=== PATIENT | female | born 1965 | race Caucasian/White ===

== ENCOUNTER 2020-08-12 21:03 | Inpatient (IN) | payer MEDICAID ==
--- NOTE | 2020-08-12 21:28 | ED Physician Documentation ---
History of Present Illness - Stated complaint Stated Complaint: WEAKNESS - Chief complaint Chief Complaint: Critical Care - History obtained from History obtained from: Family (sister) - History of Present Illness Timing: Today Improved by: unknown Worsened by: unknown - Additonal information Additional information: patient presents with AMS and unable to contribute to HPI/ROS. Patient brought to ED by her sister. Patient's daughter says that patient came to stay with her (sister) recently. Sister says that since earlier today, patient has been confused, drowsy, exhibited generalized weakness. Sister says that patient had n/v on Sunday and had blood sugar of 40 at that time. It is not clear how this was addressed (this information was told to ED RN who then gives the information to me; patient's sister is no longer in ED waiting room). Review of Systems Unable to obtain: AMS PD PAST MEDICAL HISTORY - Past Medical History Past Medical History: Yes Endocrine/Autoimmune: Type 1 diabetes Other Past Medical History: fibromyalgia - Present Medications Home Medications: Ambulatory Orders Medication Instructions Recorded Confirmed No Known Home Medications 08/13/20 08/13/20 - Allergies Allergies/Adverse Reactions: Allergies Allergy/AdvReac Type Severity Reaction Status Date / Time No Known Drug Allergies Allergy Verified 08/12/20 21:26 - Living Situation Living Situation: reports: With family PD ED PE NORMAL - Vitals Vital signs reviewed: Yes - General General: Well developed/nourished, Other (awake but lethargic. oriented x 1 (gives name but does not answer any other questions; she appears confused and appears to be having trouble understanding questions)) - HEENT HEENT: PERRL, EOMI, Other (dry mucous membranes) - Neck Neck: Supple, no meningeal sign - Cardiac Cardiac: No murmur - Respiratory Respiratory: No respiratory distress, Clear bilaterally - Abdomen Abdomen: Soft, Non tender - Derm Derm: Normal color, Warm and dry - Extremities Extremities: No edema PD ED PE EXPANDED - Cardiac Cardiac: Tachy, Regular Rhythm Results - Vitals Vitals: Vital Signs - 24 hr 08/12/20 08/12/20 08/12/20 21:05 21:29 22:08 Temperature 36.1 C L Heart Rate 115 H 110 H 99 Respiratory 31 H 19 20 Rate Blood Pressure 125/86 H 125/86 H 169/86 H O2 Saturation 97 96 100 08/12/20 08/12/20 22:30 23:00 Temperature Heart Rate 118 H 104 H Respiratory 15 13 Rate Blood Pressure 127/76 139/63 H O2 Saturation 97 97 Oxygen O2 Source Room air - Labs Labs: Laboratory Tests 08/12/20 08/12/20 08/12/20 21:15 21:15 21:56 WBC 14.5 H RBC 4.30 Hgb 12.7 Hct 37.8 MCV 87.9 MCH 29.5 MCHC 33.6 RDW 12.1 Plt Count 271 MPV 11.8 H Neut # (Auto) 11.9 H Lymph # (Auto) 1.4 L Leake # (Auto) 1.1 H Eos # (Auto) 0.0 Baso # (Auto) 0.1 Absolute Nucleated RBC 0.00 Nucleated RBC % 0.0 VBG pH VBG pCO2 VBG pO2 VBG HCO3 VBG Total CO2 VBG O2 Saturation VBG Base Excess Sodium 136 Potassium 3.9 Chloride 96 L Carbon Dioxide 17 L Anion Gap 23.0 H BUN 61 H Creatinine 2.0 H Estimated GFR (MDRD) 26 L Glucose 726 H* Calcium 9.4 Total Bilirubin 1.2 H AST 20 ALT 24 Alkaline Phosphatase 56 Total Protein 7.4 Albumin 4.0 Globulin 3.4 Albumin/Globulin Ratio 1.2 Lipase 22 Nasal Adenovirus (PCR) NOT DETECTED Nasal B. parapertussis DNA (PCR) NOT DETECTED Nasal Coronavir 229E PCR NOT DETECTED Nasal Coronavir HKU1 PCR NOT DETECTED Nasal Coronavir NL63 PCR NOT DETECTED Nasal Coronavir OC43 PCR NOT DETECTED Nasal Enterovir/Rhinovir PCR DETECTED A Nasal Influenza B PCR NOT DETECTED Nasal Influenza A PCR NOT DETECTED Nasal Parainfluen 1 PCR NOT DETECTED Nasal Parainfluen 2 PCR NOT DETECTED Nasal Parainfluen 3 PCR NOT DETECTED Nasal Parainfluen 4 PCR NOT DETECTED Nasal RSV (PCR) NOT DETECTED Nasal B.pertussis DNA PCR NOT DETECTED Nasal C.pneumoniae (PCR) NOT DETECTED Janes Human Metapneumo PCR NOT DETECTED Nasal M.pneumoniae (PCR) NOT DETECTED Nasal SARS-CoV-2 (PCR) NOT DETECTED Ethyl Alcohol < 5.0 Serum Ketones SMALL H 08/12/20 21:59 WBC RBC Hgb Hct MCV MCH MCHC RDW Plt Count MPV Neut # (Auto) Lymph # (Auto) Leake # (Auto) Eos # (Auto) Baso # (Auto) Absolute Nucleated RBC Nucleated RBC % VBG pH 7.260 L VBG pCO2 33.2 L VBG pO2 72.4 H VBG HCO3 14.6 L VBG Total CO2 15.6 L VBG O2 Saturation 93.1 H VBG Base Excess -11.4 L Sodium Potassium Chloride Carbon Dioxide Anion Gap BUN Creatinine Estimated GFR (MDRD) Glucose Calcium Total Bilirubin AST ALT Alkaline Phosphatase Total Protein Albumin Globulin Albumin/Globulin Ratio Lipase Nasal Adenovirus (PCR) Nasal B. parapertussis DNA (PCR) Nasal Coronavir 229E PCR Nasal Coronavir HKU1 PCR Nasal Coronavir NL63 PCR Nasal Coronavir OC43 PCR Nasal Enterovir/Rhinovir PCR Nasal Influenza B PCR Nasal Influenza A PCR Nasal Parainfluen 1 PCR Nasal Parainfluen 2 PCR Nasal Parainfluen 3 PCR Nasal Parainfluen 4 PCR Nasal RSV (PCR) Nasal B.pertussis DNA PCR Nasal C.pneumoniae (PCR) Janes Human Metapneumo PCR Nasal M.pneumoniae (PCR) Nasal SARS-CoV-2 (PCR) Ethyl Alcohol Serum Ketones - Rads (name of study) chest xray Radiology: Prelim report reviewed, See rad report PD MEDICAL DECISION MAKING - ED course Complexity details: reviewed results, re-evaluated patient, considered differential, d/w family ED course: Patient remained too altered to provide useful contribution to HPI/ROS. I spoke with patient's daughter (Karly Cosby; her contact information is in [employer] under "next of kin"), and she was able to corroborate the information that had been relayed to me as noted under HPI. Regarding the recent episode of hypoglycemia, daughter was able to get patient to take oral glucose gel. Patient's daughter says the patient's glucometer patch malfunctioned and thus patient/daughter were unable to obtain readings today. I note that there is a fingerstick glucometer amongst patient's belongings with strips and needles; daughter was unaware of this but also does not know how to use a fingerstick glucometer. Daugher says patient did not say anything about having the fingerstick glucometer. Daughter says that patient was inpatient in May for DKA at [facility]. ED DYE JIG OPERATOR contacted this facility to request records but records were never received. Also of note is that amongst the patient's prescription bottles in a bag in the ED is a prescription bottle for gabapentin. The label indicates it was filled (in [place]) 06/13/20, #90 tablets TID. The bottle is empty of any medication. Departure - Departure Disposition: [facility] DC/Xfer Clinical Impression: Diabetic ketoacidosis Condition: Stable Discharge Date/Time: 08/12/20 23:59
[2020-08-12 21:46] LABS: BASOPHILS # (AUTO) 0.1 10^3/uL (0.0-0.1); BASOPHILS % (AUTO) 0.4 %; HGB - HEMOGLOBIN 12.7 g/dL (12.0-16.0); LYMPHOCYTES # (AUTO) 1.4 10^3/uL (1.5-3.5); LYMPHOCYTES % (AUTO) 9.4 %; MEAN CORPUSCULAR HEMOGLOBIN 29.5 pg (27.0-31.0); MEAN CORPUSCULAR HGB CONC 33.6 g/dL (32.0-36.0); MEAN CORPUSCULAR VOLUME 87.9 fL (81.0-99.0); MEAN PLATELET VOLUME 11.8 fL (7.9-10.8); MONOCYTES # (AUTO) 1.1 10^3/uL (0.0-1.0); MONOCYTES % (AUTO) 7.9 %; NEUTROPHILS # (AUTO) 11.9 10^3/uL (1.5-6.6); NEUTROPHILS % (AUTO) 81.6 %; PLT - PLATELET COUNT 271 10^3/uL (130-450); RED CELL DISTRIBUTION WIDTH 12.1 % (12.0-15.0); WHITE BLOOD COUNT 14.5 x10^3/uL (4.8-10.8)
[2020-08-12] MEDS ORDERED: INSULIN REGULAR HUMAN 100 UNIT/1 ML 10 ML MDV IVP STA (21:51)
[2020-08-12] MEDS ORDERED: SODIUM CHLORIDE 0.9% 1,000 ML IV STA (21:51)
[2020-08-12 21:52] LABS: KETONES, SERUM (ACETEST) SMALL (NEGATIVE)
[2020-08-12 22:05] LABS: VBG PCO2 33.2 mmHg (41-51); VBG PH 7.26 (7.31-7.41); VBG PO2 72.4 mmHg (25-47); VBG TOTAL CO2 15.6 mmol/L (24-29)
[2020-08-12 22:05] LABS: ALBUMIN/GLOBULIN RATIO 1.2 (1.0-2.2); ALKALINE PHOSPHATASE 56 IU/L (42-121); ALT ALANINE AMINOTRANSFERASE 24 IU/L (10-60); AST ASPARTATE AMINOTRANSFERASE 20 IU/L (10-42); BILIRUBIN,TOTAL 1.2 mg/dL (0.2-1.0); BUN - BLOOD UREA NITROGEN 61 mg/dL (6-20); CALCIUM 9.4 mg/dL (8.5-10.3); CARBON DIOXIDE - CO2 17 mmol/L (21-32); CHLORIDE 96 mmol/L (101-111); LIPASE 22 U/L (22-51); SODIUM 136 mmol/L (135-145); TOTAL PROTEIN 7.4 g/dL (6.7-8.2)
[2020-08-12 22:06] LABS: VBG BASE EXCESS -11.4 mmol/L (-2 - +2)
[2020-08-12 22:07] LABS: GLUCOSE 726 mg/dL (70-100)
[2020-08-12] MEDS ORDERED: ACETAMINOPHEN 325 MG TABLET PO PRN (23:11)
[2020-08-12] MEDS ORDERED: oxyCODONE 5 MG TABLET PO PRN (23:11)
[2020-08-12 23:33] LABS: C. PNEUMONIAE- RESP PCR PANEL NOT DETECTED
[2020-08-12 23:36] LABS: VBG PCO2 29.1 mmHg (41-51); VBG PH 7.342 (7.31-7.41); VBG PO2 63.9 mmHg (25-47)
[2020-08-12 23:37] LABS: VBG TOTAL CO2 16.3 mmol/L (24-29)
[2020-08-12] MEDS ORDERED: ONDANSETRON 4 MG/2 ML VIAL IVP STA (23:38)
[2020-08-12] MEDS ORDERED: INSULIN REGULAR HUMAN 100 UNIT in SODIUM CHLORIDE 0.9% 100ML 99 ML IV SCH (23:45)
[2020-08-12 23:51] LABS: CALCIUM 8.8 mg/dL (8.5-10.3); CREATININE 2.2 mg/dL (0.4-1.0)
[2020-08-12] MEDS ORDERED: INSULIN REGULAR HUMAN 300 UNIT/3 ML VIAL ONE (23:59)
[2020-08-13] MEDS: SODIUM CHLORIDE 0.9% 1,000 ML IV SCH ×2 (00:07→09:47)
[2020-08-13] MEDS ORDERED: INSULIN REGULAR HUMAN 100 UNIT/1 ML 10 ML MDV ONE (00:22)
[2020-08-13] MEDS: SODIUM CHLORIDE FLUSH 0.9% 10 ML SYRINGE IVP PRN ×3 (00:29→20:08)
[2020-08-13] MEDS: POTASSIUM CHLOR 10 MEQ/100 ML 10 MEQ/100 ML BAG IV SCH ×2 (00:29→01:29)
[2020-08-13 00:53] LABS: CALCIUM 8.6 mg/dL (8.5-10.3); CREATININE 2.1 mg/dL (0.4-1.0)
--- NOTE | 2020-08-13 00:56 | HISTORY & PHYSICAL EXAMINATION ---
Chief Complaint - Chief Complaint Chief Complaint: Altered mental status, nausea vomiting History of Present Illness - Admitted From Admitted From:: [facility] ED - History Obtained From History obtained from: Patient's daughter Exam Limitations: Altered mental status - History of Present Illness HPI Comment/Other: Patient is a 55-year-old female with medical history significant for diabetes mellitus, gastroparesis, fibromyalgia who was brought into the ED by her daughter because she was nauseous, vomiting and appeared confused. The patient has not been feeling well for the past 2 days. She has also been complaining of kidney pains. She had breakfast the previous day but declined dinner. The following day her daughter could not get her out of bed. She was less responsive so she brought her to the ED. She recently moved to [facility] from [place] 2 weeks ago to live with her daughter so that she can be closely monitored. While in [place] she had frequent bouts of DKA and was in the hospital at [facility] in [place] with DKA in May 2020. She is yet to exhibition with physician in the area. At bedside she awakes to verbal stimuli but cannot provide any reliable history she seems to answer yes to every thing asked. She has a glucose monitor which is attached to her abdomen however it is reported that it malfunction and there is not able to get accurate readings.. In the ED she was found to have a blood glucose level of 726, anion gap 23 and a pH of 7.26 on VBG. As a result she was presented for admission for further treatment. History - Past Medical History Neuro: reports: Peripheral neuropathy, Other (Gastroporesis) Endocrine/Autoimmune: reports: Type 1 diabetes : reports: Renal insuffiency Musculoskeletal: reports: Fibromyalgia - Past Surgical History Other past surgical history: No surgical history - Family & Social History Family History Comment/Other: Her father from an [place] at age 40s. Her mother has history of breast cancer, hyperlipidemia, hypertension, [place] and dementia. One of her sisters had brain cancer. Another sister had an unspecified gynecological cancer. Social History Notes: Recently moved from [place] to [facility] to live with her daughter due to health reasons. She needs family member to closely monitor medications and medical problems. She does not smoke tobacco products, use alcohol or recreational drugs - POLST Patient has POLST: No POLST Status: Full Code Meds/Allgy - Allergies Allergies/Adverse Reactions: Allergies Allergy/AdvReac Type Severity Reaction Status Date / Time No Known Drug Allergies Allergy Verified 08/12/20 21:26 Review of Systems - Other Findings Other Findings: Review of system is limited because the patient is currently altered and unable to provide a reliable history. Prior Level of Functionality: Cannot establish her level of activity of independence currently due to altered mental status Exam - Vital Signs Vital Signs: Vital Signs x48h Temp Pulse Pulse Resp BP BP Pulse Ox 08/13/20 00:45 37 C 108 H 22 158/101 H 100 08/12/20 23:38 110 H 19 136/92 H 98 08/12/20 23:00 104 H 13 139/63 H 97 08/12/20 22:30 118 H 15 127/76 97 08/12/20 22:08 99 20 169/86 H 100 08/12/20 21:29 110 H 19 125/86 H 96 08/12/20 21:05 36.1 C L 115 H 31 H 125/86 H 97 - Physical Exam General Appearance: positive: Mild distress, Moderate distress, Other (Awake not able to answer question) Eyes Bilateral: positive: PERRL, EOMI ENT: positive: Dry mucous membranes Neck: positive: No JVD, Trachea midline Respiratory: positive: Chest non-tender, No respiratory distress, Breath sounds nml. negative: Wheezes, Rales, Rhonchi Cardiovascular: positive: No murmur, Tachycardia Abdomen: positive: Non-tender, No organomegaly, Nml bowel sounds, No distention. negative: Guarding Back: positive: CVA tenderness (R), CVA tenderness (L) Skin: positive: Color nml, No rash, Warm, Dry. negative: Diaphoresis Extremities: positive: Non-tender, Nml appearance, No pedal edema Neurologic/Psychiatric: negative: Oriented x3 Conclusion/Plan - Problem List (1) Diabetic ketoacidosis Conclusion/Plan: Blood glucose was 726, anion gap 23 and pH 7.23 Patient admitted to the ICU. DKA protocol initiated. Patient receiving IV hydration. Insulin drip. Accu-Cheks and adjustments per protocol. Qualifiers: Diabetes mellitus type: type 1 Diabetes mellitus complication detail: without coma Qualified Code(s): E10.10 - Type 1 diabetes mellitus with ketoacidosis without coma (2) Acute renal failure Conclusion/Plan: Likely due to dehydration. Anticipating improvement with IV hydration. We will recheck creatinine with BMP. (3) Leukocytosis Conclusion/Plan: Etiology undetermined. Chest x-ray was unremarkable. Urinanalysis pending. (4) Gastroparesis Conclusion/Plan: Reglan ordered (5) Fibromyalgia Conclusion/Plan: Patient is on gabapentin. Will Hold for now until patient's mentation is improved. Need to clarify and ensure patient did not take too much of it Patient's prescription bottles which were recently filled for 3 months worth were noted to be empty. - Lab Results Fish Bones: 08/12/20 21:15 08/12/20 23:30 Core Measures - Anticipated LOS I expect patient to be DC'd or transferred within 96 hours.: Yes - DVT/VTE - Prophylaxis VTE/DVT Device ordered at admit?: Yes VTE/DVT Prophylaxis med ordered at admit?: Yes
[2020-08-13] MEDS ORDERED: METOCLOPRAMIDE 10 MG TABLET PO SCH (01:00)
[2020-08-13] MEDS: SODIUM CHLORIDE FLUSH 0.9% 10 ML SYRINGE IVP SCH ×4 (01:29→22:14)
[2020-08-13] MEDS: METOCLOPRAMIDE 10 MG/2 ML VIAL IVP PRN ×4 (01:29→22:25)
[2020-08-13 01:57] LABS: MUDS CUTOFF CONCENTRATIONS CUTOFF CONC BELOW:
[2020-08-13 01:58] LABS: GLUCOSE, URINE (UA) >=1000 mg/dL (NEGATIVE); KETONES,URINE (UA) 15 mg/dL (NEGATIVE); LEUKOCYTE ESTERASE, URINE TRACE (NEGATIVE); NITRITE,URINE NEGATIVE (NEGATIVE); OCCULT BLOOD,URINE MODERATE (NEGATIVE); PROTEIN,URINE >=300 mg/dL (NEGATIVE); UROBILINOGEN,URINE 0.2 (NORMAL) E.U./dL (NORMAL)
[2020-08-13 02:01] LABS: BILIRUBIN,URINE NEGATIVE (NEGATIVE); CLARITY,URINE SL. CLOUDY (CLEAR); ICTOTEST,URINE NEGATIVE
[2020-08-13 02:05] LABS: BACTERIA,URINE Moderate /HPF (None Seen); SQUAMOUS EPITHELIAL CELL,UR NONE SEEN (<= Few)
[2020-08-13 02:09] LABS: AMPHETAMINE SCREEN,URINE NEGATIVE (NEGATIVE); BENZODIAZEPINES SCREEN, URINE NEGATIVE (NEGATIVE); COCAINE SCREEN URINE NEGATIVE (NEGATIVE); METHADONE SCREEN, URINE NEGATIVE (NEGATIVE); METHAMPHETAMINES SCREEN, URINE NEGATIVE (NEGATIVE); OPIATE SCREEN, URINE NEGATIVE (NEGATIVE); OXYCODONE SCREEN, URINE NEGATIVE (NEGATIVE); PROPOXYPHENE SCREEN, URINE NEGATIVE (NEGATIVE); TRICYCLIC ANTIDEPRESSANT,URINE NEGATIVE (NEGATIVE)
[2020-08-13] MEDS: DEXTROSE 5%-0.45% NACL 1,000 ML IV SCH ×2 (02:11→06:23)
[2020-08-13 03:03] LABS: CALCIUM 8.6 mg/dL (8.5-10.3)
[2020-08-13 03:36] LABS: BASOPHILS # (AUTO) 0.1 10^3/uL (0.0-0.1); BASOPHILS % (AUTO) 0.4 %; HGB - HEMOGLOBIN 10.5 g/dL (12.0-16.0); LYMPHOCYTES # (AUTO) 1.4 10^3/uL (1.5-3.5); LYMPHOCYTES % (AUTO) 10.2 %; MEAN CORPUSCULAR HEMOGLOBIN 29.2 pg (27.0-31.0); MEAN CORPUSCULAR HGB CONC 33.9 g/dL (32.0-36.0); MEAN CORPUSCULAR VOLUME 86.4 fL (81.0-99.0); MEAN PLATELET VOLUME 11.5 fL (7.9-10.8); MONOCYTES # (AUTO) 1.2 10^3/uL (0.0-1.0); MONOCYTES % (AUTO) 8.3 %; NEUTROPHILS # (AUTO) 11.1 10^3/uL (1.5-6.6); NEUTROPHILS % (AUTO) 80.4 %; PLT - PLATELET COUNT 247 10^3/uL (130-450); RED BLOOD COUNT 3.59 10^6/uL (4.20-5.40); RED CELL DISTRIBUTION WIDTH 11.9 % (12.0-15.0); WHITE BLOOD COUNT 13.8 x10^3/uL (4.8-10.8)
[2020-08-13] MEDS ORDERED: POTASSIUM CHLOR 10 MEQ/100 ML 10 MEQ/100 ML BAG IV ONE ×7 (03:57→22:19)
[2020-08-13] MEDS: cefTRIAXone 1 GM in SODIUM CHLORIDE 0.9% MINIBAG 100 ML IV SCH (05:00)
[2020-08-13 05:14] LABS: VBG PH 7.362 (7.31-7.41)
[2020-08-13 05:18] LABS: CALCIUM 8.7 mg/dL (8.5-10.3)
[2020-08-13] MEDS: ONDANSETRON 4 MG/2 ML VIAL IVP PRN ×2 (06:01→20:08)
--- NOTE | 2020-08-13 07:27 | XRAY Report ---
PROCEDURE: Chest 1 View X-Ray INDICATIONS: AMS TECHNIQUE: One view of the chest was acquired. COMPARISON: None FINDINGS: Surgical changes and devices: None. Lungs and pleura: No pleural effusions or pneumothorax. Lungs are clear. Mediastinum: Mediastinal contours appear normal. Heart size is normal. Bones and chest wall: No suspicious bony lesions. Overlying soft tissues appear unremarkable. IMPRESSION: No acute cardiopulmonary disease process. Reviewed by: Geeta Padilla MD, PhD on 08/13/2020 7:24 AM [facility] Approved by: Geeta Padilla MD, PhD on 08/13/2020 7:24 AM [facility] Station ID: [id number]
[2020-08-13] MEDS ORDERED: cefTRIAXone 1 GM in SODIUM CHLORIDE 0.9% MINIBAG 100 ML IV SCH (09:00)
[2020-08-13] MEDS: DEXTROSE 5%-0.9% NACL 1,000 ML IV SCH ×3 (09:48→23:32)
[2020-08-13] MEDS: ENOXAPARIN 40 MG/0.4 ML SYRINGE SUBQ SCH (09:48)
--- NOTE | 2020-08-13 11:14 | PHARMACY PROGRESS NOTE ---
- Best Possible Medication History Admit Date and Time: 08/12/20 4765 Processed by: Pharmacy Medication History completed: Yes Patient Interview: Pt unable to participate Secondary Source(s): Pharmacy records, Insurance records Patient has empty bottle of pregabalin 150mg po TID, but this medication has not been filled regularly and was last filled on 06/13/2020. As the person ultimately responsible for medication therapy, providers are able to order a medication from an existing home medication list in [facility] via the "Reconcile Routine" prior to Confirmation of that medication by logistics support. Such practice is discouraged except when the physician, in their clinical judgment, deems that a medical need exists for a medication without regard to previous use.
[2020-08-13] MEDS: INSULIN REGULAR HUMAN 100 UNIT in SODIUM CHLORIDE 0.9% 100ML 99 ML IV SCH (15:13)
--- NOTE | 2020-08-13 16:23 | PROVIDER PROGRESS NOTE ---
Assessment/Plan - Problem List (1) Diabetic ketoacidosis Qualifiers: Diabetes mellitus type: type 1 Diabetes mellitus complication detail: without coma Qualified Code(s): E10.10 - Type 1 diabetes mellitus with ketoacidosis without coma Assessment/Plan: Blood glucose was 726, anion gap 23 and pH 7.23 Patient admitted to the ICU. DKA protocol initiated. Patient receiving IV hydration. Insulin drip. Accu-Cheks and adjustments per protocol. (2) Acute renal failure Conclusion/Plan: Likely due to dehydration. Creat was 2.2>> 2.0 improving with IV hydration. Follow BMP daily Avoid nephrotoxins (3) UTI Conclusion/Plan: Etiology of elevated WBC appears to be UTI, U/A was very abnormal. She is too lethargic to confirm any urinary symptoms. Chest x-ray was unremarkable. Empiric iv antibiotic started. Follow CBC daily Await urine cx (4) Gastroparesis Conclusion/Plan: Reglan ordered (5) Fibromyalgia Conclusion/Plan: Patient is on gabapentin at home Still holding for now until patient's mentation is improved. Need to clarify and ensure patient did not take too much of it. Patient's prescription bottles which were recently filled for 3 months worth were noted to be empty. (6) Altered mental status She is still very lethargic, unable to follow directions or swallow pills. Will not order a diet yet. Concern for having taken too many of her gabapentin tablets (see above in #5) (7) Anemia Hemodilutional due to aggressive fluid resuscitation. We will check B12, folate levels and iron stores and replace if low - Current Meds Current Meds: Current Medications Generic Name Dose Route Start Last Admin Trade Name Sai PRN Reason Stop Dose Admin Enoxaparin Sodium 40 mg 08/13/20 09:00 08/13/20 09:48 Enoxaparin 40 Mg/0.4 Ml Syringe SUBQ 40 mg DAILY MEL Administration Ceftriaxone Sodium 1 gm/ 100 mls @ 200 mls/hr 08/13/20 03:59 08/13/20 05:35 Sodium Chloride IV Infused Q24H MEL Infusion Insulin Human Regular 100 unit 100 mls @ 5 mls/hr 08/13/20 15:00 08/13/20 16:15 / Sodium Chloride IV 1.7 unit/hr .Q20H MEL 1.7 mls/hr Titration Protocol 5 UNIT/HR Dextrose/Sodium Chloride 1,000 mls @ 150 mls/hr 08/13/20 09:00 08/13/20 15:15 D5ns IV 150 mls/hr .Q6H40M MEL Infusion Metoclopramide HCl 5 mg 08/13/20 01:02 08/13/20 08:02 Metoclopramide 10 Mg/2 Ml Vial IVP 5 mg Q6HR PRN Administration Nausea / Vomiting Ondansetron HCl 4 mg 08/13/20 00:48 08/13/20 06:01 Ondansetron 4 Mg/2 Ml Vial IVP 4 mg Q6HR PRN Administration Nausea / Vomiting Sodium Chloride 10 ml 08/13/20 01:00 08/13/20 09:49 Sodium Chloride Flush 0.9% 10 Ml Syringe IVP Not Given 0100,0900,1700 MEL Sodium Chloride 10 ml 08/12/20 23:11 08/13/20 06:01 Sodium Chloride Flush 0.9% 10 Ml Syringe IVP 10 ml PRN PRN Administration NEEDED PER PROVIDER ORDERS - Lab Result Fish Bone Diagrams: 08/13/20 02:45 08/13/20 15:45 - Additional Planning My Orders: My Active Orders 08/13/20 09:00 Dextrose 5%-0.9% NaCl [D5ns] 1,000 ml IV 150 mls/hr 08/13/20 12:18 [place] Insertion [RC] QSHIFT Subjective - Subjective Patient Reports: Resting Comfortably, Other (Sleeping) Objective Vital Signs: Vital Signs - 24 hr 08/12/20 08/12/20 08/12/20 21:05 21:29 22:08 Temperature 36.1 C L Heart Rate 115 H 110 H 99 Heart Rate [ Monitoring electrodes] Respiratory 31 H 19 20 Rate Blood Pressure 125/86 H 125/86 H 169/86 H Blood Pressure [Right Brachial artery] O2 Saturation 97 96 100 08/12/20 08/12/20 08/12/20 22:30 23:00 23:38 Temperature Heart Rate 118 H 104 H 110 H Heart Rate [ Monitoring electrodes] Respiratory 15 13 19 Rate Blood Pressure 127/76 139/63 H 136/92 H Blood Pressure [Right Brachial artery] O2 Saturation 97 97 98 08/13/20 08/13/20 08/13/20 00:45 01:00 02:00 Temperature 37 C Heart Rate Heart Rate [ 108 H 111 H 110 H Monitoring electrodes] Respiratory 22 15 14 Rate Blood Pressure Blood Pressure 158/101 H 158/86 H 142/73 H [Right Brachial artery] O2 Saturation 100 99 99 08/13/20 08/13/20 08/13/20 03:00 04:00 05:00 Temperature 37.4 C Heart Rate Heart Rate [ 109 H 109 H Monitoring electrodes] Respiratory 13 12 Rate Blood Pressure Blood Pressure 119/60 130/70 [Right Brachial artery] O2 Saturation 98 97 08/13/20 08/13/20 08/13/20 06:00 07:00 08:00 Temperature 37.2 C Heart Rate Heart Rate [ 98 106 H 113 H Monitoring electrodes] Respiratory 14 18 14 Rate Blood Pressure Blood Pressure 165/72 H 140/85 H 168/73 H [Right Brachial artery] O2 Saturation 98 98 96 08/13/20 08/13/20 08/13/20 09:00 10:00 11:00 Temperature Heart Rate Heart Rate [ 103 H 107 H 92 Monitoring electrodes] Respiratory 13 11 L 14 Rate Blood Pressure Blood Pressure 139/86 H 154/82 H 156/82 H [Right Brachial artery] O2 Saturation 97 98 97 08/13/20 08/13/20 08/13/20 12:00 13:00 14:00 Temperature 36.6 C Heart Rate Heart Rate [ 94 91 93 Monitoring electrodes] Respiratory 12 14 12 Rate Blood Pressure Blood Pressure 169/92 H 157/86 H 161/86 H [Right Brachial artery] O2 Saturation 98 98 08/13/20 08/13/20 15:00 16:00 Temperature 36.9 C Heart Rate Heart Rate [ 104 H 95 Monitoring electrodes] Respiratory 14 14 Rate Blood Pressure Blood Pressure 198/86 H 170/97 H [Right Brachial artery] O2 Saturation 97 98 Oxygen O2 Source Room air I&O (Last 24 Hrs): Intake and Output Totals x24h 08/11/20 08/12/20 08/13/20 23:59 23:59 23:59 Intake Total 1000 2893.290 Output Total 1035 Balance 1000 1858.290 General: Other (Sleeping) HEENT: Mucous membr. moist/pink, Other (edentulous?) Neck: Supple Neuro: Non Focal, Other (lethargic) Cardiovascular: Regular rate, No murmurs Respiratory: No respiratory distress, Breath sounds nml Abdomen: Soft Extremities: No edema - Results Results: Laboratory Results WBC 13.8 x10^3/uL (4.8-10.8) H 08/13/20 02:45 RBC 3.59 10^6/uL (4.20-5.40) L 08/13/20 02:45 Hgb 10.5 g/dL (12.0-16.0) L 08/13/20 02:45 Hct 31.0 % (37.0-47.0) L 08/13/20 02:45 MCV 86.4 fL (81.0-99.0) 08/13/20 02:45 MCH 29.2 pg (27.0-31.0) 08/13/20 02:45 MCHC 33.9 g/dL (32.0-36.0) 08/13/20 02:45 RDW 11.9 % (12.0-15.0) L 08/13/20 02:45 Plt Count 247 10^3/uL (130-450) 08/13/20 02:45 MPV 11.5 fL (7.9-10.8) H 08/13/20 02:45 Neut # (Auto) 11.1 10^3/uL (1.5-6.6) H 08/13/20 02:45 Lymph # (Auto) 1.4 10^3/uL (1.5-3.5) L 08/13/20 02:45 [place] # (Auto) 1.2 10^3/uL (0.0-1.0) H 08/13/20 02:45 Eos # (Auto) 0.0 10^3/uL (0.0-0.7) 08/13/20 02:45 Baso # (Auto) 0.1 10^3/uL (0.0-0.1) 08/13/20 02:45 Absolute Nucleated RBC 0.00 x10^3/uL 08/13/20 02:45 Nucleated RBC % 0.0 /100WBC 08/13/20 02:45 VBG pH 7.362 (7.31-7.41) 08/13/20 04:28 VBG pCO2 29.1 mmHg (41-51) L 08/12/20 23:30 VBG pO2 63.9 mmHg (25-47) H 08/12/20 23:30 VBG HCO3 15.4 mmol/L (23-28) L 08/12/20 23:30 VBG Total CO2 16.3 mmol/L (24-29) L 08/12/20 23:30 VBG O2 Saturation 92.3 % (60-80) H 08/12/20 23:30 VBG Base Excess -9.0 mmol/L (-2 - +2) L 08/12/20 23:30 Ionized Calcium 1.15 mmol/L (1.15-1.33) 08/13/20 04:28 Sodium 139 mmol/L (135-145) 08/13/20 04:28 Potassium 3.5 mmol/L (3.5-5.0) 08/13/20 15:45 Chloride 108 mmol/L (101-111) 08/13/20 04:28 Carbon Dioxide 20 mmol/L (21-32) L 08/13/20 04:28 Anion Gap 11.0 (6-13) 08/13/20 04:28 BUN 75 mg/dL (6-20) H 08/13/20 04:28 Creatinine 2.0 mg/dL (0.4-1.0) H 08/13/20 04:28 Estimated GFR (MDRD) 26 (>89) L 08/13/20 04:28 Glucose 302 mg/dL (70-100) H 08/13/20 04:28 POC Whole Bld Glucose 140 mg/dL (70 - 100) H 08/13/20 16:12 Calcium 8.7 mg/dL (8.5-10.3) 08/13/20 04:28 Phosphorus 3.1 mg/dL (2.5-4.6) 08/13/20 02:45 Magnesium 2.0 mg/dL (1.7-2.8) 08/13/20 04:28 Total Bilirubin 1.2 mg/dL (0.2-1.0) H 08/12/20 21:15 AST 20 IU/L (10-42) 08/12/20 21:15 ALT 24 IU/L (10-60) 08/12/20 21:15 Alkaline Phosphatase 56 IU/L (42-121) 08/12/20 21:15 Ammonia 19.5 umol/L (7-35) 08/13/20 01:50 Total Protein 7.4 g/dL (6.7-8.2) 08/12/20 21:15 Albumin 4.0 g/dL (3.2-5.5) 08/12/20 21:15 Globulin 3.4 g/dL (2.1-4.2) 08/12/20 21:15 Albumin/Globulin Ratio 1.2 (1.0-2.2) 08/12/20 21:15 Lipase 22 U/L (22-51) 08/12/20 21:15 Urine Color YELLOW 08/13/20 01:30 Urine Clarity SL. CLOUDY (CLEAR) 08/13/20 01:30 Urine pH 6.0 PH (5.0-7.5) 08/13/20 01:30 Ur Specific [place] >=1.030 (1.002-1.030) H 08/13/20 01:30 Urine Protein >=300 mg/dL (NEGATIVE) H 08/13/20 01:30 Urine Glucose (UA) >=1000 mg/dL (NEGATIVE) H 08/13/20 01:30 Urine Ketones 15 mg/dL (NEGATIVE) H 08/13/20 01:30 Urine Occult Blood MODERATE (NEGATIVE) H 08/13/20 01:30 Urine Nitrite NEGATIVE (NEGATIVE) 08/13/20 01:30 Urine Bilirubin NEGATIVE (NEGATIVE) 08/13/20 01:30 Urine Urobilinogen 0.2 (NORMAL) E.U./dL (NORMAL) 08/13/20 01:30 Ur Leukocyte Esterase TRACE (NEGATIVE) H 08/13/20 01:30 Urine RBC 6-10 /HPF (0-5) H 08/13/20 01:30 Urine WBC >25 /HPF (0-5) H 08/13/20 01:30 Ur Squamous Epith Cells NONE SEEN (<= Few) 08/13/20 01:30 Urine Bacteria Moderate /HPF (None Seen) H 08/13/20 01:30 Ur Microscopic Review INDICATED 08/13/20 01:30 Urine Culture Comments INDICATED 08/13/20 01:30 Nasal Adenovirus (PCR) NOT DETECTED 08/12/20 21:56 Nasal B. parapertussis DNA (PCR) NOT DETECTED 08/12/20 21:56 Nasal Coronavir 229E PCR NOT DETECTED 08/12/20 21:56 Nasal Coronavir HKU1 PCR NOT DETECTED 08/12/20 21:56 Nasal Coronavir NL63 PCR NOT DETECTED 08/12/20 21:56 Nasal Coronavir OC43 PCR NOT DETECTED 08/12/20 21:56 Nasal Enterovir/Rhinovir PCR DETECTED A 08/12/20 21:56 Nasal Influenza B PCR NOT DETECTED 08/12/20 21:56 Nasal Influenza A PCR NOT DETECTED 08/12/20 21:56 Nasal Parainfluen 1 PCR NOT DETECTED 08/12/20 21:56 Nasal Parainfluen 2 PCR NOT DETECTED 08/12/20 21:56 Nasal Parainfluen 3 PCR NOT DETECTED 08/12/20 21:56 Nasal Parainfluen 4 PCR NOT DETECTED 08/12/20 21:56 Nasal RSV (PCR) NOT DETECTED 08/12/20 21:56 Nasal Screen MRSA (PCR) NEGATIVE (NEGATIVE) 08/13/20 00:00 Nasal B.pertussis DNA PCR NOT DETECTED 08/12/20 21:56 Nasal C.pneumoniae (PCR) NOT DETECTED 08/12/20 21:56 Janes Human Metapneumo PCR NOT DETECTED 08/12/20 21:56 Nasal M.pneumoniae (PCR) NOT DETECTED 08/12/20 21:56 Nasal SARS-CoV-2 (PCR) NOT DETECTED 08/12/20 21:56 Urine Opiates Screen NEGATIVE (NEGATIVE) 08/13/20 01:30 Ur Oxycodone Screen NEGATIVE (NEGATIVE) 08/13/20 01:30 Urine Methadone Screen NEGATIVE (NEGATIVE) 08/13/20 01:30 Ur Propoxyphene Screen NEGATIVE (NEGATIVE) 08/13/20 01:30 Ur Barbiturates Screen NEGATIVE (NEGATIVE) 08/13/20 01:30 Ur Tricyclics Screen NEGATIVE (NEGATIVE) 08/13/20 01:30 Ur Phencyclidine Scrn NEGATIVE (NEGATIVE) 08/13/20 01:30 Ur Amphetamine Screen NEGATIVE (NEGATIVE) 08/13/20 01:30 U Methamphetamines Scrn NEGATIVE (NEGATIVE) 08/13/20 01:30 U Benzodiazepines Scrn NEGATIVE (NEGATIVE) 08/13/20 01:30 Urine Cocaine Screen NEGATIVE (NEGATIVE) 08/13/20 01:30 U Cannabinoids Screen NEGATIVE (NEGATIVE) 08/13/20 01:30 Ethyl Alcohol < 5.0 mg/dL 08/12/20 21:15 Serum Ketones SMALL (NEGATIVE) H 08/12/20 21:15
[2020-08-13] MEDS: SODIUM CHLORIDE 0.9% 500 ML IV PRN (18:48)
[2020-08-13] MEDS: MORPHINE 2 MG/ML CARPUJECT IVP PRN (20:39)
[2020-08-13] MEDS: METOPROLOL 5 MG/5 ML VIAL IVP PRN (22:11)
[2020-08-13 22:16] LABS: MAGNESIUM 2.1 mg/dL (1.7-2.8); PHOSPHORUS 2.1 mg/dL (2.5-4.6)
[2020-08-13] MEDS ORDERED: POTASSIUM PHOSPHATE 15 MMOL in SODIUM CHLORIDE 0.9% 250 ML IV ONE (23:30)
[2020-08-14] MEDS: METOCLOPRAMIDE 10 MG/2 ML VIAL IVP SCH ×5 (00:27→17:49)
[2020-08-14] MEDS: hydrALAZINE INJ 20 MG/ML VIAL IVP PRN ×3 (00:31→17:30)
[2020-08-14] MEDS: SODIUM CHLORIDE FLUSH 0.9% 10 ML SYRINGE IVP PRN ×2 (00:33→20:47)
[2020-08-14] MEDS: MORPHINE 2 MG/ML CARPUJECT IVP PRN ×3 (04:26→17:30)
[2020-08-14 04:30] LABS: VBG PH 7.459 (7.31-7.41)
[2020-08-14 04:33] LABS: CALCIUM 8.8 mg/dL (8.5-10.3); CREATININE 1.2 mg/dL (0.4-1.0); PHOSPHORUS 2.8 mg/dL (2.5-4.6)
[2020-08-14] MEDS ORDERED: POTASSIUM CHLOR 10 MEQ/100 ML 10 MEQ/100 ML BAG IV ONE ×2 (04:34→09:30)
[2020-08-14] MEDS: METOPROLOL 5 MG/5 ML VIAL IVP PRN ×3 (04:35→20:47)
[2020-08-14 04:52] LABS: FOLATE 10.25 ng/mL (5.90 - >24.8)
[2020-08-14 05:10] LABS: BASOPHILS # (AUTO) 0.1 10^3/uL (0.0-0.1); BASOPHILS % (AUTO) 0.5 %; EOSINOPHILS % (AUTO) 0.1 %; HGB - HEMOGLOBIN 10.7 g/dL (12.0-16.0); LYMPHOCYTES # (AUTO) 1.3 10^3/uL (1.5-3.5); LYMPHOCYTES % (AUTO) 9.5 %; MEAN CORPUSCULAR HEMOGLOBIN 29.1 pg (27.0-31.0); MEAN CORPUSCULAR HGB CONC 33.2 g/dL (32.0-36.0); MEAN CORPUSCULAR VOLUME 87.5 fL (81.0-99.0); MEAN PLATELET VOLUME 10.9 fL (7.9-10.8); MONOCYTES # (AUTO) 1.2 10^3/uL (0.0-1.0); MONOCYTES % (AUTO) 8.9 %; NEUTROPHILS # (AUTO) 10.8 10^3/uL (1.5-6.6); PLT - PLATELET COUNT 211 10^3/uL (130-450); RED BLOOD COUNT 3.68 10^6/uL (4.20-5.40); RED CELL DISTRIBUTION WIDTH 12.4 % (12.0-15.0); WHITE BLOOD COUNT 13.5 x10^3/uL (4.8-10.8)
[2020-08-14] MEDS: DEXTROSE 5%-0.9% NACL 1,000 ML IV SCH (06:36)
[2020-08-14] MEDS ORDERED: DEXTROSE 5%-0.9% NACL 1,000 ML IV SCH (08:41)
--- NOTE | 2020-08-14 08:42 | PROVIDER PROGRESS NOTE ---
Assessment/Plan - Problem List (1) Diabetic ketoacidosis Qualifiers: Diabetes mellitus type: type 1 Diabetes mellitus complication detail: without coma Qualified Code(s): E10.10 - Type 1 diabetes mellitus with ketoacidosis without coma Assessment/Plan: Resolving. She is still on 5 units of insulin drip and D5 with NS and replacements. Slowly decreasing the IV fluids as she is awakening to take a diet and therefore decreasing her insulin drip. This is her first admission to this hospital ever. She just moved to [facility] several weeks ago. Will transition to her insulin and a diet, as tolerated (2) Pyelonephritis Assessment/Plan: The geriatric social work professor ordered a CT abdomen because of what appeared to be abdominal pain and her UTI. The CT shows evidence of pyelonephritis (bilateral perinephric stranding). Continue with IV antibiotics. The urine culture is growing Beta-hemolytic Strep. Sensitivities are not usually done for Beta-hemolytic Strep, it is sensitivity to penicillins and cephalosporins. Continue iv Rocephin. (3) Enteritis Assessment/Plan: She is laying on her left lateral decubitus position with a pillow over her abdomen and knees tucked up as if she has abdominal discomfort. She is not verbalizing to tell us of any pain. The CT of the abdomen also showed diffuse mesenteric edema and presacral inflammatory changes which could be enteritis/colitis. There was no bowel obstruction, ascites or free air. She is needing IV narcotics for pain and Zofran as needed nausea. We will heard advance her diet to clear liquids when she is ready. (4) Altered mental status Assessment/Plan: She is still very lethargic, unable to follow directions or swallow pills. Will not order a diet yet. Concern for having taken too many of her gabapentin tablets. This was communicated to Social Work today. Will request Social Work to find out details of her recent activity, as she apparently just moved in with her daughter 2 weeks ago, moved here from [place]. She will need a Social Work consult for intentional or unintended ingestion of medications, when she is alert and able to communicate. (5) Acute renal failure Assessment/Plan: Creatinine was 2.0 on admission, has improved to 1.2 today Improving with IV fluids. Follow BMP daily. Avoid nephrotoxins (6) Gastroparesis Assessment/Plan: Reglan ordered. Unknown if this is new gastroparesis or chronic. (7) Fibromyalgia Assessment/Plan: Patient is on gabapentin at home Still holding gabapentin for now until patient's mentation is improved. Need to clarify and ensure patient did not take too much of it. Patient's prescription bottles which were recently filled for 3 months worth were noted to be empty, as per admission H&P. (8) Anemia Assessment/Plan: Suspect hemodilutional anemia due to aggressive fluid resuscitation for 2 days. B12, folate levels and iron stores were checked and all are normal. This is either anemia of chronic disease but most likely hemodilutional. (9) Acute urinary retention Assessment/Plan: The patient voided in a bedpan yestereday, and also needed an in and out cath yesdterday. Bladder scan then showed about 400 mL residual urine in the bladder. She was not voiding again on the bedpan. [place] catheter was inserted yesterday to monitor I's and O's and because of acute urinary retention. - Current Meds Current Meds: Current Medications Generic Name Dose Route Start Last Admin Trade Name Freq PRN Reason Stop Dose Admin Enoxaparin Sodium 40 mg 08/13/20 09:00 08/13/20 09:48 Enoxaparin 40 Mg/0.4 Ml Syringe SUBQ 40 mg DAILY MEL Administration Hydralazine HCl 10 mg 08/13/20 23:41 08/14/20 00:31 Hydralazine Inj 20 Mg/Ml Vial IVP 10 mg Q6H PRN Administration Hypertensive Emergency Ceftriaxone Sodium 1 gm/ 100 mls @ 200 mls/hr 08/13/20 03:59 08/13/20 05:35 Sodium Chloride IV Infused Q24H MEL Infusion Insulin Human Regular 100 unit 100 mls @ 5 mls/hr 08/13/20 15:00 08/14/20 08:00 / Sodium Chloride IV 6.2 unit/hr .Q20H MEL 6.2 mls/hr Titration Protocol 5 UNIT/HR Sodium Chloride 500 mls @ 20 mls/hr 08/13/20 18:19 08/14/20 08:00 Normal Saline 0.9% IV 20 mls/hr Q24H PRN Infusion TKO RATE Metoclopramide HCl 5 mg 08/13/20 23:45 08/14/20 06:11 Metoclopramide 10 Mg/2 Ml Vial IVP 5 mg Q6HR MEL Administration Metoprolol Tartrate 5 mg 08/13/20 21:44 08/14/20 04:35 Metoprolol 5 Mg/5 Ml Vial IVP 5 mg Q6H PRN Administration Hypertensive Emergency Morphine Sulfate 2 mg 08/13/20 01:58 08/14/20 04:26 Morphine 2 Mg/Ml Carpuject IVP 2 mg Q2HR PRN Administration PAIN Ondansetron HCl 4 mg 08/13/20 00:48 08/13/20 20:08 Ondansetron 4 Mg/2 Ml Vial IVP 4 mg Q6HR PRN Administration Nausea / Vomiting Sodium Chloride 10 ml 08/13/20 01:00 08/13/20 22:14 Sodium Chloride Flush 0.9% 10 Ml Syringe IVP 10 ml 0100,0900,1700 MEL Administration Sodium Chloride 10 ml 08/12/20 23:11 08/14/20 00:33 Sodium Chloride Flush 0.9% 10 Ml Syringe IVP 10 ml PRN PRN Administration NEEDED PER PROVIDER ORDERS - Lab Result Fish Bone Diagrams: 08/14/20 04:59 08/14/20 08:39 - Additional Planning My Orders: My Active Orders 08/13/20 12:18 Lawton Insertion [RC] QSHIFT 08/14/20 08:31 POTASSIUM [CHEM] Stat 08/14/20 08:41 Dextrose 5%-0.9% NaCl [D5ns] 1,000 ml IV 100 mls/hr Subjective - Subjective Patient Reports: Resting Comfortably, No Complaints Nursing Reports: Other (Was fidgety this morning, trying to get out of bed, appeared to be in pain, blood pressure was 180 systolic.) Objective Vital Signs: Vital Signs - 24 hr 08/13/20 08/13/20 08/13/20 09:00 10:00 11:00 Temperature Heart Rate [ 103 H 107 H 92 Monitoring electrodes] Respiratory 13 11 L 14 Rate Blood Pressure Blood Pressure 139/86 H 154/82 H 156/82 H [Right Brachial artery] O2 Saturation 97 98 97 08/13/20 08/13/20 08/13/20 12:00 13:00 14:00 Temperature 36.6 C Heart Rate [ 94 91 93 Monitoring electrodes] Respiratory 12 14 12 Rate Blood Pressure Blood Pressure 169/92 H 157/86 H 161/86 H [Right Brachial artery] O2 Saturation 98 98 12/18/20 12/18/20 12/18/20 15:00 16:00 17:00 Temperature 36.9 C Heart Rate [ 104 H 95 104 H Monitoring electrodes] Respiratory 14 14 14 Rate Blood Pressure Blood Pressure 198/86 H 170/97 H 174/88 H [Right Brachial artery] O2 Saturation 97 98 99 08/13/20 08/13/20 08/13/20 18:00 19:00 20:00 Temperature 37.2 C Heart Rate [ 107 H 102 H 98 Monitoring electrodes] Respiratory 15 17 15 Rate Blood Pressure Blood Pressure 176/100 H 167/83 H 173/94 H [Right Brachial artery] O2 Saturation 98 97 98 08/13/20 08/13/20 08/13/20 21:00 22:00 22:10 Temperature Heart Rate [ 93 87 94 Monitoring electrodes] Respiratory 13 13 Rate Blood Pressure Blood Pressure 189/98 H 186/94 H 183/94 H [Right Brachial artery] O2 Saturation 98 99 08/13/20 08/13/20 08/13/20 22:11 22:15 22:20 Temperature Heart Rate [ 81 81 Monitoring electrodes] Respiratory Rate Blood Pressure 183/98 H Blood Pressure 167/84 H 157/97 H [Right Brachial artery] O2 Saturation 08/13/20 08/13/20 08/13/20 22:26 22:30 22:34 Temperature Heart Rate [ 85 81 Monitoring electrodes] Respiratory Rate Blood Pressure 162/98 H Blood Pressure 150/95 H 162/98 H [Right Brachial artery] O2 Saturation 08/13/20 08/14/20 08/14/20 22:53 00:00 00:11 Temperature 37.2 C Heart Rate [ 92 Monitoring electrodes] Respiratory Rate Blood Pressure Blood Pressure 158/98 H 186/94 H [Right Brachial artery] O2 Saturation 08/14/20 08/14/20 08/14/20 00:25 00:35 00:40 Temperature Heart Rate [ 93 94 96 Monitoring electrodes] Respiratory 13 Rate Blood Pressure Blood Pressure 189/106 H 175/107 H 192/102 H [Right Brachial artery] O2 Saturation 98 08/14/20 08/14/20 08/14/20 00:45 00:50 01:00 Temperature Heart Rate [ 95 96 96 Monitoring electrodes] Respiratory 13 Rate Blood Pressure Blood Pressure 174/92 H 173/89 H 174/96 H [Right Brachial artery] O2 Saturation 98 12/19/20 12/19/20 12/19/20 01:01 01:15 01:30 Temperature Heart Rate [ 100 102 H Monitoring electrodes] Respiratory Rate Blood Pressure 174/96 H Blood Pressure 152/89 H 155/92 H [Right Brachial artery] O2 Saturation 08/14/20 08/14/20 08/14/20 01:45 02:00 03:00 Temperature Heart Rate [ 95 97 92 Monitoring electrodes] Respiratory 17 18 Rate Blood Pressure Blood Pressure 139/89 H 150/93 H 152/90 H [Right Brachial artery] O2 Saturation 97 97 08/14/20 08/14/20 08/14/20 04:00 04:35 04:40 Temperature 36.9 C Heart Rate [ 98 78 75 Monitoring electrodes] Respiratory 16 Rate Blood Pressure 204/116 H Blood Pressure 200/106 H 190/116 H 180/114 H [Right Brachial artery] O2 Saturation 98 08/14/20 08/14/20 08/14/20 04:45 04:50 05:00 Temperature Heart Rate [ 77 77 80 Monitoring electrodes] Respiratory 16 Rate Blood Pressure Blood Pressure 184/111 H 181/106 H 168/109 H [Right Brachial artery] O2 Saturation 98 08/14/20 08/14/20 08/14/20 05:05 05:15 05:30 Temperature Heart Rate [ 78 85 Monitoring electrodes] Respiratory Rate Blood Pressure 168/109 H Blood Pressure 170/114 H 155/89 H [Right Brachial artery] O2 Saturation 08/14/20 08/14/20 08/14/20 05:45 06:00 07:00 Temperature Heart Rate [ 85 94 87 Monitoring electrodes] Respiratory 14 18 Rate Blood Pressure Blood Pressure 165/93 H 154/84 H 164/93 H [Right Brachial artery] O2 Saturation 98 97 08/14/20 08:00 Temperature 36.9 C Heart Rate [ 89 Monitoring electrodes] Respiratory 13 Rate Blood Pressure Blood Pressure 180/110 H [Right Brachial artery] O2 Saturation 98 Oxygen O2 Source Room air I&O (Last 24 Hrs): Intake and Output Totals x24h 08/12/20 08/13/20 08/14/20 23:59 23:59 23:59 Intake Total 1000 4561.701 1659.599 Output Total 1650 780 Balance 1000 2911.701 879.599 General: Alert, Other (Lethargic. Says hi and smiles then goes to sleep) HEENT: Mucous membr. moist/pink, Other (Edentulous) Neck: Supple, No JVD Neuro: Non Focal, Other (Lethargic) Cardiovascular: Regular rate, No murmurs Respiratory: No respiratory distress, Breath sounds nml Abdomen: Soft, No tenderness Extremities: No edema - Results Results: Laboratory Results WBC 13.5 x10^3/uL (4.8-10.8) H 08/14/20 04:59 RBC 3.68 10^6/uL (4.20-5.40) L 08/14/20 04:59 Hgb 10.7 g/dL (12.0-16.0) L 08/14/20 04:59 Hct 32.2 % (37.0-47.0) L 08/14/20 04:59 MCV 87.5 fL (81.0-99.0) 08/14/20 04:59 MCH 29.1 pg (27.0-31.0) 08/14/20 04:59 MCHC 33.2 g/dL (32.0-36.0) 08/14/20 04:59 RDW 12.4 % (12.0-15.0) 08/14/20 04:59 Plt Count 211 10^3/uL (130-450) 08/14/20 04:59 MPV 10.9 fL (7.9-10.8) H 08/14/20 04:59 Neut # (Auto) 10.8 10^3/uL (1.5-6.6) H 08/14/20 04:59 Lymph # (Auto) 1.3 10^3/uL (1.5-3.5) L 08/14/20 04:59 Allen # (Auto) 1.2 10^3/uL (0.0-1.0) H 08/14/20 04:59 Eos # (Auto) 0.0 10^3/uL (0.0-0.7) 08/14/20 04:59 Baso # (Auto) 0.1 10^3/uL (0.0-0.1) 08/14/20 04:59 Absolute Nucleated RBC 0.00 x10^3/uL 08/14/20 04:59 Nucleated RBC % 0.0 /100WBC 08/14/20 04:59 Manual Slide Review Cancelled 08/14/20 03:57 WBC Morphology Cancelled 08/14/20 03:57 Platelet Estimate Cancelled 08/14/20 03:57 Platelet Morphology Cancelled 08/14/20 03:57 RBC Morph Micro Appear Cancelled 08/14/20 03:57 VBG pH 7.459 (7.31-7.41) H 08/14/20 03:57 VBG pCO2 29.1 mmHg (41-51) L 08/12/20 23:30 VBG pO2 63.9 mmHg (25-47) H 08/12/20 23:30 VBG HCO3 15.4 mmol/L (23-28) L 08/12/20 23:30 VBG Total CO2 16.3 mmol/L (24-29) L 08/12/20 23:30 VBG O2 Saturation 92.3 % (60-80) H 08/12/20 23:30 VBG Base Excess -9.0 mmol/L (-2 - +2) L 08/12/20 23:30 Ionized Calcium 1.04 mmol/L (1.15-1.33) L 08/14/20 03:57 Sodium 143 mmol/L (135-145) 08/14/20 03:57 Potassium 3.5 mmol/L (3.5-5.0) 08/14/20 05:00 Chloride 117 mmol/L (101-111) H 08/14/20 03:57 Carbon Dioxide 19 mmol/L (21-32) L 08/14/20 03:57 Anion Gap 7.0 (6-13) 08/14/20 03:57 BUN 47 mg/dL (6-20) H 08/14/20 03:57 Creatinine 1.2 mg/dL (0.4-1.0) H 08/14/20 03:57 Estimated GFR (MDRD) 46 (>89) L 08/14/20 03:57 Glucose 169 mg/dL (70-100) H 08/14/20 03:57 POC Whole Bld Glucose 209 mg/dL (70 - 100) H 08/14/20 08:01 Lactic Acid 1.2 mmol/L (0.5-2.2) 08/13/20 23:48 Calcium 8.8 mg/dL (8.5-10.3) 08/14/20 03:57 Phosphorus 2.8 mg/dL (2.5-4.6) 08/14/20 03:57 Magnesium 2.1 mg/dL (1.7-2.8) 08/14/20 03:57 Iron 61 ug/dL (28-170) 08/14/20 03:57 TIBC 270 ug/dL (250-450) 08/14/20 03:57 % Saturation 23 % (20-50) 08/14/20 03:57 Transferrin 193 mg/dL (192-382) 08/14/20 03:57 Total Bilirubin 1.2 mg/dL (0.2-1.0) H 08/12/20 21:15 AST 20 IU/L (10-42) 08/12/20 21:15 ALT 24 IU/L (10-60) 08/12/20 21:15 Alkaline Phosphatase 56 IU/L (42-121) 08/12/20 21:15 Ammonia 19.5 umol/L (7-35) 08/13/20 01:50 Total Protein 7.4 g/dL (6.7-8.2) 08/12/20 21:15 Albumin 4.0 g/dL (3.2-5.5) 08/12/20 21:15 Globulin 3.4 g/dL (2.1-4.2) 08/12/20 21:15 Albumin/Globulin Ratio 1.2 (1.0-2.2) 08/12/20 21:15 Lipase 22 U/L (22-51) 08/12/20 21:15 Vitamin B12 1345 pg/mL (180-914) H 08/14/20 03:57 Folate 10.25 ng/mL (5.90 - >24.8) 08/14/20 03:57 Urine Color YELLOW 08/13/20 01:30 Urine Clarity SL. CLOUDY (CLEAR) 08/13/20 01:30 Urine pH 6.0 PH (5.0-7.5) 08/13/20 01:30 Ur Specific Homer >=1.030 (1.002-1.030) H 08/13/20 01:30 Urine Protein >=300 mg/dL (NEGATIVE) H 08/13/20 01:30 Urine Glucose (UA) >=1000 mg/dL (NEGATIVE) H 08/13/20 01:30 Urine Ketones 15 mg/dL (NEGATIVE) H 08/13/20 01:30 Urine Occult Blood MODERATE (NEGATIVE) H 08/13/20 01:30 Urine Nitrite NEGATIVE (NEGATIVE) 08/13/20 01:30 Urine Bilirubin NEGATIVE (NEGATIVE) 08/13/20 01:30 Urine Urobilinogen 0.2 (NORMAL) E.U./dL (NORMAL) 08/13/20 01:30 Ur Leukocyte Esterase TRACE (NEGATIVE) H 08/13/20 01:30 Urine RBC 6-10 /HPF (0-5) H 08/13/20 01:30 Urine WBC >25 /HPF (0-5) H 08/13/20 01:30 Ur Squamous Epith Cells NONE SEEN (<= Few) 08/13/20 01:30 Urine Bacteria Moderate /HPF (None Seen) H 08/13/20 01:30 Ur Microscopic Review INDICATED 08/13/20 01:30 Urine Culture Comments INDICATED 08/13/20 01:30 Nasal Adenovirus (PCR) NOT DETECTED 08/12/20 21:56 Nasal B. parapertussis DNA (PCR) NOT DETECTED 08/12/20 21:56 Nasal Coronavir 229E PCR NOT DETECTED 08/12/20 21:56 Nasal Coronavir HKU1 PCR NOT DETECTED 08/12/20 21:56 Nasal Coronavir NL63 PCR NOT DETECTED 08/12/20 21:56 Nasal Coronavir OC43 PCR NOT DETECTED 08/12/20 21:56 Nasal Enterovir/Rhinovir PCR DETECTED A 08/12/20 21:56 Nasal Influenza B PCR NOT DETECTED 08/12/20 21:56 Nasal Influenza A PCR NOT DETECTED 08/12/20 21:56 Nasal Parainfluen 1 PCR NOT DETECTED 08/12/20 21:56 Nasal Parainfluen 2 PCR NOT DETECTED 08/12/20 21:56 Nasal Parainfluen 3 PCR NOT DETECTED 08/12/20 21:56 Nasal Parainfluen 4 PCR NOT DETECTED 08/12/20 21:56 Nasal RSV (PCR) NOT DETECTED 08/12/20 21:56 Nasal Screen MRSA (PCR) NEGATIVE (NEGATIVE) 08/13/20 00:00 Nasal B.pertussis DNA PCR NOT DETECTED 08/12/20 21:56 Nasal C.pneumoniae (PCR) NOT DETECTED 08/12/20 21:56 Janes Human Metapneumo PCR NOT DETECTED 08/12/20 21:56 Nasal M.pneumoniae (PCR) NOT DETECTED 08/12/20 21:56 Nasal SARS-CoV-2 (PCR) NOT DETECTED 08/12/20 21:56 Urine Opiates Screen NEGATIVE (NEGATIVE) 08/13/20 01:30 Ur Oxycodone Screen NEGATIVE (NEGATIVE) 08/13/20 01:30 Urine Methadone Screen NEGATIVE (NEGATIVE) 08/13/20 01:30 Ur Propoxyphene Screen NEGATIVE (NEGATIVE) 08/13/20 01:30 Ur Barbiturates Screen NEGATIVE (NEGATIVE) 08/13/20 01:30 Ur Tricyclics Screen NEGATIVE (NEGATIVE) 08/13/20 01:30 Ur Phencyclidine Scrn NEGATIVE (NEGATIVE) 08/13/20 01:30 Ur Amphetamine Screen NEGATIVE (NEGATIVE) 08/13/20 01:30 U Methamphetamines Scrn NEGATIVE (NEGATIVE) 08/13/20 01:30 U Benzodiazepines Scrn NEGATIVE (NEGATIVE) 08/13/20 01:30 Urine Cocaine Screen NEGATIVE (NEGATIVE) 08/13/20 01:30 U Cannabinoids Screen NEGATIVE (NEGATIVE) 08/13/20 01:30 Ethyl Alcohol < 5.0 mg/dL 08/12/20 21:15 Serum Ketones SMALL (NEGATIVE) H 08/12/20 21:15 Slides for Path Review Cancelled 08/14/20 03:57
[2020-08-14] MEDS: cefTRIAXone 1 GM in SODIUM CHLORIDE 0.9% MINIBAG 100 ML IV SCH (09:10)
[2020-08-14] MEDS: SODIUM CHLORIDE FLUSH 0.9% 10 ML SYRINGE IVP SCH ×2 (09:23→17:59)
[2020-08-14] MEDS: ENOXAPARIN 40 MG/0.4 ML SYRINGE SUBQ SCH (09:25)
[2020-08-14] MEDS: ONDANSETRON 4 MG/2 ML VIAL IVP PRN (10:43)
--- NOTE | 2020-08-14 12:07 | CT Report ---
PROCEDURE: Abdomen/Pelvis WO INDICATIONS: abd pain, UTI, ASIM, ? renal obstruction TECHNIQUE: Noncontrast 5 mm thick sections acquired from the diaphragms to the symphysis. 5 mm coronal and sagi ttal reformats were then performed. For radiation dose reduction, the following was used: automated exposure control, adjustment of mA and/or kV according to patient size. COMPARISON: None. FINDINGS: Image quality: Excellent. ABDOMEN: Lung bases: Lung bases are clear. Heart size is normal. Solid organs: Liver and spleen are normal in size. Gallbladder findings concur Pancreas is normal in contours. No adrenal nodules. Kidneys are normal in size, without hydronephrosis or nephrolithia sis. Peritoneum and bowel: There is possible diffuse mesenteric edema and presacral fat stranding. Unenha nced bowel loops demonstrate normal wall thickness and caliber. No free fluid or air. Nodes and vessels: No retroperitoneal or mesenteric adenopathy by size criteria. Aorta and inferior vena cava are normal in caliber. Miscellaneous: No ventral hernias. PELVIS: Genitourinary: Bladder wall thickness is normal. Miscellaneous: No inguinal hernias or adenopathy. Bones: No suspicious bony lesions. No vertebral body compression fractures. IMPRESSION: 1. No acute obstructive nephroureteral lithiasis. Nonspecific bilateral perinephric stranding is nons pecific. 2. Diffuse mesenteric edema and presacral inflammatory changes described on the preliminary report ar e probably within normal limits but could represent enteritis or colitis. No small bowel obstruction, ascites, or free air. Findings concur with preliminary report. Reviewed by: Stanislaw Shields on 08/14/2020 12:05 PM [facility] Approved by: Stanislaw Shields on 08/14/2020 12:05 PM [facility] Station ID: [id number]
[2020-08-14] MEDS ORDERED: INSULIN REGULAR HUMAN 300 UNIT/3 ML VIAL SUBQ SCH (18:00)
[2020-08-14] MEDS: INSULIN REGULAR HUMAN 100 UNIT in SODIUM CHLORIDE 0.9% 100ML 99 ML IV SCH (19:25)
[2020-08-14] MEDS ORDERED: INSULIN GLARGINE 300 UNIT/3 ML PEN SUBQ SCH (21:00)
[2020-08-14] MEDS: INSULIN ASPART 300 UNIT/3 ML PEN SUBQ SCH (21:08)
[2020-08-14] MEDS: SODIUM CHLORIDE 0.9% 1,000 ML IV SCH (21:08)
[2020-08-15] MEDS: METOCLOPRAMIDE 10 MG/2 ML VIAL IVP SCH ×4 (00:18→17:52)
[2020-08-15] MEDS: SODIUM CHLORIDE FLUSH 0.9% 10 ML SYRINGE IVP SCH ×3 (00:19→16:48)
[2020-08-15] MEDS: MORPHINE 2 MG/ML CARPUJECT IVP PRN ×3 (01:10→13:35)
[2020-08-15] MEDS: ONDANSETRON 4 MG/2 ML VIAL IVP PRN (01:16)
[2020-08-15] MEDS: hydrALAZINE INJ 20 MG/ML VIAL IVP PRN ×2 (02:17→12:15)
[2020-08-15 05:14] LABS: BASOPHILS # (AUTO) 0.1 10^3/uL (0.0-0.1); BASOPHILS % (AUTO) 0.6 %; HGB - HEMOGLOBIN 11.2 g/dL (12.0-16.0); LYMPHOCYTES # (AUTO) 1.1 10^3/uL (1.5-3.5); LYMPHOCYTES % (AUTO) 9.2 %; MEAN CORPUSCULAR HEMOGLOBIN 29.3 pg (27.0-31.0); MEAN CORPUSCULAR HGB CONC 32.7 g/dL (32.0-36.0); MEAN CORPUSCULAR VOLUME 89.5 fL (81.0-99.0); MEAN PLATELET VOLUME 11.3 fL (7.9-10.8); MONOCYTES % (AUTO) 8.4 %; NEUTROPHILS # (AUTO) 9.5 10^3/uL (1.5-6.6); NEUTROPHILS % (AUTO) 80.8 %; PLT - PLATELET COUNT 228 10^3/uL (130-450); RED BLOOD COUNT 3.82 10^6/uL (4.20-5.40); RED CELL DISTRIBUTION WIDTH 12.7 % (12.0-15.0); WHITE BLOOD COUNT 11.7 x10^3/uL (4.8-10.8)
[2020-08-15 05:16] LABS: VBG PH 7.278 (7.31-7.41)
[2020-08-15] MEDS: METOPROLOL 5 MG/5 ML VIAL IVP PRN ×2 (05:16→18:59)
[2020-08-15] MEDS: SODIUM CHLORIDE 0.9% 1,000 ML IV SCH ×4 (05:16→23:36)
[2020-08-15 05:27] LABS: CALCIUM 8.6 mg/dL (8.5-10.3); CREATININE 1.5 mg/dL (0.4-1.0); PHOSPHORUS 3.2 mg/dL (2.5-4.6)
[2020-08-15] MEDS ORDERED: INSULIN ASPART 300 UNIT/3 ML PEN SUBQ ONE (07:10)
[2020-08-15] MEDS: cefTRIAXone 1 GM in SODIUM CHLORIDE 0.9% MINIBAG 100 ML IV SCH (08:10)
[2020-08-15] MEDS: INSULIN ASPART 300 UNIT/3 ML PEN SUBQ SCH ×3 (08:13→16:48)
[2020-08-15] MEDS ORDERED: FUROSEMIDE 40 MG/4 ML VIAL IVP STA (08:24)
--- NOTE | 2020-08-15 08:28 | PROVIDER PROGRESS NOTE ---
Assessment/Plan - Problem List (1) Insulin dependent diabetes mellitus Assessment/Plan: Will continue with Lantus insulin and an estimated dose of 8 units twice daily starting today, for glucoses running in the 400s. Also starting sliding scale insulin for Accu-Cheks. She is on a clear liquid diet only and just takes bites and sips. Will request dietitian consult to assess if she has malnutrition, and for diet recommendations. (2) Altered mental status Qualifiers: Altered mental status type: somnolence Qualified Code(s): R40.0 - Somnolence Assessment/Plan: Patient usually sleeps for a long time after DKA, according to my phone conversation with Kayley today. She also sleeps for a long time if she is "depressed". Patient also has encephalopathy and "is slow to answer normally when she is communicative". We will obtain CT scan of the head today. (3) Edema Assessment/Plan: She is 6.5 L positive in fluid balance since admission. Night was her first or al intake of clear liquids and she needed to be fed her Jell-O. We will give a dose of Lasix IV. Follow creatinine daily. Monitor accurately her I's and O's via the [place]. (4) Acute renal failure Assessment/Plan: Despite aggressive IV fluid resuscitation, her creatinine has only decreased to 1.5. She will be getting Lasix today because of her volume overload. Follow creatinine daily. Keep the [place] in due to acute urinary obstruction. (5) Pyelonephritis Assessment/Plan: As per CT imaging and UA. Awaiting urine culture results (6) Enteritis Assessment/Plan: As per CT imaging. We will plan a clear liquid diet if there is continued abdominal pain. (7) Gastroparesis Assessment/Plan: As per history. Reglan was on her medication list (8) Fibromyalgia Assessment/Plan: As per history. Gabapentin was on her medication list (9) Anemia Assessment/Plan: Her B12, folate levels and iron stores were all normal. Therefore this is hemodilution all or anemia of chronic disease. (10) Acute urinary retention Assessment/Plan: A [place] catheter remains in place, for I's and O's and due to retention 2 days ago. (11) Diabetic ketoacidosis Qualifiers: Diabetes mellitus type: type 1 Diabetes mellitus complication detail: without coma Qualified Code(s): E10.10 - Type 1 diabetes mellitus with ketoacidosis without coma Assessment/Plan: Cleared. The Insulin drip was stopped last evening and Lantus started. - Current Meds Current Meds: Current Medications Generic Name Dose Route Start Last Admin Trade Name Freq PRN Reason Stop Dose Admin Enoxaparin Sodium 40 mg 08/13/20 09:00 08/14/20 09:25 Enoxaparin 40 Mg/0.4 Ml Syringe SUBQ 40 mg DAILY MEL Administration Hydralazine HCl 10 mg 08/13/20 23:41 08/15/20 02:17 Hydralazine Inj 20 Mg/Ml Vial IVP 10 mg Q6H PRN Administration Hypertensive Emergency Ceftriaxone Sodium 1 gm/ 100 mls @ 200 mls/hr 08/13/20 03:59 08/15/20 08:10 Sodium Chloride IV 200 mls/hr Q24H MEL Administration Sodium Chloride 500 mls @ 20 mls/hr 08/13/20 18:19 08/14/20 17:00 Normal Saline 0.9% IV Infused Q24H PRN Infusion TKO RATE Insulin Aspart 1 - 9 unit 08/14/20 21:00 08/15/20 08:13 Insulin Aspart 300 Unit/3 Ml Pen SUBQ 9 unit 0800,1200,1700,2100 MEL Administration Protocol Metoclopramide HCl 5 mg 08/13/20 23:45 08/15/20 05:23 Metoclopramide 10 Mg/2 Ml Vial IVP 5 mg Q6HR MEL Administration Metoprolol Tartrate 5 mg 08/13/20 21:44 08/15/20 05:16 Metoprolol 5 Mg/5 Ml Vial IVP 5 mg Q6H PRN Administration Hypertensive Emergency Morphine Sulfate 2 mg 08/13/20 01:58 08/15/20 04:28 Morphine 2 Mg/Ml Carpuject IVP 2 mg Q2HR PRN Administration PAIN Ondansetron HCl 4 mg 08/13/20 00:48 08/15/20 01:16 Ondansetron 4 Mg/2 Ml Vial IVP 4 mg Q6HR PRN Administration Nausea / Vomiting Sodium Chloride 10 ml 08/13/20 01:00 08/15/20 00:19 Sodium Chloride Flush 0.9% 10 Ml Syringe IVP 10 ml 0100,0900,1700 MEL Administration Sodium Chloride 10 ml 08/12/20 23:11 08/14/20 20:47 Sodium Chloride Flush 0.9% 10 Ml Syringe IVP 10 ml PRN PRN Administration NEEDED PER PROVIDER ORDERS - Lab Result Fish Bone Diagrams: 08/15/20 05:00 08/15/20 05:00 - Additional Planning My Orders: My Active Orders 08/14/20 10:54 1:1 Observation [RC] ONCE 08/15/20 08:24 FUROSEMIDE INJ 40mg VIAL [LASIX INJ 40 mg VIAL] 40 mg IVP ONCE STA 08/15/20 08:25 Sodium Chloride 0.9% [Normal Saline 0.9%] 1,000 ml IV 83.33 mls/hr Objective Vital Signs: Vital Signs - 24 hr 08/14/20 08/14/20 08/14/20 09:00 09:20 09:50 Temperature Heart Rate [ 85 Monitoring electrodes] Respiratory 14 Rate Blood Pressure 174/100 H 145/86 H Blood Pressure 174/100 H [Right Brachial artery] O2 Saturation 98 08/14/20 08/14/20 08/14/20 10:00 11:00 12:00 Temperature Heart Rate [ 101 H 94 106 H Monitoring electrodes] Respiratory 17 11 L 12 Rate Blood Pressure Blood Pressure 145/86 H 118/61 109/56 L [Right Brachial artery] O2 Saturation 98 97 97 08/14/20 08/14/20 08/14/20 13:00 14:00 14:43 Temperature 37.2 C Heart Rate [ 115 H 101 H Monitoring electrodes] Respiratory 21 13 Rate Blood Pressure 190/103 H Blood Pressure 159/81 H 171/105 H [Right Brachial artery] O2 Saturation 96 96 08/14/20 08/14/20 08/14/20 15:00 15:13 15:47 Temperature 37.0 C Heart Rate [ 88 Monitoring electrodes] Respiratory 13 Rate Blood Pressure 174/101 H Blood Pressure 164/81 H [Right Brachial artery] O2 Saturation 97 08/14/20 08/14/20 08/14/20 16:00 17:00 18:00 Temperature 37 C Heart Rate [ 89 106 H Monitoring electrodes] Respiratory 12 18 Rate Blood Pressure 122/69 Blood Pressure 174/101 H 186/102 H [Right Brachial artery] O2 Saturation 97 98 08/14/20 08/14/20 08/14/20 19:00 20:00 20:47 Temperature 37.1 C Heart Rate [ 105 H 108 H Monitoring electrodes] Respiratory 13 22 Rate Blood Pressure 176/80 H Blood Pressure 119/55 L 174/90 H [Right Brachial artery] O2 Saturation 08/14/20 08/14/20 08/14/20 20:50 20:52 20:55 Temperature Heart Rate [ 94 81 90 Monitoring electrodes] Respiratory Rate Blood Pressure Blood Pressure 152/79 H 159/78 H 148/79 H [Right Brachial artery] O2 Saturation 08/14/20 08/14/20 08/14/20 21:00 21:05 21:15 Temperature Heart Rate [ 89 89 88 Monitoring electrodes] Respiratory Rate Blood Pressure 164/89 H Blood Pressure 152/79 H 161/83 H 164/89 H [Right Brachial artery] O2 Saturation 08/14/20 08/14/20 08/15/20 21:30 23:00 00:23 Temperature 37.4 C Heart Rate [ 97 93 103 H Monitoring electrodes] Respiratory 14 11 L Rate Blood Pressure Blood Pressure 168/96 H 139/80 H 164/79 H [Right Brachial artery] O2 Saturation 96 08/15/20 08/15/20 08/15/20 02:17 02:20 02:25 Temperature Heart Rate [ 111 H 117 H Monitoring electrodes] Respiratory Rate Blood Pressure 165/77 H Blood Pressure 152/82 H 136/71 H [Right Brachial artery] O2 Saturation 08/15/20 08/15/20 08/15/20 02:30 02:35 02:40 Temperature Heart Rate [ 117 H 117 H 117 H Monitoring electrodes] Respiratory Rate Blood Pressure Blood Pressure 116/69 112/68 111/72 [Right Brachial artery] O2 Saturation 08/15/20 08/15/20 08/15/20 02:45 03:00 03:12 Temperature 37.6 C Heart Rate [ 116 H 119 H Monitoring electrodes] Respiratory Rate Blood Pressure 113/68 Blood Pressure 113/68 120/64 [Right Brachial artery] O2 Saturation 08/15/08/15/08/15/20 03:15 05:16 05:20 Temperature Heart Rate [ 119 H 100 Monitoring electrodes] Respiratory Rate Blood Pressure 137/61 H Blood Pressure 122/67 126/69 [Right Brachial artery] O2 Saturation 08/15/20 08/15/20 08/15/20 05:25 05:42 05:46 Temperature Heart Rate [ 96 99 Monitoring electrodes] Respiratory Rate Blood Pressure 129/74 Blood Pressure 131/76 H 122/76 [Right Brachial artery] O2 Saturation 08/15/20 06:00 Temperature Heart Rate [ 102 H Monitoring electrodes] Respiratory Rate Blood Pressure Blood Pressure 131/75 H [Right Brachial artery] O2 Saturation Oxygen O2 Source Room air I&O (Last 24 Hrs): Intake and Output Totals x24h 08/13/20 08/14/20 08/15/20 23:59 23:59 23:59 Intake Total 4561.701 3459.632 1529.167 Output Total 1650 1388 217 Balance 2911.701 2071.632 1312.167 - Results Results: Laboratory Results WBC 11.7 x10^3/uL (4.8-10.8) H 08/15/20 05:00 RBC 3.82 10^6/uL (4.20-5.40) L 08/15/20 05:00 Hgb 11.2 g/dL (12.0-16.0) L 08/15/20 05:00 Hct 34.2 % (37.0-47.0) L 08/15/20 05:00 MCV 89.5 fL (81.0-99.0) 08/15/20 05:00 MCH 29.3 pg (27.0-31.0) 08/15/20 05:00 MCHC 32.7 g/dL (32.0-36.0) 08/15/20 05:00 RDW 12.7 % (12.0-15.0) 08/15/20 05:00 Plt Count 228 10^3/uL (130-450) 08/15/20 05:00 MPV 11.3 fL (7.9-10.8) H 08/15/20 05:00 Neut # (Auto) 9.5 10^3/uL (1.5-6.6) H 08/15/20 05:00 Lymph # (Auto) 1.1 10^3/uL (1.5-3.5) L 08/15/20 05:00 Fisher # (Auto) 1.0 10^3/uL (0.0-1.0) 08/15/20 05:00 Eos # (Auto) 0.0 10^3/uL (0.0-0.7) 08/15/20 05:00 Baso # (Auto) 0.1 10^3/uL (0.0-0.1) 08/15/20 05:00 Absolute Nucleated RBC 0.00 x10^3/uL 08/15/20 05:00 Nucleated RBC % 0.0 /100WBC 08/15/20 05:00 Manual Slide Review Cancelled 08/14/20 03:57 WBC Morphology Cancelled 08/14/20 03:57 Platelet Estimate Cancelled 08/14/20 03:57 Platelet Morphology Cancelled 08/14/20 03:57 RBC Morph Micro Appear Cancelled 08/14/20 03:57 VBG pH 7.278 (7.31-7.41) L 08/15/20 05:00 VBG pCO2 29.1 mmHg (41-51) L 08/12/20 23:30 VBG pO2 63.9 mmHg (25-47) H 08/12/20 23:30 VBG HCO3 15.4 mmol/L (23-28) L 08/12/20 23:30 VBG Total CO2 16.3 mmol/L (24-29) L 08/12/20 23:30 VBG O2 Saturation 92.3 % (60-80) H 08/12/20 23:30 VBG Base Excess -9.0 mmol/L (-2 - +2) L 08/12/20 23:30 Ionized Calcium 1.18 mmol/L (1.15-1.33) 08/15/20 05:00 Sodium 143 mmol/L (135-145) 08/15/20 05:00 Potassium 3.6 mmol/L (3.5-5.0) 08/15/20 05:00 Chloride 117 mmol/L (101-111) H 08/15/20 05:00 Carbon Dioxide 14 mmol/L (21-32) L 08/15/20 05:00 Anion Gap 12.0 (6-13) 08/15/20 05:00 BUN 44 mg/dL (6-20) H 08/15/20 05:00 Creatinine 1.5 mg/dL (0.4-1.0) H 08/15/20 05:00 Estimated GFR (MDRD) 36 (>89) L 08/15/20 05:00 Glucose 415 mg/dL (70-100) H 08/15/20 05:00 POC Whole Bld Glucose 241 mg/dL (70 - 100) H 08/15/20 00:07 Lactic Acid 1.2 mmol/L (0.5-2.2) 08/13/20 23:48 Calcium 8.6 mg/dL (8.5-10.3) 08/15/20 05:00 Phosphorus 3.2 mg/dL (2.5-4.6) 08/15/20 05:00 Magnesium 2.0 mg/dL (1.7-2.8) 08/15/20 05:00 Iron 61 ug/dL (28-170) 08/14/20 03:57 TIBC 270 ug/dL (250-450) 08/14/20 03:57 % Saturation 23 % (20-50) 08/14/20 03:57 Transferrin 193 mg/dL (192-382) 08/14/20 03:57 Total Bilirubin 1.2 mg/dL (0.2-1.0) H 08/12/20 21:15 AST 20 IU/L (10-42) 08/12/20 21:15 ALT 24 IU/L (10-60) 08/12/20 21:15 Alkaline Phosphatase 56 IU/L (42-121) 08/12/20 21:15 Ammonia 19.5 umol/L (7-35) 08/13/20 01:50 Total Protein 7.4 g/dL (6.7-8.2) 08/12/20 21:15 Albumin 4.0 g/dL (3.2-5.5) 08/12/20 21:15 Globulin 3.4 g/dL (2.1-4.2) 08/12/20 21:15 Albumin/Globulin Ratio 1.2 (1.0-2.2) 08/12/20 21:15 Lipase 22 U/L (22-51) 08/12/20 21:15 Vitamin B12 1345 pg/mL (180-914) H 08/14/20 03:57 Folate 10.25 ng/mL (5.90 - >24.8) 08/14/20 03:57 Urine Color YELLOW 08/13/20 01:30 Urine Clarity SL. CLOUDY (CLEAR) 08/13/20 01:30 Urine pH 6.0 PH (5.0-7.5) 08/13/20 01:30 Ur Specific [place] >=1.030 (1.002-1.030) H 08/13/20 01:30 Urine Protein >=300 mg/dL (NEGATIVE) H 08/13/20 01:30 Urine Glucose (UA) >=1000 mg/dL (NEGATIVE) H 08/13/20 01:30 Urine Ketones 15 mg/dL (NEGATIVE) H 08/13/20 01:30 Urine Occult Blood MODERATE (NEGATIVE) H 08/13/20 01:30 Urine Nitrite NEGATIVE (NEGATIVE) 08/13/20 01:30 Urine Bilirubin NEGATIVE (NEGATIVE) 08/13/20 01:30 Urine Urobilinogen 0.2 (NORMAL) E.U./dL (NORMAL) 08/13/20 01:30 Ur Leukocyte Esterase TRACE (NEGATIVE) H 08/13/20 01:30 Urine RBC 6-10 /HPF (0-5) H 08/13/20 01:30 Urine WBC >25 /HPF (0-5) H 08/13/20 01:30 Ur Squamous Epith Cells NONE SEEN (<= Few) 08/13/20 01:30 Urine Bacteria Moderate /HPF (None Seen) H 08/13/20 01:30 Ur Microscopic Review INDICATED 08/13/20 01:30 Urine Culture Comments INDICATED 08/13/20 01:30 Nasal Adenovirus (PCR) NOT DETECTED 08/12/20 21:56 Nasal B. parapertussis DNA (PCR) NOT DETECTED 08/12/20 21:56 Nasal Coronavir 229E PCR NOT DETECTED 08/12/20 21:56 Nasal Coronavir HKU1 PCR NOT DETECTED 08/12/20 21:56 Nasal Coronavir NL63 PCR NOT DETECTED 08/12/20 21:56 Nasal Coronavir OC43 PCR NOT DETECTED 08/12/20 21:56 Nasal Enterovir/Rhinovir PCR DETECTED A 08/12/20 21:56 Nasal Influenza B PCR NOT DETECTED 08/12/20 21:56 Nasal Influenza A PCR NOT DETECTED 08/12/20 21:56 Nasal Parainfluen 1 PCR NOT DETECTED 08/12/20 21:56 Nasal Parainfluen 2 PCR NOT DETECTED 08/12/20 21:56 Nasal Parainfluen 3 PCR NOT DETECTED 08/12/20 21:56 Nasal Parainfluen 4 PCR NOT DETECTED 08/12/20 21:56 Nasal RSV (PCR) NOT DETECTED 08/12/20 21:56 Nasal Screen MRSA (PCR) NEGATIVE (NEGATIVE) 08/13/20 00:00 Nasal B.pertussis DNA PCR NOT DETECTED 08/12/20 21:56 Nasal C.pneumoniae (PCR) NOT DETECTED 08/12/20 21:56 Janes Human Metapneumo PCR NOT DETECTED 08/12/20 21:56 Nasal M.pneumoniae (PCR) NOT DETECTED 08/12/20 21:56 Nasal SARS-CoV-2 (PCR) NOT DETECTED 08/12/20 21:56 Urine Opiates Screen NEGATIVE (NEGATIVE) 08/13/20 01:30 Ur Oxycodone Screen NEGATIVE (NEGATIVE) 08/13/20 01:30 Urine Methadone Screen NEGATIVE (NEGATIVE) 08/13/20 01:30 Ur Propoxyphene Screen NEGATIVE (NEGATIVE) 08/13/20 01:30 Ur Barbiturates Screen NEGATIVE (NEGATIVE) 08/13/20 01:30 Ur Tricyclics Screen NEGATIVE (NEGATIVE) 08/13/20 01:30 Ur Phencyclidine Scrn NEGATIVE (NEGATIVE) 08/13/20 01:30 Ur Amphetamine Screen NEGATIVE (NEGATIVE) 08/13/20 01:30 U Methamphetamines Scrn NEGATIVE (NEGATIVE) 08/13/20 01:30 U Benzodiazepines Scrn NEGATIVE (NEGATIVE) 08/13/20 01:30 Urine Cocaine Screen NEGATIVE (NEGATIVE) 08/13/20 01:30 U Cannabinoids Screen NEGATIVE (NEGATIVE) 08/13/20 01:30 Ethyl Alcohol < 5.0 mg/dL 08/12/20 21:15 Serum Ketones SMALL (NEGATIVE) H 08/12/20 21:[address] Sl[address] Review Cancelled 08/14/20 03:57
[2020-08-15 08:31] LABS: HEMOGLOBIN A1c% 9.2 % (4.27-6.07)
[2020-08-15] MEDS: INSULIN GLARGINE 300 UNIT/3 ML PEN SUBQ SCH ×2 (08:51→21:27)
[2020-08-15] MEDS: ENOXAPARIN 40 MG/0.4 ML SYRINGE SUBQ SCH (08:53)
[2020-08-15] MEDS ORDERED: POTASSIUM CHLOR 10 MEQ/100 ML 10 MEQ/100 ML BAG IV SCH (09:15)
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
--- NOTE | 2020-08-15 16:21 | CT Report ---
PROCEDURE: HEAD WO INDICATIONS: Altered mental status despite DKA resolved TECHNIQUE: Noncontrast 4.5 mm thick angled axial sections acquired from the foramen magnum to the vertex. For r adiation dose reduction, the following was used: automated exposure control, adjustment of mA and/or kV according to patient size. COMPARISON: None. FINDINGS: Image quality: Limited due to significant patient motion.. CSF spaces: Basal cisterns are patent. No extra-axial fluid collections. Ventricles are normal in size and shape. Brain: No midline shift. No gross intracranial masses or hemorrhage. Perez-white matter interface i s normal. Skull and face: Calvarium and visualized facial bones are intact, without suspicious lesions. Sinuses: Visualized sinuses and mastoids are clear. IMPRESSION: 1. Limited study due to significant patient motion. 2. No gross acute intracranial bleed, midline shift or mass effect. Reviewed by: Barrett Monroy MD on 08/15/2020 4:20 PM PST Approved by: Barrett Monroy MD on 08/15/2020 4:20 PM PST Station ID: [id number]
[2020-08-15] MEDS ORDERED: BISACODYL 10 MG SUPP PR ONE (21:19)
[2020-08-16] MEDS: INSULIN REGULAR HUMAN 300 UNIT/3 ML VIAL SUBQ SCH ×3 (00:30→12:01)
[2020-08-16] MEDS: METOCLOPRAMIDE 10 MG/2 ML VIAL IVP SCH ×3 (00:30→11:58)
[2020-08-16] MEDS: MORPHINE 2 MG/ML CARPUJECT IVP PRN ×2 (00:41→20:32)
[2020-08-16] MEDS ORDERED: diphenhydrAMINE INJ 50 MG/ML VIAL IVP PRN (00:46)
[2020-08-16] MEDS: SODIUM CHLORIDE FLUSH 0.9% 10 ML SYRINGE IVP PRN ×2 (00:49→18:06)
[2020-08-16] MEDS: SODIUM CHLORIDE FLUSH 0.9% 10 ML SYRINGE IVP SCH ×4 (01:18→23:18)
[2020-08-16 04:55] LABS: BASOPHILS % (AUTO) 0.4 %; EOSINOPHILS % (AUTO) 0.3 %; HGB - HEMOGLOBIN 10.9 g/dL (12.0-16.0); LYMPHOCYTES # (AUTO) 1.7 10^3/uL (1.5-3.5); LYMPHOCYTES % (AUTO) 16.4 %; MEAN CORPUSCULAR HEMOGLOBIN 29.2 pg (27.0-31.0); MEAN CORPUSCULAR VOLUME 88.5 fL (81.0-99.0); MONOCYTES # (AUTO) 1.6 10^3/uL (0.0-1.0); MONOCYTES % (AUTO) 14.8 %; NEUTROPHILS # (AUTO) 7.1 10^3/uL (1.5-6.6); NEUTROPHILS % (AUTO) 67.1 %; PLT - PLATELET COUNT 207 10^3/uL (130-450); RED BLOOD COUNT 3.73 10^6/uL (4.20-5.40); RED CELL DISTRIBUTION WIDTH 12.6 % (12.0-15.0); WHITE BLOOD COUNT 10.5 x10^3/uL (4.8-10.8)
[2020-08-16 05:06] LABS: CALCIUM 8.7 mg/dL (8.5-10.3); CREATININE 1.5 mg/dL (0.4-1.0)
[2020-08-16] MEDS: POTASSIUM CHLOR 10 MEQ/100 ML 10 MEQ/100 ML BAG IV SCH ×7 (06:23→23:13)
[2020-08-16] MEDS: cefTRIAXone 1 GM in SODIUM CHLORIDE 0.9% MINIBAG 100 ML IV SCH (08:13)
[2020-08-16] MEDS: ENOXAPARIN 40 MG/0.4 ML SYRINGE SUBQ SCH (08:13)
[2020-08-16] MEDS: INSULIN GLARGINE 300 UNIT/3 ML PEN SUBQ SCH ×2 (08:18→21:08)
[2020-08-16] MEDS ORDERED: ACETAMINOPHEN 1,000 MG/100 ML 100 ML IV ONE (11:53)
--- NOTE | 2020-08-16 12:12 | PROVIDER PROGRESS NOTE ---
Assessment/Plan - Problem List (1) Altered mental status Qualifiers: Altered mental status type: somnolence Qualified Code(s): R40.0 - Somnolence Assessment/Plan: Records were obtained from [facility]; her last hospitalization was in mid May of this year. She had several admissions for N/V and DKA with gastroparesis as the cause and was treated with Reglan and Compazine. She already mentioned that she was getting "muscle twitches from this to her PCP (in thise records) There had been a brain MRI recently done which was unremarkable, according to the records. Yesterday the daughter remembered that one of her diagnoses was "encephalopathy". She has asked prior doctors what this is from and never got a good answer she said. She had a head CT done here yesterday that was unremarkable. We do not have MRI available here till 08/19/2020. She has a tremor and we suspected alcohol withdrawal, however the daughter denies that she has ever been an alcoholic and records from [facility] say she used to have 1-2 drinks of wine per month. She also is edentulous and is poorly kempt and appears decades older than her current age and we suspected drug use. The daughter denied any history of IV drug use or any illicit drug use. Her admission MUDS screen was negative and serum alcohol was not present. I suspect she has dystonic reaction and lassitude and agitation from the total combined dose of metoclopramide. We will stop metoclopramide. Continue to monitor 1:1 , as she gets agitated, tries getting OOB. Can move out of ICU status to MedSurg status, however. We are allowing the daughter Kayley to visit, starting today, as an exception to the Covid restrictions, because of this patient's mental status. (2) Gastroparesis Assessment/Plan: Review of records obtained from [facility] today showed that she has had multiple admissions with nausea vomiting and gastroparesis was felt to be the underlying cause, which led up to dehydration and DKA. They used Reglan and Compazine as needed for nausea vomiting. She was discharged home to take scheduled Reglan. This was already causing her "muscle twitches", she had reported to her PCP at [facility]. She is on scheduled Reglan here. I suspect she is having neurologic side effect symptoms from Reglan of muscle twitching and dystonic reaction, lassitude and restlessness which are all cummulative-dose related. We will stop Reglan. We do not have Domperidone on formulary, which is 2nd med of choice for gastroparesis, per [employer]. The next alternative is Erythromycin 250 mg p.o. 3 times daily, 1 hour before meals. Will start this. She will need an EKG done tomorrow to check for QTc prolongation, on the co mbination of scheduled Eryhtromycin and Zofran prn. Will give nonnarcotic, nonconstipating pain meds for her pain. IV Ofirmev x1 has been ordered, if it is helpful we will continue this. Will request nutrition consult regarding 6 small meals a day because of the gastroparesis. Advance diet from clear liquids to full and pured as tolerated. (3) Insulin dependent diabetes mellitus Assessment/Plan: Continue with Lantus and sliding scale insulin to cover Accu-Cheks. Advance her diet to a diabetic diet as tolerated. Will request nutrition consult regarding 6 small meals a day because of the gastroparesis. (4) Edema Assessment/Plan: She has had 3 days of IV fluids and has peripheral edema. Will decrease her IV rate. Will obtain Echo to evaluate for CHF. (5) Acute renal failure Assessment/Plan: Do not know this patient's baseline kidney function because she has never been seen in the ER or admitted here before, having moved to [facility] 1 week ago. Records from [facility] show she had a normal creatinine of 0.9 in May 2020. Patient was admitted with elevated creatinine of 2.0>> 2.2 and it improved down to 1.2, but last 2 days it has been 1.5 as her iv fluid rate was decreased. Avoid nephrotoxins. Continue with gentle IV fluids until she has adequate oral intake (6) Pyelonephritis Assessment/Plan: As per imaging. Continue with IV antibiotics (7) Enteritis Assessment/Plan: As per imaging. Continue with IV antibiotics. Today's the first day her diet is being advanced from clear liquids to full liquids and I will omit milk products. Possibly advance to pured diet following that. (8) Fibromyalgia Assessment/Plan: As per history. (9) Anemia Assessment/Plan: Her B12, folate levels and iron stores were all normal. Therefore this is hemodilution all or anemia of chronic disease. (10) Acute urinary retention Assessment/Plan: [place] is in place. Continue with [place] until she is more awake to use a bedpan or bedside commode and also to follow accurate I's and O's. (11) Diabetic ketoacidosis Qualifiers: Diabetes mellitus type: type 1 Diabetes mellitus complication detail: without coma Qualified Code(s): E10.10 - Type 1 diabetes mellitus with ketoacidosis without coma Assessment/Plan: Resolved - Current Meds Current Meds: Current Medications Generic Name Dose Route Start Last Admin Trade Name Freq PRN Reason Stop Dose Admin Diphenhydramine HCl 25 mg 08/16/20 00:46 08/16/20 00:48 Diphenhydramine Inj 50 Mg/Ml Vial IVP 25 mg Q6H PRN Administration Allergy Symptoms Enoxaparin Sodium 40 mg 08/13/20 09:00 08/16/20 08:13 Enoxaparin 40 Mg/0.4 Ml Syringe SUBQ 40 mg DAILY MEL Administration Hydralazine HCl 10 mg 08/13/20 23:41 08/15/20 12:15 Hydralazine Inj 20 Mg/Ml Vial IVP 10 mg Q6H PRN Administration Hypertensive Emergency Ceftriaxone Sodium 1 gm/ 100 mls @ 200 mls/hr 08/13/20 03:59 08/16/20 08:45 Sodium Chloride IV 08/19/20 09:29 Infused Q24H MEL Infusion Sodium Chloride 500 mls @ 20 mls/hr 08/13/20 18:19 08/14/20 17:00 Normal Saline 0.9% IV Infused Q24H PRN Infusion TKO RATE Sodium Chloride 1,000 mls @ 83.33 mls/hr 08/15/20 08:25 08/16/20 06:23 Normal Saline 0.9% IV 50 mls/hr .Q12H1M MEL Infusion Potassium Chloride 10 meq in 100 mls @ 100 mls/hr 08/16/20 06:00 08/16/20 10:55 Potassium Chloride IV 08/16/20 13:59 50 mls/hr Q1H MEL Administration Protocol Insulin Glargine 8 unit 08/15/20 09:00 08/16/20 08:18 Insulin Glargine 300 Unit/3 Ml Pen SUBQ 8 unit BID MEL Administration Insulin Human Regular 2 - 10 unit 08/16/20 00:00 08/16/20 12:01 Insulin Regular Human 300 Unit/3 Ml Vial SUBQ 4 unit Q6HR MEL Administration Protocol Metoprolol Tartrate 5 mg 08/13/20 21:44 08/15/20 18:59 Metoprolol 5 Mg/5 Ml Vial IVP 5 mg Q6H PRN Administration Hypertensive Emergency Morphine Sulfate 2 mg 08/13/20 01:58 08/16/20 00:41 Morphine 2 Mg/Ml Carpuject IVP 2 mg Q2HR PRN Administration PAIN Ondansetron HCl 4 mg 08/13/20 00:48 08/15/20 01:16 Ondansetron 4 Mg/2 Ml Vial IVP 4 mg Q6HR PRN Administration Nausea / Vomiting Sodium Chloride 10 ml 08/13/20 01:00 08/16/20 08:12 Sodium Chloride Flush 0.9% 10 Ml Syringe IVP 10 ml 0100,0900,1700 MEL Administration Sodium Chloride 10 ml 08/12/20 23:11 08/16/20 00:49 Sodium Chloride Flush 0.9% 10 Ml Syringe IVP 10 ml PRN PRN Administration NEEDED PER PROVIDER ORDERS - Lab Result Fish Bone Diagrams: 08/16/20 04:45 08/16/20 04:45 - Additional Planning My Orders: My Active Orders 08/16/20 05:30 AMMONIA [CHEM] Routine 08/16/20 Lunch Full Liquid Diet [DIET] 08/16/20 11:53 ACETAMINOPHEN 1,000 MG IV (ONE TIME ORDER) Acetaminophen 1,000 mg/100 ml [Ofirmev] 100 ml IV ONCE 08/16/20 12:00 Transfer [Admit \\ Transfer \\ Status] [RC] .ONCE 08/16/20 12:01 Telemetry- [RC] Q4HR 08/16/20 Dinner Dysphagia Puree Diet [DIET] Subjective - Subjective Patient Reports: Other (More awake, nods yes to questions that she answers with yes, otherwise stares blank or was able to respond with a whisper regarding where she is "[place]". She is rocking in bed and is holding her stomach, when asked where is the pain, she cannot answer or point to it.) Objective Vital Signs: Vital Signs - 24 hr 08/15/20 08/15/2020 12:15 12:45 13:00 Temperature 37.0 C Heart Rate [ 110 H Monitoring electrodes] Respiratory 23 Rate Blood Pressure 155/71 H 117/68 Blood Pressure 117/68 [Right Brachial artery] O2 Saturation 97 08/15/20 08/15/20 08/15/20 14:00 16:00 16:38 Temperature 37.2 C Heart Rate [ 104 H 108 H Monitoring electrodes] Respiratory 14 Rate Blood Pressure Blood Pressure 131/74 H 132/69 H [Right Brachial artery] O2 Saturation 08/15/20 08/15/20 08/15/20 17:00 18:00 18:59 Temperature 37.2 C Heart Rate [ 111 H 109 H Monitoring electrodes] Respiratory 12 Rate Blood Pressure 149/70 H Blood Pressure 156/79 H 149/70 H [Right Brachial artery] O2 Saturation 98 08/15/20 08/15/20 08/15/20 19:00 19:05 19:10 Temperature Heart Rate [ 86 86 92 Monitoring electrodes] Respiratory Rate Blood Pressure Blood Pressure 140/83 H 142/81 H 125/70 [Right Brachial artery] O2 Saturation 08/15/20 08/15/20 08/15/20 19:15 19:20 19:25 Temperature Heart Rate [ 88 86 85 Monitoring electrodes] Respiratory Rate Blood Pressure Blood Pressure 129/79 149/89 H 145/83 H [Right Brachial artery] O2 Saturation 08/15/20 08/15/20 08/15/20 19:29 19:30 19:35 Temperature Heart Rate [ 85 85 Monitoring electrodes] Respiratory Rate Blood Pressure 147/82 H Blood Pressure 147/82 H 150/88 H [Right Brachial artery] O2 Saturation 08/15/20 08/15/20 08/15/20 19:40 19:45 20:00 Temperature Heart Rate [ 86 90 91 Monitoring electrodes] Respiratory 17 Rate Blood Pressure Blood Pressure 138/85 H 146/81 H 153/86 H [Right Brachial artery] O2 Saturation 08/15/20 08/15/20 08/16/20 21:00 22:00 00:42 Temperature 37.5 C 37.7 C Heart Rate [ 101 H 100 105 H Monitoring electrodes] Respiratory 26 H 14 Rate Blood Pressure Blood Pressure 152/93 H 167/91 H 152/83 H [Right Brachial artery] O2 Saturation 96 97 08/16/20 08/16/20 04:50 09:00 Temperature 37.6 C 37.5 C Heart Rate [ 99 114 H Monitoring electrodes] Respiratory 20 19 Rate Blood Pressure Blood Pressure 160/90 H 147/88 H [Right Brachial artery] O2 Saturation 97 95 Oxygen O2 Source Room air I&O (Last 24 Hrs): Intake and Output Totals x24h 08/14/20 08/15/20 08/16/20 23:59 23:59 23:59 Intake Total 3459.632 2849.667 1958.940 Output Total 1388 1282 460 Balance 2071.632 5709.569 3414.940 General: Alert HEENT: Mucous membr. moist/pink, Other (Eyelids have edema. Mouth is edentulous.) Neck: Supple, No JVD Neuro: Alert, Non Focal, Other (She has diffuse muscle tremors continuously, at rest and intentional. She is rocking back and forth and holding her stomach as if she is in pain. She has whispered a 2 word answer and otherwise only nods her head for a positive response but will not shake her head no for a negative response and is) Cardiovascular: Regular rate Respiratory: No respiratory distress Abdomen: Soft Extremities: Other (1+ hand and pedal edema) - Results Results: Laboratory Results WBC 10.5 x10^3/uL (4.8-10.8) 08/16/20 04:45 RBC 3.73 10^6/uL (4.20-5.40) L 08/16/20 04:45 Hgb 10.9 g/dL (12.0-16.0) L 08/16/20 04:45 Hct 33.0 % (37.0-47.0) L 08/16/20 04:45 MCV 88.5 fL (81.0-99.0) 08/16/20 04:45 MCH 29.2 pg (27.0-31.0) 08/16/20 04:45 MCHC 33.0 g/dL (32.0-36.0) 08/16/20 04:45 RDW 12.6 % (12.0-15.0) 08/16/20 04:45 Plt Count 207 10^3/uL (130-450) 08/16/20 04:45 MPV 11.0 fL (7.9-10.8) H 08/16/20 04:45 Neut # (Auto) 7.1 10^3/uL (1.5-6.6) H 08/16/20 04:45 Lymph # (Auto) 1.7 10^3/uL (1.5-3.5) 08/16/20 04:45 Boyle # (Auto) 1.6 10^3/uL (0.0-1.0) H 08/16/20 04:45 Eos # (Auto) 0.0 10^3/uL (0.0-0.7) 08/16/20 04:45 Baso # (Auto) 0.0 10^3/uL (0.0-0.1) 08/16/20 04:45 Absolute Nucleated RBC 0.00 x10^3/uL 08/16/20 04:45 Nucleated RBC % 0.0 /100WBC 08/16/20 04:45 Manual Slide Review Cancelled 08/14/20 03:57 WBC Morphology Cancelled 08/14/20 03:57 Platelet Estimate Cancelled 08/14/20 03:57 Platelet Morphology Cancelled 08/14/20 03:57 RBC Morph Micro Appear Cancelled 08/14/20 03:57 VBG pH 7.278 (7.31-7.41) L 08/15/20 05:00 VBG pCO2 29.1 mmHg (41-51) L 08/12/20 23:30 VBG pO2 63.9 mmHg (25-47) H 08/12/20 23:30 VBG HCO3 15.4 mmol/L (23-28) L 08/12/20 23:30 VBG Total CO2 16.3 mmol/L (24-29) L 08/12/20 23:30 VBG O2 Saturation 92.3 % (60-80) H 08/12/20 23:30 VBG Base Excess -9.0 mmol/L (-2 - +2) L 08/12/20 23:30 Ionized Calcium 1.18 mmol/L (1.15-1.33) 08/15/20 05:00 Sodium 146 mmol/L (135-145) H 08/16/20 04:45 Potassium 2.9 mmol/L (3.5-5.0) L 08/16/20 04:45 Chloride 119 mmol/L (101-111) H 08/16/20 04:45 Carbon Dioxide 19 mmol/L (21-32) L 08/16/20 04:45 Anion Gap 8.0 (6-13) 08/16/20 04:45 BUN 48 mg/dL (6-20) H 08/16/20 04:45 Creatinine 1.5 mg/dL (0.4-1.0) H 08/16/20 04:45 Estimated GFR (MDRD) 36 (>89) L 08/16/20 04:45 Glucose 203 mg/dL (70-100) H 08/16/20 04:45 POC Whole Bld Glucose 188 mg/dL (70 - 100) H 08/16/20 06:05 Estimat Average Glucose 217 mg/dL (70-100) H 08/15/20 05:00 Hemoglobin A1c % 9.2 % (4.27-6.07) H 08/15/20 05:00 Lactic Acid 1.2 mmol/L (0.5-2.2) 08/13/20 23:48 Calcium 8.7 mg/dL (8.5-10.3) 08/16/20 04:45 Phosphorus 3.2 mg/dL (2.5-4.6) 08/15/20 05:00 Magnesium 2.0 mg/dL (1.7-2.8) 08/16/20 04:45 Iron 61 ug/dL (28-170) 08/14/20 03:57 TIBC 270 ug/dL (250-450) 08/14/20 03:57 % Saturation 23 % (20-50) 08/14/20 03:57 Transferrin 193 mg/dL (192-382) 08/14/20 03:57 Total Bilirubin 1.2 mg/dL (0.2-1.0) H 08/12/20 21:15 AST 20 IU/L (10-42) 08/12/20 21:15 ALT 24 IU/L (10-60) 08/12/20 21:15 Alkaline Phosphatase 56 IU/L (42-121) 08/12/20 21:15 Ammonia 19.5 umol/L (7-35) 08/13/20 01:50 Total Protein 7.4 g/dL (6.7-8.2) 08/12/20 21:15 Albumin 4.0 g/dL (3.2-5.5) 08/12/20 21:15 Globulin 3.4 g/dL (2.1-4.2) 08/12/20 21:15 Albumin/Globulin Ratio 1.2 (1.0-2.2) 08/12/20 21:15 Lipase 22 U/L (22-51) 08/12/20 21:15 Vitamin B12 1345 pg/mL (180-914) H 08/14/20 03:57 Folate 10.25 ng/mL (5.90 - >24.8) 08/14/20 03:57 Urine Color YELLOW 08/13/20 01:30 Urine Clarity SL. CLOUDY (CLEAR) 08/13/20 01:30 Urine pH 6.0 PH (5.0-7.5) 08/13/20 01:30 Ur Specific [place] >=1.030 (1.002-1.030) H 08/13/20 01:30 Urine Protein >=300 mg/dL (NEGATIVE) H 08/13/20 01:30 Urine Glucose (UA) >=1000 mg/dL (NEGATIVE) H 08/13/20 01:30 Urine Ketones 15 mg/dL (NEGATIVE) H 08/13/20 01:30 Urine Occult Blood MODERATE (NEGATIVE) H 08/13/20 01:30 Urine Nitrite NEGATIVE (NEGATIVE) 08/13/20 01:30 Urine Bilirubin NEGATIVE (NEGATIVE) 08/13/20 01:30 Urine Urobilinogen 0.2 (NORMAL) E.U./dL (NORMAL) 08/13/20 01:30 Ur Leukocyte Esterase TRACE (NEGATIVE) H 08/13/20 01:30 Urine RBC 6-10 /HPF (0-5) H 08/13/20 01:30 Urine WBC >25 /HPF (0-5) H 08/13/20 01:30 Ur Squamous Epith Cells NONE SEEN (<= Few) 08/13/20 01:30 Urine Bacteria Moderate /HPF (None Seen) H 08/13/20 01:30 Ur Microscopic Review INDICATED 08/13/20 01:30 Urine Culture Comments INDICATED 08/13/20 01:30 Nasal Adenovirus (PCR) NOT DETECTED 08/12/20 21:56 Nasal B. parapertussis DNA (PCR) NOT DETECTED 08/12/20 21:56 Nasal Coronavir 229E PCR NOT DETECTED 08/12/20 21:56 Nasal Coronavir HKU1 PCR NOT DETECTED 08/12/20 21:56 Nasal Coronavir NL63 PCR NOT DETECTED 08/12/20 21:56 Nasal Coronavir OC43 PCR NOT DETECTED 08/12/20 21:56 Nasal Enterovir/Rhinovir PCR DETECTED A 08/12/20 21:56 Nasal Influenza B PCR NOT DETECTED 08/12/20 21:56 Nasal Influenza A PCR NOT DETECTED 08/12/20 21:56 Nasal Parainfluen 1 PCR NOT DETECTED 08/12/20 21:56 Nasal Parainfluen 2 PCR NOT DETECTED 08/12/20 21:56 Nasal Parainfluen 3 PCR NOT DETECTED 08/12/20 21:56 Nasal Parainfluen 4 PCR NOT DETECTED 08/12/20 21:56 Nasal RSV (PCR) NOT DETECTED 08/12/20 21:56 Nasal Screen MRSA (PCR) NEGATIVE (NEGATIVE) 08/13/20 00:00 Nasal B.pertussis DNA PCR NOT DETECTED 08/12/20 21:56 Nasal C.pneumoniae (PCR) NOT DETECTED 08/12/20 21:56 Janes Human Metapneumo PCR NOT DETECTED 08/12/20 21:56 Nasal M.pneumoniae (PCR) NOT DETECTED 08/12/20 21:56 Nasal SARS-CoV-2 (PCR) NOT DETECTED 08/12/20 21:56 Urine Opiates Screen NEGATIVE (NEGATIVE) 08/13/20 01:30 Ur Oxycodone Screen NEGATIVE (NEGATIVE) 08/13/20 01:30 Urine Methadone Screen NEGATIVE (NEGATIVE) 08/13/20 01:30 Ur Propoxyphene Screen NEGATIVE (NEGATIVE) 08/13/20 01:30 Ur Barbiturates Screen NEGATIVE (NEGATIVE) 08/13/20 01:30 Ur Tricyclics Screen NEGATIVE (NEGATIVE) 08/13/20 01:30 Ur Phencyclidine Scrn NEGATIVE (NEGATIVE) 08/13/20 01:30 Ur Amphetamine Screen NEGATIVE (NEGATIVE) 08/13/20 01:30 U Methamphetamines Scrn NEGATIVE (NEGATIVE) 08/13/20 01:30 U Benzodiazepines Scrn NEGATIVE (NEGATIVE) 08/13/20 01:30 Urine Cocaine Screen NEGATIVE (NEGATIVE) 08/13/20 01:30 U Cannabinoids Screen NEGATIVE (NEGATIVE) 08/13/20 01:30 Ethyl Alcohol < 5.0 mg/dL 08/12/20 21:15 Serum Ketones SMALL (NEGATIVE) H 08/12/20 21:15 Slides for Path Review Cancelled 08/14/20 03:57
[2020-08-16] MEDS: ERYTHROMYCIN BASE DR 250 MG TABLET PO SCH (16:31)
[2020-08-16] MEDS: SODIUM CHLORIDE 0.9% 1,000 ML IV SCH (16:33)
[2020-08-16] MEDS: INSULIN ASPART 300 UNIT/3 ML PEN SUBQ SCH ×2 (17:10→21:08)
[2020-08-16] MEDS ORDERED: ACETAMINOPHEN 1,000 MG/100 ML 100 ML IV PRN (17:26)
[2020-08-16] MEDS: ONDANSETRON 4 MG/2 ML VIAL IVP PRN (18:05)
[2020-08-16] MEDS ORDERED: POTASSIUM CHLOR 20 MEQ/100 ML 20 MEQ/100 ML BAG IV ONE (22:28)
[2020-08-16] MEDS: PROCHLORPERAZINE 10 MG/2 ML VIAL IVP PRN (23:18)
[2020-08-17] MEDS: PROCHLORPERAZINE 10 MG/2 ML VIAL IVP PRN ×2 (04:02→16:17)
[2020-08-17] MEDS: SODIUM CHLORIDE FLUSH 0.9% 10 ML SYRINGE IVP PRN ×3 (04:02→21:55)
[2020-08-17] MEDS: MORPHINE 2 MG/ML CARPUJECT IVP PRN ×3 (04:02→21:55)
[2020-08-17 04:16] LABS: BASOPHILS % (AUTO) 0.5 %; EOSINOPHILS # (AUTO) 0.2 10^3/uL (0.0-0.7); EOSINOPHILS % (AUTO) 2.3 %; HGB - HEMOGLOBIN 10.1 g/dL (12.0-16.0); LYMPHOCYTES # (AUTO) 2.1 10^3/uL (1.5-3.5); LYMPHOCYTES % (AUTO) 24.7 %; MEAN CORPUSCULAR HEMOGLOBIN 28.9 pg (27.0-31.0); MEAN CORPUSCULAR HGB CONC 33.8 g/dL (32.0-36.0); MEAN CORPUSCULAR VOLUME 85.7 fL (81.0-99.0); MONOCYTES % (AUTO) 12.1 %; NEUTROPHILS % (AUTO) 59.8 %; PLT - PLATELET COUNT 183 10^3/uL (130-450); RED BLOOD COUNT 3.49 10^6/uL (4.20-5.40); RED CELL DISTRIBUTION WIDTH 12.1 % (12.0-15.0); WHITE BLOOD COUNT 8.3 x10^3/uL (4.8-10.8)
[2020-08-17 04:33] LABS: ALBUMIN 2.7 g/dL (3.2-5.5); ALBUMIN/GLOBULIN RATIO 1.1 (1.0-2.2); BILIRUBIN,TOTAL 0.6 mg/dL (0.2-1.0); CALCIUM 8.3 mg/dL (8.5-10.3); CREATININE 1.2 mg/dL (0.4-1.0); TOTAL PROTEIN 5.1 g/dL (6.7-8.2)
[2020-08-17] MEDS: ERYTHROMYCIN BASE DR 250 MG TABLET PO SCH ×3 (06:56→16:33)
[2020-08-17] MEDS ORDERED: POTASSIUM CHLORIDE 20 MEQ TABLET PO ONE (07:43)
[2020-08-17] MEDS: ONDANSETRON 4 MG/2 ML VIAL IVP PRN ×2 (08:31→13:50)
[2020-08-17] MEDS: INSULIN GLARGINE 300 UNIT/3 ML PEN SUBQ SCH ×2 (08:57→21:05)
[2020-08-17] MEDS: INSULIN ASPART 300 UNIT/3 ML PEN SUBQ SCH ×4 (08:57→21:06)
[2020-08-17] MEDS: SODIUM CHLORIDE 0.9% 500 ML IV PRN (10:23)
[2020-08-17] MEDS: ENOXAPARIN 40 MG/0.4 ML SYRINGE SUBQ SCH (10:25)
[2020-08-17] MEDS: SODIUM CHLORIDE FLUSH 0.9% 10 ML SYRINGE IVP SCH ×3 (10:26→21:08)
--- NOTE | 2020-08-17 11:11 | PROVIDER PROGRESS NOTE ---
Subjective - Prog Note Date Prog Note Date: 08/17/20 - Subjective Subjective: She is more awake this morning. Still has some nausea and episode of dry heaves but no vomiting. She not have breakfast due to the nausea. Still has some epigastric abdominal pain. Current Medications - Current Medications Current Medications: Active Medications Acetaminophen (Acetaminophen 325 Mg Tablet) 650 mg PO Q4HR PRN PRN Reason: Pain 1 to 4 Diphenhydramine HCl (Diphenhydramine Inj 50 Mg/Ml Vial) 25 mg IVP Q6H PRN PRN Reason: Allergy Symptoms Last Admin: 08/16/20 00:48 Dose: 25 mg Documented by: Enoxaparin Sodium (Enoxaparin 40 Mg/0.4 Ml Syringe) 40 mg SUBQ DAILY [facility] Last Admin: 08/17/20 10:25 Dose: 40 mg Documented by: Erythromycin (Erythromycin Base Dr 250 Mg Tablet) 250 mg PO AC [facility] Last Admin: 08/17/20 13:39 Dose: 250 mg Documented by: Hydralazine HCl (Hydralazine Inj 20 Mg/Ml Vial) 10 mg IVP Q6H PRN PRN Reason: Hypertensive Emergency Last Admin: 08/17/20 12:12 Dose: 10 mg Documented by: Ceftriaxone Sodium 1 gm/ (Sodium Chloride) 100 mls @ 200 mls/hr IV Q24H [facility] Stop: 08/19/20 09:29 Last Infusion: 08/17/20 12:55 Dose: Infused Documented by: Sodium Chloride (Normal Saline 0.9%) 500 mls @ 20 mls/hr IV Q24H PRN PRN Reason: TKO RATE Last Admin: 08/17/20 10:23 Dose: 20 mls/hr Documented by: Insulin Aspart (Insulin Aspart 300 Unit/3 Ml Pen) 1 - 9 unit SUBQ 0800,1200,1700,2100 [facility]; Protocol Last Admin: 08/17/20 13:17 Dose: 1 unit Documented by: Insulin Glargine (Insulin Glargine 300 Unit/3 Ml Pen) 8 unit SUBQ BID [facility] Last Admin: 08/17/20 08:57 Dose: 8 unit Documented by: Metoprolol Tartrate (Metoprolol 5 Mg/5 Ml Vial) 5 mg IVP Q6H PRN PRN Reason: Hypertensive Emergency Last Admin: 08/15/20 18:59 Dose: 5 mg Documented by: Morphine Sulfate (Morphine 2 Mg/Ml Carpuject) 2 mg IVP Q2HR PRN PRN Reason: PAIN Last Admin: 08/17/20 13:47 Dose: 2 mg Documented by: Ondansetron HCl (Ondansetron 4 Mg/2 Ml Vial) 4 mg IVP Q6HR PRN PRN Reason: Nausea / Vomiting Last Admin: 08/17/20 13:50 Dose: 4 mg Documented by: Oxycodone HCl (Oxycodone 5 Mg Tablet) 5 mg PO Q4HR PRN PRN Reason: Pain 5 to 7 Prochlorperazine Edisylate (Prochlorperazine 10 Mg/2 Ml Vial) 10 mg IVP Q6HR PRN PRN Reason: Nausea / Vomiting Last Admin: 08/17/20 04:02 Dose: 10 mg Documented by: Sodium Chloride (Sodium Chloride Flush 0.9% 10 Ml Syringe) 10 ml IVP 0100,0900,1700 [facility] Last Admin: 08/17/20 10:26 Dose: Not Given Documented by: Sodium Chloride (Sodium Chloride Flush 0.9% 10 Ml Syringe) 10 ml IVP PRN PRN PRN Reason: NEEDED PER PROVIDER ORDERS Last Admin: 08/17/20 04:02 Dose: 10 ml Documented by: Ondansetron Odt [Zofran Odt] 4 mg TL Q6H PRN 08/13/20 Objective - Vital Signs/Intake & Output Reviewed Vital Signs: Yes Vital Signs: Vital Signs x48h Temp Pulse Resp BP Pulse Ox 08/17/20 08:21 36.7 C 80 12 194/101 H 98 08/17/20 05:00 81 17 147/86 H 97 Intake & Output: Intake & Output 08/14/20 08/15/20 08/16/20 08/17/20 23:59 23:59 23:59 23:59 Intake Total 3459.632 2849.667 4735.000 757.500 Output Total 1388 1282 1135 1325 Balance 2071.632 2363.580 8931.000 -567.500 - Objective General Appearance: positive: Alert, Mild distress, Lethargic Eyes Bilateral: positive: Normal inspection, Conjunctivae nml ENT: positive: ENT inspection nml Neck: positive: Nml inspection Respiratory: positive: No respiratory distress. negative: Wheezes, Rales Cardiovascular: positive: Tachycardia. negative: Irregularly irregular, Bradycardia, Systolic murmur Abdomen: positive: No distention, Tenderness (Epigastric tenderness), Abnml bowel sounds (Hyperactive). negative: Non-tender, Guarding, Rebound Skin: positive: Warm, Dry Extremities: positive: Full ROM, No pedal edema Neurologic/Psychiatric: positive: Motor nml. negative: Disoriented to person, Disoriented to place, Disoriented to time, Slurred/abnml speech - Lab Results Fish Bones: 08/17/20 03:54 08/17/20 03:54 Other Labs: Lab Results x24hrs 08/17/20 08/17/20 08/17/20 Range/Units 07:59 03:54 03:54 WBC 8.3 (4.8-10.8) x10^3/uL RBC 3.49 L (4.20-5.40) 10^6/uL Hgb 10.1 L (12.0-16.0) g/dL Hct 29.9 L (37.0-47.0) % MCV 85.7 (81.0-99.0) fL MCH 28.9 (27.0-31.0) pg MCHC 33.8 (32.0-36.0) g/dL RDW 12.1 (12.0-15.0) % Plt Count 183 (130-450) 10^3/uL MPV 11.0 H (7.9-10.8) fL Neut # (Auto) 5.0 (1.5-6.6) 10^3/uL Lymph # (Auto) 2.1 (1.5-3.5) 10^3/uL [place] # (Auto) 1.0 (0.0-1.0) 10^3/uL Eos # (Auto) 0.2 (0.0-0.7) 10^3/uL Baso # (Auto) 0.0 (0.0-0.1) 10^3/uL Absolute Nucleated RBC 0.00 x10^3/uL Nucleated RBC % 0.0 /100WBC Sodium 139 (135-145) mmol/L Potassium 3.2 L (3.5-5.0) mmol/L Chloride 113 H (101-111) mmol/L Carbon Dioxide 18 L (21-32) mmol/L Anion Gap 8.0 (6-13) BUN 33 H (6-20) mg/dL Creatinine 1.2 H (0.4-1.0) mg/dL Estimated GFR (MDRD) 46 L (>89) Glucose 193 H (70-100) mg/dL POC Whole Bld Glucose 167 H (70 - 100) mg/dL Calcium 8.3 L (8.5-10.3) mg/dL Total Bilirubin 0.6 (0.2-1.0) mg/dL AST 14 (10-42) IU/L ALT 13 (10-60) IU/L Alkaline Phosphatase 42 (42-121) IU/L Ammonia (7-35) umol/L Total Protein 5.1 L (6.7-8.2) g/dL Albumin 2.7 L (3.2-5.5) g/dL Globulin 2.4 (2.1-4.2) g/dL Albumin/Globulin Ratio 1.1 (1.0-2.2) 08/16/20 08/16/20 08/16/20 Range/Units 20:50 16:31 12:50 WBC (4.8-10.8) x10^3/uL RBC (4.20-5.40) 10^6/uL Hgb (12.0-16.0) g/dL Hct (37.0-47.0) % MCV (81.0-99.0) fL MCH (27.0-31.0) pg MCHC (32.0-36.0) g/dL RDW (12.0-15.0) % Plt Count (130-450) 10^3/uL MPV (7.9-10.8) fL Neut # (Auto) (1.5-6.6) 10^3/uL Lymph # (Auto) (1.5-3.5) 10^3/uL [place] # (Auto) (0.0-1.0) 10^3/uL Eos # (Auto) (0.0-0.7) 10^3/uL Baso # (Auto) (0.0-0.1) 10^3/uL Absolute Nucleated RBC x10^3/uL Nucleated RBC % /100WBC Sodium (135-145) mmol/L Potassium (3.5-5.0) mmol/L Chloride (101-111) mmol/L Carbon Dioxide (21-32) mmol/L Anion Gap (6-13) BUN (6-20) mg/dL Creatinine (0.4-1.0) mg/dL Estimated GFR (MDRD) (>89) Glucose (70-100) mg/dL POC Whole Bld Glucose 320 H 231 H (70 - 100) mg/dL Calcium (8.5-10.3) mg/dL Total Bilirubin (0.2-1.0) mg/dL AST (10-42) IU/L ALT (10-60) IU/L Alkaline Phosphatase (42-121) IU/L Ammonia 17.4 (7-35) umol/L Total Protein (6.7-8.2) g/dL Albumin (3.2-5.5) g/dL Globulin (2.1-4.2) g/dL Albumin/Globulin Ratio (1.0-2.2) 08/16/20 08/12/20 Range/Units 12:00 23:02 WBC (4.8-10.8) x10^3/uL RBC (4.20-5.40) 10^6/uL Hgb (12.0-16.0) g/dL Hct (37.0-47.0) % MCV (81.0-99.0) fL MCH (27.0-31.0) pg MCHC (32.0-36.0) g/dL RDW (12.0-15.0) % Plt Count (130-450) 10^3/uL MPV (7.9-10.8) fL Neut # (Auto) (1.5-6.6) 10^3/uL Lymph # (Auto) (1.5-3.5) 10^3/uL [place] # (Auto) (0.0-1.0) 10^3/uL Eos # (Auto) (0.0-0.7) 10^3/uL Baso # (Auto) (0.0-0.1) 10^3/uL Absolute Nucleated RBC x10^3/uL Nucleated RBC % /100WBC Sodium (135-145) mmol/L Potassium (3.5-5.0) mmol/L Chloride (101-111) mmol/L Carbon Dioxide (21-32) mmol/L Anion Gap (6-13) BUN (6-20) mg/dL Creatinine (0.4-1.0) mg/dL Estimated GFR (MDRD) (>89) Glucose (70-100) mg/dL POC Whole Bld Glucose 181 H 520 H* (70 - 100) mg/dL Calcium (8.5-10.3) mg/dL Total Bilirubin (0.2-1.0) mg/dL AST (10-42) IU/L ALT (10-60) IU/L Alkaline Phosphatase (42-121) IU/L Ammonia (7-35) umol/L Total Protein (6.7-8.2) g/dL Albumin (3.2-5.5) g/dL Globulin (2.1-4.2) g/dL Albumin/Globulin Ratio (1.0-2.2) ABX Reporting Has patient been on IV antibiotics over the past 48 hours?: Yes Assessment/Plan - Problem List (1) Altered mental status Impression: This appears to have significantly improved. She reportedly was minimally verbal yesterday but today she is communicating and able to provide a history and answer questions appropriately. CT was obtained previously which was unremarkable. Her ammonia level is within normal limits. The etiology of her altered status is not clear although this could be due to her DKA as well as acute kidney injury as well as dehydration. This may have also been related to the Lyrica she is on at home as this is renally cleared and she had acute kidney injury. At this time, we will avoid sedatives. Continue to monitor her neurologic status. We will get her out of bed and ambulating. Qualifiers: Altered mental status type: somnolence Qualified Code(s): R40.0 - Somnolence (2) Gastroparesis Impression: She has known gastroparesis and continues to have nausea and vomiting. Reglan was discontinued due to concerns of potential side effects including muscle twitching and dyskinesia. She has since been started on erythromycin. She still has nausea but no vomiting. Still complains of epigastric abdominal pain. CT on admission did not reveal any acute abnormalities except for the pyelonephritis. EKG today shows her QTC is acceptable. We will continue her on erythromycin for another day and antiemetics with Zofran as needed. Continue with clear liquid diet. She is improving albeit slowly. We will hope to advance her diet tomorrow. (3) Pyelonephritis Impression: She had symptoms of a urinary tract infection initially including dysuria, urgency and flank pain. Her urinalysis was suggestive of infection and his imaging did suggest pyelonephritis. Urine culture did grow beta-hemolytic strep group B. She is on ceftriaxone which she will continue until she can consistently take p.o. We will look to switch her to an oral cephalosporin or fluoroquinolone once she is taking p.o. consistently. (4) Acute kidney injury Impression: This continues to improve and has nearly resolved. Her creatinine is down to 1 .2 now. Her baseline is approximately 1.0. We will continue to monitor her renal function and urine output. We will discontinue IV fluids and start her on a clear liquid diet given she does have a minimal amount of pitting edema in her feet. (5) Insulin dependent diabetes mellitus Impression: Her blood glucose is better controlled but she is not taking much by mouth due to nausea and vomiting. We will continue current insulin regimen and adjust as needed. Continues clear liquid diet as tolerated. (6) Fibromyalgia Impression: Stable. We will resume her home Cymbalta tomorrow morning now that her mentation has improved. We will look to resume her home dose of Lyrica tomorrow but at a lower dose given she was altered up until today and is still lethargic. (7) Diabetic ketoacidosis Impression: This has since resolved. Qualifiers: Diabetes mellitus type: type 1 Diabetes mellitus complication detail: without coma Qualified Code(s): E10.10 - Type 1 diabetes mellitus with ketoacidosis without coma
[2020-08-17] MEDS: hydrALAZINE INJ 20 MG/ML VIAL IVP PRN (12:12)
[2020-08-17] MEDS: cefTRIAXone 1 GM in SODIUM CHLORIDE 0.9% MINIBAG 100 ML IV SCH (12:22)
--- NOTE | 2020-08-17 12:25 | ANESTHESIA PROCEDURE NOTE ---
Diagnosis: need for IV access, hypokalemia Procedure: midline catheter Consent for Procedure(s) Verified and Reviewed: No Height and Weight: Height 5 ft 3 in Weight (kg) 57 kg Body Mass Index 21.4 Vital Signs: Temp Pulse Resp BP Pulse Ox 36.8 C 90 13 185/101 H 99 08/17/20 12:01 08/17/20 12:01 08/17/20 12:01 08/17/20 12:01 08/17/20 12:01 Allergies No Known Drug Allergies Allergy (Verified 08/12/20 21:26) ASA classification: 3-Severe systemic disease Is this case an emergency?: Yes (patient had no IV access) Anes. Monitoring and Equipment: All ports aspirate blood, Sterile prep and drape Anes. Procedure Start Time: 11:40 Anes. Procedure Stop Time: 12:00 Procedure Notes: Patient had multiple IV start attempts, did not need central line, only peripheral access. TO with RN. #4 PICC line kit used and cut down to 20 CM. Easy placement with ultrasound guidance seldinger technique, treaded easily 20 cm. Dressed with statlock and tegaderm. Lakesha MONTILLA present and assisted me with procedure.
[2020-08-17] MEDS: POTASSIUM CHLOR 10 MEQ/100 ML 10 MEQ/100 ML BAG IV SCH ×4 (12:32→16:07)
[2020-08-17] MEDS: METOPROLOL 5 MG/5 ML VIAL IVP PRN (16:11)
[2020-08-17] MEDS: PANTOPRAZOLE 40 MG VIAL IVP SCH (17:16)
[2020-08-18 04:44] LABS: BASOPHILS # (AUTO) 0.1 10^3/uL (0.0-0.1); BASOPHILS % (AUTO) 0.5 %; EOSINOPHILS # (AUTO) 0.1 10^3/uL (0.0-0.7); EOSINOPHILS % (AUTO) 1.3 %; HGB - HEMOGLOBIN 9.9 g/dL (12.0-16.0); LYMPHOCYTES # (AUTO) 1.4 10^3/uL (1.5-3.5); LYMPHOCYTES % (AUTO) 15.6 %; MEAN CORPUSCULAR HEMOGLOBIN 29.2 pg (27.0-31.0); MEAN CORPUSCULAR HGB CONC 33.2 g/dL (32.0-36.0); MEAN CORPUSCULAR VOLUME 87.9 fL (81.0-99.0); MEAN PLATELET VOLUME 11.2 fL (7.9-10.8); MONOCYTES # (AUTO) 1.1 10^3/uL (0.0-1.0); MONOCYTES % (AUTO) 12.2 %; NEUTROPHILS # (AUTO) 6.4 10^3/uL (1.5-6.6); PLT - PLATELET COUNT 190 10^3/uL (130-450); RED BLOOD COUNT 3.39 10^6/uL (4.20-5.40); RED CELL DISTRIBUTION WIDTH 11.9 % (12.0-15.0); WHITE BLOOD COUNT 9.2 x10^3/uL (4.8-10.8)
[2020-08-18 04:59] LABS: ALBUMIN 2.7 g/dL (3.2-5.5); ALBUMIN/GLOBULIN RATIO 1.1 (1.0-2.2); BILIRUBIN,TOTAL 0.5 mg/dL (0.2-1.0); CALCIUM 8.5 mg/dL (8.5-10.3); MAGNESIUM 1.9 mg/dL (1.7-2.8); TOTAL PROTEIN 5.2 g/dL (6.7-8.2)
[2020-08-18] MEDS: MORPHINE 2 MG/ML CARPUJECT IVP PRN ×2 (05:36→08:09)
[2020-08-18] MEDS: SODIUM CHLORIDE FLUSH 0.9% 10 ML SYRINGE IVP PRN ×2 (05:36→06:45)
[2020-08-18] MEDS: PANTOPRAZOLE 40 MG VIAL IVP SCH (06:44)
[2020-08-18] MEDS: ERYTHROMYCIN BASE DR 250 MG TABLET PO SCH ×2 (06:44→11:02)
[2020-08-18] MEDS: SODIUM CHLORIDE FLUSH 0.9% 10 ML SYRINGE IVP SCH ×4 (06:45→21:56)
[2020-08-18] MEDS: ONDANSETRON 4 MG/2 ML VIAL IVP PRN (08:09)
[2020-08-18] MEDS: lisinopriL 5 MG TABLET PO SCH (08:18)
[2020-08-18] MEDS: ASPIRIN EC 81 MG TABLET PO SCH (08:18)
[2020-08-18] MEDS: DULoxetine 30 MG CAPSULE PO SCH (08:18)
[2020-08-18] MEDS: cefTRIAXone 1 GM in SODIUM CHLORIDE 0.9% MINIBAG 100 ML IV SCH (08:19)
[2020-08-18] MEDS: ENOXAPARIN 40 MG/0.4 ML SYRINGE SUBQ SCH (08:19)
[2020-08-18] MEDS: INSULIN GLARGINE 300 UNIT/3 ML PEN SUBQ SCH ×2 (08:45→20:54)
[2020-08-18] MEDS: INSULIN ASPART 300 UNIT/3 ML PEN SUBQ SCH ×4 (08:46→20:55)
[2020-08-18] MEDS: POTASSIUM CHLOR 10 MEQ/100 ML 10 MEQ/100 ML BAG IV SCH ×4 (08:54→11:59)
[2020-08-18] MEDS: PROCHLORPERAZINE 10 MG/2 ML VIAL IVP PRN (09:40)
[2020-08-18] MEDS: PREGABALIN 100 MG CAPSULE PO SCH ×2 (13:50→21:57)
--- NOTE | 2020-08-18 14:04 | PROVIDER PROGRESS NOTE ---
Subjective - Prog Note Date Prog Note Date: 08/18/20 - Subjective Subjective: She feels much better today. Still has slight abdominal pain and a little nausea but was able to tolerate a liquid diet for breakfast. She does report having diarrhea. Current Medications - Current Medications Current Medications: Active Medications Acetaminophen (Acetaminophen 325 Mg Tablet) 650 mg PO Q4HR PRN PRN Reason: Pain 1 to 4 Aspirin (Aspirin Ec 81 Mg Tablet) 81 mg PO DAILY [facility] Last Admin: 08/18/20 08:18 Dose: 81 mg Documented by: Atorvastatin Calcium (Atorvastatin 40 Mg Tablet) 20 mg PO QPM [facility] Duloxetine HCl (Duloxetine 30 Mg Capsule) 60 mg PO DAILY [facility] Last Admin: 08/18/20 08:18 Dose: 60 mg Documented by: Enoxaparin Sodium (Enoxaparin 40 Mg/0.4 Ml Syringe) 40 mg SUBQ DAILY [facility] Last Admin: 08/18/20 08:19 Dose: 40 mg Documented by: Erythromycin (Erythromycin Base Dr 250 Mg Tablet) 250 mg PO AC [facility] Last Admin: 08/18/20 11:02 Dose: 250 mg Documented by: Ceftriaxone Sodium 1 gm/ (Sodium Chloride) 100 mls @ 200 mls/hr IV Q24H [facility] Stop: 08/19/20 09:29 Last Infusion: 08/18/20 08:51 Dose: Infused Documented by: Sodium Chloride (Normal Saline 0.9%) 500 mls @ 20 mls/hr IV Q24H PRN PRN Reason: TKO RATE Last Infusion: 08/18/20 13:22 Dose: 0 mls/hr Documented by: Insulin Aspart (Insulin Aspart 300 Unit/3 Ml Pen) 1 - 9 unit SUBQ 0800,1200,1700,2100 [facility]; Protocol Last Admin: 08/18/20 11:58 Dose: 5 unit Documented by: Insulin Aspart (Insulin Aspart 300 Unit/3 Ml Pen) 5 unit SUBQ TIDWM [facility] Insulin Glargine (Insulin Glargine 300 Unit/3 Ml Pen) 12 unit SUBQ BID [facility] Lisinopril (Lisinopril 5 Mg Tablet) 10 mg PO DAILY [facility] Last Admin: 08/18/20 08:18 Dose: 10 mg Documented by: Morphine Sulfate (Morphine 2 Mg/Ml Carpuject) 2 mg IVP Q2HR PRN PRN Reason: PAIN Last Admin: 08/18/20 08:09 Dose: 2 mg Documented by: Ondansetron HCl (Ondansetron 4 Mg/2 Ml Vial) 4 mg IVP Q6HR PRN PRN Reason: Nausea / Vomiting Last Admin: 08/18/20 08:09 Dose: 4 mg Documented by: Oxycodone HCl (Oxycodone 5 Mg Tablet) 5 mg PO Q4HR PRN PRN Reason: Pain 5 to 7 Pantoprazole Sodium (Pantoprazole 40 Mg Vial) 40 mg IVP QDAC [facility] Last Admin: 08/18/20 06:44 Dose: 40 mg Documented by: Pregabalin (Pregabalin 100 Mg Capsule) 100 mg PO TID [facility] Last Admin: 08/18/20 13:50 Dose: 100 mg Documented by: Prochlorperazine Edisylate (Prochlorperazine 10 Mg/2 Ml Vial) 10 mg IVP Q6HR PRN PRN Reason: Nausea / Vomiting Last Admin: 08/18/20 09:40 Dose: 10 mg Documented by: Sodium Chloride (Sodium Chloride Flush 0.9% 10 Ml Syringe) 10 ml IVP 0100,0900,1700 [facility] Last Admin: 08/18/20 08:10 Dose: 10 ml Documented by: Sodium Chloride (Sodium Chloride Flush 0.9% 10 Ml Syringe) 10 ml IVP PRN PRN PRN Reason: NEEDED PER PROVIDER ORDERS Last Admin: 08/18/20 06:45 Dose: 10 ml Documented by: Ondansetron Odt [Zofran Odt] 4 mg TL Q6H PRN 08/13/20 Objective - Vital Signs/Intake & Output Reviewed Vital Signs: Yes Vital Signs: Vital Signs x48h Temp Pulse Resp BP Pulse Ox 08/18/20 12:02 36.4 C L 85 14 144/102 H 97 08/18/20 08:00 36.9 C 89 14 149/92 H 96 Intake & Output: Intake & Output 08/15/20 08/16/20 08/17/20 08/18/20 23:59 23:59 23:59 23:59 Intake Total 2849.667 4735.000 8196.774 5647.666 Output Total 1282 1135 2000 1200 Balance 2070.225 4147.000 -179.500 175.666 - Objective General Appearance: positive: No acute distress, Alert Eyes Bilateral: positive: Normal inspection, Conjunctivae nml ENT: positive: ENT inspection nml Neck: positive: Nml inspection Respiratory: positive: No respiratory distress. negative: Wheezes, Rales Cardiovascular: positive: Regular rate & rhythm, No murmur. negative: Tachycardia Abdomen: positive: No distention, Tenderness (Minimal tenderness in the e pigastric region.), Abnml bowel sounds (Hyperactive bowel sounds.). negative: Non-tender, Guarding, Rebound Skin: positive: Warm, Dry Extremities: positive: No pedal edema Neurologic/Psychiatric: positive: Oriented x3, Motor nml. negative: Disoriented to person, Disoriented to place, Disoriented to time - Lab Results Fish Bones: 08/18/20 04:03 08/18/20 04:03 Other Labs: Lab Results x24hrs 08/18/20 08/18/20 08/18/20 Range/Units 11:48 07:46 04:03 WBC 9.2 (4.8-10.8) x10^3/uL RBC 3.39 L (4.20-5.40) 10^6/uL Hgb 9.9 L (12.0-16.0) g/dL Hct 29.8 L (37.0-47.0) % MCV 87.9 (81.0-99.0) fL MCH 29.2 (27.0-31.0) pg MCHC 33.2 (32.0-36.0) g/dL RDW 11.9 L (12.0-15.0) % Plt Count 190 (130-450) 10^3/uL MPV 11.2 H (7.9-10.8) fL Neut # (Auto) 6.4 (1.5-6.6) 10^3/uL Lymph # (Auto) 1.4 L (1.5-3.5) 10^3/uL [place] # (Auto) 1.1 H (0.0-1.0) 10^3/uL Eos # (Auto) 0.1 (0.0-0.7) 10^3/uL Baso # (Auto) 0.1 (0.0-0.1) 10^3/uL Absolute Nucleated RBC 0.00 x10^3/uL Nucleated RBC % 0.0 /100WBC Sodium (135-145) mmol/L Potassium (3.5-5.0) mmol/L Chloride (101-111) mmol/L Carbon Dioxide (21-32) mmol/L Anion Gap (6-13) BUN (6-20) mg/dL Creatinine (0.4-1.0) mg/dL Estimated GFR (MDRD) (>89) Glucose (70-100) mg/dL POC Whole Bld Glucose 232 H 147 H (70 - 100) mg/dL Calcium (8.5-10.3) mg/dL Magnesium (1.7-2.8) mg/dL Total Bilirubin (0.2-1.0) mg/dL AST (10-42) IU/L ALT (10-60) IU/L Alkaline Phosphatase (42-121) IU/L Total Protein (6.7-8.2) g/dL Albumin (3.2-5.5) g/dL Globulin (2.1-4.2) g/dL Albumin/Globulin Ratio (1.0-2.2) 08/18/20 08/17/20 08/17/20 Range/Units 04:03 20:40 17:09 WBC (4.8-10.8) x10^3/uL RBC (4.20-5.40) 10^6/uL Hgb (12.0-16.0) g/dL Hct (37.0-47.0) % MCV (81.0-99.0) fL MCH (27.0-31.0) pg MCHC (32.0-36.0) g/dL RDW (12.0-15.0) % Plt Count (130-450) 10^3/uL MPV (7.9-10.8) fL Neut # (Auto) (1.5-6.6) 10^3/uL Lymph # (Auto) (1.5-3.5) 10^3/uL [place] # (Auto) (0.0-1.0) 10^3/uL Eos # (Auto) (0.0-0.7) 10^3/uL Baso # (Auto) (0.0-0.1) 10^3/uL Absolute Nucleated RBC x10^3/uL Nucleated RBC % /100WBC Sodium 136 (135-145) mmol/L Potassium 3.4 L (3.5-5.0) mmol/L Chloride 109 (101-111) mmol/L Carbon Dioxide 21 (21-32) mmol/L Anion Gap 6.0 (6-13) BUN 23 H (6-20) mg/dL Creatinine 1.0 (0.4-1.0) mg/dL Estimated GFR (MDRD) 57 L (>89) Glucose 178 H (70-100) mg/dL POC Whole Bld Glucose 204 H 114 H (70 - 100) mg/dL Calcium 8.5 (8.5-10.3) mg/dL Magnesium 1.9 (1.7-2.8) mg/dL Total Bilirubin 0.5 (0.2-1.0) mg/dL AST 14 (10-42) IU/L ALT 12 (10-60) IU/L Alkaline Phosphatase 41 L (42-121) IU/L Total Protein 5.2 L (6.7-8.2) g/dL Albumin 2.7 L (3.2-5.5) g/dL Globulin 2.5 (2.1-4.2) g/dL Albumin/Globulin Ratio 1.1 (1.0-2.2) ABX Reporting Has patient been on IV antibiotics over the past 48 hours?: Yes Assessment/Plan - Problem List (1) Gastroparesis Impression: She was finally able to tolerate a clear liquid diet this morning. She still has a mild abdominal pain but this is improving. CT on admission was consistent with enteritis/colitis. Given she is having diarrhea, will check for C. difficile. At this time, we will advance her diet and we will look to discharge her tomorrow as long as she is able to tolerate p.o. and her blood glucose is stable. We will continue with Zofran as needed. We will discontinue erythromycin as he will not be discharging her on this. We will also not discharge her on Reglan given concern for dyskinesia during this hospitalization. She will be seeing her primary care provider early next month to establish care and I have recommended gastroenterology referral. I did con sult nutrition today and they discussed nutrition with the patient. I also asked the patient to attempt small meals throughout the day rather than 3 large meals given her gastroparesis. (2) Altered mental status Impression: This has since resolved and she is back to her baseline. CT the head was unremarkable. I suspect this is likely due to her DKA as well as the use of Lyrica in somebody who had acute kidney injury and dehydration. We have resumed her home Lyrica today at a lower dose and we will resume her home dose tomorrow as long as her mentation remains the same. Qualifiers: Altered mental status type: somnolence Qualified Code(s): R40.0 - Somnolence (3) Pyelonephritis Impression: She continues to improve from a infection standpoint. Cultures grew strep group B. Tomorrow will be day 7 of IV antibiotics. We will likely complete 7 to 10 days of therapy. (4) Insulin dependent diabetes mellitus Impression: Her blood glucose has been controlled although it did increase to greater than 200 today now that she is taking p.o. We will resume her home dose of Lantus and place her on 5 units of NovoLog with meals. We will advance her diet as tolerated. (5) Fibromyalgia Impression: Stable. We have resumed her home Cymbalta and Lyrica. (6) Diabetic ketoacidosis Impression: This has since resolved. Qualifiers: Diabetes mellitus type: type 1 Diabetes mellitus complication detail: without coma Qualified Code(s): E10.10 - Type 1 diabetes mellitus with ketoacidosis without coma (7) Acute kidney injury Impression: This has resolved and her renal function is back to baseline.
[2020-08-18] MEDS ORDERED: INSULIN ASPART 300 UNIT/3 ML PEN SUBQ SCH (17:00)
[2020-08-18] MEDS ORDERED: ATORVASTATIN 40 MG TABLET PO SCH (21:00)
[2020-08-19] MEDS: SODIUM CHLORIDE FLUSH 0.9% 10 ML SYRINGE IVP PRN ×2 (00:38→06:18)
[2020-08-19] MEDS: PROCHLORPERAZINE 10 MG/2 ML VIAL IVP PRN (00:38)
[2020-08-19 05:11] LABS: BASOPHILS % (AUTO) 0.5 %; EOSINOPHILS # (AUTO) 0.3 10^3/uL (0.0-0.7); HGB - HEMOGLOBIN 9.6 g/dL (12.0-16.0); LYMPHOCYTES # (AUTO) 1.8 10^3/uL (1.5-3.5); LYMPHOCYTES % (AUTO) 27.2 %; MEAN CORPUSCULAR HEMOGLOBIN 29.4 pg (27.0-31.0); MEAN CORPUSCULAR HGB CONC 34.7 g/dL (32.0-36.0); MEAN CORPUSCULAR VOLUME 84.7 fL (81.0-99.0); MEAN PLATELET VOLUME 11.1 fL (7.9-10.8); MONOCYTES # (AUTO) 0.8 10^3/uL (0.0-1.0); MONOCYTES % (AUTO) 12.6 %; NEUTROPHILS # (AUTO) 3.6 10^3/uL (1.5-6.6); NEUTROPHILS % (AUTO) 55.1 %; PLT - PLATELET COUNT 188 10^3/uL (130-450); RED BLOOD COUNT 3.27 10^6/uL (4.20-5.40); RED CELL DISTRIBUTION WIDTH 11.9 % (12.0-15.0); WHITE BLOOD COUNT 6.6 x10^3/uL (4.8-10.8)
[2020-08-19 05:13] LABS: CALCIUM 8.6 mg/dL (8.5-10.3); CREATININE 1.1 mg/dL (0.4-1.0); MAGNESIUM 1.9 mg/dL (1.7-2.8)
[2020-08-19] MEDS: PANTOPRAZOLE 40 MG VIAL IVP SCH (06:18)
[2020-08-19] MEDS: PREGABALIN 100 MG CAPSULE PO SCH (06:18)
[2020-08-19] MEDS: SODIUM CHLORIDE FLUSH 0.9% 10 ML SYRINGE IVP SCH ×2 (06:19→09:08)
--- NOTE | 2020-08-19 07:43 | Discharge Plan ---
Discharge Plan Problem Reviewed?: Yes Disposition: Home, Self Care Condition: Stable Prescriptions: DULoxetine [Cymbalta] 60 mg PO DAILY #60 capsule Aspirin EC [Ecotrin] 81 mg PO DAILY #30 tablet Blood Sugar Diagnostic [Glucose Test Strip] 1 each ACHS #120 strip Lancets 1 each ACHS #120 each Insulin Glargine [Lantus Solostar] 12 unit SUBQ BID #1 pen Atorvastatin [Lipitor] 20 mg PO HS #30 tablet Pregabalin [Lyrica] 100 mg PO TID #90 capsule Insulin Aspart [NovoLOG] 8 unit SUBQ TIDWM #3 pen Pantoprazole [Protonix] 40 mg PO DAILY #30 tablet Cefpodoxime Proxetil [Vantin] 200 mg PO BID 3 Days #12 tablet lisinopriL [Zestril] 5 mg PO DAILY #30 tablet Ondansetron Odt [Zofran Odt] 4 mg TL Q6H PRN #12 tab PRN Reason: Nausea / Vomiting Diet: Diabetic Activity Restrictions: Activity as Tolerated Shower Restrictions: No Instruction Topics: Gastroparesis, Blood Sugar Check, Diabetes Sick Day Plan Health Concerns: You were admitted to the hospital because of diabetic ketoacidosis. This improved after he received IV fluids and insulin. You were still confused and lethargic for a couple days after resolution of diabetic ketoacidosis. A CT of the head did not show any acute abnormalities. It was felt that you are likely dehydrated and some of the medications you are taking at home may have contributed to you being more lethargic. He also had nausea and vomiting likely due to gastroparesis. A CT of the abdomen did show a possible gastroenteritis. We have stopped Reglan given concerns for possible reaction to it. You can continue with Zofran as needed for nausea. You are now tolerating a diet and you are stable for discharge. You also had a kidney infection. You are treated with antibiotics with improvement. You will need 3 more days of oral antibiotics starting 20 of August. Plan of Treatment: Please take Lantus 12 units twice daily as you were previously taking. Please take 8 units of short acting insulin, NovoLog with meals 3 times a day. If your blood glucose is persistently elevated at greater than 300 or your blood glucose is less than 70 then please contact your [employer]. Please take the antibiotic twice a day for 3 more days starting August 20. I did provide you with prescriptions for your medications. These are sent to [email or web address]. Future refills can be obtained from your new primary care provider. Care Goals: Please return to the emergency department if you develop persistent elevated blood glucose greater than 400 or a blood glucose less than 70 persists. Please also return if you develop worsening nausea or vomiting or confusion. Assessment: The patient and family expressed understanding of the treatment plan. Additional Instructions or Follow Up instructions: Please follow-up with your primary care provider in early August as scheduled. You may benefit from a referral to gastroenterology given the gastroparesis. No Smoking: If you smoke, Please STOP! Call for help.
[2020-08-19] MEDS ORDERED: INSULIN ASPART 300 UNIT/3 ML PEN SUBQ SCH (08:00)
[2020-08-19] MEDS: INSULIN GLARGINE 300 UNIT/3 ML PEN SUBQ SCH (08:17)
[2020-08-19] MEDS: INSULIN ASPART 300 UNIT/3 ML PEN SUBQ SCH (08:18)
[2020-08-19] MEDS: ASPIRIN EC 81 MG TABLET PO SCH (08:59)
[2020-08-19] MEDS: DULoxetine 30 MG CAPSULE PO SCH (08:59)
[2020-08-19] MEDS: lisinopriL 5 MG TABLET PO SCH (09:00)
[2020-08-19] MEDS: cefTRIAXone 1 GM in SODIUM CHLORIDE 0.9% MINIBAG 100 ML IV SCH (09:02)
[2020-08-19] MEDS: ENOXAPARIN 40 MG/0.4 ML SYRINGE SUBQ SCH (09:11)
--- NOTE | 2020-08-19 09:20 | DISCHARGE SUMMARY ---
"Discharge Summary Admit Date: 08/13/20 Discharge Date: 08/19/20 Discharging Provider: Abdiel Ureña Primary Care Provider: Gt Cantu Code Status: Do Not Attempt Resuscitation Condition at Discharge: Stable Discharge Disposition: 01 Home, Self Care - DIAGNOSES Admission Diagnoses: Diabetic ketoacidosis Acute renal failure Leukocytosis Gastroparesis Fibromyalgia Discharge Diagnoses with Status of Each Condition: Gastroparesis - stable Altered mental status - resolved. Pyelonephritis - improved. Insulin-dependent diabetes mellitus type 1 - stable. Fibromyalgia - stable Diabetic ketoacidosis - resolved. Acute kidney injury - resolved - HPI History of Present Illness: H&P per Dr. Fletcher: Patient is a 55-year-old female with medical history significant for diabetes mellitus, gastroparesis, fibromyalgia who was brought into the ED by her daughter because she was nauseous, vomiting and appeared confused. The patient has not been feeling well for the past 2 days. She has also been complaining of kidney pains. She had breakfast the previous day but declined dinner. The following day her daughter could not get her out of bed. She was less responsive so she brought her to the ED. She recently moved to [facility] from [place] 2 weeks ago to live with her daughter so that she can be closely monitored. While in [place] she had frequent bouts of DKA and was in the hospital at [facility] in [place] with DKA in May 2020. She is yet to exhibition with physician in the area. At bedside she awakes to verbal stimuli but cannot provide any reliable history she seems to answer yes to every thing asked. She has a glucose monitor which is attached to her abdomen however it is reported that it malfunction and there is not able to get accurate readings.. In the ED she was found to have a blood glucose level of 726, anion gap 23 and a pH of 7.26 on VBG. As a result she was presented for admission for further treatment. - CONSULTS | PROCEDURES Consultations: distributed energy systems consultant, Intelligence Applications, Social Work - HOSPITAL COURSE Hospital Course: He was admitted to the intensive care unit for diabetic ketoacidosis. She treated with IV fluids and IV insulin. Her anion gap closed and her acidosis resolved. She was also found to have a pyelonephritis. The patient had complained of flank pain and dysuria prior to hospitalization. Her CT was consistent with pyelonephritis and her urinalysis was suggestive of infection. Urine culture grew beta-hemolytic strep group B. She was treated with 7 days of IV ceftriaxone during this hospitalization and discharged on 3 more days of oral Vantin to complete [address] of the abdomen pelvis also did suggest enteritis which was likely contributing to patient's initial presentation of nausea and vomiting. She did have acute kidney injury on her hospitalization which resolved with IV fluids. She was found to be altered during his hospitalization a CT of the head was obtained which was unremarkable. Her mentation improved as a diabetic acidosis resolved as well as her acute kidney injury. It was felt that this was likely due to her being on gabapentin/Lyrica at home and having acute kidney injury. She was on Reglan during this hospitalization for nausea and vomiting which was also felt to be related to her gastroparesis. This was discontinued given there was concern for possible dyskinesia and her altered mental status. She was given erythromycin for 2 days and she had resolution of her nausea and vomiting. She was not discharged on erythromycin given it is not an effective long-term therapy for gastroparesis. She was provided with Zofran on discharge. Nutrition consult was obtained during this hospitalization and a gastroparesis diet was discussed with her. On day of discharge, she is tolerating a diet without difficulty and she was back to her baseline mental status. Her blood glucose remained stable. She was discharged on Lantus 12 units twice daily and 8 units of NovoLog with meals. She will be establishing care with a primary care provider on August 30, Dr. Gt Cantu.. The provider prescription with Lyrica 100 mg 3 times daily. She is provided with 90 tablets. 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 She expressed understanding of this. - ALLERGIES Allergies/Adverse Reactions: Allergies Allergy/AdvReac Type Severity Reaction Status Date / Time No Known Drug Allergies Allergy Verified 08/12/20 21:26 - MEDICATIONS Home Medications: Ambulatory Orders Medication Instructions Recorded Confirmed Aspirin EC [Ecotrin] 81 mg PO DAILY #30 tablet 08/19/20 Atorvastatin [Lipitor] 20 mg PO HS #30 tablet 08/19/20 Blood Sugar Diagnostic [Glucose 1 each [facility] #120 strip 08/19/20 Test Strip] Cefpodoxime Proxetil [Vantin] 200 mg PO BID 3 Days #12 tablet 08/19/20 DULoxetine [Cymbalta] 60 mg PO DAILY #60 capsule 08/19/20 Insulin Aspart [NovoLOG] 8 unit SUBQ TIDWM #3 pen 08/19/20 Insulin Glargine [Lantus Solostar] 12 unit SUBQ BID #1 pen 08/19/20 Lancets 1 each ACHS #120 each 08/19/20 Ondansetron Odt [Zofran Odt] 4 mg TL Q6H PRN #12 tab 08/19/20 Pantoprazole [Protonix] 40 mg PO DAILY #30 tablet 08/19/20 Pregabalin [Lyrica] 100 mg PO TID #90 capsule 08/19/20 lisinopriL [Zestril] 5 mg PO DAILY #30 tablet 08/19/20 - PHYSICAL EXAM AT DISCHARGE General Appearance: positive: No acute distress, Alert Eyes Bilateral: positive: Normal inspection, Conjunctivae nml ENT: positive: ENT inspection nml Neck: positive: Nml inspection Respiratory: positive: No respiratory distress. negative: Wheezes, Rales Cardiovascular: positive: Regular rate & rhythm, No murmur. negative: Tachycardia, Systolic murmur Abdomen: positive: Non-tender, No distention. negative: Tenderness, Guarding, Rebound Skin: positive: Warm, Dry Extremities: positive: No pedal edema Neurologic/Psychiatric: positive: Oriented x3, Motor nml. negative: Disoriented to person, Disoriented to place, Disoriented to time Physical Exam Other/Comments: Vital Signs - 24 hr 08/18/20 08/18/20 08/19/20 16:04 20:52 00:46 Temperature 36.6 C 36.9 C 36.7 C Heart Rate [ 94 104 H 84 Monitoring electrodes] Respiratory 17 18 16 Rate Blood Pressure 127/74 143/85 H 157/92 H [Left Brachial artery] O2 Saturation 98 96 96 08/19/20 08/19/20 08/19/20 06:22 08:41 10:39 Temperature 36.7 C 36.6 C 36.5 C Heart Rate [ 83 89 87 Monitoring electrodes] Respiratory 12 14 20 Rate Blood Pressure 115/66 128/79 136/76 H [Left Brachial artery] O2 Saturation 96 97 98 Oxygen O2 Source Room air - LABS Result Diagrams: 08/19/20 04:05 08/19/20 04:05 Other Lab Results: Laboratory Results - last 24 hr 08/18/20 08/18/20 08/18/20 12:55 16:19 20:40 WBC RBC Hgb Hct MCV MCH MCHC RDW Plt Count MPV Neut # (Auto) Lymph # (Auto) [place] # (Auto) Eos # (Auto) Baso # (Auto) Absolute Nucleated RBC Nucleated RBC % Sodium Potassium Chloride Carbon Dioxide Anion Gap BUN Creatinine Estimated GFR (MDRD) Glucose POC Whole Bld Glucose 298 H 361 H Calcium Magnesium Stl C. diff Tox B Gene NEGATIVE 08/19/20 08/19/20 08/19/20 04:05 04:05 07:54 WBC 6.6 RBC 3.27 L Hgb 9.6 L Hct 27.7 L MCV 84.7 MCH 29.4 MCHC 34.7 RDW 11.9 L Plt Count 188 MPV 11.1 H Neut # (Auto) 3.6 Lymph # (Auto) 1.8 [place] # (Auto) 0.8 Eos # (Auto) 0.3 Baso # (Auto) 0.0 Absolute Nucleated RBC 0.00 Nucleated RBC % 0.0 Sodium 136 Potassium 3.7 Chloride 108 Carbon Dioxide 22 Anion Gap 6.0 BUN 23 H Creatinine 1.1 H Estimated GFR (MDRD) 51 L Glucose 276 H POC Whole Bld Glucose 222 H Calcium 8.6 Magnesium 1.9 Stl C. diff Tox B Gene 08/19/20 10:35 WBC RBC Hgb Hct MCV MCH MCHC RDW Plt Count MPV Neut # (Auto) Lymph # (Auto) [place] # (Auto) Eos # (Auto) Baso # (Auto) Absolute Nucleated RBC Nucleated RBC % Sodium Potassium Chloride Carbon Dioxide Anion Gap BUN Creatinine Estimated GFR (MDRD) Glucose POC Whole Bld Glucose 106 H Calcium Magnesium Stl C. diff Tox B Gene - DIAGNOSTIC IMAGING Diagnostic Imaging Results: Final report reviewed - FOLLOW UP Follow Up: She will be establishing care with a new primary care provider, Dr. Gt Cantu on August 30. - TIME SPENT Time Spent in Discharge (Minutes): 33"
[2020-08-19 10:42] VITALS: BP 136/76
[2020-08-19] MEDS ORDERED: ATORVASTATIN 10 MG TABLET PO SCH (21:00)
== END 2020-08-19 11:45 | disposition home or self-care (01) | DRG 638 ==
LOC: ED 21:03 → ICU 23:11
PROVIDERS: ADMIT Internal Medicine; ATTEND Internal Medicine
DX: E10.10 Type 1 diabetes mellitus with ketoacidosis without coma (principal); N12 Tubulo-interstitial nephritis, not specified as acute or chronic; N17.9 Acute kidney failure, unspecified; E10.43 Type 1 diabetes mellitus with diabetic autonomic (poly)neuropathy; K31.84 Gastroparesis; B95.1 Streptococcus, group B, as the cause of diseases classified elsewhere; M79.7 Fibromyalgia; K52.9 Noninfective gastroenteritis and colitis, unspecified; E86.0 Dehydration; R33.9 Retention of urine, unspecified; E10.40 Type 1 diabetes mellitus with diabetic neuropathy, unspecified; M72.0 Palmar fascial fibromatosis [Dupuytren]; D64.9 Anemia, unspecified; R40.0 Somnolence; G24.01 Drug induced subacute dyskinesia; T45.0X5A Adverse effect of antiallergic and antiemetic drugs, initial encounter; T42.6X5A Adverse effect of other antiepileptic and sedative-hypnotic drugs, initial encounter; Z66 Do not resuscitate; Z79.4 Long term (current) use of insulin; Z79.82 Long term (current) use of aspirin; Z79.899 Other long term (current) drug therapy
CPT/HCPCS: 0202U; 36415; 70450; 71045; 74176; 80048; 80053; 80306; 80320; 81001; 82009; 82140; 82330; 82607; 82746; 82803; 82947; 83036; 83540; 83605; 83690; 83735; 84100; 84132; 84466; 85025; 87040; 87077; 87086; 87150; 87493; 93005; 93306; 96360; 99285; A9270; J0131; J1200; J1650; J1815; J2765; 81003

== ENCOUNTER 2020-08-30 14:59 | Outpatient (CLI) | payer MEDICAID ==
[2020-08-30 18:52] LABS: BASOPHILS # (AUTO) 0.1 10^3/uL (0.0-0.1); BASOPHILS % (AUTO) 0.8 %; EOSINOPHILS # (AUTO) 0.2 10^3/uL (0.0-0.7); EOSINOPHILS % (AUTO) 3.1 %; HGB - HEMOGLOBIN 9.8 g/dL (12.0-16.0); LYMPHOCYTES % (AUTO) 32.8 %; MEAN CORPUSCULAR HEMOGLOBIN 28.7 pg (27.0-31.0); MEAN CORPUSCULAR HGB CONC 32.1 g/dL (32.0-36.0); MEAN CORPUSCULAR VOLUME 89.2 fL (81.0-99.0); MONOCYTES # (AUTO) 0.6 10^3/uL (0.0-1.0); MONOCYTES % (AUTO) 9.6 %; NEUTROPHILS # (AUTO) 3.3 10^3/uL (1.5-6.6); NEUTROPHILS % (AUTO) 53.5 %; PLT - PLATELET COUNT 223 10^3/uL (130-450); RED BLOOD COUNT 3.42 10^6/uL (4.20-5.40); RED CELL DISTRIBUTION WIDTH 12.5 % (12.0-15.0); WHITE BLOOD COUNT 6.2 x10^3/uL (4.8-10.8)
[2020-08-30 19:03] LABS: ALBUMIN 3.6 g/dL (3.2-5.5); ALBUMIN/GLOBULIN RATIO 1.2 (1.0-2.2); BILIRUBIN,TOTAL 0.4 mg/dL (0.2-1.0); CALCIUM 9.5 mg/dL (8.5-10.3); TOTAL PROTEIN 6.6 g/dL (6.7-8.2)
== END 2020-08-30 15:00 | disposition home or self-care (01) ==
LOC: LAB.N 14:59
PROVIDERS: ATTEND Internal Medicine
DX: E87.6 Hypokalemia (principal); D64.9 Anemia, unspecified
CPT/HCPCS: 36415; 80053; 82985; 83735; 85025

== ENCOUNTER 2020-10-14 18:06 | Inpatient (IN) | payer MEDICAID ==
[2020-10-14 18:25] LABS: BASOPHILS # (AUTO) 0.1 10^3/uL (0.0-0.1); BASOPHILS % (AUTO) 0.5 %; EOSINOPHILS # (AUTO) 0.1 10^3/uL (0.0-0.7); EOSINOPHILS % (AUTO) 0.6 %; HCT - HEMATOCRIT 34.7 % (37.0-47.0); HGB - HEMOGLOBIN 12.4 g/dL (12.0-16.0); LYMPHOCYTES % (AUTO) 10.6 %; MEAN CORPUSCULAR HEMOGLOBIN 29.2 pg (27.0-31.0); MEAN CORPUSCULAR HGB CONC 35.7 g/dL (32.0-36.0); MEAN CORPUSCULAR VOLUME 81.8 fL (81.0-99.0); MEAN PLATELET VOLUME 10.6 fL (7.9-10.8); MONOCYTES # (AUTO) 1.3 10^3/uL (0.0-1.0); MONOCYTES % (AUTO) 13.4 %; NEUTROPHILS # (AUTO) 6.9 10^3/uL (1.5-6.6); NEUTROPHILS % (AUTO) 74.4 %; PLT - PLATELET COUNT 226 10^3/uL (130-450); RED BLOOD COUNT 4.24 10^6/uL (4.20-5.40); RED CELL DISTRIBUTION WIDTH 12.2 % (12.0-15.0); WHITE BLOOD COUNT 9.3 x10^3/uL (4.8-10.8)
[2020-10-14 18:35] LABS: VBG BASE EXCESS -3.8 mmol/L (-2 - +2); VBG HCO3 21.1 mmol/L (23-28); VBG OXYGEN SATURATION 76.3 % (60-80); VBG PCO2 37.8 mmHg (41-51); VBG PH 7.364 (7.31-7.41); VBG PO2 42.2 mmHg (25-47); VBG TOTAL CO2 22.2 mmol/L (24-29)
[2020-10-14 18:38] LABS: KETONES, SERUM (ACETEST) SMALL (NEGATIVE)
[2020-10-14] MEDS ORDERED: ONDANSETRON 4 MG/2 ML VIAL IVP STA (18:43)
[2020-10-14] MEDS ORDERED: SODIUM CHLORIDE 0.9% 1,000 ML IV STA ×3 (18:45→19:57)
[2020-10-14 18:48] LABS: ALBUMIN 3.8 g/dL (3.2-5.5); ALBUMIN/GLOBULIN RATIO 1.2 (1.0-2.2); ALKALINE PHOSPHATASE 49 IU/L (42-121); ALT ALANINE AMINOTRANSFERASE 27 IU/L (10-60); AST ASPARTATE AMINOTRANSFERASE 22 IU/L (10-42); BILIRUBIN,TOTAL 0.9 mg/dL (0.2-1.0); BUN - BLOOD UREA NITROGEN 61 mg/dL (6-20); CALCIUM 8.6 mg/dL (8.5-10.3); CARBON DIOXIDE - CO2 21 mmol/L (21-32); CHLORIDE 92 mmol/L (101-111); CREATININE 1.7 mg/dL (0.4-1.0); GFR - MDRD 31 (>89); LIPASE 49 U/L (22-51); POTASSIUM 3.6 mmol/L (3.5-5.0); SODIUM 129 mmol/L (135-145); TOTAL PROTEIN 6.9 g/dL (6.7-8.2)
[2020-10-14 18:51] LABS: GLUCOSE 592 mg/dL (70-100)
--- NOTE | 2020-10-14 19:14 | ED Physician Documentation ---
History of Present Illness - Stated complaint Stated Complaint: VOMITING,NOT EATING,HIGH BLOOD SUGAR - Chief complaint Chief Complaint: Abd Pain - History obtained from History obtained from: Patient - History of Present Illness Timing: Today Pain level max: 7 Pain level now: 6 - Additonal information Additional information: 55-year-old female states she has had vomiting for the past 3 days. History of recurrent DKA. Feels similar. She states she is unable to keep anything down. Her blood sugar is reading "high. Diffuse crampy abdominal pain as well. Nothing makes it better or worse. Has been admitted for similar in the past when she had urinary tract infections causing DKA. No dysuria. No back pain. No headache. Chills but no fever that she is aware of. Review of Systems Ten Systems: 10 systems reviewed and negative Constitutional: reports: Chills. denies: Fever Nose: denies: Rhinorrhea / runny nose, Congestion Throat: denies: Sore throat Cardiac: denies: Chest pain / pressure Respiratory: denies: Cough GI: denies: Nausea, Vomiting, Diarrhea Skin: denies: Rash Musculoskeletal: denies: Neck pain, Back pain Neurologic: denies: Headache PD PAST MEDICAL HISTORY - Past Medical History Past Medical History: Yes Cardiovascular: None Respiratory: None Neuro: Peripheral neuropathy, Other Endocrine/Autoimmune: Type 1 diabetes GI: Other : Renal insuffiency Psych: None Musculoskeletal: Fibromyalgia Derm: None - Present Medications Home Medications: Ambulatory Orders Medication Instructions Recorded Confirmed Aspirin EC [Ecotrin] 81 mg PO DAILY #30 tablet 08/19/20 Atorvastatin [Lipitor] 20 mg PO HS #30 tablet 08/19/20 Blood Sugar Diagnostic [Glucose 1 each ACHS #120 strip 08/19/20 Test Strip] Cefpodoxime Proxetil [Vantin] 200 mg PO BID 3 Days #12 tablet 08/19/20 DULoxetine [Cymbalta] 60 mg PO DAILY #60 capsule 08/19/20 Insulin Aspart [NovoLOG] 8 unit SUBQ TIDWM #3 pen 08/19/20 Insulin Glargine [Lantus Solostar] 12 unit SUBQ BID #1 pen 08/19/20 Lancets 1 each ACHS #120 each 08/19/20 Ondansetron Odt [Zofran Odt] 4 mg TL Q6H PRN #12 tab 08/19/20 Pantoprazole [Protonix] 40 mg PO DAILY #30 tablet 08/19/20 Pregabalin [Lyrica] 100 mg PO TID #90 capsule 08/19/20 lisinopriL [Zestril] 5 mg PO DAILY #30 tablet 08/19/20 - Allergies Allergies/Adverse Reactions: Allergies Allergy/AdvReac Type Severity Reaction Status Date / Time No Known Drug Allergies Allergy Verified 10/14/20 18:26 - Social History Does the pt smoke?: No Smoking Status: Never smoker Does the pt have substance abuse?: No - Immunizations Immunizations are current?: Yes - POLST Patient has POLST: No POLST Status: Full Code PD ED PE NORMAL - Vitals Vital signs reviewed: Yes - General General: Other (Drowsy, but arousable oriented x3) - HEENT HEENT: Other (dry lips and tongue) - Neck Neck: Supple, no meningeal sign - Cardiac Cardiac: RRR, Strong equal pulses - Respiratory Respiratory: No respiratory distress, Clear bilaterally - Abdomen Abdomen: Soft, Non tender, Non distended - Derm Derm: Warm and dry - Extremities Extremities: No edema - 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, No motor deficit, No sensory deficit, Normal speech Eye Opening: Spontaneous Motor: Obeys Commands Verbal: Oriented GCS Score: 15 - Psych Psych: Normal mood, Normal affect Results - Vitals Vitals: Vital Signs - 24 hr 10/14/20 10/14/20 10/14/20 18:19 19:43 20:55 Temperature 36.6 C 36.6 C Heart Rate 88 95 96 Respiratory 18 20 20 Rate Blood Pressure 161/90 H 208/109 H 178/91 H O2 Saturation 95 100 99 Oxygen O2 Source Room air - Labs Labs: Laboratory Tests 10/14/20 10/14/20 10/14/20 18:20 18:20 18:20 WBC 9.3 RBC 4.24 Hgb 12.4 Hct 34.7 L MCV 81.8 MCH 29.2 MCHC 35.7 RDW 12.2 Plt Count 226 MPV 10.6 Neut # (Auto) 6.9 H Lymph # (Auto) 1.0 L [place] # (Auto) 1.3 H Eos # (Auto) 0.1 Baso # (Auto) 0.1 Absolute Nucleated RBC 0.00 Nucleated RBC % 0.0 VBG pH 7.364 VBG pCO2 37.8 L VBG pO2 42.2 VBG HCO3 21.1 L VBG Total CO2 22.2 L VBG O2 Saturation 76.3 VBG Base Excess -3.8 L Sodium 129 L Potassium 3.6 Chloride 92 L Carbon Dioxide 21 Anion Gap 16.0 H BUN 61 H Creatinine 1.7 H Estimated GFR (MDRD) 31 L Glucose 592 H* Calcium 8.6 Total Bilirubin 0.9 AST 22 ALT 27 Alkaline Phosphatase 49 Total Protein 6.9 Albumin 3.8 Globulin 3.1 Albumin/Globulin Ratio 1.2 Lipase 49 Urine Color Urine Clarity Urine pH Ur Specific [place] Urine Protein Urine Glucose (UA) Urine Ketones Urine Occult Blood Urine Nitrite Urine Bilirubin Urine Urobilinogen Ur Leukocyte Esterase Urine RBC Urine WBC Ur Squamous Epith Cells Urine Bacteria Ur Microscopic Review Urine Culture Comments Nasal Adenovirus (PCR) Nasal B. parapertussis DNA (PCR) Nasal Coronavir 229E PCR Nasal Coronavir HKU1 PCR Nasal Coronavir NL63 PCR Nasal Coronavir OC43 PCR Nasal Enterovir/Rhinovir PCR Nasal Influenza B PCR Nasal Influenza A PCR Nasal Parainfluen 1 PCR Nasal Parainfluen 2 PCR Nasal Parainfluen 3 PCR Nasal Parainfluen 4 PCR Nasal RSV (PCR) Nasal B.pertussis DNA PCR Nasal C.pneumoniae (PCR) Janes Human Metapneumo PCR Nasal M.pneumoniae (PCR) Nasal SARS-CoV-2 (PCR) Urine Opiates Screen Ur Oxycodone Screen Urine Methadone Screen Ur Propoxyphene Screen Ur Barbiturates Screen Ur Tricyclics Screen Ur Phencyclidine Scrn Ur Amphetamine Screen U Methamphetamines Scrn U Benzodiazepines Scrn Urine Cocaine Screen U Cannabinoids Screen Serum Ketones SMALL H 10/14/20 10/14/20 10/14/20 20:11 20:11 20:44 WBC RBC Hgb Hct MCV MCH MCHC RDW Plt Count MPV Neut # (Auto) Lymph # (Auto) [place] # (Auto) Eos # (Auto) Baso # (Auto) Absolute Nucleated RBC Nucleated RBC % VBG pH VBG pCO2 VBG pO2 VBG HCO3 VBG Total CO2 VBG O2 Saturation VBG Base Excess Sodium Potassium Chloride Carbon Dioxide Anion Gap BUN Creatinine Estimated GFR (MDRD) Glucose Calcium Total Bilirubin AST ALT Alkaline Phosphatase Total Protein Albumin Globulin Albumin/Globulin Ratio Lipase Urine Color YELLOW Urine Clarity CLEAR Urine pH 6.0 Ur Specific [place] 1.020 Urine Protein 100 H Urine Glucose (UA) >=1000 H Urine Ketones 15 H Urine Occult Blood SMALL H Urine Nitrite NEGATIVE Urine Bilirubin NEGATIVE Urine Urobilinogen 0.2 (NORMAL) Ur Leukocyte Esterase NEGATIVE Urine RBC 0-5 Urine WBC 4-5 Ur Squamous Epith Cells FEW Squamous Urine Bacteria Few Ur Microscopic Review INDICATED Urine Culture Comments NOT INDICATED Nasal Adenovirus (PCR) NOT DETECTED Nasal B. parapertussis DNA (PCR) NOT DETECTED Nasal Coronavir 229E PCR NOT DETECTED Nasal Coronavir HKU1 PCR NOT DETECTED Nasal Coronavir NL63 PCR NOT DETECTED Nasal Coronavir OC43 PCR NOT DETECTED Nasal Enterovir/Rhinovir PCR DETECTED A Nasal Influenza B PCR NOT DETECTED Nasal Influenza A PCR NOT DETECTED Nasal Parainfluen 1 PCR NOT DETECTED Nasal Parainfluen 2 PCR NOT DETECTED Nasal Parainfluen 3 PCR NOT DETECTED Nasal Parainfluen 4 PCR NOT DETECTED Nasal RSV (PCR) NOT DETECTED Nasal B.pertussis DNA PCR NOT DETECTED Nasal C.pneumoniae (PCR) NOT DETECTED Janes Human Metapneumo PCR NOT DETECTED Nasal M.pneumoniae (PCR) NOT DETECTED Nasal SARS-CoV-2 (PCR) NOT DETECTED Urine Opiates Screen NEGATIVE Ur Oxycodone Screen NEGATIVE Urine Methadone Screen NEGATIVE Ur Propoxyphene Screen NEGATIVE Ur Barbiturates Screen NEGATIVE Ur Tricyclics Screen NEGATIVE Ur Phencyclidine Scrn NEGATIVE Ur Amphetamine Screen NEGATIVE U Methamphetamines Scrn NEGATIVE U Benzodiazepines Scrn NEGATIVE Urine Cocaine Screen NEGATIVE U Cannabinoids Screen NEGATIVE Serum Ketones PD MEDICAL DECISION MAKING - ED course Complexity details: reviewed old records, reviewed results, re-evaluated patient, considered differential, d/w patient, d/w contamination consultant ED course: Patient with DKA. Given IV fluids, insulin started on drip. Unclear precipitating event. Does have gastroparesis, this may have caused her vomiting which caused the DKA. Given Zofran, Phenergan. Still having vomiting. We will admit for further care. Discussed the case with Dr. Bauman who accepts. This document was made in part using voice recognition software. While efforts are made to proofread this document, sound alike and grammatical errors may occur. Departure - Departure Disposition: ED Place in Observation Clinical Impression: Gastroparesis, Insulin dependent diabetes mellitus Diabetic ketoacidosis Qualifiers: Diabetes mellitus type: type 1 Diabetes mellitus complication detail: without coma Qualified Code(s): E10.10 - Type 1 diabetes mellitus with ketoacidosis without coma Leukocytosis Qualifiers: Leukocytosis type: unspecified Qualified Code(s): D72.829 - Elevated white blood cell count, unspecified Condition: Stable Discharge Date/Time: 10/14/20 21:55
[2020-10-14] MEDS ORDERED: INSULIN REGULAR HUMAN 100 UNIT/1 ML 10 ML MDV SUBQ STA (20:18)
[2020-10-14 20:21] LABS: BILIRUBIN,URINE NEGATIVE (NEGATIVE); GLUCOSE, URINE (UA) >=1000 mg/dL (NEGATIVE); KETONES,URINE (UA) 15 mg/dL (NEGATIVE); LEUKOCYTE ESTERASE, URINE NEGATIVE (NEGATIVE); NITRITE,URINE NEGATIVE (NEGATIVE); OCCULT BLOOD,URINE SMALL (NEGATIVE); PROTEIN,URINE 100 mg/dL (NEGATIVE); UROBILINOGEN,URINE 0.2 (NORMAL) E.U./dL (NORMAL)
[2020-10-14 20:25] LABS: CLARITY,URINE CLEAR (CLEAR)
[2020-10-14 20:31] LABS: BACTERIA,URINE Few /HPF (None Seen); RBC,URINE 0-5 /HPF (0-5); SQUAMOUS EPITHELIAL CELL,UR FEW Squamous (<= Few)
[2020-10-14] MEDS ORDERED: INSULIN REGULAR HUMAN 100 UNIT in SODIUM CHLORIDE 0.9% 100ML 99 ML IV STA (20:56)
[2020-10-14] MEDS ORDERED: PROMETHAZINE INJ 25 MG in SODIUM CHLORIDE 0.9% 50 ML IV STA (20:57)
[2020-10-14 21:02] LABS: MUDS CUTOFF CONCENTRATIONS CUTOFF CONC BELOW:
[2020-10-14 21:17] LABS: AMPHETAMINE SCREEN,URINE NEGATIVE (NEGATIVE); BARBITURATE SCREEN,UR NEGATIVE (NEGATIVE); BENZODIAZEPINES SCREEN, URINE NEGATIVE (NEGATIVE); COCAINE SCREEN URINE NEGATIVE (NEGATIVE); METHADONE SCREEN, URINE NEGATIVE (NEGATIVE); METHAMPHETAMINES SCREEN, URINE NEGATIVE (NEGATIVE); OPIATE SCREEN, URINE NEGATIVE (NEGATIVE); OXYCODONE SCREEN, URINE NEGATIVE (NEGATIVE); PROPOXYPHENE SCREEN, URINE NEGATIVE (NEGATIVE); THC CANNABINOID SCREEN, URINE NEGATIVE (NEGATIVE); TRICYCLIC ANTIDEPRESSANT,URINE NEGATIVE (NEGATIVE)
[2020-10-14] MEDS ORDERED: PROMETHAZINE 25 MG/1 ML VIAL ONE (21:20)
[2020-10-14] MEDS ORDERED: INSULIN REGULAR HUMAN 100 UNIT/1 ML 10 ML MDV ONE (21:21)
--- NOTE | 2020-10-14 21:24 | HISTORY & PHYSICAL EXAMINATION ---
Chief Complaint - Chief Complaint Chief Complaint: abd pain w N/V History of Present Illness - Admitted From Admitted From:: Home via private vehicle - History [facility] History obtained from: patient, patients's daughter (mostly) and Dr. Sharma Exam Limitations: she has moderate to severe psychomotor slowing - History of Present Illness HPI Comment/Other: This patient recently moved to [facility] from [place] in July 2020. 2 weeks after moving here she was seen in our emergency room and admitted for DKA. In [place] she has frequent bouts of DKA and was at the hospital at [facility] in [place] in May 2020 for DKA. Although she had a glucose pump and monitor with her July 2020 admission, the monitor was malfunctioning. She was discharged August 19 with her diagnosis of resolved DKA, stable gastroparesis, metabolic encephalopathy that had resolved, pyelonephritis that improved, stable fibromyalgia and resolved acute kidney injury. Erythromycin was used for her nausea and vomiting after a trial of Reglan to avoid extraparametal complications. She was not discharged on erythromycin. She was able to see her primary care provider to establish herself in his practice on August 30. She was already starting to complain of nausea because she was out of her Protonix and her Reglan. She was hypoglycemic to the 40s at times. Her medications were renewed. She was referred to gastroenterology, rheumatology, and ophthalmology. She was then seen in follow-up September 13 and was doing well. Back on her Reglan. Was having a little bit of frequent urination and was worried about a UTI. She is not on the pump. She is on Lantus 12 units sub cu twice daily, and NovoLog FlexPen 8 units 3 times a day with meals as well as sliding scale adjustments. She was given Bactrim for symptoms of cystitis. She now returns to the emergency room with 3 days of abdominal pain with nausea and vomiting. The abdominal pain is generalized, mild. She says is her usual discomfort that she gets with DKA. She thinks it is her gastroparesis bothering her. Temperature was 36.6. Heart rate 88. Blood pressure 161/90, respirations 18 and 95% on room air. She was rating her pain score a 10 out of a 10. Her sodium was 129. Potassium 3.6. BUN 61 and creatinine 1.7. BUN is usually in the teens and creatinine is usually 1.0 or less. Random glucose is 592. Liver enzymes normal. CBC is normal. Venous blood gas has a pH of 7.3 and urinalysis has ketonuria, no leukocyte esterase/negative nitrites/squamous cells, few bacteria, culture will be done. Urine tox screen is negative other than small ketones. History - Past Medical History Cardiovascular: reports: Hypertension Respiratory: reports: Asthma, Sleep apnea Neuro: reports: Peripheral neuropathy Endocrine/Autoimmune: reports: Type 1 diabetes GI: reports: GERD, Pancreatitis (while in [place]) OFFICE TECHNOLOGIST: reports: Other () : reports: Incontinence, Renal insuffiency Psych: reports: Anxiety Musculoskeletal: reports: Osteoarthritis, Fibromyalgia (due to RSD in wrist when ladder fell on it), Chronic back pain, Other (Dupuyten's contractures.) Derm: reports: None MRSA Hx?: No - Past Surgical History /OFFICE TECHNOLOGIST: reports: Tubal ligation (1893) - Family & Social History Family History Comment/Other: Her father from an KS at age 40s. Her mother has history of breast cancer, hyperlipidemia, hypertension, KS, asthma, osteoarthritis and dementia. One of her sisters had brain cancer. One of her brothers has asthma. Another sister had an unspecified gynecological cancer. Living arrangement: At home Living Situation: With family Social History Notes: Recently moved from [place] to [facility] to live with her daughter due to health reasons. She needs family member to closely monitor medications and medical problems. She is . Last 10 yrs w a SO who watched her deteriorate and did nothiing. Let her sleep for 3 days before calling an ambulance. She does not smoke tobacco products, use alcohol or recreational drugs. 2 children in [place] can't help much. 1 son in [place] and can't help. - Substance History Use: Uses substance without health or social issues: NONE Abuse: Recurrent use of substance despite neg consequences: NONE Dependence: Experiences withdrawal or developed tolerances: NONE - POLST Patient has POLST: No POLST Status: Full Code Meds/Allgy - Home Medications Home Medications: Ambulatory Orders Medication Instructions Recorded Confirmed Aspirin EC [Ecotrin] 81 mg PO DAILY #30 tablet 08/19/20 Atorvastatin [Lipitor] 20 mg PO HS #30 tablet 12/24/20 Blood Sugar Diagnostic [Glucose 1 each [facility] ACHS #120 strip 08/19/20 Test Strip] Cefpodoxime Proxetil [Vantin] 200 mg PO BID 3 Days #12 tablet 08/19/20 DULoxetine [Cymbalta] 60 mg PO DAILY #60 capsule 08/19/20 Insulin Aspart [NovoLOG] 8 unit SUBQ TIDWM #3 pen 08/19/20 Insulin Glargine [Lantus Solostar] 12 unit SUBQ BID #1 pen 08/19/20 Lancets 1 each [facility] #120 each 08/19/20 Ondansetron Odt [Zofran Odt] 4 mg TL Q6H PRN #12 tab 08/19/20 Pantoprazole [Protonix] 40 mg PO DAILY #30 tablet 08/19/20 Pregabalin [Lyrica] 100 mg PO TID #90 capsule 08/19/20 lisinopriL [Zestril] 5 mg PO DAILY #30 tablet 08/19/20 - Allergies Allergies/Adverse Reactions: Allergies Allergy/AdvReac Type Severity Reaction Status Date / Time No Known Drug Allergies Allergy Verified 10/14/20 18:26 Review of Systems - Constitutional Constitutional: reports: Fatigue (always, has to be woken up a forced out of bed, would sleep all day and night), Weakness, Other (shaking a lot bc not eating, always cold). denies: Fever, Chills - Eyes Eyes: reports: Other (glaucoma and cataracts, daughter feels likes eyes are bulging at times). denies: Pain, Irritation - Ears, Nose & Throat Ears, Nose & Throat: reports: Hearing loss (getting worse), Nasal discharge (blows her nose all the time and carries a hankey daily). denies: Ear pain, Tinnitus, Vertigo, Postnasal drainage, Sore throat, Hoarseness - Cardiovascular Cariovascular: reports: Chest pain (always present and constant,). denies: Irregular heart rate, Palpitations, Edema, Syncope, Exertional dyspnea - Respiratory Respiratory: reports: Cough (started in ER but not at home). denies: Wheezing, Snoring, SOB at rest, SOB with exertion - Gastrointestinal Gastrointestinal: reports: Abdominal pain, Diarrhea (once this morning per her but her daughter said no), Nausea, Vomiting, Reflux/heartburn, Poor appetite (f or the last week not eating). denies: Black stools, Bloody stools, Coffee grounds emesis, Bloating - Genitourinary Genitourinary: reports: Incontinence (is getting slowly worse and now needs depends). denies: Dysuria, Frequency, Urgency - Musculoskeletal Musculoskeletal: reports: Muscle pain, Muscle aches, Joint pain, Other (takes tylenol, ibuprofen and gabapentin/lyrica) - Integumentary Integumentary: denies: Rash, Pruritis, Lesions - Neurological Neurological: reports: Dizziness, Memory problems, Incoordination (falls at time), Other (psychomotor slowing at baseline) - Psychiatric Psychiatric: reports: Depression (on one pill and doing good and dose upped to help w fibromyalgia but got more depressed or emotional). denies: Anxiety, Suicidal - Endocrine Endocrine: denies: Polyuria, Polydypsia, Polyphagia - Hematologic/Lymphatic Hematologic/Lymphatic: denies: Anemia, Bruising, Petechiae - Other Findings Other Findings: ROS done by daughter over the phone because patient responds so slowly Prior Level of Functionality: needs occasional help w dressing and needs all bottles to be opened. Psychomotor slowing is baseline and gets worse when sick so will take a long time to answer. Not using DME for now. Exam - Vital Signs Reviewed Vital Signs: Yes Vital Signs: Vital Signs x48h Temp Pulse Resp BP Pulse Ox 10/14/20 20:55 36.6 C 96 20 178/91 H 99 10/14/20 19:43 95 20 208/109 H 100 10/14/20 18:19 36.6 C 88 18 161/90 H 95 - Physical Exam General Appearance: positive: Mild distress (due to hiccups that won't stop), Lethargic, Other (she is a small female at 5'3", 55 Kg, who is very very slow to answer and will take 30-45 seconds to answer one question and will contradict herself) Eyes Bilateral: positive: PERRL, EOMI ENT: positive: Pharynx nml, Dry mucous membranes Neck: positive: No JVD. negative: Stiff neck, Carotid bruit Respiratory: positive: No respiratory distress. negative: Wheezes, Rales, Rhonchi Cardiovascular: positive: Regular rate & rhythm (with a hard knocking PMI). negative: Systolic murmur, Gallop/S4, Friction rub Peripheral Pulses: positive: 1+ Abdomen: positive: Non-tender, No organomegaly, No distention, Abnml bowel sounds (hypoactive). negative: Guarding, Rebound Skin: positive: Warm, Dry, Pallor Extremities: positive: Full ROM, No pedal edema Neurologic/Psychiatric: positive: CN's nml (2-12), Motor nml, Disoriented to time, Slurred/abnml speech (slow slow slow) Conclusion/Plan - Problem List (1) Diabetic ketoacidosis Conclusion/Plan: Presenting in her usual manner of nausea and vomiting and generalized abdominal pain. At first I thought she was telling me that it was her abdominal pain that was a 10 out of a 10. But she is scoring her back and muscle and joint pain as a 10 out of a 10. In speaking to her daughter, that is her chronic baseline. She has daily constant pain in her joints and muscles. At this time there does not seem to be an inciting event that caused her to be in DKA other than lack of p.o. intake. No evidence of KS, infection, arrhythmia, noncompliance with medications. Daughter makes very sure that mom takes her medicines. Plan: Observation status DKA protocol with insulin drip, aggressive IV fluid hydration, aggressive electrolyte replacement We will see if we can discharge her tomorrow if she responds. check troponin Qualifiers: Diabetes mellitus type: type 1 Diabetes mellitus complication detail: without coma Qualified Code(s): E10.10 - Type 1 diabetes mellitus with ketoacidosis without coma (2) Metabolic encephalopathy Conclusion/Plan: She has chronic baseline psychomotor slowing. To the daughter's knowledge mom has never been diagnosed with dementia but daughter suspects that is an issue. Over the last 2 to 3 years mom has become less and less independent and needing more more help. When she gets sick her baseline psychomotor slowing gets much worse. Daughter says that all of this is new for mom. In the past mom was a very vivacious, lively conversation was. She was the life of any room. So it is very hard to see mom slow down this way. Accompanying the psychomotor slowing is balance issues, occasional falls. Urinary incontinence is getting worse. Plan: I would recommend an outpatient neurological evaluation for normal pressure hydrocephalus versus vascular dementia or Lewy body dementia Hopefully she can return to her baseline status after hydration and control of glucose Recent increase in Cymbalta or Lyrica. I wonder if some of this may be contributing to her sedation. (3) Acute kidney injury Conclusion/Plan: Baseline creatinine is usually 1.0 with a GFR of 57. Currently she is in the 30s. She would be acute kidney insufficiency superimposed on chronic kidney disease stage II. Monitor with frequent labs. Anticipate this will return to normal once sugar returns to normal and she is adequately hydrated. (4) Cognitive deficits Conclusion/Plan: Head CT was done with her July 2020 admission. There was no gross acute intracranial bleed, midline shift or mass-effect. Nursing the resting care of her tonight remembers her well. She had baseline cognitive deficits with the last admission and was with behavioral problems where she would rip out lines, was fearful, confused. Tonight she is much more cooperative, calmer. But daughter also reports a psychomotor slowing that is getting worse over the last 2 years. Plan: Outpatient MRI Outpatient neurological evaluation for normal pressure hydrocephalus Social work is being asked to get involved to provide the daughter with resources that may be available to help her. Right now she has taken on the burden of taking care of her mom 19/03. She has not reached out to community services such as [facility], or what possibilities (5) Hiccups Conclusion/Plan: ijeoma - Lab Results Lab results reviewed: Yes Fish Bones: 10/14/20 18:20 10/14/20 21:21
[2020-10-14 21:36] LABS: CALCIUM 8.6 mg/dL (8.5-10.3); CREATININE 1.4 mg/dL (0.4-1.0); POTASSIUM 2.9 mmol/L (3.5-5.0)
[2020-10-14] MEDS ORDERED: POTASSIUM CHLOR 10 MEQ/100 ML 10 MEQ/100 ML BAG IV ONE (21:56)
[2020-10-14 21:57] LABS: B. PARAPERTUSSIS- RESP PCR PAN NOT DETECTED; B. PERTUSSIS- RESP PCR PANEL NOT DETECTED; C. PNEUMONIAE- RESP PCR PANEL NOT DETECTED; CORONAVIRUS 229E-RESP PCR NOT DETECTED; CORONAVIRUS HKU1-RESP PCR NOT DETECTED; CORONAVIRUS NL63-RESP PCR NOT DETECTED; CORONAVIRUS OC43-RESP PCR NOT DETECTED; HUMAN METAPNEUMOVIRUS NOT DETECTED; INFLUENZA A- RESP PCR PANEL NOT DETECTED; INFLUENZA B - RESP PCR PANEL NOT DETECTED; M. PNEUMONIAE- RESP PCR PANEL NOT DETECTED; PARAINFLUENZA VIRUS 1 NOT DETECTED; PARAINFLUENZA VIRUS 2 NOT DETECTED; PARAINFLUENZA VIRUS 3 NOT DETECTED; PARAINFLUENZA VIRUS 4 NOT DETECTED; RHINOVIRUS/ENTEROVIRUS DETECTED; RSV- RESP PCR PANEL NOT DETECTED; SARS-CoV-2 -RESP PCR PANEL NOT DETECTED
[2020-10-14] MEDS ORDERED: DEXTROSE 5%-0.9% NACL 1,000 ML IV SCH (22:00)
[2020-10-14] MEDS ORDERED: SODIUM CHLORIDE 0.9% 1,000 ML IV SCH (22:00)
[2020-10-14] MEDS: INSULIN REGULAR HUMAN 100 UNIT in SODIUM CHLORIDE 0.9% 100ML 99 ML IV SCH (22:29)
[2020-10-14] MEDS ORDERED: chlorproMAZINE 25 MG in SODIUM CHLORIDE 0.9% 500 ML IV ONE (23:06)
[2020-10-14] MEDS: HYDROmorphone 1 MG/ML CARPUJECT IVP PRN (23:36)
[2020-10-14] MEDS ORDERED: SODIUM CHLORIDE 0.9% 500 ML IV ONE (23:43)
[2020-10-14] MEDS ORDERED: NS W/20 MEQ KCL 1,000 ML IV SCH (23:45)
[2020-10-14] MEDS ORDERED: chlorproMAZINE 25 MG/ML AMP ONE (23:54)
[2020-10-15] MEDS ORDERED: POTASSIUM CHLOR 10 MEQ/100 ML 10 MEQ/100 ML BAG IV ONE (00:51)
[2020-10-15 00:53] LABS: CREATININE 1.4 mg/dL (0.4-1.0); POTASSIUM 2.9 mmol/L (3.5-5.0)
[2020-10-15 00:54] LABS: CALCIUM 8.8 mg/dL (8.5-10.3)
[2020-10-15] MEDS: INSULIN GLARGINE 300 UNIT/3 ML PEN SUBQ SCH ×3 (01:04→21:01)
[2020-10-15] MEDS: SODIUM CHLORIDE FLUSH 0.9% 10 ML SYRINGE IVP SCH ×3 (01:07→17:11)
[2020-10-15 02:10] LABS: CALCIUM 8.3 mg/dL (8.5-10.3); CREATININE 1.4 mg/dL (0.4-1.0); POTASSIUM 3.2 mmol/L (3.5-5.0)
[2020-10-15] MEDS: POTASSIUM CHLOR 10 MEQ/100 ML 10 MEQ/100 ML BAG IV SCH ×4 (03:15→06:54)
[2020-10-15] MEDS: HYDROmorphone 1 MG/ML CARPUJECT IVP PRN ×2 (03:18→13:05)
[2020-10-15 06:12] LABS: BASOPHILS % (AUTO) 0.4 %; EOSINOPHILS % (AUTO) 0.5 %; HCT - HEMATOCRIT 27.1 % (37.0-47.0); HGB - HEMOGLOBIN 9.5 g/dL (12.0-16.0); LYMPHOCYTES # (AUTO) 1.6 10^3/uL (1.5-3.5); LYMPHOCYTES % (AUTO) 20.8 %; MEAN CORPUSCULAR HGB CONC 35.1 g/dL (32.0-36.0); MEAN CORPUSCULAR VOLUME 82.6 fL (81.0-99.0); MEAN PLATELET VOLUME 10.3 fL (7.9-10.8); MONOCYTES # (AUTO) 1.2 10^3/uL (0.0-1.0); MONOCYTES % (AUTO) 15.4 %; NEUTROPHILS # (AUTO) 4.7 10^3/uL (1.5-6.6); NEUTROPHILS % (AUTO) 62.5 %; PLT - PLATELET COUNT 178 10^3/uL (130-450); RED BLOOD COUNT 3.28 10^6/uL (4.20-5.40); RED CELL DISTRIBUTION WIDTH 12.1 % (12.0-15.0); WHITE BLOOD COUNT 7.6 x10^3/uL (4.8-10.8)
[2020-10-15 06:19] LABS: VBG BASE EXCESS -4.6 mmol/L (-2 - +2); VBG HCO3 20.1 mmol/L (23-28); VBG OXYGEN SATURATION 93.6 % (60-80); VBG PCO2 35.9 mmHg (41-51); VBG PH 7.367 (7.31-7.41); VBG PO2 74.9 mmHg (25-47); VBG TOTAL CO2 21.3 mmol/L (24-29)
[2020-10-15 06:25] LABS: ALBUMIN/GLOBULIN RATIO 1.3 (1.0-2.2); ALKALINE PHOSPHATASE 34 IU/L (42-121); ALT ALANINE AMINOTRANSFERASE 21 IU/L (10-60); AST ASPARTATE AMINOTRANSFERASE 18 IU/L (10-42); BILIRUBIN,TOTAL 0.6 mg/dL (0.2-1.0); BUN - BLOOD UREA NITROGEN 53 mg/dL (6-20); CALCIUM 8.3 mg/dL (8.5-10.3); CARBON DIOXIDE - CO2 20 mmol/L (21-32); CHLORIDE 108 mmol/L (101-111); CREATININE 1.4 mg/dL (0.4-1.0); GFR - MDRD 39 (>89); GLUCOSE 129 mg/dL (70-100); MAGNESIUM 2.1 mg/dL (1.7-2.8); PHOSPHORUS 2.6 mg/dL (2.5-4.6); SODIUM 137 mmol/L (135-145); TOTAL PROTEIN 5.3 g/dL (6.7-8.2)
[2020-10-15 06:28] LABS: KETONES, SERUM (ACETEST) NEGATIVE (NEGATIVE)
[2020-10-15] MEDS: PANTOPRAZOLE 40 MG VIAL IVP SCH (06:56)
[2020-10-15] MEDS: SODIUM CHLORIDE FLUSH 0.9% 10 ML SYRINGE IVP PRN (06:56)
[2020-10-15] MEDS: LACTATED RINGERS 1,000 ML IV SCH ×2 (08:00→18:31)
[2020-10-15] MEDS: INSULIN ASPART 300 UNIT/3 ML PEN SUBQ SCH ×7 (08:00→21:02)
--- NOTE | 2020-10-15 09:19 | PROVIDER PROGRESS NOTE ---
Subjective - Prog Note Date Prog Note Date: 10/15/20 - Subjective Subjective: Still feels quite weak and fatigued but improved compared to yesterday. Still has mild diffuse abdominal pain. She has not had anything to eat yet but denies any nausea. Current Medications - Current Medications Current Medications: Active Medications Acetaminophen (Acetaminophen 325 Mg Tablet) 650 mg PO Q4HR PRN PRN Reason: Pain 1 to 4 Hydromorphone HCl (Hydromorphone 1 Mg/Ml Carpuject) 1 mg IVP Q2HR PRN PRN Reason: PAIN Last Admin: 10/15/20 03:18 Dose: 1 mg Documented by: Lactated Ringer's (Lr) 1,000 mls @ 100 mls/hr IV .Q10H [facility] Last Admin: 10/15/20 08:00 Dose: 100 mls/hr Documented by: Insulin Aspart (Insulin Aspart 300 Unit/3 Ml Pen) 5 unit SUBQ TIDWM [facility]; Protocol Insulin Aspart (Insulin Aspart 300 Unit/3 Ml Pen) 3 - 11 unit SUBQ 0800,1200,1700,2100 [facility]; Protocol Last Admin: 10/15/20 08:00 Dose: Not Given Documented by: Insulin Glargine (Insulin Glargine 300 Unit/3 Ml Pen) 12 unit SUBQ BID [facility] Last Admin: 10/15/20 09:00 Dose: 12 unit Documented by: Ondansetron HCl (Ondansetron 4 Mg/2 Ml Vial) 4 mg IVP Q6HR PRN PRN Reason: Nausea / Vomiting Oxycodone HCl (Oxycodone 5 Mg Tablet) 5 mg PO Q4HR PRN PRN Reason: Pain 5 to 7 Pantoprazole Sodium (Pantoprazole 40 Mg Vial) 40 mg IVP QDAC [facility] Last Admin: 10/15/20 06:56 Dose: 40 mg Documented by: Prochlorperazine Edisylate (Prochlorperazine 10 Mg/2 Ml Vial) 10 mg IVP Q6HR PRN PRN Reason: Nausea / Vomiting Sodium Chloride (Sodium Chloride Flush 0.9% 10 Ml Syringe) 10 ml IVP 0100,0900,1700 [facility] Last Admin: 10/15/20 08:14 Dose: 10 ml Documented by: Sodium Chloride (Sodium Chloride Flush 0.9% 10 Ml Syringe) 10 ml IVP PRN PRN PRN Reason: NEEDED PER PROVIDER ORDERS Last Admin: 10/15/20 06:56 Dose: 10 ml Documented by: Objective - Vital Signs/Intake & Output Reviewed Vital Signs: Yes Vital Signs: Vital Signs Temp Pulse Resp BP Pulse Ox 10/15/20 08:00 37.1 C 86 14 152/87 H 97 10/15/20 07:00 88 20 133/87 H 94 10/15/20 06:00 80 12 129/86 H 96 Intake & Output: Intake & Output 10/12/20 10/13/20 10/14/20 10/15/20 23:59 23:59 23:59 23:59 Intake Total 2714.333 1941.458 Output Total 350 Balance 2714.333 1591.458 - Objective General Appearance: positive: No acute distress, Lethargic Eyes Bilateral: positive: Normal inspection, Conjunctivae nml ENT: positive: ENT inspection nml Neck: positive: Nml inspection Respiratory: positive: No respiratory distress. negative: Wheezes, Rales Cardiovascular: positive: Regular rate & rhythm. negative: Tachycardia Abdomen: positive: Nml bowel sounds, No distention, Tenderness (Mild diffuse tenderness.). negative: Guarding, Rebound Skin: positive: Warm, Dry Extremities: positive: No pedal edema Neurologic/Psychiatric: negative: Disoriented to person, Disoriented to place - Lab Results Fish Bones: 10/15/20 06:06 10/15/20 06:06 Other Labs: Lab Results x24hrs 10/15/20 10/15/20 10/15/20 Range/Units 07:49 06:06 06:06 WBC (4.8-10.8) x10^3/uL RBC (4.20-5.40) 10^6/uL Hgb (12.0-16.0) g/dL Hct (37.0-47.0) % MCV (81.0-99.0) fL MCH (27.0-31.0) pg MCHC (32.0-36.0) g/dL RDW (12.0-15.0) % Plt Count (130-450) 10^3/uL MPV (7.9-10.8) fL Neut # (Auto) (1.5-6.6) 10^3/uL Lymph # (Auto) (1.5-3.5) 10^3/uL [place] # (Auto) (0.0-1.0) 10^3/uL Eos # (Auto) (0.0-0.7) 10^3/uL Baso # (Auto) (0.0-0.1) 10^3/uL Absolute Nucleated RBC x10^3/uL Nucleated RBC % /100WBC VBG pH 7.367 (7.31-7.41) VBG pCO2 35.9 L (41-51) mmHg VBG pO2 74.9 H (25-47) mmHg VBG HCO3 20.1 L (23-28) mmol/L VBG Total CO2 21.3 L (24-29) mmol/L VBG O2 Saturation 93.6 H (60-80) % VBG Base Excess -4.6 L (-2 - +2) mmol/L Sodium 137 Potassium 4.0 Chloride 108 Carbon Dioxide 20 L Anion Gap 9.0 BUN 53 H Creatinine 1.4 H Estimated GFR (MDRD) 39 L Glucose 129 H POC Whole Bld Glucose 119 H (70 - 100) mg/dL Calcium 8.3 L Phosphorus 2.6 (2.5-4.6) mg/dL Magnesium 2.1 (1.7-2.8) mg/dL Total Bilirubin 0.6 (0.2-1.0) mg/dL AST 18 (10-42) IU/L ALT 21 (10-60) IU/L Alkaline Phosphatase 34 L (42-121) IU/L Troponin I High Sens (2.3-14.8) ng/L Total Protein 5.3 L (6.7-8.2) g/dL Albumin 3.0 L (3.2-5.5) g/dL Globulin 2.3 (2.1-4.2) g/dL Albumin/Globulin Ratio 1.3 (1.0-2.2) Lipase (22-51) U/L Urine Color Urine Clarity (CLEAR) Urine pH (5.0-7.5) PH Ur Specific [place] (1.002-1.030) Urine Protein (NEGATIVE) mg/dL Urine Glucose (UA) (NEGATIVE) mg/dL Urine Ketones (NEGATIVE) mg/dL Urine Occult Blood (NEGATIVE) Urine Nitrite (NEGATIVE) Urine Bilirubin (NEGATIVE) Urine Urobilinogen (NORMAL) E.U./dL Ur Leukocyte Esterase (NEGATIVE) Urine RBC (0-5) /HPF Urine WBC (0-5) /HPF Ur Squamous Epith Cells (<= Few) Urine Bacteria (None Seen) /HPF Ur Microscopic Review Urine Culture Comments Nasal Adenovirus (PCR) Nasal B. parapertussis DNA (PCR) Nasal Coronavir 229E PCR Nasal Coronavir HKU1 PCR Nasal Coronavir NL63 PCR Nasal Coronavir OC43 PCR Nasal Enterovir/Rhinovir PCR Nasal Influenza B PCR Nasal Influenza A PCR Nasal Parainfluen 1 PCR Nasal Parainfluen 2 PCR Nasal Parainfluen 3 PCR Nasal Parainfluen 4 PCR Nasal RSV (PCR) Nasal Screen MRSA (PCR) (NEGATIVE) Nasal B.pertussis DNA PCR Nasal C.pneumoniae (PCR) Janes Human Metapneumo PCR Nasal M.pneumoniae (PCR) Nasal SARS-CoV-2 (PCR) Urine Opiates Screen (NEGATIVE) Ur Oxycodone Screen (NEGATIVE) Urine Methadone Screen (NEGATIVE) Ur Propoxyphene Screen (NEGATIVE) Ur Barbiturates Screen (NEGATIVE) Ur Tricyclics Screen (NEGATIVE) Ur Phencyclidine Scrn (NEGATIVE) Ur Amphetamine Screen (NEGATIVE) U Methamphetamines Scrn (NEGATIVE) U Benzodiazepines Scrn (NEGATIVE) Urine Cocaine Screen (NEGATIVE) U Cannabinoids Screen (NEGATIVE) Serum Ketones NEGATIVE (NEGATIVE) 10/15/20 10/15/20 10/15/20 Range/Units 06:06 04:16 03:07 WBC 7.6 (4.8-10.8) x10^3/uL RBC 3.28 L (4.20-5.40) 10^6/uL Hgb 9.5 L (12.0-16.0) g/dL Hct 27.1 L (37.0-47.0) % MCV 82.6 (81.0-99.0) fL MCH 29.0 (27.0-31.0) pg MCHC 35.1 (32.0-36.0) g/dL RDW 12.1 (12.0-15.0) % Plt Count 178 (130-450) 10^3/uL MPV 10.3 (7.9-10.8) fL Neut # (Auto) 4.7 (1.5-6.6) 10^3/uL Lymph # (Auto) 1.6 (1.5-3.5) 10^3/uL [place] # (Auto) 1.2 H (0.0-1.0) 10^3/uL Eos # (Auto) 0.0 (0.0-0.7) 10^3/uL Baso # (Auto) 0.0 (0.0-0.1) 10^3/uL Absolute Nucleated RBC 0.00 x10^3/uL Nucleated RBC % 0.0 /100WBC VBG pH (7.31-7.41) VBG pCO2 (41-51) mmHg VBG pO2 (25-47) mmHg VBG HCO3 (23-28) mmol/L VBG Total CO2 (24-29) mmol/L VBG O2 Saturation (60-80) % VBG Base Excess (-2 - +2) mmol/L Sodium Potassium Chloride Carbon Dioxide Anion Gap BUN Creatinine Estimated GFR (MDRD) Glucose POC Whole Bld Glucose 129 H 129 H (70 - 100) mg/dL Calcium Phosphorus (2.5-4.6) mg/dL Magnesium (1.7-2.8) mg/dL Total Bilirubin (0.2-1.0) mg/dL AST (10-42) IU/L ALT (10-60) IU/L Alkaline Phosphatase (42-121) IU/L Troponin I High Sens (2.3-14.8) ng/L Total Protein (6.7-8.2) g/dL Albumin (3.2-5.5) g/dL Globulin (2.1-4.2) g/dL Albumin/Globulin Ratio (1.0-2.2) Lipase (22-51) U/L Urine Color Urine Clarity (CLEAR) Urine pH (5.0-7.5) PH Ur Specific [place] (1.002-1.030) Urine Protein (NEGATIVE) mg/dL Urine Glucose (UA) (NEGATIVE) mg/dL Urine Ketones (NEGATIVE) mg/dL Urine Occult Blood (NEGATIVE) Urine Nitrite (NEGATIVE) Urine Bilirubin (NEGATIVE) Urine Urobilinogen (NORMAL) E.U./dL Ur Leukocyte Esterase (NEGATIVE) Urine RBC (0-5) /HPF Urine WBC (0-5) /HPF Ur Squamous Epith Cells (<= Few) Urine Bacteria (None Seen) /HPF Ur Microscopic Review Urine Culture Comments Nasal Adenovirus (PCR) Nasal B. parapertussis DNA (PCR) Nasal Coronavir 229E PCR Nasal Coronavir HKU1 PCR Nasal Coronavir NL63 PCR Nasal Coronavir OC43 PCR Nasal Enterovir/Rhinovir PCR Nasal Influenza B PCR Nasal Influenza A PCR Nasal Parainfluen 1 PCR Nasal Parainfluen 2 PCR Nasal Parainfluen 3 PCR Nasal Parainfluen 4 PCR Nasal RSV (PCR) Nasal Screen MRSA (PCR) (NEGATIVE) Nasal B.pertussis DNA PCR Nasal C.pneumoniae (PCR) Janes Human Metapneumo PCR Nasal M.pneumoniae (PCR) Nasal SARS-CoV-2 (PCR) Urine Opiates Screen (NEGATIVE) Ur Oxycodone Screen (NEGATIVE) Urine Methadone Screen (NEGATIVE) Ur Propoxyphene Screen (NEGATIVE) Ur Barbiturates Screen (NEGATIVE) Ur Tricyclics Screen (NEGATIVE) Ur Phencyclidine Scrn (NEGATIVE) Ur Amphetamine Screen (NEGATIVE) U Methamphetamines Scrn (NEGATIVE) U Benzodiazepines Scrn (NEGATIVE) Urine Cocaine Screen (NEGATIVE) U Cannabinoids Screen (NEGATIVE) Serum Ketones (NEGATIVE) 10/15/20 10/15/20 10/15/20 Range/Units 01:58 01:55 01:00 WBC (4.8-10.8) x10^3/uL RBC (4.20-5.40) 10^6/uL Hgb (12.0-16.0) g/dL Hct (37.0-47.0) % MCV (81.0-99.0) fL MCH (27.0-31.0) pg MCHC (32.0-36.0) g/dL RDW (12.0-15.0) % Plt Count (130-450) 10^3/uL MPV (7.9-10.8) fL Neut # (Auto) (1.5-6.6) 10^3/uL Lymph # (Auto) (1.5-3.5) 10^3/uL [place] # (Auto) (0.0-1.0) 10^3/uL Eos # (Auto) (0.0-0.7) 10^3/uL Baso # (Auto) (0.0-0.1) 10^3/uL Absolute Nucleated RBC x10^3/uL Nucleated RBC % /100WBC VBG pH (7.31-7.41) VBG pCO2 (41-51) mmHg VBG pO2 (25-47) mmHg VBG HCO3 (23-28) mmol/L VBG Total CO2 (24-29) mmol/L VBG O2 Saturation (60-80) % VBG Base Excess (-2 - +2) mmol/L Sodium 135 Potassium 3.2 L Chloride 105 Carbon Dioxide 21 Anion Gap 9.0 BUN 58 H Creatinine 1.4 H Estimated GFR (MDRD) 39 L Glucose 136 H POC Whole Bld Glucose 133 H 160 H (70 - 100) mg/dL Calcium 8.3 L Phosphorus (2.5-4.6) mg/dL Magnesium (1.7-2.8) mg/dL Total Bilirubin (0.2-1.0) mg/dL AST (10-42) IU/L ALT (10-60) IU/L Alkaline Phosphatase (42-121) IU/L Troponin I High Sens (2.3-14.8) ng/L Total Protein (6.7-8.2) g/dL Albumin (3.2-5.5) g/dL Globulin (2.1-4.2) g/dL Albumin/Globulin Ratio (1.0-2.2) Lipase (22-51) U/L Urine Color Urine Clarity (CLEAR) Urine pH (5.0-7.5) PH Ur Specific [place] (1.002-1.030) Urine Protein (NEGATIVE) mg/dL Urine Glucose (UA) (NEGATIVE) mg/dL Urine Ketones (NEGATIVE) mg/dL Urine Occult Blood (NEGATIVE) Urine Nitrite (NEGATIVE) Urine Bilirubin (NEGATIVE) Urine Urobilinogen (NORMAL) E.U./dL Ur Leukocyte Esterase (NEGATIVE) Urine RBC (0-5) /HPF Urine WBC (0-5) /HPF Ur Squamous Epith Cells (<= Few) Urine Bacteria (None Seen) /HPF Ur Microscopic Review Urine Culture Comments Nasal Adenovirus (PCR) Nasal B. parapertussis DNA (PCR) Nasal Coronavir 229E PCR Nasal Coronavir HKU1 PCR Nasal Coronavir NL63 PCR Nasal Coronavir OC43 PCR Nasal Enterovir/Rhinovir PCR Nasal Influenza B PCR Nasal Influenza A PCR Nasal Parainfluen 1 PCR Nasal Parainfluen 2 PCR Nasal Parainfluen 3 PCR Nasal Parainfluen 4 PCR Nasal RSV (PCR) Nasal Screen MRSA (PCR) (NEGATIVE) Nasal B.pertussis DNA PCR Nasal C.pneumoniae (PCR) Janes Human Metapneumo PCR Nasal M.pneumoniae (PCR) Nasal SARS-CoV-2 (PCR) Urine Opiates Screen (NEGATIVE) Ur Oxycodone Screen (NEGATIVE) Urine Methadone Screen (NEGATIVE) Ur Propoxyphene Screen (NEGATIVE) Ur Barbiturates Screen (NEGATIVE) Ur Tricyclics Screen (NEGATIVE) Ur Phencyclidine Scrn (NEGATIVE) Ur Amphetamine Screen (NEGATIVE) U Methamphetamines Scrn (NEGATIVE) U Benzodiazepines Scrn (NEGATIVE) Urine Cocaine Screen (NEGATIVE) U Cannabinoids Screen (NEGATIVE) Serum Ketones (NEGATIVE) 10/15/20 10/15/20 10/14/20 Range/Units 00:07 00:07 23:51 WBC (4.8-10.8) x10^3/uL RBC (4.20-5.40) 10^6/uL Hgb (12.0-16.0) g/dL Hct (37.0-47.0) % MCV (81.0-99.0) fL MCH (27.0-31.0) pg MCHC (32.0-36.0) g/dL RDW (12.0-15.0) % Plt Count (130-450) 10^3/uL MPV (7.9-10.8) fL Neut # (Auto) (1.5-6.6) 10^3/uL Lymph # (Auto) (1.5-3.5) 10^3/uL [place] # (Auto) (0.0-1.0) 10^3/uL Eos # (Auto) (0.0-0.7) 10^3/uL Baso # (Auto) (0.0-0.1) 10^3/uL Absolute Nucleated RBC x10^3/uL Nucleated RBC % /100WBC VBG pH (7.31-7.41) VBG pCO2 (41-51) mmHg VBG pO2 (25-47) mmHg VBG HCO3 (23-28) mmol/L VBG Total CO2 (24-29) mmol/L VBG O2 Saturation (60-80) % VBG Base Excess (-2 - +2) mmol/L Sodium 134 L Potassium 2.9 L Chloride 102 Carbon Dioxide 21 Anion Gap 11.0 BUN 56 H Creatinine 1.4 H Estimated GFR (MDRD) 39 L Glucose 242 H POC Whole Bld Glucose 230 H (70 - 100) mg/dL Calcium 8.8 Phosphorus (2.5-4.6) mg/dL Magnesium (1.7-2.8) mg/dL Total Bilirubin (0.2-1.0) mg/dL AST (10-42) IU/L ALT (10-60) IU/L Alkaline Phosphatase (42-121) IU/L Troponin I High Sens 16.6 H* (2.3-14.8) ng/L Total Protein (6.7-8.2) g/dL Albumin (3.2-5.5) g/dL Globulin (2.1-4.2) g/dL Albumin/Globulin Ratio (1.0-2.2) Lipase (22-51) U/L Urine Color Urine Clarity (CLEAR) Urine pH (5.0-7.5) PH Ur Specific [place] (1.002-1.030) Urine Protein (NEGATIVE) mg/dL Urine Glucose (UA) (NEGATIVE) mg/dL Urine Ketones (NEGATIVE) mg/dL Urine Occult Blood (NEGATIVE) Urine Nitrite (NEGATIVE) Urine Bilirubin (NEGATIVE) Urine Urobilinogen (NORMAL) E.U./dL Ur Leukocyte Esterase (NEGATIVE) Urine RBC (0-5) /HPF Urine WBC (0-5) /HPF Ur Squamous Epith Cells (<= Few) Urine Bacteria (None Seen) /HPF Ur Microscopic Review Urine Culture Comments Nasal Adenovirus (PCR) Nasal B. parapertussis DNA (PCR) Nasal Coronavir 229E PCR Nasal Coronavir HKU1 PCR Nasal Coronavir NL63 PCR Nasal Coronavir OC43 PCR Nasal Enterovir/Rhinovir PCR Nasal Influenza B PCR Nasal Influenza A PCR Nasal Parainfluen 1 PCR Nasal Parainfluen 2 PCR Nasal Parainfluen 3 PCR Nasal Parainfluen 4 PCR Nasal RSV (PCR) Nasal Screen MRSA (PCR) (NEGATIVE) Nasal B.pertussis DNA PCR Nasal C.pneumoniae (PCR) Janes Human Metapneumo PCR Nasal M.pneumoniae (PCR) Nasal SARS-CoV-2 (PCR) Urine Opiates Screen (NEGATIVE) Ur Oxycodone Screen (NEGATIVE) Urine Methadone Screen (NEGATIVE) Ur Propoxyphene Screen (NEGATIVE) Ur Barbiturates Screen (NEGATIVE) Ur Tricyclics Screen (NEGATIVE) Ur Phencyclidine Scrn (NEGATIVE) Ur Amphetamine Screen (NEGATIVE) U Methamphetamines Scrn (NEGATIVE) U Benzodiazepines Scrn (NEGATIVE) Urine Cocaine Screen (NEGATIVE) U Cannabinoids Screen (NEGATIVE) Serum Ketones (NEGATIVE) 10/14/20 10/14/20 10/14/20 Range/Units 23:01 22:18 22:10 WBC (4.8-10.8) x10^3/uL RBC (4.20-5.40) 10^6/uL Hgb (12.0-16.0) g/dL Hct (37.0-47.0) % MCV (81.0-99.0) fL MCH (27.0-31.0) pg MCHC (32.0-36.0) g/dL RDW (12.0-15.0) % Plt Count (130-450) 10^3/uL MPV (7.9-10.8) fL Neut # (Auto) (1.5-6.6) 10^3/uL Lymph # (Auto) (1.5-3.5) 10^3/uL [place] # (Auto) (0.0-1.0) 10^3/uL Eos # (Auto) (0.0-0.7) 10^3/uL Baso # (Auto) (0.0-0.1) 10^3/uL Absolute Nucleated RBC x10^3/uL Nucleated RBC % /100WBC VBG pH (7.31-7.41) VBG pCO2 (41-51) mmHg VBG pO2 (25-47) mmHg VBG HCO3 (23-28) mmol/L VBG Total CO2 (24-29) mmol/L VBG O2 Saturation (60-80) % VBG Base Excess (-2 - +2) mmol/L Sodium Potassium Chloride Carbon Dioxide Anion Gap BUN Creatinine Estimated GFR (MDRD) Glucose POC Whole Bld Glucose 261 H 344 H (70 - 100) mg/dL Calcium Phosphorus (2.5-4.6) mg/dL Magnesium (1.7-2.8) mg/dL Total Bilirubin (0.2-1.0) mg/dL AST (10-42) IU/L ALT (10-60) IU/L Alkaline Phosphatase (42-121) IU/L Troponin I High Sens (2.3-14.8) ng/L Total Protein (6.7-8.2) g/dL Albumin (3.2-5.5) g/dL Globulin (2.1-4.2) g/dL Albumin/Globulin Ratio (1.0-2.2) Lipase (22-51) U/L Urine Color Urine Clarity (CLEAR) Urine pH (5.0-7.5) PH Ur Specific [place] (1.002-1.030) Urine Protein (NEGATIVE) mg/dL Urine Glucose (UA) (NEGATIVE) mg/dL Urine Ketones (NEGATIVE) mg/dL Urine Occult Blood (NEGATIVE) Urine Nitrite (NEGATIVE) Urine Bilirubin (NEGATIVE) Urine Urobilinogen (NORMAL) E.U./dL Ur Leukocyte Esterase (NEGATIVE) Urine RBC (0-5) /HPF Urine WBC (0-5) /HPF Ur Squamous Epith Cells (<= Few) Urine Bacteria (None Seen) /HPF Ur Microscopic Review Urine Culture Comments Nasal Adenovirus (PCR) Nasal B. parapertussis DNA (PCR) Nasal Coronavir 229E PCR Nasal Coronavir HKU1 PCR Nasal Coronavir NL63 PCR Nasal Coronavir OC43 PCR Nasal Enterovir/Rhinovir PCR Nasal Influenza B PCR Nasal Influenza A PCR Nasal Parainfluen 1 PCR Nasal Parainfluen 2 PCR Nasal Parainfluen 3 PCR Nasal Parainfluen 4 PCR Nasal RSV (PCR) Nasal Screen MRSA (PCR) NEGATIVE (NEGATIVE) Nasal B.pertussis DNA PCR Nasal C.pneumoniae (PCR) Janes Human Metapneumo PCR Nasal M.pneumoniae (PCR) Nasal SARS-CoV-2 (PCR) Urine Opiates Screen (NEGATIVE) Ur Oxycodone Screen (NEGATIVE) Urine Methadone Screen (NEGATIVE) Ur Propoxyphene Screen (NEGATIVE) Ur Barbiturates Screen (NEGATIVE) Ur Tricyclics Screen (NEGATIVE) Ur Phencyclidine Scrn (NEGATIVE) Ur Amphetamine Screen (NEGATIVE) U Methamphetamines Scrn (NEGATIVE) U Benzodiazepines Scrn (NEGATIVE) Urine Cocaine Screen (NEGATIVE) U Cannabinoids Screen (NEGATIVE) Serum Ketones (NEGATIVE) 10/14/20 10/14/20 10/14/20 Range/Units 21:21 21:14 20:44 WBC (4.8-10.8) x10^3/uL RBC (4.20-5.40) 10^6/uL Hgb (12.0-16.0) g/dL Hct (37.0-47.0) % MCV (81.0-99.0) fL MCH (27.0-31.0) pg MCHC (32.0-36.0) g/dL RDW (12.0-15.0) % Plt Count (130-450) 10^3/uL MPV (7.9-10.8) fL Neut # (Auto) (1.5-6.6) 10^3/uL Lymph # (Auto) (1.5-3.5) 10^3/uL [place] # (Auto) (0.0-1.0) 10^3/uL Eos # (Auto) (0.0-0.7) 10^3/uL Baso # (Auto) (0.0-0.1) 10^3/uL Absolute Nucleated RBC x10^3/uL Nucleated RBC % /100WBC VBG pH (7.31-7.41) VBG pCO2 (41-51) mmHg VBG pO2 (25-47) mmHg VBG HCO3 (23-28) mmol/L VBG Total CO2 (24-29) mmol/L VBG O2 Saturation (60-80) % VBG Base Excess (-2 - +2) mmol/L Sodium 133 L Potassium 2.9 L Chloride 98 L Carbon Dioxide 21 Anion Gap 14.0 H BUN 58 H Creatinine 1.4 H Estimated GFR (MDRD) 39 L Glucose 458 H POC Whole Bld Glucose 447 H (70 - 100) mg/dL Calcium 8.6 Phosphorus (2.5-4.6) mg/dL Magnesium (1.7-2.8) mg/dL Total Bilirubin (0.2-1.0) mg/dL AST (10-42) IU/L ALT (10-60) IU/L Alkaline Phosphatase (42-121) IU/L Troponin I High Sens (2.3-14.8) ng/L Total Protein (6.7-8.2) g/dL Albumin (3.2-5.5) g/dL Globulin (2.1-4.2) g/dL Albumin/Globulin Ratio (1.0-2.2) Lipase (22-51) U/L Urine Color Urine Clarity (CLEAR) Urine pH (5.0-7.5) PH Ur Specific [place] (1.002-1.030) Urine Protein (NEGATIVE) mg/dL Urine Glucose (UA) (NEGATIVE) mg/dL Urine Ketones (NEGATIVE) mg/dL Urine Occult Blood (NEGATIVE) Urine Nitrite (NEGATIVE) Urine Bilirubin (NEGATIVE) Urine Urobilinogen (NORMAL) E.U./dL Ur Leukocyte Esterase (NEGATIVE) Urine RBC (0-5) /HPF Urine WBC (0-5) /HPF Ur Squamous Epith Cells (<= Few) Urine Bacteria (None Seen) /HPF Ur Microscopic Review Urine Culture Comments Nasal Adenovirus (PCR) NOT DETECTED Nasal B. parapertussis DNA (PCR) NOT DETECTED Nasal Coronavir 229E PCR NOT DETECTED Nasal Coronavir HKU1 PCR NOT DETECTED Nasal Coronavir NL63 PCR NOT DETECTED Nasal Coronavir OC43 PCR NOT DETECTED Nasal Enterovir/Rhinovir PCR DETECTED A Nasal Influenza B PCR NOT DETECTED Nasal Influenza A PCR NOT DETECTED Nasal Parainfluen 1 PCR NOT DETECTED Nasal Parainfluen 2 PCR NOT DETECTED Nasal Parainfluen 3 PCR NOT DETECTED Nasal Parainfluen 4 PCR NOT DETECTED Nasal RSV (PCR) NOT DETECTED Nasal Screen MRSA (PCR) (NEGATIVE) Nasal B.pertussis DNA PCR NOT DETECTED Nasal C.pneumoniae (PCR) NOT DETECTED Janes Human Metapneumo PCR NOT DETECTED Nasal M.pneumoniae (PCR) NOT DETECTED Nasal SARS-CoV-2 (PCR) NOT DETECTED Urine Opiates Screen (NEGATIVE) Ur Oxycodone Screen (NEGATIVE) Urine Methadone Screen (NEGATIVE) Ur Propoxyphene Screen (NEGATIVE) Ur Barbiturates Screen (NEGATIVE) Ur Tricyclics Screen (NEGATIVE) Ur Phencyclidine Scrn (NEGATIVE) Ur Amphetamine Screen (NEGATIVE) U Methamphetamines Scrn (NEGATIVE) U Benzodiazepines Scrn (NEGATIVE) Urine Cocaine Screen (NEGATIVE) U Cannabinoids Screen (NEGATIVE) Serum Ketones (NEGATIVE) 10/14/20 10/14/20 10/14/20 Range/Units 20:11 20:11 18:20 WBC (4.8-10.8) x10^3/uL RBC (4.20-5.40) 10^6/uL Hgb (12.0-16.0) g/dL Hct (37.0-47.0) % MCV (81.0-99.0) fL MCH (27.0-31.0) pg MCHC (32.0-36.0) g/dL RDW (12.0-15.0) % Plt Count (130-450) 10^3/uL MPV (7.9-10.8) fL Neut # (Auto) (1.5-6.6) 10^3/uL Lymph # (Auto) (1.5-3.5) 10^3/uL [place] # (Auto) (0.0-1.0) 10^3/uL Eos # (Auto) (0.0-0.7) 10^3/uL Baso # (Auto) (0.0-0.1) 10^3/uL Absolute Nucleated RBC x10^3/uL Nucleated RBC % /100WBC VBG pH (7.31-7.41) VBG pCO2 (41-51) mmHg VBG pO2 (25-47) mmHg VBG HCO3 (23-28) mmol/L VBG Total CO2 (24-29) mmol/L VBG O2 Saturation (60-80) % VBG Base Excess (-2 - +2) mmol/L Sodium Potassium Chloride Carbon Dioxide Anion Gap BUN Creatinine Estimated GFR (MDRD) Glucose POC Whole Bld Glucose (70 - 100) mg/dL Calcium Phosphorus (2.5-4.6) mg/dL Magnesium (1.7-2.8) mg/dL Total Bilirubin (0.2-1.0) mg/dL AST (10-42) IU/L ALT (10-60) IU/L Alkaline Phosphatase (42-121) IU/L Troponin I High Sens 16.1 H* (2.3-14.8) ng/L Total Protein (6.7-8.2) g/dL Albumin (3.2-5.5) g/dL Globulin (2.1-4.2) g/dL Albumin/Globulin Ratio (1.0-2.2) Lipase (22-51) U/L Urine Color YELLOW Urine Clarity CLEAR (CLEAR) Urine pH 6.0 (5.0-7.5) PH Ur Specific [place] 1.020 (1.002-1.030) Urine Protein 100 H (NEGATIVE) mg/dL Urine Glucose (UA) >=1000 H (NEGATIVE) mg/dL Urine Ketones 15 H (NEGATIVE) mg/dL Urine Occult Blood SMALL H (NEGATIVE) Urine Nitrite NEGATIVE (NEGATIVE) Urine Bilirubin NEGATIVE (NEGATIVE) Urine Urobilinogen 0.2 (NORMAL) (NORMAL) E.U./dL Ur Leukocyte Esterase NEGATIVE (NEGATIVE) Urine RBC 0-5 (0-5) /HPF Urine WBC 4-5 (0-5) /HPF Ur Squamous Epith Cells FEW Squamous (<= Few) Urine Bacteria Few (None Seen) /HPF Ur Microscopic Review INDICATED Urine Culture Comments NOT INDICATED Nasal Adenovirus (PCR) Nasal B. parapertussis DNA (PCR) Nasal Coronavir 229E PCR Nasal Coronavir HKU1 PCR Nasal Coronavir NL63 PCR Nasal Coronavir OC43 PCR Nasal Enterovir/Rhinovir PCR Nasal Influenza B PCR Nasal Influenza A PCR Nasal Parainfluen 1 PCR Nasal Parainfluen 2 PCR Nasal Parainfluen 3 PCR Nasal Parainfluen 4 PCR Nasal RSV (PCR) Nasal Screen MRSA (PCR) (NEGATIVE) Nasal B.pertussis DNA PCR Nasal C.pneumoniae (PCR) Janes Human Metapneumo PCR Nasal M.pneumoniae (PCR) Nasal SARS-CoV-2 (PCR) Urine Opiates Screen NEGATIVE (NEGATIVE) Ur Oxycodone Screen NEGATIVE (NEGATIVE) Urine Methadone Screen NEGATIVE (NEGATIVE) Ur Propoxyphene Screen NEGATIVE (NEGATIVE) Ur Barbiturates Screen NEGATIVE (NEGATIVE) Ur Tricyclics Screen NEGATIVE (NEGATIVE) Ur Phencyclidine Scrn NEGATIVE (NEGATIVE) Ur Amphetamine Screen NEGATIVE (NEGATIVE) U Methamphetamines Scrn NEGATIVE (NEGATIVE) U Benzodiazepines Scrn NEGATIVE (NEGATIVE) Urine Cocaine Screen NEGATIVE (NEGATIVE) U Cannabinoids Screen NEGATIVE (NEGATIVE) Serum Ketones (NEGATIVE) 10/14/20 10/14/20 10/14/20 Range/Units 18:20 18:20 18:20 WBC 9.3 (4.8-10.8) x10^3/uL RBC 4.24 (4.20-5.40) 10^6/uL Hgb 12.4 (12.0-16.0) g/dL Hct 34.7 L (37.0-47.0) % MCV 81.8 (81.0-99.0) fL MCH 29.2 (27.0-31.0) pg MCHC 35.7 (32.0-36.0) g/dL RDW 12.2 (12.0-15.0) % Plt Count 226 (130-450) 10^3/uL MPV 10.6 (7.9-10.8) fL Neut # (Auto) 6.9 H (1.5-6.6) 10^3/uL Lymph # (Auto) 1.0 L (1.5-3.5) 10^3/uL [place] # (Auto) 1.3 H (0.0-1.0) 10^3/uL Eos # (Auto) 0.1 (0.0-0.7) 10^3/uL Baso # (Auto) 0.1 (0.0-0.1) 10^3/uL Absolute Nucleated RBC 0.00 x10^3/uL Nucleated RBC % 0.0 /100WBC VBG pH 7.364 (7.31-7.41) VBG pCO2 37.8 L (41-51) mmHg VBG pO2 42.2 (25-47) mmHg VBG HCO3 21.1 L (23-28) mmol/L VBG Total CO2 22.2 L (24-29) mmol/L VBG O2 Saturation 76.3 (60-80) % VBG Base Excess -3.8 L (-2 - +2) mmol/L Sodium 129 L Potassium 3.6 Chloride 92 L Carbon Dioxide 21 Anion Gap 16.0 H BUN 61 H Creatinine 1.7 H Estimated GFR (MDRD) 31 L Glucose 592 H* POC Whole Bld Glucose (70 - 100) mg/dL Calcium 8.6 Phosphorus (2.5-4.6) mg/dL Magnesium (1.7-2.8) mg/dL Total Bilirubin 0.9 (0.2-1.0) mg/dL AST 22 (10-42) IU/L ALT 27 (10-60) IU/L Alkaline Phosphatase 49 (42-121) IU/L Troponin I High Sens (2.3-14.8) ng/L Total Protein 6.9 (6.7-8.2) g/dL Albumin 3.8 (3.2-5.5) g/dL Globulin 3.1 (2.1-4.2) g/dL Albumin/Globulin Ratio 1.2 (1.0-2.2) Lipase 49 (22-51) U/L Urine Color Urine Clarity (CLEAR) Urine pH (5.0-7.5) PH Ur Specific [place] (1.002-1.030) Urine Protein (NEGATIVE) mg/dL Urine Glucose (UA) (NEGATIVE) mg/dL Urine Ketones (NEGATIVE) mg/dL Urine Occult Blood (NEGATIVE) Urine Nitrite (NEGATIVE) Urine Bilirubin (NEGATIVE) Urine Urobilinogen (NORMAL) E.U./dL Ur Leukocyte Esterase (NEGATIVE) Urine RBC (0-5) /HPF Urine WBC (0-5) /HPF Ur Squamous Epith Cells (<= Few) Urine Bacteria (None Seen) /HPF Ur Microscopic Review Urine Culture Comments Nasal Adenovirus (PCR) Nasal B. parapertussis DNA (PCR) Nasal Coronavir 229E PCR Nasal Coronavir HKU1 PCR Nasal Coronavir NL63 PCR Nasal Coronavir OC43 PCR Nasal Enterovir/Rhinovir PCR Nasal Influenza B PCR Nasal Influenza A PCR Nasal Parainfluen 1 PCR Nasal Parainfluen 2 PCR Nasal Parainfluen 3 PCR Nasal Parainfluen 4 PCR Nasal RSV (PCR) Nasal Screen MRSA (PCR) (NEGATIVE) Nasal B.pertussis DNA PCR Nasal C.pneumoniae (PCR) Janes Human Metapneumo PCR Nasal M.pneumoniae (PCR) Nasal SARS-CoV-2 (PCR) Urine Opiates Screen (NEGATIVE) Ur Oxycodone Screen (NEGATIVE) Urine Methadone Screen (NEGATIVE) Ur Propoxyphene Screen (NEGATIVE) Ur Barbiturates Screen (NEGATIVE) Ur Tricyclics Screen (NEGATIVE) Ur Phencyclidine Scrn (NEGATIVE) Ur Amphetamine Screen (NEGATIVE) U Methamphetamines Scrn (NEGATIVE) U Benzodiazepines Scrn (NEGATIVE) Urine Cocaine Screen (NEGATIVE) U Cannabinoids Screen (NEGATIVE) Serum Ketones SMALL H (NEGATIVE) 10/14/20 Range/Units 00:07 WBC (4.8-10.8) x10^3/uL RBC (4.20-5.40) 10^6/uL Hgb (12.0-16.0) g/dL Hct (37.0-47.0) % MCV (81.0-99.0) fL MCH (27.0-31.0) pg MCHC (32.0-36.0) g/dL RDW (12.0-15.0) % Plt Count (130-450) 10^3/uL MPV (7.9-10.8) fL Neut # (Auto) (1.5-6.6) 10^3/uL Lymph # (Auto) (1.5-3.5) 10^3/uL [place] # (Auto) (0.0-1.0) 10^3/uL Eos # (Auto) (0.0-0.7) 10^3/uL Baso # (Auto) (0.0-0.1) 10^3/uL Absolute Nucleated RBC x10^3/uL Nucleated RBC % /100WBC VBG pH (7.31-7.41) VBG pCO2 (41-51) mmHg VBG pO2 (25-47) mmHg VBG HCO3 (23-28) mmol/L VBG Total CO2 (24-29) mmol/L VBG O2 Saturation (60-80) % VBG Base Excess (-2 - +2) mmol/L Sodium Cancelled Potassium Cancelled Chloride Cancelled Carbon Dioxide Cancelled Anion Gap Cancelled BUN Cancelled Creatinine Cancelled Estimated GFR (MDRD) Cancelled Glucose Cancelled POC Whole Bld Glucose (70 - 100) mg/dL Calcium Cancelled Phosphorus (2.5-4.6) mg/dL Magnesium (1.7-2.8) mg/dL Total Bilirubin (0.2-1.0) mg/dL AST (10-42) IU/L ALT (10-60) IU/L Alkaline Phosphatase (42-121) IU/L Troponin I High Sens (2.3-14.8) ng/L Total Protein (6.7-8.2) g/dL Albumin (3.2-5.5) g/dL Globulin (2.1-4.2) g/dL Albumin/Globulin Ratio (1.0-2.2) Lipase (22-51) U/L Urine Color Urine Clarity (CLEAR) Urine pH (5.0-7.5) PH Ur Specific [place] (1.002-1.030) Urine Protein (NEGATIVE) mg/dL Urine Glucose (UA) (NEGATIVE) mg/dL Urine Ketones (NEGATIVE) mg/dL Urine Occult Blood (NEGATIVE) Urine Nitrite (NEGATIVE) Urine Bilirubin (NEGATIVE) Urine Urobilinogen (NORMAL) E.U./dL Ur Leukocyte Esterase (NEGATIVE) Urine RBC (0-5) /HPF Urine WBC (0-5) /HPF Ur Squamous Epith Cells (<= Few) Urine Bacteria (None Seen) /HPF Ur Microscopic Review Urine Culture Comments Nasal Adenovirus (PCR) Nasal B. parapertussis DNA (PCR) Nasal Coronavir 229E PCR Nasal Coronavir HKU1 PCR Nasal Coronavir NL63 PCR Nasal Coronavir OC43 PCR Nasal Enterovir/Rhinovir PCR Nasal Influenza B PCR Nasal Influenza A PCR Nasal Parainfluen 1 PCR Nasal Parainfluen 2 PCR Nasal Parainfluen 3 PCR Nasal Parainfluen 4 PCR Nasal RSV (PCR) Nasal Screen MRSA (PCR) (NEGATIVE) Nasal B.pertussis DNA PCR Nasal C.pneumoniae (PCR) Janes Human Metapneumo PCR Nasal M.pneumoniae (PCR) Nasal SARS-CoV-2 (PCR) Urine Opiates Screen (NEGATIVE) Ur Oxycodone Screen (NEGATIVE) Urine Methadone Screen (NEGATIVE) Ur Propoxyphene Screen (NEGATIVE) Ur Barbiturates Screen (NEGATIVE) Ur Tricyclics Screen (NEGATIVE) Ur Phencyclidine Scrn (NEGATIVE) Ur Amphetamine Screen (NEGATIVE) U Methamphetamines Scrn (NEGATIVE) U Benzodiazepines Scrn (NEGATIVE) Urine Cocaine Screen (NEGATIVE) U Cannabinoids Screen (NEGATIVE) Serum Ketones (NEGATIVE) Assessment/Plan - Problem List (1) Diabetic ketoacidosis Impression: This has now resolved. She has been transitioned to subcutaneous insulin and started on a diet. We will resume her home insulin regimen and observe her overnight to ensure she is able to take p.o. consistently and her blood glucose remained stable. We will look to discharge her tomorrow morning. Qualifiers: Diabetes mellitus type: type 1 Diabetes mellitus complication detail: without coma Qualified Code(s): E10.10 - Type 1 diabetes mellitus with ke toacidosis without coma (2) Acute kidney injury Impression: This is likely prerenal injury. Her creatinine was 1.7 on admission and her baseline is approximately 1.0. This morning it is improved to 1.4. She may have a component of CKD secondary to her diabetes. We will continue to hold her lisinopril for the time being and continue her on IV fluids with lactated Ringer's. Recheck BMP in the morning. (3) Insulin dependent diabetes mellitus Impression: She has now been changed to subcutaneous insulin with her home dosing resumed. A1c is pending. We will keep her on a carb controlled diet. We will ask the phys assistant and nutrition to see the patient (4) Cognitive deficits Impression: She does have mild baseline cognitive deficits as well as what appears to be psychomotor slowing at times. CT of the head obtained during last admission was unremarkable. We have recommended outpatient follow-up with neurology and she would likely benefit from an outpatient MRI. (5) Fibromyalgia Impression: We will look to resume her home Lyrica and duloxetine later on this evening.
--- NOTE | 2020-10-15 10:35 | PHARMACY PROGRESS NOTE ---
- Best Possible Medication History Admit Date and Time: 10/14/202101 Processed by: Pharmacy Medication History completed: Yes Patient Interview: Completed Secondary Source(s): Physician records, Pharmacy records, Insurance records (PATIENT INTERVIEWED BY [facility]. PATIENT ABLE TO CONFIRM HOME MEDICATIONS ) As the person ultimately responsible for medication therapy, providers are able to order a medication from an existing home medication list in [facility] via the "Reconcile Routine" prior to Confirmation of that medication by family support specialist. Such practice is discouraged except when the physician, in their clinical judgment, deems that a medical need exists for a medication without regard to previous use.
[2020-10-15 12:55] LABS: ESTIMATED AVERAGE GLUCOSE 212 mg/dL (70-100)
[2020-10-15] MEDS ORDERED: NON FORMULARY MED (Albuterol Sulfate [Proair Hfa Inhaler] 8.5 GM Hfa.Aer.Ad) INH PRN (17:32)
[2020-10-15] MEDS: ATORVASTATIN 10 MG TABLET PO SCH (21:02)
[2020-10-16] MEDS: LACTATED RINGERS 1,000 ML IV SCH (04:20)
[2020-10-16 05:19] LABS: BASOPHILS % (AUTO) 0.3 %; EOSINOPHILS # (AUTO) 0.1 10^3/uL (0.0-0.7); EOSINOPHILS % (AUTO) 1.2 %; HCT - HEMATOCRIT 29.2 % (37.0-47.0); HGB - HEMOGLOBIN 9.9 g/dL (12.0-16.0); LYMPHOCYTES % (AUTO) 26.4 %; MEAN CORPUSCULAR HEMOGLOBIN 28.5 pg (27.0-31.0); MEAN CORPUSCULAR HGB CONC 33.9 g/dL (32.0-36.0); MEAN CORPUSCULAR VOLUME 84.1 fL (81.0-99.0); MEAN PLATELET VOLUME 10.8 fL (7.9-10.8); MONOCYTES # (AUTO) 1.1 10^3/uL (0.0-1.0); MONOCYTES % (AUTO) 14.1 %; NEUTROPHILS # (AUTO) 4.4 10^3/uL (1.5-6.6); NEUTROPHILS % (AUTO) 57.7 %; PLT - PLATELET COUNT 168 10^3/uL (130-450); RED BLOOD COUNT 3.47 10^6/uL (4.20-5.40); RED CELL DISTRIBUTION WIDTH 12.4 % (12.0-15.0); WHITE BLOOD COUNT 7.5 x10^3/uL (4.8-10.8)
[2020-10-16 05:32] LABS: CALCIUM 8.6 mg/dL (8.5-10.3); CREATININE 1.1 mg/dL (0.4-1.0); PHOSPHORUS 1.9 mg/dL (2.5-4.6); POTASSIUM 3.2 mmol/L (3.5-5.0)
[2020-10-16] MEDS: PANTOPRAZOLE 40 MG VIAL IVP SCH (06:08)
[2020-10-16] MEDS: oxyCODONE 5 MG TABLET PO PRN ×2 (06:08→20:57)
[2020-10-16] MEDS ORDERED: POTASSIUM CHLORIDE 20 MEQ TABLET PO ONE (07:24)
[2020-10-16] MEDS ORDERED: NEUTRA-PHOS 250 MG TABLET PO SCH (08:00)
[2020-10-16] MEDS: INSULIN ASPART 300 UNIT/3 ML PEN SUBQ SCH ×7 (08:16→21:09)
[2020-10-16] MEDS: DULoxetine 30 MG CAPSULE PO SCH (08:22)
[2020-10-16] MEDS: ASPIRIN EC 81 MG TABLET PO SCH (08:22)
[2020-10-16] MEDS: INSULIN GLARGINE 300 UNIT/3 ML PEN SUBQ SCH ×2 (09:12→21:10)
--- NOTE | 2020-10-16 11:06 | XRAY Report ---
PROCEDURE: Chest 1 View X-Ray INDICATIONS: Cough. Chest pain. TECHNIQUE: One view of the chest was acquired. COMPARISON: 08/12/2020 FINDINGS: Surgical changes and devices: None. Lungs and pleura: No pleural effusions or pneumothorax. Lungs are clear. Mediastinum: Mediastinal contours appear normal. Heart size is normal. Bones and chest wall: No suspicious bony lesions. Overlying soft tissues appear unremarkable. IMPRESSION: Normal portable chest. Reviewed by: Shilo Nair MD on 10/16/2020 10:04 AM [facility] Approved by: Shilo Nair MD on 10/16/2020 10:04 AM [facility] Station ID: [id number]
[2020-10-16] MEDS: ONDANSETRON 4 MG/2 ML VIAL IVP PRN (11:43)
[2020-10-16] MEDS: lisinopriL 5 MG TABLET PO SCH (11:43)
[2020-10-16] MEDS: SODIUM CHLORIDE FLUSH 0.9% 10 ML SYRINGE IVP SCH ×4 (11:43→23:36)
--- NOTE | 2020-10-16 14:21 | PROVIDER PROGRESS NOTE ---
Subjective - Prog Note Date Prog Note Date: 10/16/20 - Subjective Subjective: She still feels quite fatigued and has not been eating very much due to nausea. Still has a little bit of abdominal pain. She also complains of chest pain with cough. Current Medications - Current Medications Current Medications: Active Medications Acetaminophen (Acetaminophen 325 Mg Tablet) 650 mg PO Q4HR PRN PRN Reason: Pain 1 to 4 Aspirin (Aspirin Ec 81 Mg Tablet) 81 mg PO DAILY [facility] Last Admin: 10/16/20 08:22 Dose: 81 mg Documented by: Atorvastatin Calcium (Atorvastatin 10 Mg Tablet) 20 mg PO HS [facility] Last Admin: 10/15/20 21:02 Dose: 20 mg Documented by: Duloxetine HCl (Duloxetine 30 Mg Capsule) 60 mg PO DAILY [facility] Last Admin: 10/16/20 08:22 Dose: 60 mg Documented by: Insulin Aspart (Insulin Aspart 300 Unit/3 Ml Pen) 5 unit SUBQ TIDWM [facility]; Protocol Last Admin: 10/16/20 11:53 Dose: 5 unit Documented by: Insulin Aspart (Insulin Aspart 300 Unit/3 Ml Pen) 3 - 11 unit SUBQ 080 0,1200,1700,2100 [facility]; Protocol Last Admin: 10/16/20 11:53 Dose: 5 unit Documented by: Insulin Glargine (Insulin Glargine 300 Unit/3 Ml Pen) 12 unit SUBQ BID [facility] Last Admin: 10/16/20 09:12 Dose: 12 unit Documented by: Lisinopril (Lisinopril 5 Mg Tablet) 5 mg PO DAILY [facility] Last Admin: 10/16/20 11:43 Dose: 5 mg Documented by: Ondansetron HCl (Ondansetron 4 Mg/2 Ml Vial) 4 mg IVP Q6HR PRN PRN Reason: Nausea / Vomiting Last Admin: 10/16/20 11:43 Dose: 4 mg Documented by: Oxycodone HCl (Oxycodone 5 Mg Tablet) 5 mg PO Q4HR PRN PRN Reason: Pain 5 to 7 Last Admin: 10/16/20 06:08 Dose: 5 mg Documented by: Pantoprazole Sodium (Pantoprazole 40 Mg Vial) 40 mg IVP QDAC [facility] Last Admin: 10/16/20 06:08 Dose: 40 mg Documented by: Prochlorperazine Edisylate (Prochlorperazine 10 Mg/2 Ml Vial) 10 mg IVP Q6HR PRN PRN Reason: Nausea / Vomiting Sodium Chloride (Sodium Chloride Flush 0.9% 10 Ml Syringe) 10 ml IVP 0100,0900,1700 [facility] Last Admin: 10/16/20 11:50 Dose: Not Given Documented by: Sodium Chloride (Sodium Chloride Flush 0.9% 10 Ml Syringe) 10 ml IVP PRN PRN PRN Reason: NEEDED PER PROVIDER ORDERS Last Admin: 10/15/20 06:56 Dose: 10 ml Documented by: Albuterol Sulfate [Proair Hfa Inhaler] 2 - 4 puffs INH PRN PRN 10/15/20 Fluticasone [Flonase] 2 sprays CHAN DAILY PRN 10/15/20 Objective - Vital Signs/Intake & Output Reviewed Vital Signs: Yes Vital Signs: Vital Signs x48h Temp Pulse Resp BP Pulse Ox 10/16/20 08:53 36.8 C 96 14 169/94 H 96 Intake & Output: Intake & Output 10/13/20 10/14/20 10/15/20 10/16/20 23:59 23:59 23:59 23:59 Intake Total 2714.333 3521.791 1143.333 Output Total 1350 925 Balance 2714.333 2171.791 218.333 - Objective General Appearance: positive: Alert, Mild distress, Lethargic Eyes Bilateral: positive: Normal inspection, Conjunctivae nml ENT: positive: ENT inspection nml Neck: positive: Nml inspection Respiratory: positive: No respiratory distress. negative: Wheezes, Rales Cardiovascular: positive: Regular rate & rhythm, No murmur. negative: Tachycardia, Systolic murmur Abdomen: positive: No distention, Tenderness (Mild diffuse tenderness.). negative: Guarding, Rebound Skin: positive: Warm, Dry Extremities: positive: No pedal edema Neurologic/Psychiatric: negative: Disoriented to person, Disoriented to place - Lab Results Fish Bones: 10/16/20 04:50 10/16/20 04:50 Other Labs: Lab Results x24hrs 10/16/20 10/16/20 10/16/20 Range/Units 11:47 10:42 04:50 WBC (4.8-10.8) x10^3/uL RBC (4.20-5.40) 10^6/uL Hgb (12.0-16.0) g/dL Hct (37.0-47.0) % MCV (81.0-99.0) fL MCH (27.0-31.0) pg MCHC (32.0-36.0) g/dL RDW (12.0-15.0) % Plt Count (130-450) 10^3/uL MPV (7.9-10.8) fL Neut # (Auto) (1.5-6.6) 10^3/uL Lymph # (Auto) (1.5-3.5) 10^3/uL [place] # (Auto) (0.0-1.0) 10^3/uL Eos # (Auto) (0.0-0.7) 10^3/uL Baso # (Auto) (0.0-0.1) 10^3/uL Absolute Nucleated RBC x10^3/uL Nucleated RBC % /100WBC Sodium 133 L (135-145) mmol/L Potassium 3.2 L (3.5-5.0) mmol/L Chloride 106 (101-111) mmol/L Carbon Dioxide 21 (21-32) mmol/L Anion Gap 6.0 (6-13) BUN 34 H (6-20) mg/dL Creatinine 1.1 H (0.4-1.0) mg/dL Estimated GFR (MDRD) 51 L (>89) Glucose 116 H (70-100) mg/dL POC Whole Bld Glucose 216 H (70 - 100) mg/dL Calcium 8.6 (8.5-10.3) mg/dL Phosphorus 1.9 L (2.5-4.6) mg/dL Magnesium 2.0 (1.7-2.8) mg/dL Troponin I High Sens 7.3 (2.3-14.8) ng/L 10/16/20 10/15/20 10/15/20 Range/Units 04:50 20:57 16:59 WBC 7.5 (4.8-10.8) x10^3/uL RBC 3.47 L (4.20-5.40) 10^6/uL Hgb 9.9 L (12.0-16.0) g/dL Hct 29.2 L (37.0-47.0) % MCV 84.1 (81.0-99.0) fL MCH 28.5 (27.0-31.0) pg MCHC 33.9 (32.0-36.0) g/dL RDW 12.4 (12.0-15.0) % Plt Count 168 (130-450) 10^3/uL MPV 10.8 (7.9-10.8) fL Neut # (Auto) 4.4 (1.5-6.6) 10^3/uL Lymph # (Auto) 2.0 (1.5-3.5) 10^3/uL [place] # (Auto) 1.1 H (0.0-1.0) 10^3/uL Eos # (Auto) 0.1 (0.0-0.7) 10^3/uL Baso # (Auto) 0.0 (0.0-0.1) 10^3/uL Absolute Nucleated RBC 0.00 x10^3/uL Nucleated RBC % 0.0 /100WBC Sodium (135-145) mmol/L Potassium (3.5-5.0) mmol/L Chloride (101-111) mmol/L Carbon Dioxide (21-32) mmol/L Anion Gap (6-13) BUN (6-20) mg/dL Creatinine (0.4-1.0) mg/dL Estimated GFR (MDRD) (>89) Glucose (70-100) mg/dL POC Whole Bld Glucose 201 H 138 H (70 - 100) mg/dL Calcium (8.5-10.3) mg/dL Phosphorus (2.5-4.6) mg/dL Magnesium (1.7-2.8) mg/dL Troponin I High Sens (2.3-14.8) ng/L ABX Reporting Has patient been on IV antibiotics over the past 48 hours?: No Assessment/Plan - Problem List (1) Insulin dependent diabetes mellitus Impression: Blood glucose is relatively controlled at this time on her current insulin regimen but she has had minimal oral intake due to nausea. She still appears quite fatigued and ill. Given she was admitted for diabetic ketoacidosis as well as nausea/vomiting, I do not believe she is ready for discharge home today. We will continue the current insulin regimen and encourage frequent small meals for the day given her history of gastroparesis. She has an appointment with educator senior clinical on October 26 at 10 AM. (2) Chest pain Impression: This appears to be pleuritic in nature given it is associated with a cough. We did check an EKG today which showed a sinus rhythm without any ischemic changes. Troponin was also normal. Her chest x-ray was also unremarkable. Will continue to monitor. (3) Nausea & vomiting Impression: Although she is not vomiting today, she still has nausea and limited oral intake. I suspect this is related to the DKA that has now resolved. She does have increased oral intake today compared to yesterday but still not enough that I would feel comfortable sending her home at this time. She only has minimal abdominal discomfort so we will hold off on obtaining imaging. We will continue with Zofran and Compazine as needed. We will encourage small meals to the day given her history of gastroparesis. If her nausea persists we will consider erythromycin. (4) Hypertension Impression: We have resumed her lisinopril today given her acute kidney injury has resolved. We will increase her dose as necessary. (5) Cognitive deficits Impression: She does have mild baseline cognitive deficits as well as psychomotor slowing. We have recommended outpatient follow-up with neurology for consideration of MRI. (6) Fibromyalgia Impression: We have resumed her home Cymbalta. She tells me she has not been on Lyrica for period of time now and so we will not resume this. (7) Diabetic ketoacidosis Impression: This has resolved. Given her poor oral intake and ongoing nausea, I do not feel she is safe to discharge home. Qualifiers: Diabetes mellitus type: type 1 Diabetes mellitus complication detail: without coma Qualified Code(s): E10.10 - Type 1 diabetes mellitus with ketoacidosis without coma (8) Acute kidney injury Impression: This has resolved after receiving IV fluids.
[2020-10-16] MEDS: ATORVASTATIN 10 MG TABLET PO SCH (20:57)
[2020-10-17] MEDS: ONDANSETRON 4 MG/2 ML VIAL IVP PRN ×3 (04:37→17:20)
[2020-10-17] MEDS: ACETAMINOPHEN 325 MG TABLET PO PRN (04:47)
[2020-10-17] MEDS: oxyCODONE 5 MG TABLET PO PRN (04:47)
[2020-10-17] MEDS: lisinopriL 5 MG TABLET PO SCH ×2 (05:18→08:11)
[2020-10-17] MEDS: PANTOPRAZOLE 40 MG VIAL IVP SCH (06:30)
[2020-10-17] MEDS: SODIUM CHLORIDE FLUSH 0.9% 10 ML SYRINGE IVP PRN ×2 (06:30→10:23)
[2020-10-17 07:47] LABS: BASOPHILS % (AUTO) 0.4 %; EOSINOPHILS # (AUTO) 0.1 10^3/uL (0.0-0.7); EOSINOPHILS % (AUTO) 1.6 %; HCT - HEMATOCRIT 31.7 % (37.0-47.0); HGB - HEMOGLOBIN 11.5 g/dL (12.0-16.0); LYMPHOCYTES # (AUTO) 1.1 10^3/uL (1.5-3.5); LYMPHOCYTES % (AUTO) 15.3 %; MEAN CORPUSCULAR HEMOGLOBIN 29.3 pg (27.0-31.0); MEAN CORPUSCULAR HGB CONC 36.3 g/dL (32.0-36.0); MEAN CORPUSCULAR VOLUME 80.9 fL (81.0-99.0); MEAN PLATELET VOLUME 10.7 fL (7.9-10.8); MONOCYTES # (AUTO) 0.8 10^3/uL (0.0-1.0); MONOCYTES % (AUTO) 11.2 %; NEUTROPHILS # (AUTO) 4.9 10^3/uL (1.5-6.6); NEUTROPHILS % (AUTO) 71.2 %; PLT - PLATELET COUNT 175 10^3/uL (130-450); RED BLOOD COUNT 3.92 10^6/uL (4.20-5.40); RED CELL DISTRIBUTION WIDTH 11.9 % (12.0-15.0); WHITE BLOOD COUNT 6.9 x10^3/uL (4.8-10.8)
[2020-10-17 08:03] LABS: CALCIUM 8.7 mg/dL (8.5-10.3); CREATININE 1.1 mg/dL (0.4-1.0); MAGNESIUM 1.9 mg/dL (1.7-2.8); PHOSPHORUS 3.3 mg/dL (2.5-4.6); POTASSIUM 3.3 mmol/L (3.5-5.0)
[2020-10-17] MEDS: INSULIN ASPART 300 UNIT/3 ML PEN SUBQ SCH ×7 (08:09→20:59)
[2020-10-17] MEDS: INSULIN GLARGINE 300 UNIT/3 ML PEN SUBQ SCH ×2 (08:10→21:49)
[2020-10-17] MEDS: DULoxetine 30 MG CAPSULE PO SCH (08:11)
[2020-10-17] MEDS: ASPIRIN EC 81 MG TABLET PO SCH (08:11)
[2020-10-17] MEDS: amLODIPine 5 MG TABLET PO SCH (08:12)
[2020-10-17] MEDS: SODIUM CHLORIDE FLUSH 0.9% 10 ML SYRINGE IVP SCH ×2 (08:17→17:11)
[2020-10-17] MEDS ORDERED: IOVERSOL 320 100 ML VIAL IVP ONE ×2 (09:21→09:37)
[2020-10-17] MEDS ORDERED: IOPAMIDOL-300 50 ML VIAL ONE (09:21)
[2020-10-17] MEDS: LACTATED RINGERS 1,000 ML IV SCH ×2 (09:46→19:13)
--- NOTE | 2020-10-17 09:51 | CT Report ---
PROCEDURE: Abdomen/Pelvis W INDICATIONS: LLQ abdominal pain. Nausea/vomiting. Diabetes. CONTRAST: IV CONTRAST: Optiray 320 ml: 100 PO CONTRAST: *NO PO CONTRAST TECHNIQUE: After the administration of nonionic IV contrast, 5 mm thick sections acquired from the diaphragms to the symphysis. 5 mm thick coronal and sagittal reformats were acquired. For radiation dose reducti on, the following was used: automated exposure control, adjustment of mA and/or kV according to subha ent size. COMPARISON: 08/13/2020 FINDINGS: Image quality: Excellent. ABDOMEN: Lung bases: Lung bases are clear. Heart size is normal. A small hiatal hernia is incidentally noted . Solid organs: Liver and spleen are normal in size and enhancement. Gallbladder wall does not appear thickened. Biliary system is non dilated. Pancreas enhances normally. No adrenal nodules. Kidn eys demonstrate normal size and enhancement, without hydronephrosis. Peritoneum and bowel: Diffuse wall thickening can be seen involving the colon, which is most promine nt within the proximal colon. Moderate surrounding inflammatory changes are seen.Minimal diverticulos is is seen, without findings of active diverticulitis. There is a small amount of free pelvic fluid s een. Bowel loops otherwise demonstrate normal wall thickness and caliber. No free air. A normal appendix is incidentally noted. Nodes and vessels: No retroperitoneal or mesenteric adenopathy by size criteria. Aorta and inferior vena cava are normal in size. Miscellaneous: No ventral hernias. Incidental note is made of body ornamentation artifact. PELVIS: Genitourinary: Bladder wall thickness is normal. The uterus demonstrates an unremarkable appearance for age. No adnexal masses are seen. A small amount of free fluid can be seen within the pelvis. Miscellaneous: No inguinal hernias or adenopathy. Bones: No suspicious bony lesions. No vertebral body compression fractures. Mild dextroconvex scol iotic curvature is seen. IMPRESSION: There is wall thickening seen throughout the colon, which is most prominent within the p roximal colon. Surrounding inflammatory changes are seen. Please correlate with potential infectious and inflammatory causes of colitis. Ischemia is much less likely, given the distribution. There is a small amount of free fluid seen within the pelvis. Incidental note is made of: Small hiatal hernia Diverticulosis can be seen, without chrissy findings of active diverticulitis. Normal appendix Dextroconvex scoliotic curvature Reviewed by: Shilo Nair MD on 10/17/2020 8:50 AM ED Approved by: Shilo Nair MD on 10/17/2020 8:50 AM ED Station ID: [id number]
[2020-10-17] MEDS: MORPHINE 2 MG/ML CARPUJECT IVP PRN ×4 (10:23→21:49)
[2020-10-17] MEDS: POTASSIUM CHLOR 10 MEQ/100 ML 10 MEQ/100 ML BAG IV SCH ×4 (11:07→14:58)
--- NOTE | 2020-10-17 13:05 | PROVIDER PROGRESS NOTE ---
Subjective - Prog Note Date Prog Note Date: 10/17/20 - Subjective Subjective: She complains of severe abdominal pain this morning. States it is 10 out of 10. Predominately located in the left lower quadrant. She reports feeling nauseous but no vomiting. She has not had much to eat due to the pain. Current Medications - Current Medications Current Medications: Active Medications Acetaminophen (Acetaminophen 325 Mg Tablet) 650 mg PO Q4HR PRN PRN Reason: Pain 1 to 4 Last Admin: 10/17/20 04:47 Dose: 650 mg Documented by: Amlodipine Besylate (Amlodipine 5 Mg Tablet) 5 mg PO DAILY [facility] Last Admin: 10/17/20 08:12 Dose: 5 mg Documented by: Aspirin (Aspirin Ec 81 Mg Tablet) 81 mg PO DAILY [facility] Last Admin: 10/17/20 08:11 Dose: 81 mg Documented by: Atorvastatin Calcium (Atorvastatin 10 Mg Tablet) 20 mg PO HS [facility] Last Admin: 10/16/20 20:57 Dose: 20 mg Documented by: Duloxetine HCl (Duloxetine 30 Mg Capsule) 60 mg PO DAILY [facility] Last Admin: 10/17/20 08:11 Dose: 60 mg Documented by: Lactated Ringer's (Lr) 1,000 mls @ 100 mls/hr IV .Q10H [facility] Last Admin: 10/17/20 09:46 Dose: 100 mls/hr Documented by: Potassium Chloride (Potassium Chloride) 10 meq in 100 mls @ 100 mls/hr IV Q1H [facility] Stop: 10/17/20 14:59 Last Admin: 10/17/20 12:16 Dose: 100 mls/hr Documented by: Insulin Aspart (Insulin Aspart 300 Unit/3 Ml Pen) 3 - 11 unit SUBQ 0800,1200,1700,2100 [facility]; Protocol Last Admin: 10/17/20 11:08 Dose: 3 unit Documented by: Insulin Aspart (Insulin Aspart 300 Unit/3 Ml Pen) 8 unit SUBQ TIDWM [facility]; Protocol Last Admin: 10/17/20 11:08 Dose: 8 unit Documented by: Insulin Glargine (Insulin Glargine 300 Unit/3 Ml Pen) 12 unit SUBQ BID [facility] Last Admin: 10/17/20 08:10 Dose: 12 unit Documented by: Lisinopril (Lisinopril 5 Mg Tablet) 10 mg PO DAILY [facility] Last Admin: 10/17/20 08:11 Dose: 10 mg Documented by: Morphine Sulfate (Morphine 2 Mg/Ml Carpuject) 2 mg IVP Q2HR PRN PRN Reason: PAIN Last Admin: 10/17/20 10:23 Dose: 2 mg Documented by: Ondansetron HCl (Ondansetron 4 Mg/2 Ml Vial) 4 mg IVP Q6HR PRN PRN Reason: Nausea / Vomiting Last Admin: 10/17/20 08:17 Dose: 4 mg Documented by: Oxycodone HCl (Oxycodone 5 Mg Tablet) 5 mg PO Q4HR PRN PRN Reason: Pain 5 to 7 Last Admin: 10/17/20 04:47 Dose: 5 mg Documented by: Pantoprazole Sodium (Pantoprazole 40 Mg Vial) 40 mg IVP QDAC [facility] Last Admin: 10/17/20 06:30 Dose: 40 mg Documented by: Prochlorperazine Edisylate (Prochlorperazine 10 Mg/2 Ml Vial) 10 mg IVP Q6HR P RN PRN Reason: Nausea / Vomiting Sodium Chloride (Sodium Chloride Flush 0.9% 10 Ml Syringe) 10 ml IVP 0100,0900,1700 [facility] Last Admin: 10/17/20 08:17 Dose: 10 ml Documented by: Sodium Chloride (Sodium Chloride Flush 0.9% 10 Ml Syringe) 10 ml IVP PRN PRN PRN Reason: NEEDED PER PROVIDER ORDERS Last Admin: 10/17/20 10:23 Dose: 10 ml Documented by: Albuterol Sulfate [Proair Hfa Inhaler] 2 - 4 puffs INH PRN PRN 10/15/20 Fluticasone [Flonase] 2 sprays CHAN DAILY PRN 10/15/20 Objective - Vital Signs/Intake & Output Reviewed Vital Signs: Yes Vital Signs: Vital Signs x48h Temp Pulse Resp BP BP Pulse Ox 10/17/20 11:10 36.5 C 81 16 122/73 97 10/17/20 07:55 85 199/99 H 10/17/20 07:51 36.4 C L 81 16 206/108 H 96 10/17/20 05:17 180/90 H Intake & Output: Intake & Output 10/14/20 10/15/20 10/16/20 10/17/20 23:59 23:59 23:59 23:59 Intake Total 2714.333 3521.791 2653.333 100 Output Total 1350 1475 Balance 2714.333 2171.791 1178.333 100 - Objective General Appearance: positive: Alert, Moderate distress Eyes Bilateral: positive: Normal inspection ENT: positive: ENT inspection nml Neck: positive: Nml inspection Respiratory: positive: No respiratory distress. negative: Wheezes, Rales Cardiovascular: positive: Regular rate & rhythm, Tachycardia. negative: Irregularly irregular, Systolic murmur Abdomen: positive: Nml bowel sounds, No distention, Tenderness (Left lower quadrant tenderness.). negative: Guarding, Rebound Skin: positive: Warm, Dry Extremities: positive: No pedal edema Neurologic/Psychiatric: negative: Disoriented to person, Disoriented to place - Lab Results Fish Bones: 10/17/20 07:30 10/17/20 07:30 Other Labs: Lab Results x24hrs 10/17/20 10/17/20 10/17/20 Range/Units 11:06 07:51 07:32 WBC (4.8-10.8) x10^3/uL RBC (4.20-5.40) 10^6/uL Hgb (12.0-16.0) g/dL Hct (37.0-47.0) % MCV (81.0-99.0) fL MCH (27.0-31.0) pg MCHC (32.0-36.0) g/dL RDW (12.0-15.0) % Plt Count (130-450) 10^3/uL MPV (7.9-10.8) fL Neut # (Auto) (1.5-6.6) 10^3/uL Lymph # (Auto) (1.5-3.5) 10^3/uL [place] # (Auto) (0.0-1.0) 10^3/uL Eos # (Auto) (0.0-0.7) 10^3/uL Baso # (Auto) (0.0-0.1) 10^3/uL Absolute Nucleated RBC x10^3/uL Nucleated RBC % /100WBC Sodium (135-145) mmol/L Potassium (3.5-5.0) mmol/L Chloride (101-111) mmol/L Carbon Dioxide (21-32) mmol/L Anion Gap (6-13) BUN (6-20) mg/dL Creatinine (0.4-1.0) mg/dL Estimated GFR (MDRD) (>89) Glucose (70-100) mg/dL POC Whole Bld Glucose 151 H 231 H (70 - 100) mg/dL Calcium (8.5-10.3) mg/dL Phosphorus (2.5-4.6) mg/dL Magnesium (1.7-2.8) mg/dL C-Reactive Protein < 1.0 (0-1.0) mg/dL 10/17/20 10/17/20 10/16/20 Range/Units 07:30 07:30 21:00 WBC 6.9 (4.8-10.8) x10^3/uL RBC 3.92 L (4.20-5.40) 10^6/uL Hgb 11.5 L (12.0-16.0) g/dL Hct 31.7 L (37.0-47.0) % MCV 80.9 L (81.0-99.0) fL MCH 29.3 (27.0-31.0) pg MCHC 36.3 H (32.0-36.0) g/dL RDW 11.9 L (12.0-15.0) % Plt Count 175 (130-450) 10^3/uL MPV 10.7 (7.9-10.8) fL Neut # (Auto) 4.9 (1.5-6.6) 10^3/uL Lymph # (Auto) 1.1 L (1.5-3.5) 10^3/uL [place] # (Auto) 0.8 (0.0-1.0) 10^3/uL Eos # (Auto) 0.1 (0.0-0.7) 10^3/uL Baso # (Auto) 0.0 (0.0-0.1) 10^3/uL Absolute Nucleated RBC 0.00 x10^3/uL Nucleated RBC % 0.0 /100WBC Sodium 135 (135-145) mmol/L Potassium 3.3 L (3.5-5.0) mmol/L Chloride 101 (101-111) mmol/L Carbon Dioxide 23 (21-32) mmol/L Anion Gap 11.0 (6-13) BUN 26 H (6-20) mg/dL Creatinine 1.1 H (0.4-1.0) mg/dL Estimated GFR (MDRD) 51 L (>89) Glucose 255 H (70-100) mg/dL POC Whole Bld Glucose 269 H (70 - 100) mg/dL Calcium 8.7 (8.5-10.3) mg/dL Phosphorus 3.3 (2.5-4.6) mg/dL Magnesium 1.9 (1.7-2.8) mg/dL C-Reactive Protein (0-1.0) mg/dL 10/16/20 Range/Units 16:29 WBC (4.8-10.8) x10^3/uL RBC (4.20-5.40) 10^6/uL Hgb (12.0-16.0) g/dL Hct (37.0-47.0) % MCV (81.0-99.0) fL MCH (27.0-31.0) pg MCHC (32.0-36.0) g/dL RDW (12.0-15.0) % Plt Count (130-450) 10^3/uL MPV (7.9-10.8) fL Neut # (Auto) (1.5-6.6) 10^3/uL Lymph # (Auto) (1.5-3.5) 10^3/uL [place] # (Auto) (0.0-1.0) 10^3/uL Eos # (Auto) (0.0-0.7) 10^3/uL Baso # (Auto) (0.0-0.1) 10^3/uL Absolute Nucleated RBC x10^3/uL Nucleated RBC % /100WBC Sodium (135-145) mmol/L Potassium (3.5-5.0) mmol/L Chloride (101-111) mmol/L Carbon Dioxide (21-32) mmol/L Anion Gap (6-13) BUN (6-20) mg/dL Creatinine (0.4-1.0) mg/dL Estimated GFR (MDRD) (>89) Glucose (70-100) mg/dL POC Whole Bld Glucose 295 H (70 - 100) mg/dL Calcium (8.5-10.3) mg/dL Phosphorus (2.5-4.6) mg/dL Magnesium (1.7-2.8) mg/dL C-Reactive Protein (0-1.0) mg/dL Assessment/Plan - Problem List (1) Abdominal pain Impression: She complains of severe left lower quadrant abdominal pain this morning. We ordered a stat CT of the abdomen pelvis with IV contrast which showed wall thickening throughout the colon which is most prominent within the proximal colon consistent with colitis. There is no evidence of diverticulitis. CRP was checked and this was less than 1. She is not having any diarrhea but continues to have nausea without vomiting. At this time, we will de-escalate her diet to clear liquid diet. We will start her on morphine IV as needed. Gentle hydration with lactated Ringer's. We will hold off on antibiotics for the time being and observe her. She develops diarrhea we will check for C. difficile and stool cultures and initiate antibiotics. Will consider general surgery consult if no improvement. Qualifiers: Abdominal location: left lower quadrant Qualified Code(s): R10.32 - Left lower quadrant pain (2) Insulin dependent diabetes mellitus Impression: Her blood sugars have been labile being as high as 300. This is secondary to her poor oral intake due to the nausea and vomiting which previously had now due to abdominal pain. We will continue with her current Lantus dosing but will limit the use of short acting insulin given her poor intake. We will de- escalate her diet to a clear liquid diet given the abdominal pain. (3) Nausea & vomiting Impression: This is likely secondary to her gastroparesis. She still has nausea but no vomiting. CT the abdomen pelvis showed no obvious obstruction just colitis. We will continue with Zofran and if she begins to vomit we will trial erythromycin. Clear liquid diet for time being. (4) Hypertension Impression: Her blood pressure was significantly elevated this morning at nearly 200. This was likely exacerbated by her pain. I have increased her dose of lisinopril to 10 mg and initiated amlodipine 5 mg as well. (5) Cognitive deficits Impression: She does have mild cognitive deficits at baseline with psychomotor slowing that has been progressing. We have recommended outpatient neurology follow-up. (6) Fibromyalgia Impression: We will continue duloxetine. Holding Lyrica she has not been taking it prior to admission. (7) Diabetic ketoacidosis Impression: This has resolved. Qualifiers: Diabetes mellitus type: type 1 Diabetes mellitus complication detail: without coma Qualified Code(s): E10.10 - Type 1 diabetes mellitus with ketoacidosis without coma (8) Acute kidney injury Impression: This has resolved. (9) Chest pain Impression: This has resolved. EKG was unremarkable and her troponin was negative.
[2020-10-17] MEDS: ERYTHROMYCIN BASE DR 250 MG TABLET PO SCH (19:13)
[2020-10-17] MEDS: ATORVASTATIN 10 MG TABLET PO SCH (21:49)
[2020-10-18] MEDS: MORPHINE 2 MG/ML CARPUJECT IVP PRN (01:09)
[2020-10-18] MEDS: ONDANSETRON 4 MG/2 ML VIAL IVP PRN ×2 (01:09→15:00)
[2020-10-18] MEDS: ERYTHROMYCIN BASE DR 250 MG TABLET PO SCH ×3 (01:15→12:30)
[2020-10-18] MEDS: SODIUM CHLORIDE FLUSH 0.9% 10 ML SYRINGE IVP SCH ×3 (01:27→17:44)
[2020-10-18] MEDS: PROCHLORPERAZINE 10 MG/2 ML VIAL IVP PRN (05:36)
[2020-10-18] MEDS: LACTATED RINGERS 1,000 ML IV SCH ×2 (05:46→14:59)
[2020-10-18] MEDS: SODIUM CHLORIDE FLUSH 0.9% 10 ML SYRINGE IVP PRN (05:49)
[2020-10-18] MEDS: PANTOPRAZOLE 40 MG VIAL IVP SCH (06:31)
[2020-10-18 08:22] LABS: BASOPHILS % (AUTO) 0.5 %; EOSINOPHILS # (AUTO) 0.2 10^3/uL (0.0-0.7); EOSINOPHILS % (AUTO) 2.4 %; HCT - HEMATOCRIT 28.2 % (37.0-47.0); HGB - HEMOGLOBIN 9.9 g/dL (12.0-16.0); LYMPHOCYTES % (AUTO) 23.8 %; MEAN CORPUSCULAR HEMOGLOBIN 28.7 pg (27.0-31.0); MEAN CORPUSCULAR HGB CONC 35.1 g/dL (32.0-36.0); MEAN CORPUSCULAR VOLUME 81.7 fL (81.0-99.0); MEAN PLATELET VOLUME 10.6 fL (7.9-10.8); MONOCYTES # (AUTO) 0.8 10^3/uL (0.0-1.0); MONOCYTES % (AUTO) 9.9 %; NEUTROPHILS # (AUTO) 5.4 10^3/uL (1.5-6.6); PLT - PLATELET COUNT 172 10^3/uL (130-450); RED BLOOD COUNT 3.45 10^6/uL (4.20-5.40); RED CELL DISTRIBUTION WIDTH 12.3 % (12.0-15.0); WHITE BLOOD COUNT 8.5 x10^3/uL (4.8-10.8)
[2020-10-18 08:32] LABS: CALCIUM 8.5 mg/dL (8.5-10.3); MAGNESIUM 1.8 mg/dL (1.7-2.8); POTASSIUM 3.4 mmol/L (3.5-5.0)
[2020-10-18] MEDS: INSULIN ASPART 300 UNIT/3 ML PEN SUBQ SCH ×7 (08:49→21:14)
[2020-10-18] MEDS: lisinopriL 5 MG TABLET PO SCH (09:26)
[2020-10-18] MEDS: ASPIRIN EC 81 MG TABLET PO SCH (09:26)
[2020-10-18] MEDS: amLODIPine 5 MG TABLET PO SCH (09:26)
[2020-10-18] MEDS: DULoxetine 30 MG CAPSULE PO SCH (09:26)
[2020-10-18] MEDS: polyethylene glycoL 3350 17 GM PACKET PO SCH (09:26)
[2020-10-18] MEDS: INSULIN GLARGINE 300 UNIT/3 ML PEN SUBQ SCH ×2 (09:27→21:15)
--- NOTE | 2020-10-18 14:24 | PROVIDER PROGRESS NOTE ---
Subjective - Prog Note Date Prog Note Date: 10/18/20 - Subjective Subjective: Still complains of significant left lower quadrant abdominal pain. She reports the pain is 10 out of 10. This pain has caused her to have poor appetite and she has not had much to eat. She denies any diarrhea. Still feels nauseous but no vomiting. Current Medications - Current Medications Current Medications: Active Medications Acetaminophen (Acetaminophen 325 Mg Tablet) 650 mg PO Q4HR PRN PRN Reason: Pain 1 to 4 Last Admin: 10/17/20 04:47 Dose: 650 mg Documented by: Amlodipine Besylate (Amlodipine 5 Mg Tablet) 5 mg PO DAILY [facility] Last Admin: 10/18/20 09:26 Dose: 5 mg Documented by: Aspirin (Aspirin Ec 81 Mg Tablet) 81 mg PO DAILY [facility] Last Admin: 10/18/20 09:26 Dose: 81 mg Documented by: Atorvastatin Calcium (Atorvastatin 10 Mg Tablet) 20 mg PO HS [facility] Last Admin: 10/17/20 21:49 Dose: 20 mg Documented by: Duloxetine HCl (Duloxetine 30 Mg Capsule) 60 mg PO DAILY [facility] Last Admin: 10/18/20 09:26 Dose: 60 mg Documented by: Lactated Ringer's (Lr) 1,000 mls @ 100 mls/hr IV .Q10H [facility] Last Admin: 10/18/20 05:46 Dose: 100 mls/hr Documented by: Insulin Aspart (Insulin Aspart 300 Unit/3 Ml Pen) 3 - 11 unit SUBQ 0800,1200,1700,2100 [facility]; Protocol Last Admin: 10/18/20 11:42 Dose: Not Given Documented by: Insulin Aspart (Insulin Aspart 300 Unit/3 Ml Pen) 8 unit SUBQ TIDWM [facility]; Protocol Last Admin: 10/18/20 12:30 Dose: 8 unit Documented by: Insulin Glargine (Insulin Glargine 300 Unit/3 Ml Pen) 12 unit SUBQ BID [facility] Last Admin: 10/18/20 09:27 Dose: 12 unit Documented by: Lisinopril (Lisinopril 5 Mg Tablet) 10 mg PO DAILY [facility] Last Admin: 10/18/20 09:26 Dose: 10 mg Documented by: Morphine Sulfate (Morphine 2 Mg/Ml Carpuject) 2 mg IVP Q2HR PRN PRN Reason: PAIN Last Admin: 10/18/20 01:09 Dose: 2 mg Documented by: Ondansetron HCl (Ondansetron 4 Mg/2 Ml Vial) 4 mg IVP Q6HR PRN PRN Reason: Nausea / Vomiting Last Admin: 10/18/20 01:09 Dose: 4 mg Documented by: Oxycodone HCl (Oxycodone 5 Mg Tablet) 5 mg PO Q4HR PRN PRN Reason: Pain 5 to 7 Last Admin: 10/17/20 04:47 Dose: 5 mg Documented by: Pantoprazole Sodium (Pantoprazole 40 Mg Vial) 40 mg IVP QDAC [facility] Last Admin: 10/18/20 06:31 Dose: 40 mg Documented by: Polyethylene Glycol (Polyethylene Glycol 3350 17 Gm Packet) 17 gm PO DAILY [facility] Last Admin: 10/18/20 09:26 Dose: 17 gm Documented by: Prochlorperazine Edisylate (Prochlorperazine 10 Mg/2 Ml Vial) 10 mg IVP Q6HR P RN PRN Reason: Nausea / Vomiting Last Admin: 10/18/20 05:36 Dose: 10 mg Documented by: Sodium Chloride (Sodium Chloride Flush 0.9% 10 Ml Syringe) 10 ml IVP 0100,0900,1700 [facility] Last Admin: 10/18/20 09:28 Dose: Not Given Documented by: Sodium Chloride (Sodium Chloride Flush 0.9% 10 Ml Syringe) 10 ml IVP PRN PRN PRN Reason: NEEDED PER PROVIDER ORDERS Last Admin: 10/18/20 05:49 Dose: 10 ml Documented by: Albuterol Sulfate [Proair Hfa Inhaler] 2 - 4 puffs INH PRN PRN 10/15/20 Fluticasone [Flonase] 2 sprays CHAN DAILY PRN 10/15/20 Objective - Vital Signs/Intake & Output Reviewed Vital Signs: Yes Vital Signs: Vital Signs x48h Temp Pulse Resp BP BP Pulse Ox 10/18/20 11:45 36.6 C 80 18 125/76 97 10/18/20 09:00 36.5 C 80 16 135/84 H 97 Intake & Output: Intake & Output 10/15/20 10/16/20 10/17/20 10/18/20 23:59 23:59 23:59 23:59 Intake Total 3521.791 2653.333 1795 1480 Output Total 1350 1475 Balance 2171.791 0916.562 3839 1480 - Objective General Appearance: positive: Alert, Moderate distress Eyes Bilateral: positive: Normal inspection, Conjunctivae nml ENT: positive: ENT inspection nml Neck: positive: Nml inspection Respiratory: positive: No respiratory distress. negative: Wheezes, Rales Cardiovascular: positive: No murmur, Tachycardia. negative: Systolic murmur Abdomen: positive: Nml bowel sounds, No distention, Tenderness (Left lower quadrant tenderness.). negative: Guarding, Rebound Skin: positive: Warm, Dry Extremities: positive: No pedal edema Neurologic/Psychiatric: negative: Disoriented to person, Disoriented to place, Disoriented to time - Lab Results Fish Bones: 10/18/20 08:07 10/18/20 08:07 Other Labs: Lab Results x24hrs 10/18/20 10/18/20 10/18/20 Range/Units 11:20 08:07 08:07 WBC (4.8-10.8) x10^3/uL RBC (4.20-5.40) 10^6/uL Hgb (12.0-16.0) g/dL Hct (37.0-47.0) % MCV (81.0-99.0) fL MCH (27.0-31.0) pg MCHC (32.0-36.0) g/dL RDW (12.0-15.0) % Plt Count (130-450) 10^3/uL MPV (7.9-10.8) fL Neut # (Auto) (1.5-6.6) 10^3/uL Lymph # (Auto) (1.5-3.5) 10^3/uL [place] # (Auto) (0.0-1.0) 10^3/uL Eos # (Auto) (0.0-0.7) 10^3/uL Baso # (Auto) (0.0-0.1) 10^3/uL Absolute Nucleated RBC x10^3/uL Nucleated RBC % /100WBC Sodium 133 L (135-145) mmol/L Potassium 3.4 L (3.5-5.0) mmol/L Chloride 103 (101-111) mmol/L Carbon Dioxide 25 (21-32) mmol/L Anion Gap 5.0 L (6-13) BUN 19 (6-20) mg/dL Creatinine 1.0 (0.4-1.0) mg/dL Estimated GFR (MDRD) 57 L (>89) Glucose 175 H (70-100) mg/dL POC Whole Bld Glucose 140 H 164 H (70 - 100) mg/dL Calcium 8.5 (8.5-10.3) mg/dL Magnesium 1.8 (1.7-2.8) mg/dL 10/18/20 10/17/20 10/17/20 Range/Units 08:07 20:27 17:25 WBC 8.5 (4.8-10.8) x10^3/uL RBC 3.45 L (4.20-5.40) 10^6/uL Hgb 9.9 L (12.0-16.0) g/dL Hct 28.2 L (37.0-47.0) % MCV 81.7 (81.0-99.0) fL MCH 28.7 (27.0-31.0) pg MCHC 35.1 (32.0-36.0) g/dL RDW 12.3 (12.0-15.0) % Plt Count 172 (130-450) 10^3/uL MPV 10.6 (7.9-10.8) fL Neut # (Auto) 5.4 (1.5-6.6) 10^3/uL Lymph # (Auto) 2.0 (1.5-3.5) 10^3/uL [place] # (Auto) 0.8 (0.0-1.0) 10^3/uL Eos # (Auto) 0.2 (0.0-0.7) 10^3/uL Baso # (Auto) 0.0 (0.0-0.1) 10^3/uL Absolute Nucleated RBC 0.00 x10^3/uL Nucleated RBC % 0.0 /100WBC Sodium (135-145) mmol/L Potassium (3.5-5.0) mmol/L Chloride (101-111) mmol/L Carbon Dioxide (21-32) mmol/L Anion Gap (6-13) BUN (6-20) mg/dL Creatinine (0.4-1.0) mg/dL Estimated GFR (MDRD) (>89) Glucose (70-100) mg/dL POC Whole Bld Glucose 156 H 105 H (70 - 100) mg/dL Calcium (8.5-10.3) mg/dL Magnesium (1.7-2.8) mg/dL 10/17/20 10/17/20 10/17/20 Range/Units 17:03 16:43 16:30 WBC (4.8-10.8) x10^3/uL RBC (4.20-5.40) 10^6/uL Hgb (12.0-16.0) g/dL Hct (37.0-47.0) % MCV (81.0-99.0) fL MCH (27.0-31.0) pg MCHC (32.0-36.0) g/dL RDW (12.0-15.0) % Plt Count (130-450) 10^3/uL MPV (7.9-10.8) fL Neut # (Auto) (1.5-6.6) 10^3/uL Lymph # (Auto) (1.5-3.5) 10^3/uL [place] # (Auto) (0.0-1.0) 10^3/uL Eos # (Auto) (0.0-0.7) 10^3/uL Baso # (Auto) (0.0-0.1) 10^3/uL Absolute Nucleated RBC x10^3/uL Nucleated RBC % /100WBC Sodium (135-145) mmol/L Potassium (3.5-5.0) mmol/L Chloride (101-111) mmol/L Carbon Dioxide (21-32) mmol/L Anion Gap (6-13) BUN (6-20) mg/dL Creatinine (0.4-1.0) mg/dL Estimated GFR (MDRD) (>89) Glucose (70-100) mg/dL POC Whole Bld Glucose 60 L* 54 L* 51 L* (70 - 100) mg/dL Calcium (8.5-10.3) mg/dL Magnesium (1.7-2.8) mg/dL ABX Reporting Has patient been on IV antibiotics over the past 48 hours?: No Assessment/Plan - Problem List (1) Colitis Impression: Given her abdominal pain yesterday, a CT was obtained which was consistent with colitis most prominent in the proximal colon. Most of her pain is in the left lower quadrant. She does not have diarrhea and has been able to take a little bit of p.o. Her CRP was less than 1. Given her ongoing pain, we will start her on antibiotics empirically for possible infectious colitis. We will continue with morphine IV as needed for pain control. Clear liquid diet as tolerated. I have asked general surgery to see her today for consideration of a colonoscopy given the severity of her pain. We will check for C. difficile and stool cultures if she does develop diarrhea. (2) Insulin dependent diabetes mellitus Impression: She did have hypoglycemia yesterday evening due to poor oral intake. Her blood glucose has since been better controlled. We will continue her current dose of Lantus but decrease her dose of NovoLog as she has been hyperglycemic at times due to her poor oral intake. He will resume her home NovoLog dose once she is taking p.o. consistently. (3) Nausea & vomiting Impression: This was felt to be secondary to her gastroparesis. CT as mentioned above was consistent with colitis without evidence of obstruction. We did start her on erythromycin yesterday given her nausea. Her nausea appears to be improved today but she still has significant abdominal pain which has limited her p.o. intake. We will discontinue the erythromycin and discontinue Zofran as needed. Clear liquid diet as tolerated. (4) Hypertension Impression: Her blood pressure is much improved today on amlodipine and lisinopril. We will continue her current antihypertensives. (5) Cognitive deficits Impression: This is a chronic problem for her. She does have mild cognitive impairment and psychomotor slowing which has been an ongoing problem for her. We have recommended outpatient follow-up with neurology for further work-up including MRI. (6) Fibromyalgia Impression: We are continuing her home Cymbalta. We have not resumed her Lyrica given she had not been taking it prior to admission. (7) Diabetic ketoacidosis Impression: This has resolved. This was present on admission. Qualifiers: Diabetes mellitus type: type 1 Diabetes mellitus complication detail: without coma Qualified Code(s): E10.10 - Type 1 diabetes mellitus with ketoacidosis without coma (8) Acute kidney injury Impression: Resolved. This was present on admission. (9) Chest pain Impression: Resolved. Work-up including EKG, chest x-ray, troponin was unremarkable.
[2020-10-18] MEDS: metroNIDAZOLE 500 MG/100 ML 500 MG/100 ML BAG IV SCH ×2 (15:00→22:56)
[2020-10-18] MEDS: oxyCODONE 5 MG TABLET PO PRN ×2 (15:00→22:55)
[2020-10-18] MEDS: POTASSIUM CHLOR 10 MEQ/100 ML 10 MEQ/100 ML BAG IV SCH ×4 (16:46→19:48)
[2020-10-18] MEDS: ATORVASTATIN 10 MG TABLET PO SCH (21:13)
[2020-10-19] MEDS: PROCHLORPERAZINE 10 MG/2 ML VIAL IVP PRN ×2 (00:04→12:59)
[2020-10-19] MEDS: SODIUM CHLORIDE FLUSH 0.9% 10 ML SYRINGE IVP SCH ×4 (00:14→23:45)
[2020-10-19 05:53] LABS: BASOPHILS % (AUTO) 0.6 %; EOSINOPHILS # (AUTO) 0.3 10^3/uL (0.0-0.7); EOSINOPHILS % (AUTO) 4.6 %; HCT - HEMATOCRIT 26.5 % (37.0-47.0); HGB - HEMOGLOBIN 9.3 g/dL (12.0-16.0); LYMPHOCYTES # (AUTO) 1.7 10^3/uL (1.5-3.5); LYMPHOCYTES % (AUTO) 27.3 %; MEAN CORPUSCULAR HEMOGLOBIN 29.2 pg (27.0-31.0); MEAN CORPUSCULAR HGB CONC 35.1 g/dL (32.0-36.0); MEAN CORPUSCULAR VOLUME 83.1 fL (81.0-99.0); MEAN PLATELET VOLUME 10.2 fL (7.9-10.8); MONOCYTES # (AUTO) 0.7 10^3/uL (0.0-1.0); MONOCYTES % (AUTO) 11.4 %; NEUTROPHILS # (AUTO) 3.5 10^3/uL (1.5-6.6); NEUTROPHILS % (AUTO) 55.5 %; PLT - PLATELET COUNT 198 10^3/uL (130-450); RED BLOOD COUNT 3.19 10^6/uL (4.20-5.40); RED CELL DISTRIBUTION WIDTH 12.4 % (12.0-15.0); WHITE BLOOD COUNT 6.3 x10^3/uL (4.8-10.8)
[2020-10-19 06:13] LABS: BUN - BLOOD UREA NITROGEN 22 mg/dL (6-20); CALCIUM 8.3 mg/dL (8.5-10.3); CARBON DIOXIDE - CO2 26 mmol/L (21-32); CHLORIDE 102 mmol/L (101-111); CREATININE 1.2 mg/dL (0.4-1.0); GFR - MDRD 46 (>89); GLUCOSE 202 mg/dL (70-100); MAGNESIUM 1.8 mg/dL (1.7-2.8); POTASSIUM 3.8 mmol/L (3.5-5.0); SODIUM 135 mmol/L (135-145)
[2020-10-19 06:30] LABS: CRP - C-REACTIVE PROTEIN < 1.0 mg/dL (0-1.0)
[2020-10-19] MEDS: PANTOPRAZOLE 40 MG VIAL IVP SCH (06:43)
[2020-10-19] MEDS: SODIUM CHLORIDE FLUSH 0.9% 10 ML SYRINGE IVP PRN ×3 (06:43→23:01)
[2020-10-19] MEDS: metroNIDAZOLE 500 MG/100 ML 500 MG/100 ML BAG IV SCH ×3 (06:43→22:53)
[2020-10-19] MEDS: INSULIN ASPART 300 UNIT/3 ML PEN SUBQ SCH ×6 (08:07→20:53)
[2020-10-19] MEDS: ASPIRIN EC 81 MG TABLET PO SCH (08:12)
[2020-10-19] MEDS: amLODIPine 5 MG TABLET PO SCH (08:13)
[2020-10-19] MEDS: DULoxetine 30 MG CAPSULE PO SCH (08:13)
[2020-10-19] MEDS: cefTRIAXone 2 GM in SODIUM CHLORIDE 0.9% MINIBAG 100 ML IV SCH (08:13)
[2020-10-19] MEDS: INSULIN GLARGINE 300 UNIT/3 ML PEN SUBQ SCH ×2 (08:13→20:54)
[2020-10-19] MEDS: lisinopriL 5 MG TABLET PO SCH (08:13)
[2020-10-19] MEDS: polyethylene glycoL 3350 17 GM PACKET PO SCH (08:14)
[2020-10-19] MEDS ORDERED: SODIUM CHLORIDE 0.9% 1,000 ML IV SCH (09:00)
[2020-10-19] MEDS: oxyCODONE 5 MG TABLET PO PRN ×3 (09:01→20:16)
[2020-10-19] MEDS: ONDANSETRON 4 MG/2 ML VIAL IVP PRN ×2 (09:02→23:01)
--- NOTE | 2020-10-19 14:03 | PROVIDER PROGRESS NOTE ---
Assessment/Plan - Problem List (1) Colitis Assessment/Plan: Patient still complain she had 9 out of 10 pain at lower left quadrant. CT was obtained which was consistent with colitis most prominent in the proximal colon. plan to have colonoscopy given the severity of her pain. surgeon was consulted. Continue antibiotics, continue pain control. (2) Insulin dependent diabetes mellitus Impression: Patient has A1c 9, patient's hypoglycemia is resolved. We will continue sliding scale (3) Nausea & vomiting Impression: improved. Antiemesis as needed. Add intravenous IV fluids (4) Hypertension stable, continue her current antihypertensives. (5) Cognitive deficits Impression: This is a chronic problem for her. She does have mild cognitive impairment and psychomotor slowing which has been an ongoing problem for her. We have recommended outpatient follow-up with neurology for further work-up including MRI. (6) Fibromyalgia Impression: We are continuing her home Cymbalta. (7) Diabetic ketoacidosis Impression: This has resolved. This was present on admission. 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 Work-up including EKG, chest x-ray, troponin was unremarkable. - Current Meds Current Meds: Current Medications Generic Name Dose Route Start Last Admin Trade Name Freq PRN Reason Stop Dose Admin Acetaminophen 650 mg 10/14/20 21:02 10/17/20 04:47 Acetaminophen 325 Mg Tablet PO 650 mg Q4HR PRN Administration Pain 1 to 4 Amlodipine Besylate 5 mg 10/17/20 09:00 10/19/20 08:13 Amlodipine 5 Mg Tablet PO 5 mg DAILY MEL Administration Aspirin 81 mg 10/16/20 09:00 10/19/20 08:12 Aspirin Ec 81 Mg Tablet PO 81 mg DAILY MEL Administration Atorvastatin Calcium 20 mg 10/15/20 21:00 10/18/20 21:13 Atorvastatin 10 Mg Tablet PO 20 mg HS MEL Administration Duloxetine HCl 60 mg 10/16/20 09:00 10/19/20 08:13 Duloxetine 30 Mg Capsule PO 60 mg DAILY MEL Administration Ceftriaxone Sodium 2 gm/ 100 mls @ 200 mls/hr 10/19/20 09:00 10/19/20 09:32 Sodium Chloride IV Infused DAILY MEL Infusion Metronidazole 500 mg in 100 mls @ 100 mls/hr 10/18/20 15:00 10/19/20 09:11 Flagyl 500 Mg/100 Ml IV Infused Q8H MEL Infusion Sodium Chloride 1,000 mls @ 100 mls/hr 10/19/20 09:00 10/19/20 09:00 Normal Saline 0.9% IV 10/20/20 04:59 100 mls/hr .Q10H MEL Administration Insulin Aspart 3 - 11 unit 10/15/20 08:00 10/19/20 12:10 Insulin Aspart 300 Unit/3 Ml Pen SUBQ 3 unit 0800,1200,1700,2100 MEL Administration Protocol Insulin Aspart 4 unit 10/18/20 17:00 10/19/20 12:10 Insulin Aspart 300 Unit/3 Ml Pen SUBQ 4 unit TIDWM MEL Administration Protocol Insulin Glargine 12 unit 10/15/20 02:00 10/19/20 08:13 Insulin Glargine 300 Unit/3 Ml Pen SUBQ 12 unit BID MEL Administration Lisinopril 10 mg 10/17/20 09:00 10/19/20 08:13 Lisinopril 5 Mg Tablet PO 10 mg DAILY MEL Administration Morphine Sulfate 2 mg 10/17/20 09:19 10/18/20 01:09 Morphine 2 Mg/Ml Carpuject IVP 2 mg Q2HR PRN Administration PAIN Ondansetron HCl 4 mg 10/14/20 21:02 10/19/20 09:02 Ondansetron 4 Mg/2 Ml Vial IVP 4 mg Q6HR PRN Administration Nausea / Vomiting Oxycodone HCl 5 mg 10/14/20 21:02 10/19/20 09:01 Oxycodone 5 Mg Tablet PO 5 mg Q4HR PRN Administration Pain 5 to 7 Pantoprazole Sodium 40 mg 10/15/20 07:00 10/19/20 06:43 Pantoprazole 40 Mg Vial IVP 40 mg QDAC MEL Administration Polyethylene Glycol 17 gm 10/18/20 09:00 10/19/20 08:14 Polyethylene Glycol 3350 17 Gm Packet PO 17 gm DAILY MEL Administration Prochlorperazine Edisylate 10 mg 10/14/20 21:02 10/19/20 12:59 Prochlorperazine 10 Mg/2 Ml Vial IVP 10 mg Q6HR PRN Administration Nausea / Vomiting Sodium Chloride 10 ml 10/15/20 01:00 10/19/20 08:25 Sodium Chloride Flush 0.9% 10 Ml Syringe IVP 10 ml 0100,0900,1700 MEL Administration Sodium Chloride 10 ml 10/14/20 21:02 10/19/20 06:50 Sodium Chloride Flush 0.9% 10 Ml Syringe IVP 10 ml PRN PRN Administration NEEDED PER PROVIDER ORDERS - Lab Result Fish Bone Diagrams: 10/19/20 05:30 10/19/20 05:30 - Additional Planning My Orders: My Active Orders 10/19/20 09:00 Sodium Chloride 0.9% [Normal Saline 0.9%] 1,000 ml IV 100 mls/hr 10/20/20 05:00 BMP - BASIC METABOLIC PANEL [CHEM] DAILYLAB CBC - COMP BLD CT W/AUTO DIFF [HEME] DAILYLAB 10/21/20 05:00 BMP - BASIC METABOLIC PANEL [CHEM] DAILYLAB CBC - COMP BLD CT W/AUTO DIFF [HEME] DAILYLAB 10/22/20 05:00 BMP - BASIC METABOLIC PANEL [CHEM] DAILYLAB CBC - COMP BLD CT W/AUTO DIFF [HEME] DAILYLAB 10/23/20 05:00 BMP - BASIC METABOLIC PANEL [CHEM] DAILYLAB CBC - COMP BLD CT W/AUTO DIFF [HEME] DAILYLAB 10/24/20 05:00 BMP - BASIC METABOLIC PANEL [CHEM] DAILYLAB CBC - COMP BLD CT W/AUTO DIFF [HEME] DAILYLAB 10/25/20 05:00 BMP - BASIC METABOLIC PANEL [CHEM] DAILYLAB CBC - COMP BLD CT W/AUTO DIFF [HEME] DAILYLAB 10/26/20 05:00 BMP - BASIC METABOLIC PANEL [CHEM] DAILYLAB CBC - COMP BLD CT W/AUTO DIFF [HEME] DAILYLAB Subjective - Subjective Patient Reports: Feeling Better Objective Vital Signs: Vital Signs - 24 hr 10/18/20 10/18/20 10/18/20 15:34 20:07 23:26 Temperature 36.4 C L 36.4 C L 36.5 C Heart Rate [ 86 87 88 Brachial] Respiratory 16 16 19 Rate Blood Pressure 117/69 148/80 H 145/78 H [Left Brachial artery] O2 Saturation 96 97 95 10/19/20 10/19/20 10/19/20 05:15 07:44 11:13 Temperature 36.5 C 36.7 C 36.9 C Heart Rate [ 87 87 94 Brachial] Respiratory 18 16 16 Rate Blood Pressure 125/74 133/80 H 110/96 H [Left Brachial artery] O2 Saturation 95 95 96 Oxygen O2 Source Room air I&O (Last 24 Hrs): Intake and Output Totals x24h 10/17/20 10/18/20 10/19/20 23:59 23:59 23:59 Intake Total 1795 4381.334 1400 Balance 1795 4381.334 1400 General: Alert, Cooperative, Mild distress HEENT: Atraumatic, PERRLA Neck: Supple Lymphatic: no adenopathy Neuro: Alert, Non Focal Cardiovascular: Regular rate, Normal S1, Normal S2 Respiratory: Chest non-tender, No respiratory distress, Breath sounds nml Extremities: Normal pulses - Results Results: Laboratory Results WBC 6.3 x10^3/uL (4.8-10.8) 10/19/20 05:30 RBC 3.19 10^6/uL (4.20-5.40) L 10/19/20 05:30 Hgb 9.3 g/dL (12.0-16.0) L 10/19/20 05:30 Hct 26.5 % (37.0-47.0) L 10/19/20 05:30 MCV 83.1 fL (81.0-99.0) 10/19/20 05:30 MCH 29.2 pg (27.0-31.0) 10/19/20 05:30 MCHC 35.1 g/dL (32.0-36.0) 10/19/20 05:30 RDW 12.4 % (12.0-15.0) 10/19/20 05:30 Plt Count 198 10^3/uL (130-450) 10/19/20 05:30 MPV 10.2 fL (7.9-10.8) 10/19/20 05:30 Neut # (Auto) 3.5 10^3/uL (1.5-6.6) 10/19/20 05:30 Lymph # (Auto) 1.7 10^3/uL (1.5-3.5) 10/19/20 05:30 [place] # (Auto) 0.7 10^3/uL (0.0-1.0) 10/19/20 05:30 Eos # (Auto) 0.3 10^3/uL (0.0-0.7) 10/19/20 05:30 Baso # (Auto) 0.0 10^3/uL (0.0-0.1) 10/19/20 05:30 Absolute Nucleated RBC 0.00 x10^3/uL 10/19/20 05:30 Nucleated RBC % 0.0 /100WBC 10/19/20 05:30 VBG pH 7.367 (7.31-7.41) 10/15/20 06:06 VBG pCO2 35.9 mmHg (41-51) L 10/15/20 06:06 VBG pO2 74.9 mmHg (25-47) H 10/15/20 06:06 VBG HCO3 20.1 mmol/L (23-28) L 10/15/20 06:06 VBG Total CO2 21.3 mmol/L (24-29) L 10/15/20 06:06 VBG O2 Saturation 93.6 % (60-80) H 10/15/20 06:06 VBG Base Excess -4.6 mmol/L (-2 - +2) L 10/15/20 06:06 Sodium 135 mmol/L (135-145) 10/19/20 05:30 Potassium 3.8 mmol/L (3.5-5.0) 10/19/20 05:30 Chloride 102 mmol/L (101-111) 10/19/20 05:30 Carbon Dioxide 26 mmol/L (21-32) 10/19/20 05:30 Anion Gap 7.0 (6-13) 10/19/20 05:30 BUN 22 mg/dL (6-20) H 10/19/20 05:30 Creatinine 1.2 mg/dL (0.4-1.0) H 10/19/20 05:30 Estimated GFR (MDRD) 46 (>89) L 10/19/20 05:30 Glucose 202 mg/dL (70-100) H 10/19/20 05:30 POC Whole Bld Glucose 160 mg/dL (70 - 100) H 10/19/20 11:02 Estimat Average Glucose 212 mg/dL (70-100) H 10/15/20 06:06 Hemoglobin A1c % 9.0 % (4.27-6.07) H 10/15/20 06:06 Calcium 8.3 mg/dL (8.5-10.3) L 10/19/20 05:30 Phosphorus 3.3 mg/dL (2.5-4.6) 10/17/20 07:30 Magnesium 1.8 mg/dL (1.7-2.8) 10/19/20 05:30 Total Bilirubin 0.6 mg/dL (0.2-1.0) 10/15/20 06:06 AST 18 IU/L (10-42) 10/15/20 06:06 ALT 21 IU/L (10-60) 10/15/20 06:06 Alkaline Phosphatase 34 IU/L (42-121) L 10/15/20 06:06 Troponin I High Sens 7.3 ng/L (2.3-14.8) 10/16/20 10:42 C-Reactive Protein < 1.0 mg/dL (0-1.0) 10/19/20 05:30 Total Protein 5.3 g/dL (6.7-8.2) L 10/15/20 06:06 Albumin 3.0 g/dL (3.2-5.5) L 10/15/20 06:06 Globulin 2.3 g/dL (2.1-4.2) 10/15/20 06:06 Albumin/Globulin Ratio 1.3 (1.0-2.2) 10/15/20 06:06 Lipase 49 U/L (22-51) 10/14/20 18:20 Urine Color YELLOW 10/14/20 20:11 Urine Clarity CLEAR (CLEAR) 10/14/20 20:11 Urine pH 6.0 PH (5.0-7.5) 10/14/20 20:11 Ur Specific [place] 1.020 (1.002-1.030) 10/14/20 20:11 Urine Protein 100 mg/dL (NEGATIVE) H 10/14/20 20:11 Urine Glucose (UA) >=1000 mg/dL (NEGATIVE) H 10/14/20 20:11 Urine Ketones 15 mg/dL (NEGATIVE) H 10/14/20 20:11 Urine Occult Blood SMALL (NEGATIVE) H 10/14/20 20:11 Urine Nitrite NEGATIVE (NEGATIVE) 10/14/20 20:11 Urine Bilirubin NEGATIVE (NEGATIVE) 10/14/20 20:11 Urine Urobilinogen 0.2 (NORMAL) E.U./dL (NORMAL) 10/14/20 20:11 Ur Leukocyte Esterase NEGATIVE (NEGATIVE) 10/14/20 20:11 Urine RBC 0-5 /HPF (0-5) 10/14/20 20:11 Urine WBC 4-5 /HPF (0-5) 10/14/20 20:11 Ur Squamous Epith Cells FEW Squamous (<= Few) 10/14/20 20:11 Urine Bacteria Few /HPF (None Seen) 10/14/20 20:11 Ur Microscopic Review INDICATED 10/14/20 20:11 Urine Culture Comments NOT INDICATED 10/14/20 20:11 Nasal Adenovirus (PCR) NOT DETECTED 10/14/20 20:44 Nasal B. parapertussis DNA (PCR) NOT DETECTED 10/14/20 20:44 Nasal Coronavir 229E PCR NOT DETECTED 10/14/20 20:44 Nasal Coronavir HKU1 PCR NOT DETECTED 10/14/20 20:44 Nasal Coronavir NL63 PCR NOT DETECTED 10/14/20 20:44 Nasal Coronavir OC43 PCR NOT DETECTED 10/14/20 20:44 Nasal Enterovir/Rhinovir PCR DETECTED A 10/14/20 20:44 Nasal Influenza B PCR NOT DETECTED 10/14/20 20:44 Nasal Influenza A PCR NOT DETECTED 10/14/20 20:44 Nasal Parainfluen 1 PCR NOT DETECTED 10/14/20 20:44 Nasal Parainfluen 2 PCR NOT DETECTED 10/14/20 20:44 Nasal Parainfluen 3 PCR NOT DETECTED 10/14/20 20:44 Nasal Parainfluen 4 PCR NOT DETECTED 10/14/20 20:44 Nasal RSV (PCR) NOT DETECTED 02 20:44 Nasal Screen MRSA (PCR) NEGATIVE (NEGATIVE) 10/14/20 22:10 Nasal B.pertussis DNA PCR NOT DETECTED 10/14/20 20:44 Nasal C.pneumoniae (PCR) NOT DETECTED 10/14/20 20:44 Chan Human Metapneumo PCR NOT DETECTED 10/14/20 20:44 Nasal M.pneumoniae (PCR) NOT DETECTED 02 20:44 Nasal SARS-CoV-2 (PCR) NOT DETECTED 02 20:44 Urine Opiates Screen NEGATIVE (NEGATIVE) 10/14/20 20:11 Ur Oxycodone Screen NEGATIVE (NEGATIVE) 10/14/20 20:11 Urine Methadone Screen NEGATIVE (NEGATIVE) 10/14/20 20:11 Ur Propoxyphene Screen NEGATIVE (NEGATIVE) 10/14/20 20:11 Ur Barbiturates Screen NEGATIVE (NEGATIVE) 10/14/20 20:11 Ur Tricyclics Screen NEGATIVE (NEGATIVE) 10/14/20 20:11 Ur Phencyclidine Scrn NEGATIVE (NEGATIVE) 10/14/20 20:11 Ur Amphetamine Screen NEGATIVE (NEGATIVE) 10/14/20 20:11 U Methamphetamines Scrn NEGATIVE (NEGATIVE) 10/14/20 20:11 U Benzodiazepines Scrn NEGATIVE (NEGATIVE) 10/14/20 20:11 Urine Cocaine Screen NEGATIVE (NEGATIVE) 10/14/20 20:11 U Cannabinoids Screen NEGATIVE (NEGATIVE) 10/14/20 20:11 Serum Ketones NEGATIVE (NEGATIVE) 10/15/20 06:06 ABX Reporting Has patient been on IV antibiotics over the past 48 hours?: Yes Current Medications - Current Medications Current Medications: Active Medications Acetaminophen (Acetaminophen 325 Mg Tablet) 650 mg PO Q4HR PRN PRN Reason: Pain 1 to 4 Last Admin: 10/17/20 04:47 Dose: 650 mg Documented by: Amlodipine Besylate (Amlodipine 5 Mg Tablet) 5 mg PO DAILY [facility] Last Admin: 10/19/20 08:13 Dose: 5 mg Documented by: Aspirin (Aspirin Ec 81 Mg Tablet) 81 mg PO DAILY [facility] Last Admin: 10/19/20 08:12 Dose: 81 mg Documented by: Atorvastatin Calcium (Atorvastatin 10 Mg Tablet) [address] [facility] Last Admin: 10/18/20 21:13 Dose: 20 mg Documented by: Duloxetine HCl (Duloxetine 30 Mg Capsule) 60 mg PO DAILY [facility] Last Admin: 10/19/20 08:13 Dose: 60 mg Documented by: Ceftriaxone Sodium 2 gm/ (Sodium Chloride) 100 mls @ 200 mls/hr IV DAILY [facility] Last Infusion: 10/19/20 09:32 Dose: Infused Documented by: Metronidazole (Flagyl 500 Mg/100 Ml) 500 mg in 100 mls @ 100 mls/hr IV Q8H [facility] Last Infusion: 10/19/20 09:11 Dose: Infused Documented by: Sodium Chloride (Normal Saline 0.9%) 1,000 mls @ 100 mls/hr IV .Q10H [facility] Stop: 10/20/20 04:59 Last Admin: 10/19/20 09:00 Dose: 100 mls/hr Documented by: Insulin Aspart (Insulin Aspart 300 Unit/3 Ml Pen) 3 - 11 unit SUBQ 0800,1200,1700,2100 [facility]; Protocol Last Admin: 10/19/20 12:10 Dose: 3 unit Documented by: Insulin Aspart (Insulin Aspart 300 Unit/3 Ml Pen) 4 unit SUBQ TIDWM [facility]; Protocol Last Admin: 10/19/20 12:10 Dose: 4 unit Documented by: Insulin Glargine (Insulin Glargine 300 Unit/3 Ml Pen) 12 unit SUBQ BID [facility] Last Admin: 10/19/20 08:13 Dose: 12 unit Documented by: Lisinopril (Lisinopril 5 Mg Tablet) 10 mg PO DAILY [facility] Last Admin: 10/19/20 08:13 Dose: 10 mg Documented by: Morphine Sulfate (Morphine 2 Mg/Ml Carpuject) 2 mg IVP Q2HR PRN PRN Reason: PAIN Last Admin: 10/18/20 01:09 Dose: 2 mg Documented by: Ondansetron HCl (Ondansetron 4 Mg/2 Ml Vial) 4 mg IVP Q6HR PRN PRN Reason: Nausea / Vomiting Last Admin: 10/19/20 09:02 Dose: 4 mg Documented by: Oxycodone HCl (Oxycodone 5 Mg Tablet) 5 mg PO Q4HR PRN PRN Reason: Pain 5 to 7 Last Admin: 10/19/20 09:01 Dose: 5 mg Documented by: Pantoprazole Sodium (Pantoprazole 40 Mg Vial) 40 mg IVP QDAC [facility] Last Admin: 10/19/20 06:43 Dose: 40 mg Documented by: Polyethylene Glycol (Polyethylene Glycol 3350 17 Gm Packet) 17 gm PO DAILY [facility] Last Admin: 10/19/20 08:14 Dose: 17 gm Documented by: Prochlorperazine Edisylate (Prochlorperazine 10 Mg/2 Ml Vial) 10 mg IVP Q6HR PRN PRN Reason: Nausea / Vomiting Last Admin: 10/19/20 12:59 Dose: 10 mg Documented by: Sodium Chloride (Sodium Chloride Flush 0.9% 10 Ml Syringe) 10 ml IVP 0100,0900, 1700 [facility] Last Admin: 10/19/20 08:25 Dose: 10 ml Documented by: Sodium Chloride (Sodium Chloride Flush 0.9% 10 Ml Syringe) 10 ml IVP PRN PRN PRN Reason: NEEDED PER PROVIDER ORDERS Last Admin: 10/19/20 06:50 Dose: 10 ml Documented by: Sodium Sulfate/Potass Sulf/Mag Sulf (Sodium/Potassium/Mag Sulfates 354 Ml Prep Kit) 177 ml PO 1800,0400 [facility] Stop: 10/20/20 04:01 Albuterol Sulfate [Proair Hfa Inhaler] 2 - 4 puffs INH PRN PRN 10/15/20 Fluticasone [Flonase] 2 sprays CHAN DAILY PRN 10/15/20
[2020-10-19] MEDS: D5.45NS W/20 MEQ KCL 1,000 ML IV SCH (15:48)
[2020-10-19] MEDS: SODIUM/POTASSIUM/MAG SULFATES 354 ML PREP KIT PO SCH (18:16)
[2020-10-19] MEDS: ATORVASTATIN 10 MG TABLET PO SCH (20:16)
[2020-10-20] MEDS: D5.45NS W/20 MEQ KCL 1,000 ML IV SCH (02:41)
[2020-10-20] MEDS: oxyCODONE 5 MG TABLET PO PRN (02:41)
[2020-10-20] MEDS: polyethylene glycoL 3350 17 GM PACKET PO SCH (02:49)
[2020-10-20] MEDS: SODIUM/POTASSIUM/MAG SULFATES 354 ML PREP KIT PO SCH (04:11)
[2020-10-20] MEDS: PROCHLORPERAZINE 10 MG/2 ML VIAL IVP PRN (04:25)
[2020-10-20] MEDS: SODIUM CHLORIDE FLUSH 0.9% 10 ML SYRINGE IVP SCH ×3 (04:26→23:31)
[2020-10-20 04:54] LABS: BASOPHILS % (AUTO) 0.2 %; EOSINOPHILS # (AUTO) 0.3 10^3/uL (0.0-0.7); EOSINOPHILS % (AUTO) 3.9 %; HCT - HEMATOCRIT 26.5 % (37.0-47.0); LYMPHOCYTES % (AUTO) 24.6 %; MEAN CORPUSCULAR HEMOGLOBIN 28.5 pg (27.0-31.0); MEAN CORPUSCULAR VOLUME 83.9 fL (81.0-99.0); MEAN PLATELET VOLUME 10.4 fL (7.9-10.8); MONOCYTES # (AUTO) 0.9 10^3/uL (0.0-1.0); NEUTROPHILS # (AUTO) 4.9 10^3/uL (1.5-6.6); NEUTROPHILS % (AUTO) 59.6 %; PLT - PLATELET COUNT 224 10^3/uL (130-450); RED BLOOD COUNT 3.16 10^6/uL (4.20-5.40); RED CELL DISTRIBUTION WIDTH 12.3 % (12.0-15.0); WHITE BLOOD COUNT 8.2 x10^3/uL (4.8-10.8)
[2020-10-20 05:03] LABS: CALCIUM 8.7 mg/dL (8.5-10.3); CREATININE 1.2 mg/dL (0.4-1.0); POTASSIUM 3.5 mmol/L (3.5-5.0)
[2020-10-20] MEDS: metroNIDAZOLE 500 MG/100 ML 500 MG/100 ML BAG IV SCH ×3 (06:27→22:45)
[2020-10-20] MEDS: SODIUM CHLORIDE FLUSH 0.9% 10 ML SYRINGE IVP PRN ×3 (06:28→06:46)
[2020-10-20] MEDS: PANTOPRAZOLE 40 MG VIAL IVP SCH (06:28)
[2020-10-20] MEDS: MORPHINE 2 MG/ML CARPUJECT IVP PRN ×2 (06:35→09:29)
[2020-10-20] MEDS: ONDANSETRON 4 MG/2 ML VIAL IVP PRN ×2 (06:46→13:11)
--- NOTE | 2020-10-20 07:42 | HISTORY & PHYSICAL EXAMINATION ---
HPI - Admitted From Admitted from: ED - History Obtained From Records Reviewed: Other (Provider's notes) History obtained from: Patient Exam limitations: No limitations - History of Present Illness Severity at the worst: reports: Severe Pain Quality: reports: Sharp, Cramping Context-Pain started w/: reports: Rest Timing: reports: Gradual onset Duration: reports: Days: (4) Improved with: reports: Nothing Worsened by: reports: Other (Urge to empty bowels) Associated symptoms: reports: Nausea, General Weakness HPI Comment/Other: Dariusz is a pleasant and unfortunate 55-year-old lady who suffers from severe and poorly controlled diabetes. She has frequent bouts of diabetic ketoacidosis and has been hospitalized several times over the past year for the same. She was seen in our emergency room on the with complaint of abdominal pain which was consistent with what she usually experiences with bouts of ketoacidosis she also has a stable diagnosis of gastroparesis for which she is treated with Protonix and Reglan. When seen in the emergency room her abdominal pain was generalized and she had a positive enterovirus/rhinovirus test. Her hyperglycemia and other symptoms have been treated in the hospital but she has gradually developed more specific localized left lower quadrant pain. She reports that the pain is 10 out of 10 but comes in waves. She feels like it is primarily cramping and sharp in nature and occurs mostly when she feels she needs to have a bowel movement. This is associated with nausea which she reports is keeping her from being able to eat properly. She does not know if she has had fever at home.At the time of my evaluation she sitting up in bed and appears comfortable. She is eating ice cream and says that is really all that sounds good to her right now. PMH/PSH - Past Medical History Cardiovascular: positive: Hypertension Respiratory: positive: Asthma, Sleep apnea Neuro: positive: Peripheral neuropathy Endocrine/Autoimmune: positive: Type 1 diabetes GI: positive: GERD, Pancreatitis (while in [place]) SYSTEMS TECHNOLOGIST: positive: Other () : positive: Incontinence, Renal insuffiency Psych: positive: Anxiety Musculoskeletal: positive: Osteoarthritis, Fibromyalgia, Chronic back pain, Other Derm: positive: None MRSA Hx?: No Other Past Medical History: Cpap - does not use at home - Past Surgical History /SYSTEMS TECHNOLOGIST: positive: Tubal ligation Social & Family Hx - Social History Does the pt smoke?: No Smoking Status: Never smoker Does the pt have substance abuse?: No - POLST Patient has POLST: No POLST Status: Full Code Meds/Allgy - Home Medications Home Medications: Ambulatory Orders Medication Instructions Recorded Confirmed Aspirin EC [Ecotrin] 81 mg PO DAILY #30 tablet 08/19/20 10/15/20 Atorvastatin [Lipitor] 20 mg PO HS #30 tablet 08/19/20 10/15/20 DULoxetine [Cymbalta] 60 mg PO DAILY #60 capsule 08/19/20 10/15/20 Insulin Aspart [NovoLOG] 8 unit SUBQ TIDWM #3 pen 08/19/20 10/15/20 Insulin Glargine [Lantus Solostar] 12 unit SUBQ BID #1 pen 08/19/20 10/15/20 Pantoprazole [Protonix] 40 mg PO DAILY #30 tablet 08/19/20 10/15/20 Pregabalin [Lyrica] 100 mg PO TID #90 capsule 08/19/20 10/15/20 lisinopriL [Zestril] 5 mg PO DAILY #30 tablet 08/19/20 10/15/20 Albuterol Sulfate [Proair Hfa 2 - 4 puffs INH PRN PRN 10/15/20 10/15/20 Inhaler] Fluticasone [Flonase] 2 sprays CHAN DAILY PRN 10/15/20 10/15/20 - Allergies Allergies/Adverse Reactions: Allergies Allergy/AdvReac Type Severity Reaction Status Date / Time No Known Drug Allergies Allergy Verified 10/14/20 18:26 Review of Systems - Constitutional Constitutional: reports: Fatigue, Malaise, Weakness, Poor appetite - Eyes Eyes: reports: Blurred vision - Ears, Nose & Throat Ears, Nose & Throat: reports: Vertigo, Nasal discharge - Cardiovascular Cariovascular: reports: Lightheadedness, Exertional dyspnea - Respiratory Respiratory: reports: Cough - Gastrointestinal Gastrointestinal: reports: Abdominal pain, Nausea, Vomiting - Genitourinary Genitourinary: reports: Dysuria - Musculoskeletal Musculoskeletal: reports: Muscle aches, Stiffness - All Other Systems All Other Systems: reports: Reviewed and negative Exam - Vital Signs Reviewed Vital Signs: Yes Vital Signs: Vital Signs x48h Temp Pulse Resp BP Pulse Ox 02/23/21 23:58 36.7 C 98 20 157/83 H 96 - Physical Exam General Appearance: positive: No acute distress, Alert Eyes Bilateral: positive: Normal inspection, PERRL, EOMI ENT: positive: ENT inspection nml, Pharynx nml, No signs of dehydration Neck: positive: Nml inspection Respiratory: positive: No respiratory distress Cardiovascular: positive: Regular rate & rhythm Peripheral Pulses: positive: 0 Abdomen: positive: No distention, Tenderness, Other (Normal bowel sounds. No tenderness to palpation presently. The patient reports it comes in waves and points to her left lower quadrant. When it is present she describes it as 10 o ut of 10.). negative: Guarding, Rebound, Mass Back: negative: CVA tenderness (R), CVA tenderness (L) Extremities: positive: Non-tender Neurologic/Psychiatric: positive: Oriented x3 Results - Lab Results Fish Bones: 10/20/20 04:28 10/20/20 04:28 Other Lab Results: Lab Results x24hrs 10/20/20 10/20/20 10/19/20 Range/Units 04:28 04:28 20:42 WBC 8.2 (4.8-10.8) x10^3/uL RBC 3.16 L (4.20-5.40) 10^6/uL Hgb 9.0 L (12.0-16.0) g/dL Hct 26.5 L (37.0-47.0) % MCV 83.9 (81.0-99.0) fL MCH 28.5 (27.0-31.0) pg MCHC 34.0 (32.0-36.0) g/dL RDW 12.3 (12.0-15.0) % Plt Count 224 (130-450) 10^3/uL MPV 10.4 (7.9-10.8) fL Neut # (Auto) 4.9 (1.5-6.6) 10^3/uL Lymph # (Auto) 2.0 (1.5-3.5) 10^3/uL [place] # (Auto) 0.9 (0.0-1.0) 10^3/uL Eos # (Auto) 0.3 (0.0-0.7) 10^3/uL Baso # (Auto) 0.0 (0.0-0.1) 10^3/uL Absolute Nucleated RBC 0.00 x10^3/uL Nucleated RBC % 0.0 /100WBC Sodium 140 (135-145) mmol/L Potassium 3.5 (3.5-5.0) mmol/L Chloride 101 (101-111) mmol/L Carbon Dioxide 22 (21-32) mmol/L Anion Gap 17.0 H (6-13) BUN 17 (6-20) mg/dL Creatinine 1.2 H (0.4-1.0) mg/dL Estimated GFR (MDRD) 46 L (>89) Glucose 147 H (70-100) mg/dL POC Whole Bld Glucose 239 H (70 - 100) mg/dL Calcium 8.7 (8.5-10.3) mg/dL 10/19/20 10/19/20 10/19/20 Range/Units 16:45 11:02 07:47 WBC (4.8-10.8) x10^3/uL RBC (4.20-5.40) 10^6/uL Hgb (12.0-16.0) g/dL Hct (37.0-47.0) % MCV (81.0-99.0) fL MCH (27.0-31.0) pg MCHC (32.0-36.0) g/dL RDW (12.0-15.0) % Plt Count (130-450) 10^3/uL MPV (7.9-10.8) fL Neut # (Auto) (1.5-6.6) 10^3/uL Lymph # (Auto) (1.5-3.5) 10^3/uL [place] # (Auto) (0.0-1.0) 10^3/uL Eos # (Auto) (0.0-0.7) 10^3/uL Baso # (Auto) (0.0-0.1) 10^3/uL Absolute Nucleated RBC x10^3/uL Nucleated RBC % /100WBC Sodium (135-145) mmol/L Potassium (3.5-5.0) mmol/L Chloride (101-111) mmol/L Carbon Dioxide (21-32) mmol/L Anion Gap (6-13) BUN (6-20) mg/dL Creatinine (0.4-1.0) mg/dL Estimated GFR (MDRD) (>89) Glucose (70-100) mg/dL POC Whole Bld Glucose 140 H 160 H 187 H (70 - 100) mg/dL Calcium (8.5-10.3) mg/dL - Diagnostic Imaging Results Diagnostic Imaging Results: positive: Final report reviewed Diagnostic Imaging Results Comments: CT abdomen and pelvis IMPRESSION: There is wall thickening seen throughout the colon, which is most prominent within the proximal colon. Surrounding inflammatory changes are seen. Please correlate with potential infectious and inflammatory causes of colitis. Ischemia is much less likely, given the distribution. There is a small amount of free fluid seen within the pelvis. Incidental note is made of: Small hiatal hernia Diverticulosis can be seen, without chrissy findings of active diverticulitis. Normal appendix Dextroconvex scoliotic curvature Reviewed by: Shilo Nair MD on 10/17/2020 8:50 AM [facility] Impression/Plan - Problem List Problem List: Colitis and left lower quadrant pain associated with severe abdominal pain and diabetic ketoacidosis. Dariusz says she has had an EGD and a colonoscopy in the past but she is not exactly sure when she thinks it may have been more than 5 years ago. She feels that is when she was diagnosed with gastroparesis and that she also had a gastric emptying study to follow that procedure. The localiz ation of her pain to the left lower quadrant is somewhat concerning and a bit inconsistent with findings on CT scan. I agree with plans for colonoscopy. As her gastroparesis is out of control and she is experiencing unremitting symptoms I recommend that we perform an EGD with biopsies for Helicobacter pylori as well.Discussed the risks and benefits of the procedure the patient is expressed verbal and written consent to proceed
--- NOTE | 2020-10-20 07:46 | ANESTHESIA ---
Pre-Anesthesia VS, & Labs - Diagnosis abdominal pain, n/v - Procedure egd, colonoscopy Vital Signs: Temp Pulse Resp BP Pulse Ox 36.7 C 98 20 157/83 H 96 10/19/20 23:58 10/19/20 23:58 10/19/20 23:58 10/19/20 23:58 10/19/20 23:58 Height: 5 ft 3 in Weight (kg): 61 kg Body Mass Index: 23.8 BMI Classification: Healthy weight - NPO >8 hours - Is Patient ?: No - Lab Results Current Lab Results: Laboratory Tests 10/20/20 04:28: Sodium 140, Potassium 3.5, Chloride 101, Carbon Dioxide 22, Anion Gap 17.0 H, BUN 17, Creatinine 1.2 H, Estimated GFR (MDRD) 46 L, Glucose 147 H, Calcium 8.7 10/20/20 04:28: WBC 8.2, RBC 3.16 L, Hgb 9.0 L, Hct 26.5 L, MCV 83.9, MCH 28.5, MCHC 34.0, RDW 12.3, Plt Count 224, MPV 10.4, Neut # (Auto) 4.9, Lymph # (Auto) 2.0, Clinch # (Auto) 0.9, Eos # (Auto) 0.3, Baso # (Auto) 0.0, Absolute Nucleated RBC 0.00, Nucleated RBC % 0.0 10/19/20 20:42: POC Whole Bld Glucose 239 H 10/19/20 16:45: POC Whole Bld Glucose 140 H 10/19/20 11:02: POC Whole Bld Glucose 160 H 10/19/20 07:47: POC Whole Bld Glucose 187 H 10/19/20 05:30: Sodium 135, Potassium 3.8, Chloride 102, Carbon Dioxide 26, Anion Gap 7.0, BUN 22 H, Creatinine 1.2 H, Estimated GFR (MDRD) 46 L, Glucose 202 H, Calcium 8.3 L, Magnesium 1.8, C-Reactive Protein < 1.0 10/19/20 05:30: WBC 6.3, RBC 3.19 L, Hgb 9.3 L, Hct 26.5 L, MCV 83.1, MCH 29.2, MCHC 35.1, RDW 12.4, Plt Count 198, MPV 10.2, Neut # (Auto) 3.5, Lymph # (Auto) 1.7, Clinch # (Auto) 0.7, Eos # (Auto) 0.3, Baso # (Auto) 0.0, Absolute Nucleated RBC 0.00, Nucleated RBC % 0.0 10/18/20 17:20: POC Whole Bld Glucose 70 10/18/20 17:03: POC Whole Bld Glucose 51 L* 10/18/20 16:43: POC Whole Bld Glucose 58 L* 10/18/20 16:40: POC Whole Bld Glucose 59 L* 10/18/20 11:20: POC Whole Bld Glucose 140 H 10/18/20 08:07: POC Whole Bld Glucose 164 H 10/18/20 08:07: Sodium 133 L, Potassium 3.4 L, Chloride 103, Carbon Dioxide 25, Anion Gap 5.0 L, BUN 19, Creatinine 1.0, Estimated GFR (MDRD) 57 L, Glucose 175 H, Calcium 8.5, Magnesium 1.8 10/18/20 08:07: WBC 8.5, RBC 3.45 L, Hgb 9.9 L, Hct 28.2 L, MCV 81.7, MCH 28.7, MCHC 35.1, RDW 12.3, Plt Count 172, MPV 10.6, Neut # (Auto) 5.4, Lymph # (Auto) 2.0, Clinch # (Auto) 0.8, Eos # (Auto) 0.2, Baso # (Auto) 0.0, Absolute Nucleated RBC 0.00, Nucleated RBC % 0.0 10/17/20 20:27: POC Whole Bld Glucose 156 H 10/17/20 17:25: POC Whole Bld Glucose 105 H 10/17/20 17:03: POC Whole Bld Glucose 60 L* 10/17/20 16:43: POC Whole Bld Glucose 54 L* 10/17/20 16:30: POC Whole Bld Glucose 51 L* 10/17/20 11:06: POC Whole Bld Glucose 151 H 10/17/20 07:51: POC Whole Bld Glucose 231 H 10/17/20 07:32: C-Reactive Protein < 1.0 10/17/20 07:30: Sodium 135, Potassium 3.3 L, Chloride 101, Carbon Dioxide 23, Anion Gap 11.0, BUN 26 H, Creatinine 1.1 H, Estimated GFR (MDRD) 51 L, Glucose 255 H, Calcium 8.7, Phosphorus 3.3, Magnesium 1.9 10/17/20 07:30: WBC 6.9, RBC 3.92 L, Hgb 11.5 L, Hct 31.7 L, MCV 80.9 L, MCH 29.3, MCHC 36.3 H, RDW 11.9 L, Plt Count 175, MPV 10.7, Neut # (Auto) 4.9, Lymph # (Auto) 1.1 L, Clinch # (Auto) 0.8, Eos # (Auto) 0.1, Baso # (Auto) 0.0, Absolute Nucleated RBC 0.00, Nucleated RBC % 0.0 10/16/20 21:00: POC Whole Bld Glucose 269 H 10/16/20 16:29: POC Whole Bld Glucose 295 H 10/16/20 11:47: POC Whole Bld Glucose 216 H 10/16/20 10:42: Troponin I High Sens 7.3 10/16/20 04:50: Sodium 133 L, Potassium 3.2 L, Chloride 106, Carbon Dioxide 21, Anion Gap 6.0, BUN 34 H, Creatinine 1.1 H, Estimated GFR (MDRD) 51 L, Glucose 116 H, Calcium 8.6, Phosphorus 1.9 L, Magnesium 2.0 10/16/20 04:50: WBC 7.5, RBC 3.47 L, Hgb 9.9 L, Hct 29.2 L, MCV 84.1, MCH 28.5, MCHC 33.9, RDW 12.4, Plt Count 168, MPV 10.8, Neut # (Auto) 4.4, Lymph # (Auto) 2.0, Clinch # (Auto) 1.1 H, Eos # (Auto) 0.1, Baso # (Auto) 0.0, Absolute Nucleated RBC 0.00, Nucleated RBC % 0.0 10/15/20 20:57: POC Whole Bld Glucose 201 H 10/15/20 16:59: POC Whole Bld Glucose 138 H 10/15/20 12:02: POC Whole Bld Glucose 112 H 10/15/20 07:49: POC Whole Bld Glucose 119 H 10/15/20 06:06: Estimat Average Glucose 212 H, Hemoglobin A1c % 9.0 H 10/15/20 06:06: VBG pH 7.367, VBG pCO2 35.9 L, VBG pO2 74.9 H, VBG HCO3 20.1 L, VBG Total CO2 21.3 L, VBG O2 Saturation 93.6 H, VBG Base Excess -4.6 L 10/15/20 06:06: Sodium 137, Potassium 4.0, Chloride 108, Carbon Dioxide 20 L, Anion Gap 9.0, BUN 53 H, Creatinine 1.4 H, Estimated GFR (MDRD) 39 L, Glucose 129 H, Calcium 8.3 L, Phosphorus 2.6, Magnesium 2.1, Total Bilirubin 0.6, AST 18, ALT 21, Alkaline Phosphatase 34 L, Total Protein 5.3 L, Albumin 3.0 L, Globulin 2.3, Albumin/Globulin Ratio 1.3, Serum Ketones NEGATIVE 10/15/20 06:06: WBC 7.6, RBC 3.28 L, Hgb 9.5 L, Hct 27.1 L, MCV 82.6, MCH 29.0, MCHC 35.1, RDW 12.1, Plt Count 178, MPV 10.3, Neut # (Auto) 4.7, Lymph # (Auto) 1.6, Clinch # (Auto) 1.2 H, Eos # (Auto) 0.0, Baso # (Auto) 0.0, Absolute Nucleated RBC 0.00, Nucleated RBC % 0.0 10/15/20 04:16: POC Whole Bld Glucose 129 H 10/15/20 03:07: POC Whole Bld Glucose 129 H 10/15/20 01:58: Sodium 135, Potassium 3.2 L, Chloride 105, Carbon Dioxide 21, Anion Gap 9.0, BUN 58 H, Creatinine 1.4 H, Estimated GFR (MDRD) 39 L, Glucose 136 H, Calcium 8.3 L 10/15/20 01:55: POC Whole Bld Glucose 133 H 10/15/20 01:00: POC Whole Bld Glucose 160 H 10/15/20 00:07: Sodium 134 L, Potassium 2.9 L, Chloride 102, Carbon Dioxide 21, Anion Gap 11.0, BUN 56 H, Creatinine 1.4 H, Estimated GFR (MDRD) 39 L, Glucose 242 H, Calcium 8.8 10/15/20 00:07: Troponin I High Sens 16.6 H* 10/14/20 23:51: POC Whole Bld Glucose 230 H 10/14/20 23:01: POC Whole Bld Glucose 261 H 10/14/20 22:18: POC Whole Bld Glucose 344 H 10/14/20 21:21: Sodium 133 L, Potassium 2.9 L, Chloride 98 L, Carbon Dioxide 21, Anion Gap 14.0 H, BUN 58 H, Creatinine 1.4 H, Estimated GFR (MDRD) 39 L, Glucose 458 H, Calcium 8.6 10/14/20 21:14: POC Whole Bld Glucose 447 H 10/14/20 20:11: Urine Opiates Screen NEGATIVE, Ur Oxycodone Screen NEGATIVE, Urine Methadone Screen NEGATIVE, Ur Propoxyphene Screen NEGATIVE, Ur Barbiturates Screen NEGATIVE, Ur Tricyclics Screen NEGATIVE, Ur Phencyclidine Scrn NEGATIVE, Ur Amphetamine Screen NEGATIVE, U Methamphetamines Scrn NEGATIVE, U Benzodiazepines Scrn NEGATIVE, Urine Cocaine Screen NEGATIVE, U Cannabinoids Screen NEGATIVE 10/14/20 18:20: Troponin I High Sens 16.1 H* 10/14/20 18:20: VBG pH 7.364, VBG pCO2 37.8 L, VBG pO2 42.2, VBG HCO3 21.1 L, VBG Total CO2 22.2 L, VBG O2 Saturation 76.3, VBG Base Excess -3.8 L 10/14/20 18:20: Sodium 129 L, Potassium 3.6, Chloride 92 L, Carbon Dioxide 21, Anion Gap 16.0 H, BUN 61 H, Creatinine 1.7 H, Estimated GFR (MDRD) 31 L, Glucose 592 H*, Calcium 8.6, Total Bilirubin 0.9, AST 22, ALT 27, Alkaline Phosphatase 49, Total Protein 6.9, Albumin 3.8, Globulin 3.1, Albumin/Globulin Ratio 1.2, Lipase 49, Serum Ketones SMALL H 10/14/20 18:20: WBC 9.3, RBC 4.24, Hgb 12.4, Hct 34.7 L, MCV 81.8, MCH 29.2, MCHC 35.7, RDW 12.2, Plt Count 226, MPV 10.6, Neut # (Auto) 6.9 H, Lymph # (Auto) 1.0 L, Clinch # (Auto) 1.3 H, Eos # (Auto) 0.1, Baso # (Auto) 0.1, Absolute Nucleated RBC 0.00, Nucleated RBC % 0.0 10/14/20 00:07: Sodium Cancelled, Potassium Cancelled, Chloride Cancelled, Carbon Dioxide Cancelled, Anion Gap Cancelled, BUN Cancelled, Creatinine Cancelled, Estimated GFR (MDRD) Cancelled, Glucose Cancelled, Calcium Cancelled Fish Bones: 10/20/20 04:28 10/20/20 04:28 Home Medications and Allergies Home Medications: Ambulatory Orders Albuterol Sulfate [Proair Hfa Inhaler] 2 - 4 puffs INH PRN PRN 10/15/20 Fluticasone [Flonase] 2 sprays CHAN DAILY PRN 10/15/20 Active Medications Acetaminophen (Acetaminophen 325 Mg Tablet) 650 mg PO Q4HR PRN PRN Reason: Pain 1 to 4 Last Admin: 10/17/20 04:47 Dose: 650 mg Documented by: Amlodipine Besylate (Amlodipine 5 Mg Tablet) 5 mg PO DAILY [facility] Last Admin: 10/19/20 08:13 Dose: 5 mg Documented by: Aspirin (Aspirin Ec 81 Mg Tablet) 81 mg PO DAILY [facility] Last Admin: 10/19/20 08:12 Dose: 81 mg Documented by: Atorvastatin Calcium (Atorvastatin 10 Mg Tablet) 20 mg PO HS [facility] Last Admin: 10/19/20 20:16 Dose: 20 mg Documented by: Duloxetine HCl (Duloxetine 30 Mg Capsule) 60 mg PO DAILY [facility] Last Admin: 10/19/20 08:13 Dose: 60 mg Documented by: Ceftriaxone Sodium 2 gm/ (Sodium Chloride) 100 mls @ 200 mls/hr IV DAILY [facility] Last Infusion: 10/19/20 09:32 Dose: Infused Documented by: Metronidazole (Flagyl 500 Mg/100 Ml) 500 mg in 100 mls @ 100 mls/hr IV Q8H [facility] Last Admin: 10/20/20 06:27 Dose: 100 mls/hr Documented by: Potassium Chloride/Dextrose/Sod Cl (D5.45ns W/20 Meq Kcl) 1,000 mls @ 100 mls/hr IV .Q10H [facility] Stop: 10/20/20 11:59 Last Admin: 10/20/20 02:41 Dose: 100 mls/hr Documented by: Insulin Aspart (Insulin Aspart 300 Unit/3 Ml Pen) 1 - 9 unit SUBQ 0800,1200,1700,2100 [facility]; Protocol Last Admin: 10/19/20 20:53 Dose: 5 unit Documented by: Insulin Glargine (Insulin Glargine 300 Unit/3 Ml Pen) 12 unit SUBQ BID [facility] Last Admin: 10/19/20 20:54 Dose: 12 unit Documented by: Lisinopril (Lisinopril 5 Mg Tablet) 10 mg PO DAILY [facility] Last Admin: 10/19/20 08:13 Dose: 10 mg Documented by: Morphine Sulfate (Morphine 2 Mg/Ml Carpuject) 2 mg IVP Q2HR PRN PRN Reason: PAIN Last Admin: 10/20/20 06:35 Dose: 2 mg Documented by: Ondansetron HCl (Ondansetron 4 Mg/2 Ml Vial) 4 mg IVP Q6HR PRN PRN Reason: Nausea / Vomiting Last Admin: 10/20/20 06:46 Dose: 4 mg Documented by: Oxycodone HCl (Oxycodone 5 Mg Tablet) 5 mg PO Q4HR PRN PRN Reason: Pain 5 to 7 Last Admin: 10/20/20 02:41 Dose: 5 mg Documented by: Pantoprazole Sodium (Pantoprazole 40 Mg Vial) 40 mg IVP QDAC [facility] Last Admin: 10/20/20 06:28 Dose: 40 mg Documented by: Polyethylene Glycol (Polyethylene Glycol 3350 17 Gm Packet) 17 gm PO DAILY [facility] Last Admin: 10/20/20 02:49 Dose: Not Given Documented by: Prochlorperazine Edisylate (Prochlorperazine 10 Mg/2 Ml Vial) 10 mg IVP Q6HR HI N PRN Reason: Nausea / Vomiting Last Admin: 10/20/20 04:25 Dose: 10 mg Documented by: Saccharomyces Boulardii (Saccharomyces Boulardii 250 Mg Capsule) 250 mg PO BIDWM [facility] Sodium Chloride (Sodium Chloride Flush 0.9% 10 Ml Syringe) 10 ml IVP 0100,0900,1700 [facility] Last Admin: 10/20/20 04:26 Dose: 10 ml Documented by: Sodium Chloride (Sodium Chloride Flush 0.9% 10 Ml Syringe) 10 ml IVP PRN PRN PRN Reason: NEEDED PER PROVIDER ORDERS Last Admin: 10/20/20 06:46 Dose: 10 ml Documented by: Albuterol Sulfate [Proair Hfa Inhaler] 2 - 4 puffs INH PRN PRN 10/15/20 Fluticasone [Flonase] 2 sprays CHAN DAILY PRN 10/15/20 Allergies/Adverse Reactions: Allergies Allergy/AdvReac Type Severity Reaction Status Date / Time No Known Drug Allergies Allergy Verified 10/14/20 18:26 Anes History & Medical History - Anesthetic History Anesthesia Complications: reports: No previous complications - Medical History Cardiovascular: reports: Hypertension Pulmonary: reports: Asthma, Sleep apnea Gastrointestinal: reports: GERD, Pancreatitis (while in [place]) Urinary: reports: Incontinence, Renal insuffiency Neuro: reports: Peripheral neuropathy Musculoskeletal: reports: Osteoarthritis, Fibromyalgia, Chronic back pain, Other Endocrine/Autoimmune: reports: Type 1 diabetes Blood Disorders: reports: None Skin: reports: None Smoking Status: Never smoker Other Past Medical History: Cpap - does not use at home - Surgical History Gynecologic: reports: Tubal ligation Exam General: Alert, Mild distress Dental: WNL Mouth Opening: Greater than 4 Fingerbreadths Neck Mobility: Normal Mallampati classification: II Thyromental Distance: greater than 6 cm Respiratory: Lungs clear Cardiovascular: Regular rate Plan Anesthesia Type: MAC Consent for Procedure(s) Verified and Reviewed: Yes Code Status: Attempt Resuscitation ASA classification: 3-Severe systemic disease Is this case an emergency?: No
[2020-10-20] MEDS ORDERED: PROPOFOL 500 MG/50 ML 500 MG/50 ML VIAL ONE (07:49)
[2020-10-20] MEDS ORDERED: LIDOCAINE-MPF 2% 5 ML VIAL ONE (07:49)
[2020-10-20] MEDS ORDERED: hydrALAZINE INJ 20 MG/ML VIAL IVP PRN (07:55)
[2020-10-20] MEDS ORDERED: ONDANSETRON 4 MG/2 ML VIAL ONE (07:57)
[2020-10-20] MEDS ORDERED: MIDAZOLAM 2 MG/2 ML VIAL ONE (08:00)
[2020-10-20] MEDS ORDERED: KETAMINE 500 MG/10 ML VIAL ONE (08:00)
[2020-10-20 08:02] LABS: ABSOLUTE RETICS # AUTO 0.067 10^6/uL (0.020-0.110); RED BLOOD COUNT 3.11 10^6/uL (4.20-5.40); RETICULOCYTE COUNT % (AUTO) 2.16 % (0.5-2.3)
[2020-10-20] MEDS: INSULIN ASPART 300 UNIT/3 ML PEN SUBQ SCH ×4 (08:18→21:01)
[2020-10-20 08:33] LABS: % IRON SATURATION 13 % (20-50); IRON 28 ug/dL (28-170); TOTAL IRON BINDING CAPACITY 214 ug/dL (250-450); TRANSFERRIN 153 mg/dL (192-382)
[2020-10-20] MEDS: cefTRIAXone 2 GM in SODIUM CHLORIDE 0.9% MINIBAG 100 ML IV SCH (09:31)
--- NOTE | 2020-10-20 10:03 | ANESTHESIA POST OP EVALUATION ---
Anesthesia Post Eval - Post Anesthesia Eval Vitals: Last Vital Signs Temp 36.9 C 10/20/20 09:24 Pulse 96 10/20/20 09:24 Resp 18 10/20/20 09:24 BP 153/84 H 10/20/20 09:24 Pulse Ox 95 10/20/20 09:24 CV Function Including HR & BP: positive: Stable Pain Control: positive: Satisfactory Nausea & Vomiting: positive: Negative Mental Status: positive: Patient Participates Respiratory Status: Airway Patent Hydration Status: Satisfactory Anesthesia Complications: positive: None
[2020-10-20] MEDS: SACCHAROMYCES BOULARDII 250 MG CAPSULE PO SCH ×2 (11:18→16:52)
[2020-10-20] MEDS: lisinopriL 5 MG TABLET PO SCH (11:18)
[2020-10-20] MEDS: amLODIPine 5 MG TABLET PO SCH (11:19)
[2020-10-20] MEDS: DULoxetine 30 MG CAPSULE PO SCH (11:21)
[2020-10-20] MEDS: INSULIN GLARGINE 300 UNIT/3 ML PEN SUBQ SCH ×2 (11:21→21:00)
[2020-10-20] MEDS: ERYTHROMYCIN BASE DR 250 MG TABLET PO SCH ×3 (11:33→23:30)
[2020-10-20] MEDS: PREGABALIN 100 MG CAPSULE PO SCH ×3 (11:33→21:00)
[2020-10-20] MEDS: ASPIRIN EC 81 MG TABLET PO SCH (11:33)
--- NOTE | 2020-10-20 14:18 | PROVIDER PROGRESS NOTE ---
Assessment/Plan - Problem List (1) Nausea and vomiting Assessment/Plan: Patient still has nausea and vomiting and complain of abdominal pain which is slight reduced compared with previous. Patient has history of gastroparesis and uncontrolled diabetic. Patient had EGD and colonoscopy on today morning Which was unremarkable per surgeon's report. It is likely caused by patient's gastroparesis. Because pt has hx of psychomotor, we continue hold Reglan and start on Erythomycin. antioemesis as needed. start on full liquid diet, continue protonix. (2) Colitis Assessment/Plan: 10/20 Patient had EGD and colonoscopy on today morning Which was unremarkable per surgeon's report. Patient still complain abdominal pain but reduced from previous. Continue antibiotics, add probiotics and pain control. Patient still complain she had 9 out of 10 pain at lower left quadrant. CT was obtained which was consistent with colitis most prominent in the proximal colon. plan to have colonoscopy given the severity of her pain. surgeon was consulted. Continue antibiotics, continue pain control. (3)gastroparesis 10/20 Patient has history of gastroparesis and uncontrolled diabetic. Patient had EGD and colonoscopy on today morning Which was unremarkable per surgeon's report. It is likely caused by patient's gastroparesis. Because pt has hx of psychomotor, we continue hold Reglan and start on Erythomycin. (4) Insulin dependent diabetes mellitus Impression: Patient has A1c 9, patient's hypoglycemia is resolved. We will continue sliding scale (5) Hypertension stable, continue her current antihypertensives. (6) Cognitive deficits Impression: This is a chronic problem for her. She does have mild cognitive impairment and psychomotor slowing which has been an ongoing problem for her. We have recommended outpatient follow-up with neurology for further work-up including MRI. (7) Fibromyalgia Impression: We are continuing her home Cymbalta. (8) Diabetic ketoacidosis Impression: This has resolved. This was present on admission. 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 Work-up including EKG, chest x-ray, troponin was unremarkable. - Current Meds Current Meds: Current Medications Generic Name Dose Route Start Last Admin Trade Name Freq PRN Reason Stop Dose Admin Acetaminophen 650 mg 10/14/20 21:02 10/17/20 04:47 Acetaminophen 325 Mg Tablet PO 650 mg Q4HR PRN Administration Pain 1 to 4 Amlodipine Besylate 10 mg 10/20/20 09:00 10/20/20 11:19 Amlodipine 5 Mg Tablet PO 10 mg DAILY MEL Administration Aspirin 81 mg 10/16/20 09:00 10/20/20 11:33 Aspirin Ec 81 Mg Tablet PO 81 mg DAILY MEL Administration Atorvastatin Calcium 20 mg 10/15/20 21:00 10/19/20 20:16 Atorvastatin 10 Mg Tablet PO 20 mg HS MEL Administration Duloxetine HCl 60 mg 10/16/20 09:00 10/20/20 11:21 Duloxetine 30 Mg Capsule PO 60 mg DAILY MEL Administration Erythromycin 250 mg 10/20/20 12:00 10/20/20 11:[address] 250 Mg Tablet PO 250 mg Q6HR MEL Administration Ceftriaxone Sodium 2 gm/ 100 mls @ 200 mls/hr 10/19/20 09:00 10/20/20 11:22 Sodium Chloride IV Infused DAILY MEL Infusion Metronidazole 500 mg in 100 mls @ 100 mls/hr 10/18/20 15:00 10/20/20 07:27 Flagyl 500 Mg/100 Ml IV Infused Q8H MEL Infusion Insulin Aspart 1 - 9 unit 10/19/20 17:00 10/20/20 12:02 Insulin Aspart 300 Unit/3 Ml Pen SUBQ 1 unit 0800,1200,1700,2100 [facility] Administration Protocol Insulin Glargine 12 unit 10/15/20 02:00 10/20/20 11:21 Insulin Glargine 300 Unit/3 Ml Pen SUBQ Not Given BID MEL Lisinopril 10 mg 10/17/20 09:00 10/20/20 11:18 Lisinopril 5 Mg Tablet PO 10 mg DAILY MEL Administration Ondansetron HCl 4 mg 10/14/20 21:02 10/20/20 13:11 Ondansetron 4 Mg/2 Ml Vial IVP 4 mg Q6HR PRN Administration Nausea / Vomiting Oxycodone HCl 5 mg 10/14/20 21:02 10/20/20 02:41 Oxycodone 5 Mg Tablet PO 5 mg Q4HR PRN Administration Pain 5 to 7 Pantoprazole Sodium 40 mg 10/15/20 07:00 10/20/20 06:28 Pantoprazole 40 Mg Vial IVP 40 mg QDAC MEL Administration Polyethylene Glycol 17 gm 10/18/20 09:00 10/20/20 02:49 Polyethylene Glycol 3350 17 Gm Packet PO Not Given DAILY MEL Pregabalin 100 mg 10/20/20 10:42 10/20/20 13:11 Pregabalin 100 Mg Capsule PO 100 mg TID MEL Administration Prochlorperazine Edisylate 10 mg 10/14/20 21:02 10/20/20 04:25 Prochlorperazine 10 Mg/2 Ml Vial IVP 10 mg Q6HR PRN Administration Nausea / Vomiting Saccharomyces Boulardii 250 mg 10/20/20 08:00 10/20/20 11:18 Saccharomyces Boulardii 250 Mg Capsule PO Not Given BIDWM MEL Sodium Chloride 10 ml 10/15/20 01:00 10/20/20 04:26 Sodium Chloride Flush 0.9% 10 Ml Syringe IVP 10 ml 0100,0900,1700 MEL Administration Sodium Chloride 10 ml 10/14/20 21:02 10/20/20 06:46 Sodium Chloride Flush 0.9% 10 Ml Syringe IVP 10 ml PRN PRN Administration NEEDED PER PROVIDER ORDERS - Lab Result Fish Bone Diagrams: 10/20/20 04:28 10/20/20 04:28 - Additional Planning My Orders: My Active Orders 10/19/20 17:00 Insulin Aspart [NovoLOG] 1 - 9 unit SUBQ 0800,1200,1700,2100 10/20/20 Breakfast Soft (Low Fiber) Diet [DIET] 10/20/20 07:55 hydrALAZINE INJ [Apresoline Inj] 10 mg IVP Q4H PRN 10/20/20 08:00 Saccharomyces Boulardii [Florastor] 250 mg PO BIDWM 10/20/20 09:00 amLODIPine [Norvasc] 10 mg PO DAILY 10/20/20 10:42 Pregabalin [Lyrica] 100 mg PO TID 10/20/20 12:00 Erythromycin [Jj-Tab] 250 mg PO Q6HR 10/20/20 14:15 Out of bed 3+ hours today [RC] TID 10/21/20 05:00 BMP - BASIC METABOLIC PANEL [CHEM] DAILYLAB CBC - COMP BLD CT W/AUTO DIFF [HEME] DAILYLAB 10/22/20 05:00 BMP - BASIC METABOLIC PANEL [CHEM] DAILYLAB CBC - COMP BLD CT W/AUTO DIFF [HEME] DAILYLAB 10/23/20 05:00 BMP - BASIC METABOLIC PANEL [CHEM] DAILYLAB CBC - COMP BLD CT W/AUTO DIFF [HEME] DAILYLAB 10/24/20 05:00 BMP - BASIC METABOLIC PANEL [CHEM] DAILYLAB CBC - COMP BLD CT W/AUTO DIFF [HEME] DAILYLAB 10/25/20 05:00 BMP - BASIC METABOLIC PANEL [CHEM] DAILYLAB CBC - COMP BLD CT W/AUTO DIFF [HEME] DAILYLAB 10/26/20 05:00 BMP - BASIC METABOLIC PANEL [CHEM] DAILYLAB CBC - COMP BLD CT W/AUTO DIFF [HEME] DAILYLAB Subjective - Subjective Patient Reports: Abdominal Pain, Nausea Objective Vital Signs: Vital Signs - 24 hr 10/19/20 10/19/20 10/19/20 16:04 21:00 23:58 Temperature 36.6 C 36.7 C 36.7 C Heart Rate [ 95 92 98 Brachial] Respiratory 16 16 20 Rate Blood Pressure 127/71 144/77 H [Left Brachial artery] Blood Pressure 157/83 H [Right Brachial artery] O2 Saturation 95 97 96 10/20/20 10/20/20 10/20/20 07:44 08:40 08:59 Temperature 37.3 C 36.6 C 37.1 C Heart Rate [ 102 H 97 97 Brachial] Respiratory 16 20 20 Rate Blood Pressure 185/86 H 141/79 H 141/85 H [Left Brachial artery] Blood Pressure 195/97 H [Right Brachial artery] O2 Saturation 93 96 96 10/20/20 10/20/20 10/20/20 09:24 10:24 11:24 Temperature 36.9 C 37 C 36.7 C Heart Rate [ 96 97 91 Brachial] Respiratory 18 18 20 Rate Blood Pressure 153/84 H 151/85 H [Left Brachial artery] Blood Pressure 157/87 H [Right Brachial artery] O2 Saturation 95 95 95 Oxygen O2 Source Room air I&O (Last 24 Hrs): Intake and Output Totals x24h 10/18/20 10/19/20 10/20/20 23:59 23:59 23:59 Intake Total 4381.334 3180 2910 Output Total 901 Balance 4381.334 3180 2008 General: Alert, Cooperative, No acute distress HEENT: Atraumatic, PERRLA Neck: Supple Lymphatic: no adenopathy Neuro: Alert, Non Focal Cardiovascular: Regular rate, Normal S1, Normal S2 Respiratory: Chest non-tender, No respiratory distress Abdomen: Normal bowel sounds, Soft - Results Results: Laboratory Results WBC 8.2 x10^3/uL (4.8-10.8) 10/20/20 04:28 RBC 3.11 10^6/uL (4.20-5.40) L 10/20/20 04:28 RBC 3.16 10^6/uL (4.20-5.40) L 10/20/20 04:28 Hgb 9.0 g/dL (12.0-16.0) L 10/20/20 04:28 Hct 26.5 % (37.0-47.0) L 10/20/20 04:28 MCV 83.9 fL (81.0-99.0) 10/20/20 04:28 MCH 28.5 pg (27.0-31.0) 10/20/20 04:28 MCHC 34.0 g/dL (32.0-36.0) 10/20/20 04:28 RDW 12.3 % (12.0-15.0) 10/20/20 04:28 Plt Count 224 10^3/uL (130-450) 10/20/20 04:28 MPV 10.4 fL (7.9-10.8) 10/20/20 04:28 Reticulocyte % (Auto) 2.16 % (0.5-2.3) 10/20/20 04:28 Neut # (Auto) 4.9 10^3/uL (1.5-6.6) 10/20/20 04:28 Lymph # (Auto) 2.0 10^3/uL (1.5-3.5) 10/20/20 04:28 Stark # (Auto) 0.9 10^3/uL (0.0-1.0) 10/20/20 04:28 Eos # (Auto) 0.3 10^3/uL (0.0-0.7) 10/20/20 04:28 Baso # (Auto) 0.0 10^3/uL (0.0-0.1) 10/20/20 04:28 Absolute Nucleated RBC 0.00 x10^3/uL 10/20/20 04:28 Nucleated RBC % 0.0 /100WBC 10/20/20 04:28 Absolute Retic 0.067 10^6/uL (0.020-0.110) 10/20/20 04:28 VBG pH 7.367 (7.31-7.41) 10/15/20 06:06 VBG pCO2 35.9 mmHg (41-51) L 10/15/20 06:06 VBG pO2 74.9 mmHg (25-47) H 10/15/20 06:06 VBG HCO3 20.1 mmol/L (23-28) L 10/15/20 06:06 VBG Total CO2 21.3 mmol/L (24-29) L 10/15/20 06:06 VBG O2 Saturation 93.6 % (60-80) H 10/15/20 06:06 VBG Base Excess -4.6 mmol/L (-2 - +2) L 10/15/20 06:06 Sodium 140 mmol/L (135-145) 10/20/20 04:28 Potassium 3.5 mmol/L (3.5-5.0) 10/20/20 04:28 Chloride 101 mmol/L (101-111) 10/20/20 04:28 Carbon Dioxide 22 mmol/L (21-32) 10/20/20 04:28 Anion Gap 17.0 (6-13) H 10/20/20 04:28 BUN 17 mg/dL (6-20) 10/20/20 04:28 Creatinine 1.2 mg/dL (0.4-1.0) H 10/20/20 04:28 Estimated GFR (MDRD) 46 (>89) L 10/20/20 04:28 Glucose 147 mg/dL (70-100) H 10/20/20 04:28 POC Whole Bld Glucose 177 mg/dL (70 - 100) H 10/20/20 11:05 Estimat Average Glucose 212 mg/dL (70-100) H 10/15/20 06:06 Hemoglobin A1c % 9.0 % (4.27-6.07) H 10/15/20 06:06 Calcium 8.7 mg/dL (8.5-10.3) 10/20/20 04:28 Phosphorus 3.3 mg/dL (2.5-4.6) 10/17/20 07:30 Magnesium 1.8 mg/dL (1.7-2.8) 10/19/20 05:30 Iron 28 ug/dL (28-170) 10/20/20 04:28 TIBC 214 ug/dL (250-450) L 10/20/20 04:28 % Saturation 13 % (20-50) L 10/20/20 04:28 Transferrin 153 mg/dL (192-382) L 10/20/20 04:28 Ferritin 102.0 ng/mL (11.0-306.8) 10/20/20 04:28 Total Bilirubin 0.6 mg/dL (0.2-1.0) 10/15/20 06:06 AST 18 IU/L (10-42) 10/15/20 06:06 ALT 21 IU/L (10-60) 10/15/20 06:06 Alkaline Phosphatase 34 IU/L (42-121) L 10/15/20 06:06 Lactate Dehydrogenase 224 IU/L (91-225) 10/20/20 04:28 Troponin I High Sens 7.3 ng/L (2.3-14.8) 10/16/20 10:42 C-Reactive Protein < 1.0 mg/dL (0-1.0) 10/19/20 05:30 Total Protein 5.3 g/dL (6.7-8.2) L 10/15/20 06:06 Albumin 3.0 g/dL (3.2-5.5) L 10/15/20 06:06 Globulin 2.3 g/dL (2.1-4.2) 10/15/20 06:06 Albumin/Globulin Ratio 1.3 (1.0-2.2) 10/15/20 06:06 Lipase 49 U/L (22-51) 10/14/20 18:20 Vitamin B12 2929 pg/mL (180-914) H 10/20/20 04:28 Urine Color YELLOW 10/14/20 20:11 Urine Clarity CLEAR (CLEAR) 10/14/20 20:11 Urine pH 6.0 PH (5.0-7.5) 10/14/20 20:11 Ur Specific [place] 1.020 (1.002-1.030) 10/14/20 20:11 Urine Protein 100 mg/dL (NEGATIVE) H 10/14/20 20:11 Urine Glucose (UA) >=1000 mg/dL (NEGATIVE) H 10/14/20 20:11 Urine Ketones 15 mg/dL (NEGATIVE) H 10/14/20 20:11 Urine Occult Blood SMALL (NEGATIVE) H 10/14/20 20:11 Urine Nitrite NEGATIVE (NEGATIVE) 10/14/20 20:11 Urine Bilirubin NEGATIVE (NEGATIVE) 10/14/20 20:11 Urine Urobilinogen 0.2 (NORMAL) E.U./dL (NORMAL) 10/14/20 20:11 Ur Leukocyte Esterase NEGATIVE (NEGATIVE) 10/14/20 20:11 Urine RBC 0-5 /HPF (0-5) 10/14/20 20:11 Urine WBC 4-5 /HPF (0-5) 10/14/20 20:11 Ur Squamous Epith Cells FEW Squamous (<= Few) 10/14/20 20:11 Urine Bacteria Few /HPF (None Seen) 10/14/20 20:11 Ur Microscopic Review INDICATED 10/14/20 20:11 Urine Culture Comments NOT INDICATED 10/14/20 20:11 Nasal Adenovirus (PCR) NOT DETECTED 10/14/20 20:44 Nasal B. parapertussis DNA (PCR) NOT DETECTED 10/14/20 20:44 Nasal Coronavir 229E PCR NOT DETECTED 10/14/20 20:44 Nasal Coronavir HKU1 PCR NOT DETECTED 10/14/20 20:44 Nasal Coronavir NL63 PCR NOT DETECTED 10/14/20 20:44 Nasal Coronavir OC43 PCR NOT DETECTED 10/14/20 20:44 Nasal Enterovir/Rhinovir PCR DETECTED A 10/14/20 20:44 Nasal Influenza B PCR NOT DETECTED 10/14/20 20:44 Nasal Influenza A PCR NOT DETECTED 10/14/20 20:44 Nasal Parainfluen 1 PCR NOT DETECTED 10/14/20 20:44 Nasal Parainfluen 2 PCR NOT DETECTED 10/14/20 20:44 Nasal Parainfluen 3 PCR NOT DETECTED 10/14/20 20:44 Nasal Parainfluen 4 PCR NOT DETECTED 10/14/20 20:44 Nasal RSV (PCR) NOT DETECTED 10/14/20 20:44 Nasal Screen MRSA (PCR) NEGATIVE (NEGATIVE) 10/14/20 22:10 Nasal B.pertussis DNA PCR NOT DETECTED 10/14/20 20:44 Nasal C.pneumoniae (PCR) NOT DETECTED 10/14/20 20:44 Chan Human Metapneumo PCR NOT DETECTED 10/14/20 20:44 Nasal M.pneumoniae (PCR) NOT DETECTED 10/14/20 20:44 Nasal SARS-CoV-2 (PCR) NOT DETECTED 10/14/20 20:44 Urine Opiates Screen NEGATIVE (NEGATIVE) 10/14/20 20:11 Ur Oxycodone Screen NEGATIVE (NEGATIVE) 10/14/20 20:11 Urine Methadone Screen NEGATIVE (NEGATIVE) 10/14/20 20:11 Ur Propoxyphene Screen NEGATIVE (NEGATIVE) 10/14/20 20:11 Ur Barbiturates Screen NEGATIVE (NEGATIVE) 10/14/20 20:11 Ur Tricyclics Screen NEGATIVE (NEGATIVE) 10/14/20 20:11 Ur Phencyclidine Scrn NEGATIVE (NEGATIVE) 10/14/20 20:11 Ur Amphetamine Screen NEGATIVE (NEGATIVE) 10/14/20 20:11 U Methamphetamines Scrn NEGATIVE (NEGATIVE) 10/14/20 20:11 U Benzodiazepines Scrn NEGATIVE (NEGATIVE) 10/14/20 20:11 Urine Cocaine Screen NEGATIVE (NEGATIVE) 10/14/20 20:11 U Cannabinoids Screen NEGATIVE (NEGATIVE) 10/14/20 20:11 Serum Ketones NEGATIVE (NEGATIVE) 10/15/20 06:06 ABX Reporting Has patient been on IV antibiotics over the past 48 hours?: Yes Current Medications - Current Medications Current Medications: Active Medications Acetaminophen (Acetaminophen 325 Mg Tablet) 650 mg PO Q4HR PRN PRN Reason: Pain 1 to 4 Last Admin: 10/17/20 04:47 Dose: 650 mg Documented by: Amlodipine Besylate (Amlodipine 5 Mg Tablet) 10 mg PO DAILY [facility] Last Admin: 10/20/20 11:19 Dose: 10 mg Documented by: Aspirin (Aspirin Ec 81 Mg Tablet) 81 mg PO DAILY [facility] Last Admin: 10/20/20 11:33 Dose: 81 mg Documented by: Atorvastatin Calcium (Atorvastatin 10 Mg Tablet) 20 mg PO HS [facility] Last Admin: 10/19/20 20:16 Dose: 20 mg Documented by: Duloxetine HCl (Duloxetine 30 Mg Capsule) 60 mg PO DAILY [facility] Last Admin: 10/20/20 11:21 Dose: 60 mg Documented by: Erythromycin (Erythromycin Base Dr 250 Mg Tablet) 250 mg PO Q6HR [facility] Last Admin: 10/20/20 11:33 Dose: 250 mg Documented by: Hydralazine HCl (Hydralazine Inj 20 Mg/Ml Vial) 10 mg IVP Q4H PRN PRN Reason: Hypertensive Emergency Ceftriaxone Sodium 2 gm/ (Sodium Chloride) 100 mls @ 200 mls/hr IV DAILY [facility] Last Infusion: 10/20/20 11:22 Dose: Infused Documented by: Metronidazole (Flagyl 500 Mg/100 Ml) 500 mg in 100 mls @ 100 mls/hr IV Q8H [facility] Last Infusion: 10/20/20 07:27 Dose: Infused Documented by: Insulin Aspart (Insulin Aspart 300 Unit/3 Ml Pen) 1 - 9 unit SUBQ 0800,1200,1700,2100 [facility]; Protocol Last Admin: 10/20/20 12:02 Dose: 1 unit Documented by: Insulin Glargine (Insulin Glargine 300 Unit/3 Ml Pen) 12 unit SUBQ BID [facility] Last Admin: 10/20/20 11:21 Dose: Not Given Documented by: Lisinopril (Lisinopril 5 Mg Tablet) 10 mg PO DAILY [facility] Last Admin: 10/20/20 11:18 Dose: 10 mg Documented by: Ondansetron HCl (Ondansetron 4 Mg/2 Ml Vial) 4 mg IVP Q6HR PRN PRN Reason: Nausea / Vomiting Last Admin: 10/20/20 13:11 Dose: 4 mg Documented by: Oxycodone HCl (Oxycodone 5 Mg Tablet) 5 mg PO Q4HR PRN PRN Reason: Pain 5 to 7 Last Admin: 10/20/20 02:41 Dose: 5 mg Documented by: Pantoprazole Sodium (Pantoprazole 40 Mg Vial) 40 mg IVP QDAC [facility] Last Admin: 10/20/20 06:28 Dose: 40 mg Documented by: Polyethylene Glycol (Polyethylene Glycol 3350 17 Gm Packet) 17 gm PO DAILY [facility] Last Admin: 10/20/20 02:49 Dose: Not Given Documented by: Pregabalin (Pregabalin 100 Mg Capsule) 100 mg PO TID [facility] Last Admin: 10/20/20 13:11 Dose: 100 mg Documented by: Prochlorperazine Edisylate (Prochlorperazine 10 Mg/2 Ml Vial) 10 mg IVP Q6HR PRN PRN Reason: Nausea / Vomiting Last Admin: 10/20/20 04:25 Dose: 10 mg Documented by: Saccharomyces Boulardii (Saccharomyces Boulardii 250 Mg Capsule) 250 mg PO BIDWM [facility] Last Admin: 10/20/20 11:18 Dose: Not Given Documented by: Sodium Chloride (Sodium Chloride Flush 0.9% 10 Ml Syringe) 10 ml IVP 0100,0900 ,1700 [facility] Last Admin: 10/20/20 04:26 Dose: 10 ml Documented by: Sodium Chloride (Sodium Chloride Flush 0.9% 10 Ml Syringe) 10 ml IVP PRN PRN PRN Reason: NEEDED PER PROVIDER ORDERS Last Admin: 10/20/20 06:46 Dose: 10 ml Documented by: Albuterol Sulfate [Proair Hfa Inhaler] 2 - 4 puffs INH PRN PRN 10/15/20 Fluticasone [Flonase] 2 sprays CHAN DAILY PRN 10/15/20
[2020-10-20] MEDS: ATORVASTATIN 10 MG TABLET PO SCH (21:00)
[2020-10-21 04:43] LABS: BASOPHILS % (AUTO) 0.5 %; EOSINOPHILS # (AUTO) 0.2 10^3/uL (0.0-0.7); EOSINOPHILS % (AUTO) 3.7 %; HCT - HEMATOCRIT 25.2 % (37.0-47.0); HGB - HEMOGLOBIN 8.8 g/dL (12.0-16.0); LYMPHOCYTES # (AUTO) 1.6 10^3/uL (1.5-3.5); LYMPHOCYTES % (AUTO) 25.1 %; MEAN CORPUSCULAR HEMOGLOBIN 29.3 pg (27.0-31.0); MEAN CORPUSCULAR HGB CONC 34.9 g/dL (32.0-36.0); MEAN PLATELET VOLUME 10.4 fL (7.9-10.8); MONOCYTES # (AUTO) 0.8 10^3/uL (0.0-1.0); MONOCYTES % (AUTO) 11.6 %; NEUTROPHILS # (AUTO) 3.8 10^3/uL (1.5-6.6); NEUTROPHILS % (AUTO) 58.6 %; PLT - PLATELET COUNT 236 10^3/uL (130-450); RED CELL DISTRIBUTION WIDTH 12.4 % (12.0-15.0); WHITE BLOOD COUNT 6.5 x10^3/uL (4.8-10.8)
[2020-10-21 04:52] LABS: CALCIUM 8.5 mg/dL (8.5-10.3); CREATININE 1.2 mg/dL (0.4-1.0); POTASSIUM 3.5 mmol/L (3.5-5.0)
[2020-10-21] MEDS: PANTOPRAZOLE 40 MG VIAL IVP SCH (06:02)
[2020-10-21] MEDS: SODIUM CHLORIDE FLUSH 0.9% 10 ML SYRINGE IVP PRN (06:02)
[2020-10-21] MEDS: ERYTHROMYCIN BASE DR 250 MG TABLET PO SCH ×3 (06:02→17:49)
[2020-10-21] MEDS: PREGABALIN 100 MG CAPSULE PO SCH ×3 (06:02→21:23)
[2020-10-21] MEDS: metroNIDAZOLE 500 MG/100 ML 500 MG/100 ML BAG IV SCH ×3 (06:02→22:47)
[2020-10-21] MEDS ORDERED: KETOROLAC 0.45% OPHTH DROPS ONE (06:31)
[2020-10-21] MEDS ORDERED: PHENYLEPHRINE 2.5% OPHTH 2 ML DROPS ONE (06:32)
[2020-10-21] MEDS ORDERED: PROPARACAINE 0.5% OPHTH DROPS 15 ML ONE (06:32)
[2020-10-21] MEDS: INSULIN GLARGINE 300 UNIT/3 ML PEN SUBQ SCH ×2 (08:17→21:22)
[2020-10-21] MEDS: INSULIN ASPART 300 UNIT/3 ML PEN SUBQ SCH ×4 (08:17→21:22)
[2020-10-21] MEDS: amLODIPine 5 MG TABLET PO SCH (09:05)
[2020-10-21] MEDS: lisinopriL 5 MG TABLET PO SCH (09:05)
[2020-10-21] MEDS: SACCHAROMYCES BOULARDII 250 MG CAPSULE PO SCH ×2 (09:05→16:32)
[2020-10-21] MEDS: ASPIRIN EC 81 MG TABLET PO SCH (09:05)
[2020-10-21] MEDS: FERROUS GLUCONATE 324 MG TABLET PO SCH (09:08)
[2020-10-21] MEDS: cefTRIAXone 2 GM in SODIUM CHLORIDE 0.9% MINIBAG 100 ML IV SCH (09:08)
[2020-10-21] MEDS: DULoxetine 30 MG CAPSULE PO SCH (09:08)
[2020-10-21] MEDS: polyethylene glycoL 3350 17 GM PACKET PO SCH (09:09)
[2020-10-21] MEDS: SODIUM CHLORIDE FLUSH 0.9% 10 ML SYRINGE IVP SCH ×2 (09:09→16:24)
[2020-10-21] MEDS: ACETAMINOPHEN 325 MG TABLET PO PRN (13:19)
--- NOTE | 2020-10-21 14:02 | PROVIDER PROGRESS NOTE ---
Assessment/Plan - Problem List (1) Orthostatic dizziness Assessment/Plan: Patient was reported to have orthostatic dizziness, orthostatic blood pressure did show positive. pt report she did feel dizziness when she stand up. Educate pt how to prevention of fall, order IVF for pt. hold pt's blood pressure meds Lisinopril, since pt also had hx of CKD, recheck orthostatic BP, continue vital sign monitor (2) Nausea and vomiting Assessment/Plan: 10/21 pt report she feel better control, continue Erythomycin. antioemesis as needed. Patient still has nausea and vomiting and complain of abdominal pain which is slight reduced compared with previous. Patient has history of gastroparesis and uncontrolled diabetic. Patient had EGD and colonoscopy on today morning Which was unremarkable per surgeon's report. It is likely caused by patient's gastroparesis. Because pt has hx of psychomotor, we continue hold Reglan and start on Erythomycin. antioemesis as needed. start on full liquid diet, continue protonix. (3) Colitis Assessment/Plan: 10/21 pt report her abdominal pain is good control, will switch IV antibiotics on tomorrow, continue probiotics 10/20 Patient had EGD and colonoscopy on today morning Which was unremarkable per surgeon's report. Patient still complain abdominal pain but reduced from previous. Continue antibiotics, add probiotics and pain control. Patient still complain she had 9 out of 10 pain at lower left quadrant. CT was obtained which was consistent with colitis most prominent in the proximal colon. plan to have colonoscopy given the severity of her pain. surgeon was consulted. Continue antibiotics, continue pain control. (4)gastroparesis 10/21 improved, continue strict glucose control, continue Erythomycin. antioemesis as needed. 10/20 Patient has history of gastroparesis and uncontrolled diabetic. Patient had EGD and colonoscopy on today morning Which was unremarkable per surgeon's report. It is likely caused by patient's gastroparesis. Because pt has hx of psychomotor, we continue hold Reglan and start on Erythomycin. (5) Insulin dependent diabetes mellitus Impression: 10/21 glucose is slight high, continue home lantus, and increase slide scale to high level Patient has A1c 9, patient's hypoglycemia is resolved. We will continue sliding scale (6) Hypertension stable, continue her current antihypertensives. (7) Cognitive deficits Impression: This is a chronic problem for her. She does have mild cognitive impairment and psychomotor slowing which has been an ongoing problem for her. We have recommended outpatient follow-up with neurology for further work-up including MRI. (8) Fibromyalgia Impression: We are continuing her home Cymbalta. (9) Diabetic ketoacidosis Impression: This has resolved. This was present on admission. 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 Work-up including EKG, chest x-ray, troponin was unremarkable. - Current Meds Current Meds: Current Medications Generic Name Dose Route Start Last Admin Trade Name Freq PRN Reason Stop Dose Admin Acetaminophen 650 mg 10/14/20 21:02 10/21/20 13:19 Acetaminophen 325 Mg Tablet PO 650 mg Q4HR PRN Administration Pain 1 to 4 Amlodipine Besylate 10 mg 10/20/20 09:00 10/21/20 09:05 Amlodipine 5 Mg Tablet PO 10 mg DAILY MEL Administration Aspirin 81 mg 10/16/20 09:00 10/21/20 09:05 Aspirin Ec 81 Mg Tablet PO 81 mg DAILY MEL Administration Atorvastatin Calcium 20 mg 10/15/20 21:00 10/20/20 21:00 Atorvastatin 10 Mg Tablet PO 20 mg HS MEL Administration Duloxetine HCl 60 mg 10/16/20 09:00 10/21/20 09:08 Duloxetine 30 Mg Capsule PO 60 mg DAILY MEL Administration Erythromycin 250 mg 10/20/20 12:00 10/21/20 12:[address] 250 Mg Tablet PO 250 mg Q6HR MEL Administration Ferrous Gluconate 324 mg 10/21/20 08:00 10/21/20 09:08 Ferrous Gluconate 324 Mg Tablet PO 324 mg DAILYWM MEL Administration Ceftriaxone Sodium 2 gm/ 100 mls @ 200 mls/hr 10/19/20 09:00 10/21/20 09:43 Sodium Chloride IV Infused DAILY MEL Infusion Metronidazole 500 mg in 100 mls @ 100 mls/hr 10/18/20 15:00 10/21/20 07:06 Flagyl 500 Mg/100 Ml IV Infused Q8H MEL Infusion Insulin Aspart 1 - 9 unit 10/19/20 17:00 10/21/20 12:03 Insulin Aspart 300 Unit/3 Ml Pen SUBQ Not Given 0800,1200,1700,2100 [facility] Protocol Insulin Glargine 12 unit 10/15/20 02:00 10/21/20 08:17 Insulin Glargine 300 Unit/3 Ml Pen SUBQ 12 unit BID MEL Administration Lisinopril 10 mg 10/17/20 09:00 10/21/20 09:05 Lisinopril 5 Mg Tablet PO 10 mg DAILY MEL Administration Ondansetron HCl 4 mg 10/14/20 21:02 10/20/20 13:11 Ondansetron 4 Mg/2 Ml Vial IVP 4 mg Q6HR PRN Administration Nausea / Vomiting Oxycodone HCl 5 mg 10/14/20 21:02 10/20/20 02:41 Oxycodone 5 Mg Tablet PO 5 mg Q4HR PRN Administration Pain 5 to 7 Pantoprazole Sodium 40 mg 10/15/20 07:00 10/21/20 06:02 Pantoprazole 40 Mg Vial IVP 40 mg QDAC MEL Administration Polyethylene Glycol 17 gm 10/18/20 09:00 10/21/20 09:09 Polyethylene Glycol 3350 17 Gm Packet PO Not Given DAILY MEL Pregabalin 100 mg 10/20/20 10:42 10/21/20 13:12 Pregabalin 100 Mg Capsule PO 100 mg TID MEL Administration Prochlorperazine Edisylate 10 mg 10/14/20 21:02 10/20/20 04:25 Prochlorperazine 10 Mg/2 Ml Vial IVP 10 mg Q6HR PRN Administration Nausea / Vomiting Saccharomyces Boulardii 250 mg 10/20/20 08:00 10/21/20 09:05 Saccharomyces Boulardii 250 Mg Capsule PO 250 mg BIDWM MEL Administration Sodium Chloride 10 ml 10/15/20 01:00 10/21/20 09:09 Sodium Chloride Flush 0.9% 10 Ml Syringe IVP 10 ml 0100,0900,1700 MEL Administration Sodium Chloride 10 ml 10/14/20 21:02 10/21/20 06:02 Sodium Chloride Flush 0.9% 10 Ml Syringe IVP 10 ml PRN PRN Administration NEEDED PER PROVIDER ORDERS - Lab Result Fish Bone Diagrams: 10/21/20 04:12 10/21/20 04:12 - Additional Planning My Orders: My Active Orders 10/20/20 14:15 Out of bed 3+ hours today [RC] TID 10/21/20 08:00 Ferrous Gluconate [Fergon] 324 mg PO DAILYWM 10/21/20 Lunch Soft (Low Fiber) Diet [DIET] 10/22/20 05:00 BMP - BASIC METABOLIC PANEL [CHEM] DAILYLAB CBC - COMP BLD CT W/AUTO DIFF [HEME] DAILYLAB 10/23/20 05:00 BMP - BASIC METABOLIC PANEL [CHEM] DAILYLAB CBC - COMP BLD CT W/AUTO DIFF [HEME] DAILYLAB 10/24/20 05:00 BMP - BASIC METABOLIC PANEL [CHEM] DAILYLAB CBC - COMP BLD CT W/AUTO DIFF [HEME] DAILYLAB 10/25/20 05:00 BMP - BASIC METABOLIC PANEL [CHEM] DAILYLAB CBC - COMP BLD CT W/AUTO DIFF [HEME] DAILYLAB 10/26/20 05:00 BMP - BASIC METABOLIC PANEL [CHEM] DAILYLAB CBC - COMP BLD CT W/AUTO DIFF [HEME] DAILYLAB Subjective - Subjective Patient Reports: Feeling Better, Dizzines Objective Vital Signs: Vital Signs - 24 hr 10/20/20 10/20/20 10/20/20 15:01 18:45 22:02 Temperature 37 C 36.7 C 36.6 C Heart Rate [ 96 92 91 Brachial] Respiratory 16 18 18 Rate Blood Pressure [Left Brachial artery] Blood Pressure 145/72 H 149/78 H 143/82 H [Right Brachial artery] O2 Saturation 95 98 94 10/20/20 10/21/20 10/21/20 23:28 06:00 10:00 Temperature 36.5 C 36.6 C 36.8 C Heart Rate [ 92 89 87 Brachial] Respiratory 16 20 16 Rate Blood Pressure 149/81 H [Left Brachial artery] Blood Pressure 138/76 H 131/71 H [Right Brachial artery] O2 Saturation 97 96 95 10/21/20 12:16 Temperature 36.8 C Heart Rate [ 93 Brachial] Respiratory 18 Rate Blood Pressure [Left Brachial artery] Blood Pressure 148/74 H [Right Brachial artery] O2 Saturation 96 Oxygen O2 Source Room air I&O (Last 24 Hrs): Intake and Output Totals x24h 10/19/20 10/20/20 10/21/20 23:59 23:59 23:59 Intake Total 3180 3310 1190 Output Total 901 1 Balance 3180 2409 1189 General: Alert, Cooperative, No acute distress HEENT: Atraumatic, PERRLA Neck: Supple Lymphatic: no adenopathy Neuro: Alert, Non Focal Cardiovascular: Regular rate, Normal S1, Normal S2 Respiratory: Chest non-tender, No respiratory distress Abdomen: Normal bowel sounds, Soft, No tenderness Extremities: Normal pulses - Results Results: Laboratory Results WBC 6.5 x10^3/uL (4.8-10.8) 10/21/20 04:12 RBC 3.00 10^6/uL (4.20-5.40) L 10/21/20 04:12 Hgb 8.8 g/dL (12.0-16.0) L 10/21/20 04:12 Hct 25.2 % (37.0-47.0) L 10/21/20 04:12 MCV 84.0 fL (81.0-99.0) 10/21/20 04:12 MCH 29.3 pg (27.0-31.0) 10/21/20 04:12 MCHC 34.9 g/dL (32.0-36.0) 10/21/20 04:12 RDW 12.4 % (12.0-15.0) 10/21/20 04:12 Plt Count 236 10^3/uL (130-450) 10/21/20 04:12 MPV 10.4 fL (7.9-10.8) 10/21/20 04:12 Reticulocyte % (Auto) 2.16 % (0.5-2.3) 10/20/20 04:28 Neut # (Auto) 3.8 10^3/uL (1.5-6.6) 10/21/20 04:12 Lymph # (Auto) 1.6 10^3/uL (1.5-3.5) 10/21/20 04:12 [place] # (Auto) 0.8 10^3/uL (0.0-1.0) 10/21/20 04:12 Eos # (Auto) 0.2 10^3/uL (0.0-0.7) 10/21/20 04:12 Baso # (Auto) 0.0 10^3/uL (0.0-0.1) 10/21/20 04:12 Absolute Nucleated RBC 0.00 x10^3/uL 10/21/20 04:12 Nucleated RBC % 0.0 /100WBC 10/21/20 04:12 Absolute Retic 0.067 10^6/uL (0.020-0.110) 10/20/20 04:28 VBG pH 7.367 (7.31-7.41) 10/15/20 06:06 VBG pCO2 35.9 mmHg (41-51) L 10/15/20 06:06 VBG pO2 74.9 mmHg (25-47) H 10/15/20 06:06 VBG HCO3 20.1 mmol/L (23-28) L 10/15/20 06:06 VBG Total CO2 21.3 mmol/L (24-29) L 10/15/20 06:06 VBG O2 Saturation 93.6 % (60-80) H 10/15/20 06:06 VBG Base Excess -4.6 mmol/L (-2 - +2) L 10/15/20 06:06 Sodium 136 mmol/L (135-145) 10/21/20 04:12 Potassium 3.5 mmol/L (3.5-5.0) 10/21/20 04:12 Chloride 103 mmol/L (101-111) 10/21/20 04:12 Carbon Dioxide 25 mmol/L (21-32) 10/21/20 04:12 Anion Gap 8.0 (6-13) 10/21/20 04:12 BUN 11 mg/dL (6-20) 10/21/20 04:12 Creatinine 1.2 mg/dL (0.4-1.0) H 10/21/20 04:12 Estimated GFR (MDRD) 46 (>89) L 10/21/20 04:12 Glucose 216 mg/dL (70-100) H 10/21/20 04:12 POC Whole Bld Glucose 169 mg/dL (70 - 100) H 10/21/20 11:26 Estimat Average Glucose 212 mg/dL (70-100) H 10/15/20 06:06 Hemoglobin A1c % 9.0 % (4.27-6.07) H 10/15/20 06:06 Calcium 8.5 mg/dL (8.5-10.3) 10/21/20 04:12 Phosphorus 3.3 mg/dL (2.5-4.6) 10/17/20 07:30 Magnesium 1.8 mg/dL (1.7-2.8) 10/19/20 05:30 Iron 28 ug/dL (28-170) 10/20/20 04:28 TIBC 214 ug/dL (250-450) L 10/20/20 04:28 % Saturation 13 % (20-50) L 10/20/20 04:28 Transferrin 153 mg/dL (192-382) L 10/20/20 04:28 Ferritin 102.0 ng/mL (11.0-306.8) 10/20/20 04:28 Total Bilirubin 0.6 mg/dL (0.2-1.0) 10/15/20 06:06 AST 18 IU/L (10-42) 10/15/20 06:06 ALT 21 IU/L (10-60) 10/15/20 06:06 Alkaline Phosphatase 34 IU/L (42-121) L 10/15/20 06:06 Lactate Dehydrogenase 224 IU/L (91-225) 10/20/20 04:28 Troponin I High Sens 7.3 ng/L (2.3-14.8) 10/16/20 10:42 C-Reactive Protein < 1.0 mg/dL (0-1.0) 10/19/20 05:30 Total Protein 5.3 g/dL (6.7-8.2) L 10/15/20 06:06 Albumin 3.0 g/dL (3.2-5.5) L 10/15/20 06:06 Globulin 2.3 g/dL (2.1-4.2) 10/15/20 06:06 Albumin/Globulin Ratio 1.3 (1.0-2.2) 10/15/20 06:06 Lipase 49 U/L (22-51) 10/14/20 18:20 Vitamin B12 2929 pg/mL (180-914) H 10/20/20 04:28 Urine Color YELLOW 10/14/20 20:11 Urine Clarity CLEAR (CLEAR) 10/14/20 20:11 Urine pH 6.0 PH (5.0-7.5) 10/14/20 20:11 Ur Specific [place] 1.020 (1.002-1.030) 10/14/20 20:11 Urine Protein 100 mg/dL (NEGATIVE) H 10/14/20 20:11 Urine Glucose (UA) >=1000 mg/dL (NEGATIVE) H 10/14/20 20:11 Urine Ketones 15 mg/dL (NEGATIVE) H 10/14/20 20:11 Urine Occult Blood SMALL (NEGATIVE) H 10/14/20 20:11 Urine Nitrite NEGATIVE (NEGATIVE) 10/14/20 20:11 Urine Bilirubin NEGATIVE (NEGATIVE) 10/14/20 20:11 Urine Urobilinogen 0.2 (NORMAL) E.U./dL (NORMAL) 10/14/20 20:11 Ur Leukocyte Esterase NEGATIVE (NEGATIVE) 10/14/20 20:11 Urine RBC 0-5 /HPF (0-5) 10/14/20 20:11 Urine WBC 4-5 /HPF (0-5) 10/14/20 20:11 Ur Squamous Epith Cells FEW Squamous (<= Few) 10/14/20 20:11 Urine Bacteria Few /HPF (None Seen) 10/14/20 20:11 Ur Microscopic Review INDICATED 10/14/20 20:11 Urine Culture Comments NOT INDICATED 10/14/20 20:11 Nasal Adenovirus (PCR) NOT DETECTED 10/14/20 20:44 Nasal B. parapertussis DNA (PCR) NOT DETECTED 10/14/20 20:44 Nasal Coronavir 229E PCR NOT DETECTED 10/14/20 20:44 Nasal Coronavir HKU1 PCR NOT DETECTED 10/14/20 20:44 Nasal Coronavir NL63 PCR NOT DETECTED 10/14/20 20:44 Nasal Coronavir OC43 PCR NOT DETECTED 10/14/20 20:44 Nasal Enterovir/Rhinovir PCR DETECTED A 10/14/20 20:44 Nasal Influenza B PCR NOT DETECTED 10/14/20 20:44 Nasal Influenza A PCR NOT DETECTED 10/14/20 20:44 Nasal Parainfluen 1 PCR NOT DETECTED 10/14/20 20:44 Nasal Parainfluen 2 PCR NOT DETECTED 10/14/20 20:44 Nasal Parainfluen 3 PCR NOT DETECTED 10/14/20 20:44 Nasal Parainfluen 4 PCR NOT DETECTED 10/14/20 20:44 Nasal RSV (PCR) NOT DETECTED 10/14/20 20:44 Nasal Screen MRSA (PCR) NEGATIVE (NEGATIVE) 02/18/21 22:10 Nasal B.pertussis DNA PCR NOT DETECTED 10/14/20 20:44 Nasal C.pneumoniae (PCR) NOT DETECTED 10/14/20 20:44 Chan Human Metapneumo PCR NOT DETECTED 10/14/20 20:44 Nasal M.pneumoniae (PCR) NOT DETECTED 10/14/20 20:44 Nasal SARS-CoV-2 (PCR) NOT DETECTED 10/14/20 20:44 Urine Opiates Screen NEGATIVE (NEGATIVE) 10/14/20 20:11 Ur Oxycodone Screen NEGATIVE (NEGATIVE) 10/14/20 20:11 Urine Methadone Screen NEGATIVE (NEGATIVE) 10/14/20 20:11 Ur Propoxyphene Screen NEGATIVE (NEGATIVE) 10/14/20 20:11 Ur Barbiturates Screen NEGATIVE (NEGATIVE) 10/14/20 20:11 Ur Tricyclics Screen NEGATIVE (NEGATIVE) 10/14/20 20:11 Ur Phencyclidine Scrn NEGATIVE (NEGATIVE) 10/14/20 20:11 Ur Amphetamine Screen NEGATIVE (NEGATIVE) 10/14/20 20:11 U Methamphetamines Scrn NEGATIVE (NEGATIVE) 10/14/20 20:11 U Benzodiazepines Scrn NEGATIVE (NEGATIVE) 10/14/20 20:11 Urine Cocaine Screen NEGATIVE (NEGATIVE) 10/14/20 20:11 U Cannabinoids Screen NEGATIVE (NEGATIVE) 10/14/20 20:11 Serum Ketones NEGATIVE (NEGATIVE) 10/15/20 06:06 ABX Reporting Has patient been on IV antibiotics over the past 48 hours?: Yes Current Medications - Current Medications Current Medications: Active Medications Acetaminophen (Acetaminophen 325 Mg Tablet) 650 mg PO Q4HR PRN PRN Reason: Pain 1 to 4 Last Admin: 10/21/20 13:19 Dose: 650 mg Documented by: Amlodipine Besylate (Amlodipine 5 Mg Tablet) 10 mg PO DAILY [facility] Last Admin: 10/21/20 09:05 Dose: 10 mg Documented by: Aspirin (Aspirin Ec 81 Mg Tablet) 81 mg PO DAILY [facility] Last Admin: 10/21/20 09:05 Dose: 81 mg Documented by: Atorvastatin Calcium (Atorvastatin 10 Mg Tablet) 20 mg PO HS [facility] Last Admin: 10/20/20 21:00 Dose: 20 mg Documented by: Duloxetine HCl (Duloxetine 30 Mg Capsule) 60 mg PO DAILY [facility] Last Admin: 10/21/20 09:08 Dose: 60 mg Documented by: Erythromycin (Erythromycin Base Dr 250 Mg Tablet) 250 mg PO Q6HR [facility] Last Admin: 10/21/20 12:07 Dose: 250 mg Documented by: Ferrous Gluconate (Ferrous Gluconate 324 Mg Tablet) 324 mg PO DAILYWM [facility] Last Admin: 10/21/20 09:08 Dose: 324 mg Documented by: Hydralazine HCl (Hydralazine Inj 20 Mg/Ml Vial) 10 mg IVP Q4H PRN PRN Reason: Hypertensive Emergency Ceftriaxone Sodium 2 gm/ (Sodium Chloride) 100 mls @ 200 mls/hr IV DAILY [facility] Last Infusion: 10/21/20 09:43 Dose: Infused Documented by: Metronidazole (Flagyl 500 Mg/100 Ml) 500 mg in 100 mls @ 100 mls/hr IV Q8H [facility] Last Infusion: 10/21/20 07:06 Dose: Infused Documented by: Sodium Chloride (Normal Saline 0.9%) 1,000 mls @ 100 mls/hr IV .Q10H [facility] Stop: 10/22/20 10:59 Insulin Aspart (Insulin Aspart 300 Unit/3 Ml Pen) 3 - 11 unit SUBQ 0800,1200,1700,2100 [facility]; Protocol Insulin Glargine (Insulin Glargine 300 Unit/3 Ml Pen) 12 unit SUBQ BID [facility] Last Admin: 10/21/20 08:17 Dose: 12 unit Documented by: Ondansetron HCl (Ondansetron 4 Mg/2 Ml Vial) 4 mg IVP Q6HR PRN PRN Reason: Nausea / Vomiting Last Admin: 10/20/20 13:11 Dose: 4 mg Documented by: Oxycodone HCl (Oxycodone 5 Mg Tablet) 5 mg PO Q4HR PRN PRN Reason: Pain 5 to 7 Last Admin: 10/20/20 02:41 Dose: 5 mg Documented by: Pantoprazole Sodium (Pantoprazole 40 Mg Vial) 40 mg IVP QDAC [facility] Last Admin: 10/21/20 06:02 Dose: 40 mg Documented by: Polyethylene Glycol (Polyethylene Glycol 3350 17 Gm Packet) 17 gm PO DAILY [facility] Last Admin: 10/21/20 09:09 Dose: Not Given Documented by: Pregabalin (Pregabalin 100 Mg Capsule) 100 mg PO TID [facility] Last Admin: 10/21/20 13:12 Dose: 100 mg Documented by: Prochlorperazine Edisylate (Prochlorperazine 10 Mg/2 Ml Vial) 10 mg IVP Q6HR PRN PRN Reason: Nausea / Vomiting Last Admin: 10/20/20 04:25 Dose: 10 mg Documented by: Saccharomyces Boulardii (Saccharomyces Boulardii 250 Mg Capsule) 250 mg PO BIDWM [facility] Last Admin: 10/21/20 09:05 Dose: 250 mg Documented by: Sodium Chloride (Sodium Chloride Flush 0.9% 10 Ml Syringe) 10 ml IVP 0100,0900,1700 [facility] Last Admin: 10/21/20 09:09 Dose: 10 ml Documented by: Sodium Chloride (Sodium Chloride Flush 0.9% 10 Ml Syringe) 10 ml IVP PRN PRN PRN Reason: NEEDED PER PROVIDER ORDERS Last Admin: 10/21/20 06:02 Dose: 10 ml Documented by: Albuterol Sulfate [Proair Hfa Inhaler] 2 - 4 puffs INH PRN PRN 10/15/20 Fluticasone [Flonase] 2 sprays CHAN DAILY PRN 10/15/20
[2020-10-21] MEDS: SODIUM CHLORIDE 0.9% 1,000 ML IV SCH (15:00)
[2020-10-21] MEDS: ATORVASTATIN 10 MG TABLET PO SCH (21:23)
[2020-10-22] MEDS: ERYTHROMYCIN BASE DR 250 MG TABLET PO SCH ×3 (00:05→12:05)
[2020-10-22] MEDS: SODIUM CHLORIDE FLUSH 0.9% 10 ML SYRINGE IVP SCH ×2 (00:05→09:18)
[2020-10-22] MEDS: SODIUM CHLORIDE 0.9% 1,000 ML IV SCH (02:57)
[2020-10-22] MEDS: ACETAMINOPHEN 325 MG TABLET PO PRN (03:01)
[2020-10-22 05:13] LABS: BASOPHILS % (AUTO) 0.5 %; EOSINOPHILS # (AUTO) 0.2 10^3/uL (0.0-0.7); EOSINOPHILS % (AUTO) 3.6 %; HCT - HEMATOCRIT 23.9 % (37.0-47.0); HGB - HEMOGLOBIN 8.4 g/dL (12.0-16.0); LYMPHOCYTES # (AUTO) 1.8 10^3/uL (1.5-3.5); LYMPHOCYTES % (AUTO) 28.8 %; MEAN CORPUSCULAR HEMOGLOBIN 29.1 pg (27.0-31.0); MEAN CORPUSCULAR HGB CONC 35.1 g/dL (32.0-36.0); MEAN CORPUSCULAR VOLUME 82.7 fL (81.0-99.0); MEAN PLATELET VOLUME 10.4 fL (7.9-10.8); MONOCYTES # (AUTO) 0.8 10^3/uL (0.0-1.0); MONOCYTES % (AUTO) 12.8 %; NEUTROPHILS # (AUTO) 3.4 10^3/uL (1.5-6.6); NEUTROPHILS % (AUTO) 53.7 %; PLT - PLATELET COUNT 273 10^3/uL (130-450); RED BLOOD COUNT 2.89 10^6/uL (4.20-5.40); RED CELL DISTRIBUTION WIDTH 12.2 % (12.0-15.0); WHITE BLOOD COUNT 6.4 x10^3/uL (4.8-10.8)
[2020-10-22 05:22] LABS: CALCIUM 8.6 mg/dL (8.5-10.3); CREATININE 1.1 mg/dL (0.4-1.0); POTASSIUM 3.4 mmol/L (3.5-5.0)
[2020-10-22] MEDS: PREGABALIN 100 MG CAPSULE PO SCH ×2 (06:26→13:38)
[2020-10-22] MEDS: metroNIDAZOLE 500 MG/100 ML 500 MG/100 ML BAG IV SCH (06:27)
[2020-10-22] MEDS: PANTOPRAZOLE 40 MG VIAL IVP SCH (06:28)
[2020-10-22] MEDS: SODIUM CHLORIDE FLUSH 0.9% 10 ML SYRINGE IVP PRN (06:28)
[2020-10-22 08:29] VITALS: BP 120/69
[2020-10-22] MEDS: INSULIN ASPART 300 UNIT/3 ML PEN SUBQ SCH ×2 (09:15→12:05)
[2020-10-22] MEDS: SACCHAROMYCES BOULARDII 250 MG CAPSULE PO SCH (09:15)
[2020-10-22] MEDS: amLODIPine 5 MG TABLET PO SCH (09:15)
[2020-10-22] MEDS: FERROUS GLUCONATE 324 MG TABLET PO SCH (09:15)
[2020-10-22] MEDS: DULoxetine 30 MG CAPSULE PO SCH (09:16)
[2020-10-22] MEDS: ASPIRIN EC 81 MG TABLET PO SCH (09:16)
[2020-10-22] MEDS: cefTRIAXone 2 GM in SODIUM CHLORIDE 0.9% MINIBAG 100 ML IV SCH (09:16)
[2020-10-22] MEDS: polyethylene glycoL 3350 17 GM PACKET PO SCH (09:17)
[2020-10-22] MEDS: INSULIN GLARGINE 300 UNIT/3 ML PEN SUBQ SCH (09:18)
--- NOTE | 2020-10-22 12:24 | Discharge Plan ---
Discharge Plan Problem Reviewed?: Yes Disposition: Home, Self Care Condition: Stable Prescriptions: Erythromycin [Jj-Tab] 250 mg PO Q6HR #120 tab Ferrous Gluconate [Fergon] 324 mg PO DAILYWM #30 tab Insulin Glargine [Lantus Solostar] 10 unit SUBQ BID #1 pe Insulin Aspart [NovoLOG] 5 unit SUBQ TIDWM #1 pe Diet: Diabetic (Eat a soft, low fiber diet, advance as tolerated.) Activity Restrictions: Activity as Tolerated Instruction Topics: ED Diabetic Gastroparesis Health Concerns: You were hospitalized for nausea, vomiting, colitis, gastroparesis, DKA and dizziness from fluid depletion. Please follow the new list of medications, some of your medication doses have been changed, and new prescriptions were electronically sent to your pharmacy. Please see your Primary Care Provider in the next 1 to 2 weeks for hospital follow-up and the Diabetic Nurse as arranged. Plan of Treatment: As above. Care Goals: Improvement in symptoms and stabilization of the goals. Assessment: Written instructions were provided at discharge, as a reminder. Additional Instructions or Follow Up instructions: If you have new or worsening symptoms, call your PCP for advice or come to the ER. Follow-Up Care: [facility] - Diabetes Ed No Smoking: If you smoke, Please STOP! Call for help. Follow-up with: Gt Cantu MD [Primary Care Provider] -
--- NOTE | 2020-10-22 12:43 | DISCHARGE SUMMARY ---
Discharge Summary Admit Date: 10/14/20 Discharge Date: 10/22/20 Discharging Provider: Dr Jason Primary Care Provider: Dr Cantu Code Status: Attempt Resuscitation Condition at Discharge: Stable Discharge Disposition: 01 Home, Self Care - HPI History of Present Illness: From the admission H&P of Dr Natalie Bauman: This patient recently moved to [facility] from [place] in July 2020. 2 weeks after moving here she was seen in our emergency room and admitted for DKA. In [place] she has frequent bouts of DKA and was at the hospital at [facility] in [place] in May 2020 for DKA. Although she had a glucose pump and monitor with her July 2020 admission, the monitor was malfunctioning. She was discharged August 19 with her diagnosis of resolved DKA, stable gastroparesis, metabolic encephalopathy that had resolved, pyelonephritis that improved, stable fibromyalgia and resolved acute kidney injury. Erythromycin was used for her nausea and vomiting after a trial of Reglan to avoid extraparametal complications. She was not discharged on erythromycin. She was able to see her primary care provider to establish herself in his practice on August 30. She was already starting to complain of nausea because she was out of her Protonix and her Reglan. She was hypoglycemic to the 40s at times. Her medications were renewed. She was referred to gastroenterology, rheumatology, and ophthalmology. She was then seen in follow-up September 13 and was doing well. Back on her Reglan. Was having a little bit of frequent urination and was worried about a UTI. She is not on the pump. She is on Lantus 12 units subcu twice daily, and NovoLog FlexPen 8 units 3 times a day with meals as well as sliding scale adjustments. She was given Bactrim for symptoms of cystitis. She now returns to the emergency room with 3 days of abdominal pain with nausea and vomiting. The abdominal pain is generalized, mild. She says is her usual discomfort that she gets with DKA. She thinks it is her gastroparesis bothering her. Temperature was 36.6. Heart rate 88. Blood pressure 161/90, respirations 18 and 95% on room air. She was rating her pain score a 10 out of a 10. Her sodium was 129. Potassium 3.6. BUN 61 and creatinine 1.7. BUN is usually in the teens and creatinine is usually 1.0 or less. Random glucose is 592. Liver enzymes normal. CBC is normal. Venous blood gas has a pH of 7.3 and urinalysis has ketonuria, no leukocyte esterase/negative nitrites/squamous cells, few bacteria, culture will be done. Urine tox screen is negative other than small ketones. - HOSPITAL COURSE Hospital Course: (1) Diabetic ketoacidosis She was started on a DKA treatment protocol with Insulin and iv fluids until her ketones resolved, glucose and hyponatremia improved. The cause was felt to be dehydration, colitis and gastroenteritis vs gastroparesis. (2) Insulin dependent diabetes mellitus Patient had A1c of 9. She was managed with her home Lantus Insulin and sliding scale Insulin coverage. She had some hypoglycemia from the slow resumption of her diet. Her doses were adjusted at discharge. (3) Acute kidney injury She was on iv fluids throughout this stay. There was slow improvement in her BUN/creat. (4) Nausea and vomiting Patient had many days of nausea and vomiting and some abdominal pain from retching, which only improved with iv pain antiemetics and iv pain meds. Jazmyn ent has a history of diabetic gastroparesis. She underwent an EGD and colonoscopy which was unremarkable per General Surgeon's report. It was likely the patient's gastroparesis. Because she has hx of psychomotor abnormality, we held the Reglan and started her on Erythomycin. She eventually started a full liquid diet that was slowly advanced. We continued protonix. New Erythomycin was ordered after discharge. (5) Colitis Patient reported 9 out of 10 pain in the lower left quadrant. CT was obtained which was consistent with colitis, most prominent in the proximal colon. She was on empiric iv antibiotics, probiotics and iv pain meds. Given the severity of her pain, General Surgery was consulted. 2atient had an EGD and colonoscopy which was unremarkable per the Surgeon's report. Her abdominal pain slowly decreased. (6) Gastroparesis Patient has history of gastroparesis for which she uses Reglan. Because patient has a history of psychomotor problems, we held the Reglan, used antiemetics and started her on scheduled Erythomycin, which helped. New Erythomycin was ordered after discharge. (7) Orthostatic dizziness Patient was reported to have orthostatic dizziness near the end of hospitalization and her orthostatic blood pressure checks were abnormal. This delayed her discharge by a day. She received an additional day of iv hydration and her Lisinopril was put on hold. She was educated on how to prevention falls. (8) Chest pain Resolved. Work-up including EKG, chest x-ray, and troponin which were unremarkable. (9) Hypertension BP was stable when we resumed her antihypertensives. (10) Cognitive deficits She does have mild cognitive impairment and psychomotor slowing which has been an ongoing problem for her. We have recommended outpatient follow-up with neurology for further work-up including MRI. (11) Fibromyalgia We continued her home Cymbalta. - ALLERGIES Allergies/Adverse Reactions: Allergies Allergy/AdvReac Type Severity Reaction Status Date / Time No Known Drug Allergies Allergy Verified 10/14/20 18:26 - MEDICATIONS Home Medications: Ambulatory Orders Medication Instructions Recorded Confirmed Aspirin EC [Ecotrin] 81 mg PO DAILY #30 tablet 08/19/20 10/15/20 Atorvastatin [Lipitor] 20 mg PO HS #30 tablet 08/19/20 10/15/20 DULoxetine [Cymbalta] 60 mg PO DAILY #60 capsule 08/19/20 10/15/20 Pantoprazole [Protonix] 40 mg PO DAILY #30 tablet 08/19/20 10/15/20 Pregabalin [Lyrica] 100 mg PO TID #90 capsule 08/19/20 10/15/20 lisinopriL [Zestril] 5 mg PO DAILY #30 tablet 08/19/20 10/15/20 Albuterol Sulfate [Proair Hfa 2 - 4 puffs INH PRN PRN 10/15/20 10/15/20 Inhaler] Fluticasone [Flonase] 2 sprays CHAN DAILY PRN 10/15/20 10/15/20 Erythromycin [Jj-Tab] 250 mg PO Q6HR #120 tab 10/22/20 Ferrous Gluconate [Fergon] 324 mg PO DAILYWM #30 tab 10/22/20 Insulin Aspart [NovoLOG] 5 unit SUBQ TIDWM #1 pe 10/22/20 Insulin Glargine [Lantus Solostar] 10 unit SUBQ BID #1 pe 10/22/20 Pregabalin [Lyrica] 100 mg PO TID #90 cap 10/22/20 - PHYSICAL EXAM AT DISCHARGE General Appearance: positive: No acute distress, Alert Eyes Bilateral: positive: Normal inspection, EOMI ENT: positive: ENT inspection nml, No signs of dehydration Neck: positive: Nml inspection, No JVD Respiratory: positive: No respiratory distress, Breath sounds nml Cardiovascular: positive: Regular rate & rhythm, No murmur Abdomen: positive: Non-tender, Nml bowel sounds, No distention Skin: positive: Warm, Dry Extremities: positive: Non-tender, No pedal edema Neurologic/Psychiatric: positive: Oriented x3 (Non-focal exam) - LABS Result Diagrams: 10/22/20 04:30 10/22/20 04:30 - DIAGNOSTIC IMAGING Diagnostic Imaging Results: Final report reviewed - FOLLOW UP Follow Up: See PCP in 1-2 weeks for hospital follow-up. - TIME SPENT Time Spent in Discharge (Minutes): 45
== END 2020-10-22 14:10 | disposition home or self-care (01) | DRG 637 ==
LOC: ED 18:06 → ICU 21:02 → OBSVTOIN 10-16 14:21 → MS2 10-16 18:09
PROVIDERS: ADMIT Internal Medicine; ATTEND Internal Medicine
PROC: 0DB78ZX Excision of Stomach, Pylorus, Via Natural or Artificial Opening Endoscopic, Diagnostic (ICD-10-PCS; 2020-10-20)
PROC: 0DB58ZX Excision of Esophagus, Via Natural or Artificial Opening Endoscopic, Diagnostic (ICD-10-PCS; 2020-10-20)
PROC: 0DBE8ZX Excision of Large Intestine, Via Natural or Artificial Opening Endoscopic, Diagnostic (ICD-10-PCS; principal; 2020-10-20 07:30)
PROC: 0DB98ZX Excision of Duodenum, Via Natural or Artificial Opening Endoscopic, Diagnostic (ICD-10-PCS; 2020-10-20 07:30)
DX: E10.10 Type 1 diabetes mellitus with ketoacidosis without coma (principal); G93.41 Metabolic encephalopathy; N17.9 Acute kidney failure, unspecified; G31.84 Mild cognitive impairment of uncertain or unknown etiology; R06.6 Hiccough; G47.30 Sleep apnea, unspecified; E10.42 Type 1 diabetes mellitus with diabetic polyneuropathy; R32 Unspecified urinary incontinence; K52.9 Noninfective gastroenteritis and colitis, unspecified; E10.43 Type 1 diabetes mellitus with diabetic autonomic (poly)neuropathy; K31.84 Gastroparesis; M79.7 Fibromyalgia; R07.81 Pleurodynia; R11.2 Nausea with vomiting, unspecified; I95.1 Orthostatic hypotension; D72.829 Elevated white blood cell count, unspecified; E10.22 Type 1 diabetes mellitus with diabetic chronic kidney disease; I12.9 Hypertensive chronic kidney disease with stage 1 through stage 4 chronic kidney disease, or unspecified chronic kidney disease; N18.2 Chronic kidney disease, stage 2 (mild); R27.8 Other lack of coordination; Z91.81 History of falling; Z20.822 Contact with and (suspected) exposure to COVID-19; R46.4 Slowness and poor responsiveness
CPT/HCPCS: 0202U; 36415; 71045; 74177; 80048; 80053; 80306; 81001; 82009; 82607; 82728; 82803; 83036; 83540; 83615; 83690; 83735; 84100; 84466; 84484; 85025; 85045; 86140; 87150; 93005; 96365; 96366; 96367; 96368; 96375; 96376; 97116; 97161; 97530; 99285; A9270; G0378; J1170; J1815; J3490; J7040; J7120; Q9967; 81003; 87086

== ENCOUNTER 2020-11-24 12:36 | Outpatient (CLI) | payer MEDICAID ==
[2020-11-24 18:13] LABS: BASOPHILS # (AUTO) 0.1 10^3/uL (0.0-0.1); EOSINOPHILS # (AUTO) 0.2 10^3/uL (0.0-0.7); EOSINOPHILS % (AUTO) 4.2 %; HCT - HEMATOCRIT 32.8 % (37.0-47.0); HGB - HEMOGLOBIN 10.8 g/dL (12.0-16.0); LYMPHOCYTES # (AUTO) 1.9 10^3/uL (1.5-3.5); LYMPHOCYTES % (AUTO) 33.4 %; MEAN CORPUSCULAR HGB CONC 32.9 g/dL (32.0-36.0); MEAN CORPUSCULAR VOLUME 88.2 fL (81.0-99.0); MEAN PLATELET VOLUME 12.5 fL (7.9-10.8); MONOCYTES # (AUTO) 0.5 10^3/uL (0.0-1.0); MONOCYTES % (AUTO) 9.2 %; NEUTROPHILS % (AUTO) 51.9 %; PLT - PLATELET COUNT 232 10^3/uL (130-450); RED BLOOD COUNT 3.72 10^6/uL (4.20-5.40); RED CELL DISTRIBUTION WIDTH 13.1 % (12.0-15.0); WHITE BLOOD COUNT 5.8 x10^3/uL (4.8-10.8)
[2020-11-24 18:50] LABS: ALBUMIN 3.5 g/dL (3.2-5.5); ALBUMIN/GLOBULIN RATIO 1.1 (1.0-2.2); ALKALINE PHOSPHATASE 36 IU/L (42-121); ALT ALANINE AMINOTRANSFERASE 20 IU/L (10-60); AST ASPARTATE AMINOTRANSFERASE 23 IU/L (10-42); BILIRUBIN,TOTAL 0.7 mg/dL (0.2-1.0); BUN - BLOOD UREA NITROGEN 26 mg/dL (6-20); CALCIUM 9.5 mg/dL (8.5-10.3); CARBON DIOXIDE - CO2 29 mmol/L (21-32); CHLORIDE 106 mmol/L (101-111); CHOL/HDL RATIO 3.9 (<4.4); CHOLESTEROL 236 mg/dL; CREATININE 1.2 mg/dL (0.4-1.0); GFR - MDRD 46 (>89); GLUCOSE 167 mg/dL (70-100); HDL CHOLESTEROL 61 mg/dL; LDL CHOLESTEROL,CALCULATED 139 mg/dL; LDL/HDL RATIO 2.3 (<4.4); POTASSIUM 4.1 mmol/L (3.5-5.0); SODIUM 142 mmol/L (135-145); TOTAL PROTEIN 6.6 g/dL (6.7-8.2); TRIGLYCERIDES 178 mg/dL; VLDL CHOLESTEROL 36 mg/dL
[2020-11-24 19:27] LABS: CREATININE,URINE 135.1 mg/dL; MICROALBUM/CREATININE RATIO,UR 3868.2 ug/mg (<30.0); MICROALBUMIN,URINE 522.6 mg/dL (0-300.0)
[2020-11-24 20:07] LABS: ESTIMATED AVERAGE GLUCOSE 203 mg/dL (70-100); HEMOGLOBIN A1c% 8.7 % (4.27-6.07)
== END 2020-11-24 12:37 | disposition home or self-care (01) ==
LOC: LAB.N 12:36
PROVIDERS: ATTEND Internal Medicine
DX: E87.6 Hypokalemia (principal); E10.65 Type 1 diabetes mellitus with hyperglycemia; D64.9 Anemia, unspecified
CPT/HCPCS: 36415; 80053; 80061; 82043; 82570; 83036; 83721; 85025